=== PATIENT | male | born 1995 | race Caucasian/White ===

== ENCOUNTER 2016-07-04 15:40 | Emergency (ER) | payer MEDICAID, OTHER ==
[~2016-07-04] VITALS: Ht 182.9 cm; Wt 108.9 kg
[~2016-07-04 15:40] MED LIST: DEPA500T2 PO; NIZO2SHA EX; No home meds
[2016-07-04] MEDS ORDERED: WELLTAB38 PO (15:48)
[2016-07-04 18:54] VITALS: BP 116/57
--- NOTE | 2016-07-05 07:11 | REP ---
RIGHT FOOT, FOUR VIEWS: HISTORY: Pain. There is no acute fracture or dislocation. The joint spaces are normal in appearance. IMPRESSION: There is no acute fracture or dislocation. Signed by Guillaume Zavala MD 07/05/2016 08:26 A
== END 2016-07-04 18:55 | disposition home or self-care (01) ==
LOC: M ED 17:32
DX: M79.671 Pain in right foot (principal); F33.9 Major depressive disorder, recurrent, unspecified; J45.909 Unspecified asthma, uncomplicated

== ENCOUNTER → 2016-07-12 | Outpatient (CLI) | payer OTHER ==
[~2016-07-12] MED LIST changes: +WELLTAB38 PO
[2016-07-12 11:55] LABS: BASO # 0.1 K/mm3 (0.0-0.2); BASO % 1.1 % (0.0-1.0); EOS # 0.2 K/mm3 (0.0-0.50); EOS % 2.5 % (0.0-3.0); LYMPH # 1.8 K/mm3 (1.5-6.5); LYMPH % 26.8 % (24.0-44.0); MEAN CORPUSCULAR HGB CONC 33.7 g/dl (32.0-36.5); MEAN CORPUSCULAR VOLUME 88.9 fl (80.0-96.0); MONO # 0.4 K/mm3 (0.0-0.8); MONO % 7.2 % (0.0-5.0); NEUTROPHILS # 3.7 K/mm3 (1.8-7.7); NEUTROPHILS % 60.4 % (36.0-66.0); RED CELL DISTRIBUTION WIDTH 12.5 % (11.5-14.5); WHITE BLOOD COUNT 6.1 K/mm3 (4.0-10.0)
[2016-07-12 12:26] LABS: ALKALINE PHOSPHATASE 72 U/L (45-117); ALT/SGPT 28 U/L (12-78); ANION GAP 6 MEQ/L (8-16); AST/SGOT 19 U/L (15-37); BILIRUBIN,TOTAL 0.2 MG/DL (0.2-1.0); BLOOD UREA NITROGEN 11 MG/DL (7-18); CALCIUM LEVEL 8.6 MG/DL (8.5-10.1); CARBON DIOXIDE LEVEL 30 MEQ/L (21-32); CHLORIDE LEVEL 104 MEQ/L (98-107); CHOLESTEROL LEVEL 131 MG/DL (<200); CREATININE FOR GFR 0.93 MG/DL (0.70-1.30); GLOMERULAR FILTRATION RATE > 60.0 (>60); GLUCOSE, FASTING 102 MG/DL (70-105); POTASSIUM SERUM 4.2 MEQ/L (3.5-5.1); SODIUM LEVEL 140 MEQ/L (136-145); TRIGLYCERIDES LEVEL 118 MG/DL (<150)
[2016-07-12 12:27] LABS: ALBUMIN/GLOBULIN RATIO 1.25 (1.00-1.93); TOTAL PROTEIN 7.2 GM/DL (6.4-8.2)
== END ==
LOC: M LAB 11:00
PROVIDERS: ATTEND Nurse Practitioner Adult Health
DX: F41.9 Anxiety disorder, unspecified (principal); F31.9 Bipolar disorder, unspecified; E55.9 Vitamin D deficiency, unspecified; Z79.899 Other long term (current) drug therapy

== ENCOUNTER 2017-05-26 09:29 | Emergency (ER) | payer OTHER ==
[2017-05-26] MEDS: MECLIZINE 25 MG TABLET PO (10:45)
== END 2017-05-26 12:25 | disposition home or self-care (01) ==
LOC: M ED 09:29
DX: H81.393 Other peripheral vertigo, bilateral (principal); H65.03 Acute serous otitis media, bilateral; G43.909 Migraine, unspecified, not intractable, without status migrainosus
CPT/HCPCS: 70450

== ENCOUNTER 2017-09-25 17:19 | Emergency (ER) | payer OTHER | END 2017-09-25 18:20 | disposition home or self-care (01) | LOC: M ED 17:19 | DX: M25.512 Pain in left shoulder (principal); R20.9 Unspecified disturbances of skin sensation; F31.9 Bipolar disorder, unspecified; F17.210 Nicotine dependence, cigarettes, uncomplicated | CPT/HCPCS: 99282 ==

== ENCOUNTER 2018-03-24 06:55 | Emergency (ER) | payer OTHER ==
[~2018-03-24] VITALS: Ht 182.9 cm; Wt 111.4 kg
[~2018-03-24 06:55] MED LIST changes: +MECL1CHW2 PO; +SUDA1TAB3 PO
[2018-03-24] MEDS ORDERED: CLON-412 (07:02)
[2018-03-24] MEDS ORDERED: OXCA150T21 (07:02)
[2018-03-24] MEDS ORDERED: PANTOPRAZOLE 40MG INJ (PROTONIX) (C9113) IV ONE (07:45)
[2018-03-24] MEDS ORDERED: NS 1,000 ML IV ONE ×2 (07:45→10:30)
[2018-03-24 08:06] LABS: BASO # 0.1 10^3/uL (0.0-0.2); EOS # 0.4 10^3/uL (0.0-0.50); EOS % 4.2 % (0.0-3.0); HEMATOCRIT 43.5 % (42.0-52.0); HEMOGLOBIN 14.1 g/dl (13.5-17.5); LYMPH # 1.8 10^3/uL (1.5-6.5); LYMPH % 21.3 % (24.0-44.0); MEAN CORPUSCULAR HEMOGLOBIN 29.6 pg (27.0-33.0); MEAN CORPUSCULAR HGB CONC 32.4 g/dl (32.0-36.5); MEAN CORPUSCULAR VOLUME 91.4 fl (80.0-96.0); MONO # 0.6 10^3/uL (0.0-0.8); MONO % 7.3 % (0.0-5.0); NEUTROPHILS # 5.5 10^3/uL (1.8-7.7); NEUTROPHILS % 65.8 % (36.0-66.0); PLATELET COUNT, AUTOMATED 160 10^3/uL (150-450); RED BLOOD COUNT 4.76 10^6/uL (4.30-6.10); WHITE BLOOD COUNT 8.3 10^3/uL (4.0-10.0)
--- NOTE | 2018-03-24 08:10 | REP ---
Head CT without contrast: History: Injury in a fall. Comparison study: May 26, 2017. CT findings: Bone window settings demonstrate an intact bony calvarium. There is no evidence of skull fracture or incidental bony calvarial lesion. The visualized paranasal sinuses appear clear. No intraorbital abnormality is seen. On soft tissue window setting images; the lateral, third, and fourth ventricles are normal in size and position. Britton-white differentiation pattern is normal above and below the tentorium. There are is no evidence of intracranial hemorrhage. No mass, edema, infarction, or midline shift is seen. No extra-axial fluid collection is appreciated. Impression: Negative noncontrast head CT. Electronically Signed by Ranjan Wise MD 03/24/2018 08:01 A
[2018-03-24 08:52] LABS: ALBUMIN 4.2 GM/DL (3.2-5.2); ALT/SGPT 22 U/L (12-78); BILIRUBIN,DIRECT 0.1 MG/DL (0.0-0.2); BILIRUBIN,TOTAL 0.3 MG/DL (0.2-1.0); BLOOD UREA NITROGEN 7 MG/DL (7-18); CALCIUM LEVEL 8.7 MG/DL (8.5-10.1); CARBON DIOXIDE LEVEL 30 MEQ/L (21-32); CHLORIDE LEVEL 104 MEQ/L (98-107); CK-MB VALUE MASS < 1.0 NG/ML (<3.6); CPK CREATINE PHOSPHOKINASE 108 U/L (39-308); CREATININE FOR GFR 0.92 MG/DL (0.70-1.30); ETHYL ALCOHOL (ETHANOL) < 0.003 % (0.000-0.010); GLOMERULAR FILTRATION RATE > 60.0 (>60); GLUCOSE, FASTING 90 MG/DL (70-100); MB/CK RELATIVE INDEX 0.93 (< OR =4); SALICYLATE LEVEL 4.1 MG/DL (5.0-30.0); SODIUM LEVEL 140 MEQ/L (136-145); TOTAL PROTEIN 7.1 GM/DL (6.4-8.2); TROPONIN I < 0.02 NG/ML (< 0.10)
[2018-03-24 08:53] LABS: ACETAMINOPHEN LEVEL < 2.0 UG/ML (10.0-30.0)
[2018-03-24 09:05] LABS: AMPHETAMINES LEVEL URINE NEGATIVE (NEGATIVE); BARBITURATES URINE NEGATIVE (NEGATIVE); BENZODIAZEPINES URINE NEGATIVE (NEGATIVE); CANNABINOIDS URINE POSITIVE (NEGATIVE); COCAINE METABOLITE URINE NEGATIVE (NEGATIVE); METHADONE URINE NEGATIVE (NEGATIVE); OPIATES URINE NEGATIVE (NEGATIVE); PHENCYCLIDINE URINE NEGATIVE (NEGATIVE)
--- NOTE | 2018-03-24 09:40 | REP ---
Chest two views HISTORY: Abdominal pain Comparison: 11/02/2011 The lungs are clear. The heart is normal in size. The pulmonary vasculature is normal in appearance. The bony structure is intact. IMPRESSION: No acute disease. Electronically Signed by Guillaume Zavala MD 03/24/2018 09:32 A
[2018-03-24 09:43] LABS: FREE T4 0.79 NG/DL (0.76-1.46)
--- NOTE | 2018-03-24 10:05 | REP ---
KUB, ONE VIEW: HISTORY: Abdominal pain. A small amount of air is present in small and large intestine. There are no air fluid levels or dilated loops of intestine. There is no pneumoperitoneum. A mild amount of stool is present in the colon. IMPRESSION: Nonspecific bowel gas pattern. Electronically Signed by Guillaume Zavala MD 03/24/2018 10:15 A
--- NOTE | 2018-03-24 10:06 | REP ---
BILATERAL RIBS, FOUR VIEWS: HISTORY: Abdominal pain. The lungs are clear. The heart is normal in size. The pulmonary vasculature is normal in appearance. The bony structure is intact. IMPRESSION: No acute disease. Electronically Signed by Guillaume Zavala MD 03/24/2018 10:16 A
[2018-03-24] MEDS ORDERED: ISOVUE-370 76% 100ML VIAL (Q9967) As Ordered ONE (10:45)
--- NOTE | 2018-03-24 11:23 | REP ---
CT abdomen with IV but without oral contrast: History: Mid epigastric pain. Bloody stool. Comparison CT study: August 19, 2015. Contrast dose: 100 ml of intravenous Isovue 370. CT findings: Digital preliminary brass and wind instrument repairer radiograph is unremarkable. The lung bases are clear. There is mild diffuse fatty infiltration of the liver. The liver has a 16.6 cm midclavicular craniocaudal span which is near the upper range of normal. No focal liver lesion is seen. Spleen is homogeneous in texture and normal in size. No adrenal lesion is seen. No pancreatic abnormality is observed. Kidneys enhance symmetrically and are morphologically intact. No renal calculus or hydronephrosis is seen. Normal caliber aorta. No retroperitoneal mass or adenopathy is observed. There is a normal appendix is draped over the psoas muscle on the right medial to the cecum. Small and large intestinal bowel loops are unremarkable. The urinary bladder is somewhat distended but intact. Seminal vesicles and prostate are normal in appearance. No abdominal wall defect is seen. There is no evidence of obstruction or free air. This pull window settings show no bony destructive lesion. Impression: Fatty infiltration of the liver. Borderline liver size. Otherwise negative CT study abdomen and pelvis with contrast. Electronically Signed by Ranjan Wise MD 03/24/2018 11:14 A
[2018-03-24 12:47] VITALS: BP 132/75
[2018-03-25 15:16] LABS: Lyme Disease IgG/IgM Antibodie <0.91 ISR (0.00-0.90); Lyme Disease IgM Ab Quantitati <0.80 index (0.00-0.79)
--- NOTE | 2018-03-26 06:38 | ECGEPIP ---
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
== END 2018-03-24 13:03 | disposition home or self-care (01) ==
LOC: M ED 06:55
DX: R55 Syncope and collapse (principal); R00.1 Bradycardia, unspecified; F17.210 Nicotine dependence, cigarettes, uncomplicated; F12.20 Cannabis dependence, uncomplicated
CPT/HCPCS: 36415; 70450; 71046; 71110; 74018; 74177; 80053; 80307; 82248; 82550; 82553; 84439; 84443; 85025; 86617; 93005; 93041; 94760; 96361; 96374; 99285; C9113; G0480; Q9967

== ENCOUNTER 2018-04-04 18:45 | Emergency (ER) | payer OTHER ==
[~2018-04-04] VITALS: Ht 182.9 cm; Wt 110.0 kg
[~2018-04-04 18:45] MED LIST changes: +CLON-412; +OXCA150T21
[2018-04-04 19:44] LABS: BASO # 0.1 10^3/uL (0.0-0.2); BASO % 0.7 % (0.0-1.0); EOS # 0.1 10^3/uL (0.0-0.50); EOS % 1.3 % (0.0-3.0); HEMATOCRIT 42.3 % (42.0-52.0); HEMOGLOBIN 13.8 g/dl (13.5-17.5); LYMPH # 1.8 10^3/uL (1.5-6.5); LYMPH % 22.4 % (24.0-44.0); MEAN CORPUSCULAR HEMOGLOBIN 29.7 pg (27.0-33.0); MEAN CORPUSCULAR HGB CONC 32.6 g/dl (32.0-36.5); MEAN CORPUSCULAR VOLUME 91.2 fl (80.0-96.0); MONO # 0.5 10^3/uL (0.0-0.8); MONO % 6.6 % (0.0-5.0); NEUTROPHILS # 5.7 10^3/uL (1.8-7.7); NEUTROPHILS % 68.8 % (36.0-66.0); PLATELET COUNT, AUTOMATED 144 10^3/uL (150-450); RED BLOOD COUNT 4.64 10^6/uL (4.30-6.10); WHITE BLOOD COUNT 8.2 10^3/uL (4.0-10.0)
[2018-04-04 19:56] LABS: ALBUMIN 4.1 GM/DL (3.2-5.2); ALT/SGPT 19 U/L (12-78); BILIRUBIN,TOTAL 0.3 MG/DL (0.2-1.0); BLOOD UREA NITROGEN 7 MG/DL (7-18); CALCIUM LEVEL 8.8 MG/DL (8.5-10.1); CARBON DIOXIDE LEVEL 29 MEQ/L (21-32); CHLORIDE LEVEL 105 MEQ/L (98-107); GLOMERULAR FILTRATION RATE > 60.0 (>60); GLUCOSE, FASTING 94 MG/DL (70-100); POTASSIUM SERUM 4.3 MEQ/L (3.5-5.1); SODIUM LEVEL 140 MEQ/L (136-145); TOTAL PROTEIN 7.1 GM/DL (6.4-8.2)
[2018-04-04 20:09] VITALS: BP 116/70
[2018-04-04 20:57] LABS: AMPHETAMINES LEVEL URINE NEGATIVE (NEGATIVE); BARBITURATES URINE NEGATIVE (NEGATIVE); BENZODIAZEPINES URINE POSITIVE (NEGATIVE); CANNABINOIDS URINE POSITIVE (NEGATIVE); COCAINE METABOLITE URINE NEGATIVE (NEGATIVE); METHADONE URINE NEGATIVE (NEGATIVE); OPIATES URINE NEGATIVE (NEGATIVE); PHENCYCLIDINE URINE NEGATIVE (NEGATIVE)
--- NOTE | 2018-04-04 21:26 | ECGEPIP ---
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 : 1995 Requested By: IRINA VILLALTA Order Number: [id number] Reading MD: Luther Crum Measurements Intervals [place] Rate: 100 P: 21 NM: 166 QRS: 3 QRSD: 95 T: -1 QT: 347 QTc: 449 Interpretive Statements SINUS TACHYCARDIA NONSPECIFIC T-WAVE ABNORMALITY RATE CHANGE COMPARED TO 03/24/18 Electronically Signed On 04-04-2018 21:26:27 EST by Luther Crum
--- NOTE | 2018-04-04 21:46 | REPVR ---
EXAM: CT Head Without Contrast EXAM DATE/TIME: 04/04/2018 9:12 PM CLINICAL HISTORY: 22 years old, male; Signs and symptoms; Syncope and collapse; Additional info: Tr TECHNIQUE: Axial computed tomography images of the head/brain without contrast. All CT scans at this facility use at least one of these dose optimization techniques: automated exposure control; mA and/or kV adjustment per patient size (includes targeted exams where dose is matched to clinical indication); or iterative reconstruction. COMPARISON: CT Head without contrast 03/24/2018 7:46 AM FINDINGS: Brain: There is no evidence of infarct, teixeira-white matter differentiation is preserved. There is no hemorrhage or extra-axial collection. There is no mass. Ventricles: There is no hydrocephalus. Bones/joints: Normal. No acute fracture. Sinuses: Normal as visualized. No acute sinusitis. Mastoid air cells: Normal as visualized. No mastoid effusion. Soft tissues: Normal. IMPRESSION: No intracranial lesion or injury and no change from prior scan. Electronically signed by: Jairo Arreola On 04/04/2018 21:45:49 PM
--- NOTE | 2018-04-05 07:53 | REP ---
Clinical: Trauma. Technique: AP and lateral views of the left tibia / fibula. Findings: No acute fracture or dislocation. Skeletal structures, joint spaces, and surrounding soft tissues appear normal. Impression: No acute fracture or dislocation. Electronically Signed by Georgi Miranda MD 04/05/2018 07:45 A
--- NOTE | 2018-04-05 07:57 | REP ---
Clinical: Trauma with the left knee pain Technique: AP, lateral, bilateral oblique and sunrise views left knee. Findings: The osseous structures and joint spaces are intact and normal. There is no evidence for acute fracture or dislocation. No joint effusion is appreciated. Surrounding soft tissues are unremarkable. No subcutaneous emphysema or radiodense foreign body. Impression: No acute fracture or dislocation. Electronically Signed by Georgi Miranda MD 04/05/2018 07:49 A
--- NOTE | 2018-04-05 07:57 | REP ---
Clinical: Trauma. Technique: Frontal view of the chest with multiple views of the left hemithorax. Findings: Frontal view of the chest demonstrates no acute cardiopulmonary process. Multiple views of the left hemithorax demonstrates no obvious acute rib fracture or pathology. Impression: Normal left rib series Electronically Signed by Georgi Miranda MD 04/05/2018 07:48 A
== END 2018-04-04 23:19 | disposition home or self-care (01) ==
LOC: M ED 18:45 → EDBD 18:45 → M ED 23:19
DX: R55 Syncope and collapse (principal)

== ENCOUNTER 2018-09-10 18:21 | Emergency (ER) | payer OTHER ==
[~2018-09-10] VITALS: Ht 182.9 cm; Wt 93.2 kg
[~2018-09-10 18:21] MED LIST changes: +MECL1CHW PO; -MECL1CHW2 PO
[2018-09-10] MEDS ORDERED: NS 1,000 ML IV ONE (18:30)
[2018-09-10 18:55] LABS: BASO # 0.1 10^3/uL (0.0-0.2); BASO % 0.8 % (0.0-1.0); EOS # 0.1 10^3/uL (0.0-0.50); EOS % 1.3 % (0.0-3.0); HEMATOCRIT 45.2 % (42.0-52.0); HEMOGLOBIN 14.9 g/dl (13.5-17.5); LYMPH # 2.5 10^3/uL (1.5-6.5); LYMPH % 27.7 % (24.0-44.0); MEAN CORPUSCULAR HEMOGLOBIN 30.2 pg (27.0-33.0); MEAN CORPUSCULAR VOLUME 91.5 fl (80.0-96.0); MONO # 0.5 10^3/uL (0.0-0.8); MONO % 5.7 % (0.0-5.0); NEUTROPHILS # 5.8 10^3/uL (1.8-7.7); NEUTROPHILS % 64.1 % (36.0-66.0); PLATELET COUNT, AUTOMATED 181 10^3/uL (150-450); RED BLOOD COUNT 4.94 10^6/uL (4.30-6.10); WHITE BLOOD COUNT 9.1 10^3/uL (4.0-10.0)
[2018-09-10 19:12] LABS: BLOOD UREA NITROGEN 9 MG/DL (7-18); CALCIUM LEVEL 8.9 MG/DL (8.5-10.1); CARBON DIOXIDE LEVEL 28 MEQ/L (21-32); CHLORIDE LEVEL 110 MEQ/L (98-107); CREATININE FOR GFR 1.04 MG/DL (0.70-1.30); GLOMERULAR FILTRATION RATE > 60.0 (>60); GLUCOSE, FASTING 80 MG/DL (70-100); POTASSIUM SERUM 3.5 MEQ/L (3.5-5.1); SODIUM LEVEL 144 MEQ/L (136-145)
[2018-09-10] MEDS ORDERED: ACETAMINOPHEN TAB 650MG DOSE (2X325MG) PO ONE (19:45)
[2018-09-10 20:11] LABS: ETHYL ALCOHOL (ETHANOL) 0.143 % (0.000-0.010)
[2018-09-10 20:30] LABS: AMPHETAMINES LEVEL URINE NEGATIVE (NEGATIVE); BARBITURATES URINE NEGATIVE (NEGATIVE); BENZODIAZEPINES URINE NEGATIVE (NEGATIVE); CANNABINOIDS URINE POSITIVE (NEGATIVE); COCAINE METABOLITE URINE NEGATIVE (NEGATIVE); METHADONE URINE NEGATIVE (NEGATIVE); OPIATES URINE NEGATIVE (NEGATIVE); PHENCYCLIDINE URINE NEGATIVE (NEGATIVE)
--- NOTE | 2018-09-10 20:46 | REPVR ---
EXAM: CT Head Without Contrast EXAM DATE/TIME: 09/10/2018 8:08 PM CLINICAL HISTORY: 22 years old, male; Other: Sz TECHNIQUE: Imaging protocol: Axial computed tomography images of the head without contrast. Radiation optimization: All CT scans at this facility use at least one of these dose optimization techniques: automated exposure control; mA and/or kV adjustment per patient size (includes targeted exams where dose is matched to clinical indication); or iterative reconstruction. COMPARISON: CT Head without contrast 04/04/2018 9:05 PM FINDINGS: Brain: No intracranial mass, mass effect or midline shift. No acute intracranial hemorrhage. No CT evidence of acute cortical infarct. Ventricles: Ventricles, cisterns, and sulci are normal in size for age. Bones/joints: No calvarial fracture or destructive process. Sinuses: Imaged paranasal sinuses are clear. Mastoid air cells: Mastoid air cells are normally aerated. Orbits: Imaged orbits are unremarkable. Soft tissues: No focal extracranial soft tissue swelling. IMPRESSION: No acute or concerning focal intracranial abnormality. Electronically signed by: Miquel Smallwood On 09/10/2018 20:46:03 PM
[2018-09-10 21:22] VITALS: BP 122/76
--- NOTE | 2018-09-11 16:40 | ECGEPIP ---
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
== END 2018-09-10 21:24 | disposition home or self-care (01) ==
LOC: EDBD 18:21 → M ED 18:21
DX: F10.129 Alcohol abuse with intoxication, unspecified (principal); Z76.5 Malingerer [conscious simulation]; R00.0 Tachycardia, unspecified
CPT/HCPCS: 70450; 80048; 80307; 83605; 85025; 93005; 99284; G0480

== ENCOUNTER 2018-10-22 11:41 | Emergency (ER) | payer OTHER ==
[~2018-10-22] VITALS: Ht 182.9 cm; Wt 100.7 kg
[2018-10-22 11:41] VITALS: BP 110/56
== END 2018-10-22 13:04 | disposition left against medical advice (07) ==
LOC: M ED 11:41
DX: Z53.21 Procedure and treatment not carried out due to patient leaving prior to being seen by health care provider (principal)

== ENCOUNTER → 2019-01-24 | Outpatient (CLI) | payer MEDICAID | LOC: M OUTALCOH 08:00 | PROVIDERS: ATTEND Psychiatry & Neurology Psychiatry | DX: Z13.39 Encounter for screening examination for other mental health and behavioral disorders (principal); F12.10 Cannabis abuse, uncomplicated ==

== ENCOUNTER 2019-02-08 12:02 | Emergency (ER) | payer MEDICAID, OTHER ==
[~2019-02-08] VITALS: Ht 182.9 cm; Wt 109.9 kg
--- NOTE | 2019-02-08 13:44 | REP ---
Single view chest: 02/08/2019. Indication: Chest pain. Comparison: 03/24/2018. Findings: The lungs are clear. There is no pleural effusion or pneumothorax. The cardiomediastinal silhouette is unremarkable. Impression: No acute cardiopulmonary process. Electronically Signed by Ayo Comer DO 02/08/2019 01:35 P
[2019-02-08 13:54] LABS: BASO # 0.1 10^3/uL (0.0-0.2); BASO % 0.7 % (0.0-1.0); EOS % 0.4 % (0.0-3.0); HEMATOCRIT 46.4 % (42.0-52.0); LYMPH # 1.4 10^3/uL (1.5-5.0); LYMPH % 16.5 % (24.0-44.0); MEAN CORPUSCULAR HEMOGLOBIN 29.5 pg (27.0-33.0); MEAN CORPUSCULAR HGB CONC 32.3 g/dl (32.0-36.5); MEAN CORPUSCULAR VOLUME 91.3 fl (80.0-96.0); MONO # 0.5 10^3/uL (0.0-0.8); MONO % 5.7 % (0.0-5.0); NEUTROPHILS # 6.3 10^3/uL (1.5-8.5); NEUTROPHILS % 76.5 % (36.0-66.0); PLATELET COUNT, AUTOMATED 166 10^3/uL (150-450); RED BLOOD COUNT 5.08 10^6/uL (4.30-6.10); WHITE BLOOD COUNT 8.3 10^3/uL (4.0-10.0)
[2019-02-08 14:33] LABS: BLOOD UREA NITROGEN 14 MG/DL (7-18); CALCIUM LEVEL 9.1 MG/DL (8.5-10.1); CARBON DIOXIDE LEVEL 29 MEQ/L (21-32); CHLORIDE LEVEL 108 MEQ/L (98-107); CK-MB VALUE MASS < 1.0 NG/ML (<3.6); CPK CREATINE PHOSPHOKINASE 224 U/L (39-308); GLOMERULAR FILTRATION RATE > 60.0 (>60); GLUCOSE, FASTING 100 MG/DL (70-100); MB/CK RELATIVE INDEX 0.45 (< OR =4); POTASSIUM SERUM 3.7 MEQ/L (3.5-5.1); SODIUM LEVEL 140 MEQ/L (136-145); TROPONIN I < 0.02 NG/ML (< 0.10)
[2019-02-08 15:42] VITALS: BP 135/81
--- NOTE | 2019-02-08 18:16 | ECGEPIP ---
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 Order Number: [id number] Reading MD: Luther Crum Measurements Intervals [place] Rate: 57 P: 24 ND: 167 QRS: 0 QRSD: 105 T: -31 QT: 405 QTc: 395 Interpretive Statements SINUS BRADYCARDIA WITH MARKED SINUS ARRHYTHMIA NONSPECIFIC T-WAVE ABNORMALITY RATE CHANGE COMPARED TO 09/10/18 Electronically Signed on 02-08-2019 18:15:42 EST by Luther Crum
== END 2019-02-08 15:40 | disposition home or self-care (01) ==
LOC: M ED 12:02
DX: R00.1 Bradycardia, unspecified (principal); F17.200 Nicotine dependence, unspecified, uncomplicated

== ENCOUNTER → 2020-06-20 | Outpatient (REF) | payer OTHER ==
[2020-06-20 16:01] LABS: BASO # 0.1 10^3/uL (0.0-0.2); EOS # 0.3 10^3/uL (0.0-0.5); HEMOGLOBIN 14.1 g/dl (13.5-17.5); LYMPH # 2.3 10^3/uL (1.5-5.0); LYMPH % 34.2 % (24.0-44.0); MEAN CORPUSCULAR VOLUME 93.4 fl (80.0-96.0); MONO # 0.4 10^3/uL (0.0-0.8); MONO % 5.7 % (2.0-8.0); NEUTROPHILS # 3.6 10^3/uL (1.5-8.5); NEUTROPHILS % 52.3 % (36.0-66.0); PLATELET COUNT, AUTOMATED 203 10^3/uL (150-450); RED BLOOD COUNT 5.03 10^6/uL (4.30-6.10); WHITE BLOOD COUNT 6.9 10^3/uL (4.0-10.0)
[2020-06-20 16:35] LABS: ALT/SGPT 43 U/L (12-78); BILIRUBIN,TOTAL 0.2 MG/DL (0.2-1.0); BLOOD UREA NITROGEN 13 MG/DL (7-18); CALCIUM LEVEL 9.2 MG/DL (8.5-10.1); CARBON DIOXIDE LEVEL 26 MEQ/L (21-32); CHLORIDE LEVEL 109 MEQ/L (98-107); CHOLESTEROL LEVEL 153 MG/DL (<200); CREATININE FOR GFR 0.92 MG/DL (0.70-1.30); GLOMERULAR FILTRATION RATE > 60.0 (>60); GLUCOSE, FASTING 113 MG/DL (70-100); HDL CHOLESTEROL 36 MG/DL (>40); IRON (FE) 40 UG/DL (65-175); LDL CHOLESTEROL 82 MG/DL (<100); NON-HDL-C 117 MG/DL; PERCENT SATURATION 14.9 % (19.7-50.0); SODIUM LEVEL 142 MEQ/L (136-145); TOTAL IRON BINDING CAPACITY 269 UG/DL (250-450); TOTAL PROTEIN 7.6 GM/DL (6.4-8.2); TRIGLYCERIDES LEVEL 176 MG/DL (<150)
[2020-06-20 19:51] LABS: HEMOGLOBIN A1c 5.5 %
== END ==
LOC: M LAB REF 15:37
PROVIDERS: ATTEND Physician Assistant
DX: Z13.228 Encounter for screening for other metabolic disorders (principal); R42 Dizziness and giddiness; Z13.220 Encounter for screening for lipoid disorders

== ENCOUNTER 2021-02-09 11:11 | Emergency (ER) | payer OTHER ==
[~2021-02-09] VITALS: Ht 182.9 cm; Wt 135.7 kg
--- OUTSIDE RECORDS SUMMARY | 2021-02-09 11:20 | CCD ---
Author Organization Unknown Address [address] [place] [address] Phone [phone] Care Team Providers Care Headend Technician Name Role Phone Rafat Cortez Christa Unavailable Unavailable Allergies Code Code System Name Reaction Severity Status Onset NKDA Medications Name Status Start Date Stop Date azithromycin 250 mg tablet Completed 02/13 dicyclomine 20 mg tablet TAKE ONE TABLET BY MOUTH THREE TIMES A DAY BEFORE MEALS Active Not available hydroxyzine HCl 50 mg tablet TAKE ONE TABLET BY MOUTH EVERY DAY 30 MINUTES BEFORE BED Active Not available metronidazole 500 mg tablet Completed 02/04 omeprazole 40 mg capsule,delayed release TAKE ONE CAPSULE BY MOUTH EVERY MORNING Active Not available polyethylene glycol 3350 17 gram/dose oral powder Active Not available sumatriptan 50 mg tablet Completed 020 topiramate 25 mg tablet Completed 02/14/20 Problems Name Status Onset Date Source Bipolar Disorder Unknown 04/12/2018 History Backache Active 04/12/2018 History Syncope and Collapse Active 04/12/2018 History Dizziness and Giddiness Active 04/12/2018 History Memory Finding Active 04/12/2018 History Emotional State Finding Active 04/12/2018 History Cardiovascular Measurement - Finding Active 04/12/2018 History Abdominal Pain Active 09/25/[address] Concept Unknown 09/25/2018 History Posttraumatic Stress Disorder Unknown 12/21/2018 Hi story Finding of Lower Limb Active 06/27/2019 History Intermittent Explosive Disorder Active 06/28/2019 History Disorder of Bone Active 07/10/2019 History Dysthymia Active 07/11/2019 History Vomiting Active 02/21/2020 Anxiety Disorder Unknown 07/29/2020 Social Phobia Active 11/24/2020 Procedures Date Name Performed by 04/29/2020 XR, Thoracic Spine, 2 View [facility] [address] [place], [place] [id number] (Work Place) Notes: No known surgical history Results Lab Results Date Name Specimen Result Interpretation Description Value Range Status Address 06/20/2020 CBC W/ Auto Diff Blood venous Normal White Blood C ount 6.9 10 4.0-10.0 10 [facility]: [address] [facility] Blood venous Normal Red Blood Count 5.03 10 4.30- 6.10 10 [facility]: [address] [facility] Blood venous Normal Hemoglobin 14.1 g/dL 13.5-17. 5 g/dL [facility]: [address] [place] [address] Blood venous Normal Hematocrit 47.0 % 42.0-52.0 % [facility]: [address] [place] [address] Blood venous Normal Mean Corpuscular Volume 93.4 fL 80.0-96.0 fL [facility]: [address] [place] [address] Blood venous Normal Mean Corpuscular Hemoglob in 28.0 pg 27.0-33.0 pg [facility]: [address] [place] [address] Blood venous Low Mean Corpuscular HGB Conc 30.0 g/dL 32.0-36.5 g/dL [facility]: [address] [place] [address] Blood venous High Red Cell Distribution Width 1 7.9 % 11.5-14.5 % [facility]: [address] [place] [address] Blood venous Normal Platelet Count, Automated 203 10 150-450 10 [facility]: [address] [facility] Blood venous Normal Neutrophils % 52.3 % 36.0-66. 0 % [facility]: [address] [facility] Blood venous Normal Lymph % 34.2 % 24.0-44.0 % [facility]: [address] [facility] Blood venous Normal Cotton % 5.7 % 2.0-8.0 % [facility]: [address] [place] [address] Blood venous High Eos % 5.0 % 0.0-3.0 % [facility]: [address] [place] [address] Blood venous Normal Baso % 1.0 % 0.0-1.0 % [facility]: [address] [place] [address] Blood venous Normal Immature Granulocyte % 1.8 % 0-3.0 % [facility]: [address] [place] [address] Blood venous Normal Nucleated Red Blood Cell % 0. 0 % 0-0 % [facility]: [address] [place] [address] Blood venous Normal Neutrophils # 3.6 10 1.5-8.5 10 [facility]: [address] [place] [address] Blood venous Normal Lymph # 2.3 10 1.5-5.0 10 [facility]: [address] [place] [address] Blood venous Normal Cotton # 0.4 10 0.0-0.8 10 [facility]: [address] [place] [address] Blood venous Normal Eos # 0.3 10 0.0-0.5 10 [facility]: [address] [place] [address] Blood venous Normal Baso # 0.1 10 0.0-0.2 10 [facility]: [address] [place] [address] 06/20/2020 CMP, Serum or Plasma Blood venous High Glu cose, Fasting 113 mg/dL 70-100 mg/dL [facility] nter: [address] [place] [address] Blood venous Normal Blood Urea Nitrogen 13 mg/dL 7-18 mg/dL [facility]: [address] [place] [address] Blood venous Normal Creatinine for GFR 0.92 mg/dL 0.70-1.30 mg/dL [facility]: [address] [place] [address] Blood venous Normal Glomerular Filtration Rate > 60.0 >60 [facility]: [address] [place] [address] Blood venous Normal Sodium Level 142 mEq/L 136-14 5 mEq/L [facility]: [address] [place] [address] Blood venous Normal Potassium Serum 4.0 mEq/L 3.5 -5.1 mEq/L [facility]: [address] [place] [address] Blood venous High Chloride Level 109 mEq/L 98-1 07 mEq/L [facility]: [address] [place] [address] Blood venous Normal Carbon Dioxide Level 26 mEq/L 21-32 mEq/L [facility]: [address] [facility] Blood venous Low Anion Gap 7 mEq/L 8-16 mEq/L [facility]: [address] [facility] Blood venous Normal Calcium Level 9.2 mg/dL 8.5-1 0.1 mg/dL [facility]: [address] [facility] Blood venous Normal AST/SGOT 24 U/L 7-37 U/L Taina l [facility]: [address] [facility] Blood venous Normal ALT/SGPT 43 U/L 12-78 U/L [facility]: [address] [facility] Blood venous Normal Alkaline Phosphatase 85 U/L 4 5-117 U/L [facility]: [address] [facility] Blood venous Normal Bilirubin,total 0.2 mg/dL 0.2 -1.0 mg/dL [facility]: [address] [facility] Blood venous Normal Total Protein 7.6 gm/dL 6.4-8 .2 gm/dL [facility]: [address] [facility] Blood venous Normal Albumin 4.0 gm/dL 3.2-5.2 gm/ dL [facility]: [address] [facility] Blood venous Normal Albumin/globulin Ratio 1.1 [facility]: [address] [facility] 06/20/2020 Lipid Panel, Blood High Triglycerides Lev el 176 mg/dL <150 mg/dL [facility]: [address] 0 [facility] Normal Cholesterol Level 153 mg/dL <200 mg/ dL [facility]: [address] [facility] Low HDL Cholesterol 36 mg/dL >40 mg/dL F inal [facility]: [address] [facility] Normal LDL Cholesterol 82 mg/dL <100 mg/dL [facility]: [address] [facility] Normal Non-hdl-c 117 mg/dL [facility]: [address] [facility] Normal Cholesterol Risk Ratio 4.250 <5 [facility]: [address] [facility] 06/20/2020 TIBC (Total Iron-binding Capacity), Serum Low Iron (Fe) 40 ug/dL 65-175 ug/dL [facility] nter: 0 [facility] Normal Total Iron Binding Capacity 269 ug/d L 250-450 ug/dL Final [facility]: [address] [place] [address] Low Percent Saturation 14.9 % 19.7-50.0 % Final [facility]: [address] [place] [address] 06/20/2020 TSH, Serum or Plasma Blood venous Normal Thyroid Stimulating Hormone 2.220 uIU/mL 0.358-3.740 uIU/mL Final [facility]: [address] [place] [address] 06/20/2020 HbA1C (Hemoglobin a1C), Blood Normal Hemogl obin a1C 5.5 % Final [facility]: [address] [place] [address] High Estimated Average Glucose 111 mg/dL 60-110 mg/dL Final [facility]: 0 [facility] Past Encounters 11/24/2020 Dysthymia; Social Phobia [facility] [address], [place] [address], Ph. 11/06/2020 Dysthymia Andreia Carmichael [facility]: [address], [place] [address], Ph. 10/29/2020 Dysthymia Andreia Carmichael [facility]: [address], [place] [address], Ph. 10/15/2020 Dysthymia Andreia Carmichael [facility]: [address], [place] [address], Ph. 10/06/2020 Dysthymia; Intermittent Explosive Disorder Andreia Carmichael [facility]: [address] [facility] [facility] [address], [place] [address], Ph. 09/29/2020 Dysthymia Andreia Carmichael [facility]: [address], [place] [address], Ph. 08/19/2020 Intermittent Explosive Disorder; Dysthymia Andreia Carmichael [facility]: [address], [place] [address], Ph. 08/07/2020 Anxiety Disorder; Dysthymia Andreia Carmichael [facility]: [address], [place] [address], Ph. 08/05/2020 Rafat Cortez RPA-C: [address], [place] [address], Ph. 07/28/2020 Intermittent Explosive Disorder; Anxiety Disorder; Dysthymia Andreia Carmichael [facility]: [address], [place] [address], Ph. 07/21/2020 Dysthymia; Intermittent Explosive Disorder Andreia Carmichael [facility]: [address], [place] [address], Ph. 06/20/2020 Endocrine/metabolic Screening; Dizziness; Hyperlipidemia Screening PETEY PerezC: [address], [place] [address], Ph. 06/10/2020 Dizziness and Giddiness; Gastroesophageal Reflux Disease Lora Wick MD: [address], [place] [address], Ph. 04/29/2020 Adult Health Examination; Hematochezia; Dizziness; Dysthymia; Psychophysiologic Insomnia; Hyperlipidemia Screening; Endocrine/metabolic Screening; Thoracic Back Pain; Simple Obesity Lesia Alberto PA-C: [address], [place] [address], Ph. 04/03/2020 Intermittent Explosive Disorder; Dysthymia Andreia Carmichael [facility]: [address], [place] [address], Ph. 03/25/2020 Dysthymia; Intermittent Explosive Disorder Andreia Carmichael LMSW: [address], [place] [address], Ph. 03/13/2020 Dysthymia Andreia Carmichael LMSW: [address], [place] [address], Ph. 02/26/2020 Dysthymia Andreia Carmichael LMSW: [address], [place] [address], Ph. 02/14/2020 Vomiting; Diarrhea; Blood-tinged Feces; Family History of Crohn's Disease; Synovial Osteochondromatosis of Knee Rafat Cortez RPA-C: [address], [place] [address], Ph. 02/13/2020 Posttraumatic Stress Disorder; Intermittent Explosive Disorder Andreia Carmichael [facility]: [address], [place] [address], Ph. 02/04/2020 Dysthymia; Intermittent Explosive Disorder Andreia Carmichael [facility]: [address], [place] [address], Ph. 01/17/2020 Intermittent Explosive Disorder; Posttraumatic Stress Disorder; Dysthymia Andreia Carmichael [facility]: [address], [place] [address], Ph. 01/01/2020 Intermittent Explosive Disorder Andreia Carmichael [facility]: [address], [place] [address], Ph. Social History Tobacco Smoking Status Heavy Tobacco Smoker (1/2 pack per a day) Vaccine List None recorded. Plan of Care Reminders Provider Appointments None recorded. Lab None recorded. Referral None recorded. Procedures None recorded. Surgeries None recorded. Imaging None recorded. Vitals 06/10/2020 01:00PM TELEHEALTH 20 Height 72 in 04/29/2020 01:30PM ANNUAL EXAM Height Weight BMI Blood Pressure 72 in 304 lbs 16 oz 41.4 kg/m2 121/86 mm[Hg] 06/27/2019 Height Weight BMI Blood Pressure 72 in 234 lbs 8 oz 31.92 kg/m2 122/72 mm[Hg] 09/25/2018 Height Weight BMI Blood Pressure 72 in 207 lbs 6.4 oz 28.23 kg/m2 110/66 mm[Hg ] 04/12/2018 Height Weight BMI Blood Pressure 72 in 223 lbs 30.35 kg/m2 119/75 mm[Hg]
--- OUTSIDE RECORDS SUMMARY | 2021-02-09 11:20 | CCD | Continuity of Care Document ---
Author Author Milan BRENNAN [place] Organization Unknown Address [address] [place] [address] Phone [phone] Care Team Providers Care Warehouse Distribution Specialist Name Role Phone [facility] AUTM [phone] Problems Description No Information Available Social History Type Date Description Comments Sex Unknown Allergies, Adverse Reactions, Alerts Description No Information Available Medications Description No Information Available Immunizations Description No Information Available Vital Signs Description No Information Available Results Description No Information Available Procedures Description No Information Available Medical Devices Description No Information Available Encounters Description No Information Available Assessments Description No Information Available Plan of Treatment No Information Available Functional Status Description No Information Available Mental Status Description No Information Available Referrals Description No Information Available
--- OUTSIDE RECORDS SUMMARY | 2021-02-09 11:20 | CCD | Continuity of Care Document ---
Author Author Milan JOHNSON Organization Unknown Address [address] [place] [address] [place] [address] Phone [phone] Care Team Providers Care Mortgage Originator Name Role Phone [facility] [phone] Problems Description No Information Available Social History Type Date Description Comments Sex Unknown Allergies and adverse reactions Description No Information Available Medications Description No Information Available Immunizations Description No Information Available Vital Signs Description No Information Available Results Description No Information Available Procedures Description No Information Available Medical Devices Description No Information Available Encounters Description No Information Available Assessments Date Code Description Provider 01/19/2021 U07.1 Covid-19 Rich jane PGaro 12/09/2020 Z20.828 Contact with and (an spected) exposure to other viral communicable diseases CONI Sellers Plan of Treatment No Information Available Functional Status Description No Information Available Mental Status Description No Information Available Referrals Description No Information Available
--- OUTSIDE RECORDS SUMMARY | 2021-02-09 11:20 | CCD | Continuity of Care Document ---
Author Author Milan BRENNAN Organization Unknown Address [address] [place] [address] [place] [address] Phone [phone] Care Team Providers Care Muffler Mechanic Name Role Phone [facility] [phone] Problems Description No Information Available Social History Type Date Description Comments Sex Unknown Allergies, Adverse Reactions, Alerts Description No Information Available Medications Description No Information Available Immunizations Description No Information Available Vital Signs Description No Information Available Results Description No Information Available Procedures Description No Information Available Medical Devices Description No Information Available Encounters Description No Information Available Assessments Date Code Description Provider 12/09/2020 Z20.828 Contact with and (an spected) exposure to other viral communicable diseases CONI Sellers Plan of Treatment No Information Available Functional Status Description No Information Available Mental Status Description No Information Available Referrals Description No Information Available
--- OUTSIDE RECORDS SUMMARY | 2021-02-09 11:20 | CCD ---
Author Organization Unknown Address [address] [place] [address] Phone [phone] Care Team Providers Care Lead Customer Service Representative Name Role Phone Rafat Cortez Christa Unavailable Unavailable Allergies Code Code System Name Reaction Severity Status Onset 20340909 RxNorm Claritin Itching Active Medications Name Status Start Date Stop Date azithromycin 250 mg tablet Completed 02/13 cetirizine 10 mg tablet TAKE ONE TABLET BY MOUTH DAILY Active Not avai lable dicyclomine 20 mg tablet TAKE ONE TABET BY MOUTH THREE TIMES A DAY BEFORE MEALS Active Not available fluticasone propionate 50 mcg/actuation nasal spray,suspension SPRAY 1 SPRAY IN EACH NOSTRIL ONCE DAILY Active Not available hydroxyzine HCl 50 mg tablet TAKE ONE TABLET BY MOUTH EVERY DAY 30 MINUTES BEFORE BED Completed 11/26/2020 metronidazole 500 mg tablet Completed 02/04 omeprazole 40 mg capsule,delayed release TAKE ONE CAPSULE BY MOUTH EVERY MORNING Completed 11/26/2020 polyethylene glycol 3350 17 gram/dose or al powder TAKE 1 SCOOP WITH 8OZ OF LIQUID ONCE DAILY NEEDED Active Not available sumatriptan 50 mg tablet Completed 020 topiramate 25 mg tablet Completed 02/14/20 20 Problems Name Status Onset Date Source Bipolar [...] History Intermittent Explosive Disorder Active 06/28/2019 History Finding of Bone of Lower Limb Active 07/10/2019 Hi story Dysthymia Active 07/11/2019 History Vomiting Active 02/21/2020 Anxiety Disorder Unknown 07/29/2020 Social Phobia Active 11/24/2020 Procedures Date Name Performed by 04/29/2020 XR, Thoracic Spine, 2 View [facility] [address] [place] [address] (Work Place) Notes: No known surgical history Results Lab Results Date Name Specimen Result Interpretation Description Value Range Status Address 06/20/2020 CBC W/ Auto Diff Blood venous Normal White Blood C ount 6.9 10 4.0-10.0 10 [facility]: [facility] Blood venous Normal Red Blood Count 5.03 10 4.30- 6.10 10 [facility]: [address] [place] [address] Blood venous Normal Hemoglobin 14.1 g/dL 13.5-17. 5 g/dL [facility]: [address] [place] [address] Blood venous Normal Hematocrit 47.0 % 42.0-52.0 % [facility]: [address] [place] [address] Blood venous Normal Mean Corpuscular Volume 93.4 fL 80.0-96.0 fL [facility]: [address] [place] [address] Blood venous Normal Mean Corpuscular Hemoglob in 28.0 pg 27.0-33.0 pg [facility]: [address] [place] [address] Blood venous Low Mean Corpuscular HGB Conc 30.0 g/dL 32.0-36.5 g/dL [facility]: [address] [place] [address] Blood venous High Red Cell Distribution Width 1 7.9 % 11.5-14.5 % [facility]: [address] [place] [address] Blood venous Normal Platelet Count, Automated 203 10 150-450 10 [facility]: 0 [facility] Blood venous Normal Neutrophils % 52.3 % 36.0-66. 0 % [facility]: [address] [place] [address] Blood venous Normal Lymph % 34.2 % 24.0-44.0 % [facility]: [address] [place] [address] Blood venous Normal [place] % 5.7 % 2.0-8.0 % [facility]: [address] [place] [address] Blood venous High Eos % 5.0 % 0.0-3.0 % [facility]: [address] [place] [address] Blood venous Normal Baso % 1.0 % 0.0-1.0 % [facility]: [address] [place] [address] Blood venous Normal Immature Granulocyte % 1.8 % 0-3.0 % [facility]: [address] [place] [address] Blood venous Normal Nucleated Red Blood Cell % 0. 0 % 0-0 % [facility]: [address] [place] [address] Blood venous Normal Neutrophils # 3.6 10 1.5-8.5 10 [facility]: [address] [place] [address] Blood venous Normal Lymph # 2.3 10 1.5-5.0 10 [facility]: [address] [place] [address] Blood venous Normal [place] # 0.4 10 0.0-0.8 10 [facility]: [address] [place] [address] Blood venous Normal Eos # 0.3 10 0.0-0.5 10 [facility]: [address] [place] [address] Blood venous Normal Baso # 0.1 10 0.0-0.2 10 [facility]: [address] [place] [address] 06/20/2020 CMP, Serum or Plasma Blood venous High Glu cose, Fasting 113 mg/dL 70-100 mg/dL [facility]: [address] [place] [address] Blood venous Normal Blood Urea Nitrogen 13 mg/dL 7-18 mg/dL [facility]: [address] [place] [address] Blood venous Normal Creatinine for GFR 0.92 mg/dL 0.70-1.30 mg/dL [facility]: [address] [place] [address] Blood venous Normal Glomerular Filtration Rate > 60.0 >60 [facility]: [address] [place] [address] Blood venous Normal Sodium Level 142 mEq/L 136-14 5 mEq/L [facility]: [address] [place] [address] Blood venous Normal Potassium Serum 4.0 mEq/L 3.5 -5.1 mEq/L [facility]: [address] [facility] Blood venous High Chloride Level 109 mEq/L 98-1 07 mEq/L [facility]: [address] [facility] Blood venous Normal Carbon Dioxide Level 26 mEq/L 21-32 mEq/L [facility]: [address] [facility] Blood venous Low Anion Gap 7 mEq/L 8-16 mEq/L [facility]: [address] [facility] Blood venous Normal Calcium Level 9.2 mg/dL 8.5-1 0.1 mg/dL [facility]: [address] [facility] Blood venous Normal AST/SGOT 24 U/L 7-37 U/L [facility]: [address] [facility] Blood venous Normal ALT/SGPT 43 U/L 12-78 U/L [facility]: [address] [facility] Blood venous Normal Alkaline Phosphatase 85 U/L 4 5-117 U/L [facility]: [address] [facility] Blood venous Normal Bilirubin,total 0.2 mg/dL 0.2 -1.0 mg/dL [facility]: [address] [facility] Blood venous Normal Total Protein 7.6 gm/dL 6.4-8 .2 gm/dL [facility]: [address] [facility] Blood venous Normal Albumin 4.0 gm/dL 3.2-5.2 gm/ dL [facility]: [address] [facility] Blood venous Normal Albumin/globulin Ratio 1.1 [facility]: [address] [facility] 06/20/2020 Lipid Panel, Blood High Triglycerides Lev el 176 mg/dL <150 mg/dL [facility]: [address] [facility] Normal Cholesterol Level 153 mg/dL <200 mg/ dL [facility]: [address] [facility] Low HDL Cholesterol 36 mg/dL >40 mg/dL F inal [facility]: [address] [facility] Normal LDL Cholesterol 82 mg/dL <100 mg/dL Final [facility]: [address] [place] [address] Normal Non-hdl-c 117 mg/dL Final [facility]: [address] [place] [address] Normal Cholesterol Risk Ratio 4.250 <5 Final [facility]: [address] [place] [address] 06/20/2020 TIBC (Total Iron-binding Capacity), Serum Low Iron (Fe) 40 ug/dL 65-175 ug/dL [facility]: [address] [place] [address] Normal Total Iron Binding Capacity 269 ug/d L 250-450 ug/dL [facility]: [address] [place] [address] Low Percent Saturation 14.9 % 19.7-50.0 % [facility]: [address] [place] [address] 06/20/2020 TSH, Serum or Plasma Blood venous Normal Thyroid Stimulating Hormone 2.220 uIU/mL 0.358-3.740 uIU/mL [facility]: [address] [place] [address] 06/20/2020 HbA1C (Hemoglobin a1C), Blood Normal Hemogl obin a1C 5.5 % [facility]: [address] [place] [address] High Estimated Average Glucose 111 mg/dL 60-110 mg/dL [facility]: [address] [place] [address] Past Encounters 11/26/2020 Allergic Rhinitis; Vomiting; Constipation; Tobacco Dependence Caused by Cigarettes; Obesity Rafat Cortez, RPA-C: [address] [facility] [address] [address], Ph. 11/24/2020 Dysthymia; Social Phobia Andreia Carmichael, [facility]: [address] [facility] [address] [address], Ph. 11/06/2020 Dysthymia Andreia Carmichael [facility]: [address] [facility] [address] [address], Ph. 10/29/2020 Dysthymia Andreia Hornerkathleen, [facility]: [address] [facility] [address], [place] [address], Ph. 10/15/2020 Dysthymia Andreia Carmichael [facility]: [address], [place] [address], Ph. 10/06/2020 Dysthymia; Intermittent Explosive Disorder Andreia Carmichael [facility]: [address], [place] [address], Ph. 09/29/2020 Dysthymia Andreia Carmichael [facility]: [address], [place] [address], Ph. 08/19/2020 Intermittent Explosive Disorder; Yared Carmichael [facility]: [address], [facility] [address], [place] [address], Ph. 08/07/2020 Anxiety Disorder; Raymondhytello Carmichael [facility]: [address], [place] [address], Ph. 07/28/2020 Intermittent Explosive Disorder; Anxiety Disorder; Yared Carmichael [facility]: [address], [place] [address], Ph. 07/21/2020 Dysthymia; Intermittent Explosive Disorder Andreia Carmichael [facility]: [address], [place] [address], Ph. 06/20/2020 Endocrine/metabolic Screening; Dizziness; Hyperlipidemia Screening CAMPBELL Perez: [address], [place] [address], Ph. 06/10/2020 Dizziness and Giddiness; Gastroesophageal Reflux Disease Lora Wick MD: [address], [place] [address], Ph. 04/29/2020 Adult Health Examination; Hematochezia; Dizziness; Dysthymia; Psychophysiologic Insomnia; Hyperlipidemia Screening; Endocrine/metabolic Screening; Thoracic Back Pain; Simple Obesity Lesia Alberto PA-C: [address], [place] [address], Ph. 04/03/2020 Intermittent Explosive Disorder; Dysthymia Andreia Carmichael [facility]: [address], [place] [address], Ph. 03/25/2020 Dysthymia; Intermittent Explosive Disorder Andreia Carmichael LMSW: [address], [place] [address], Ph. 03/13/2020 Dysthymia Andreia Carmichael [facility]: [address], [place] [address], Ph. 02/26/2020 Dysthymia Andreia Carmichael LMSW: [address], [place] [address], Ph. 02/14/2020 Vomiting; Diarrhea; Blood-tinged Feces; Family History of Crohn's Disease; Synovial Osteochondromatosis of Knee CAMPBELL Powers: [address], [place] [address], Ph. 02/13/2020 Posttraumatic Stress Disorder; Intermittent Explosive Disorder Andreia Carmichael LMSW: [address], [place] [address], Ph. 02/04/2020 Dysthymia; Intermittent Explosive Disorder Andreia Carmichael LMSW: [address], [place] [address], Ph. 01/17/2020 Intermittent Explosive Disorder; Posttraumatic Stress Disorder; Dysthymia Andreia Carmichael LMSW: [address], [place] [address], Ph. 01/01/2020 Intermittent Explosive Disorder Andreia Carmichael LMSW: [address] [facility] [address], [place] [address], Ph. Social History Tobacco Smoking Status Heavy Tobacco Smoker (1/2 pack per a day) Vaccine List None recorded. Plan of Care Reminders Provider Appointments None recorded. Lab None recorded. Referral None recorded. Procedures None recorded. Surgeries None recorded. Imaging None recorded. Vitals 11/26/2020 02:00PM ESTABLISHED [id number] Height Weight BMI Blood Pressure 72 in 296 lbs 4 oz 40.2 kg/m2 125/83 mm[Hg] 06/10/2020 01:00PM TELEHEALTH 20 Height 72 in [...]
--- OUTSIDE RECORDS SUMMARY | 2021-02-09 11:20 | CCD ---
Author Organization Unknown Address [address] [place] [address] Phone [phone] Care Team Providers Care Power Marketer Name Role Phone Rafat Cortez Christa Unavailable [...] by 04/29/2020 XR, Thoracic Spine, 2 View [facility] Radiology [address] [place] [address] (Work Place) Notes: No known surgical history Results Lab Results Date Name Specimen Result Interpretation Description Value Range Status Address 06/20/2020 CBC W/ Auto Diff Blood venous Normal White Blood C ount 6.9 10 4.0-10.0 10 [facility]: 83 0 [facility] Blood venous Normal Red Blood Count 5.03 10 4.30- 6.10 10 [facility]: [address] [place] [address] Blood venous Normal Hemoglobin 14.1 g/dL 13.5-17. 5 g/dL [facility]: [address] [place] [address] Blood venous Normal Hematocrit 47.0 % 42.0-52.0 % [facility]: [address] [place] [address] Blood venous Normal Mean Corpuscular Volume 93.4 fL 80.0-96.0 fL [facility]: [address] [place] [address] Blood venous Normal Mean Corpuscular Hemoglob in 28.0 pg 27.0-33.0 pg [facility]: [address] [place] [address] Blood venous Low Mean Corpuscular HGB Conc 30.0 g/dL 32.0-36.5 g/dL [facility]: [address] [place] [address] Blood venous High Red Cell Distribution Width 1 7.9 % 11.5-14.5 % [facility]: [address] [place] [address] Blood venous Normal Platelet Count, Automated 203 10 150-450 10 [facility]: 0 [facility] Blood venous Normal Neutrophils % 52.3 % 36.0-66. 0 % [facility]: [address] [place] [address] Blood venous Normal Lymph % 34.2 % 24.0-44.0 % [facility]: [address] [place] [address] Blood venous Normal [place] % 5.7 % 2.0-8.0 % [facility]: [address] [place] [address] Blood venous High Eos % 5.0 % 0.0-3.0 % [facility]: [address] [place] [address] Blood venous Normal Baso % 1.0 % 0.0-1.0 % [facility]: [address] [place] [address] Blood venous Normal Immature Granulocyte % 1.8 % 0-3.0 % [facility]: [address] [place] [address] Blood venous Normal Nucleated Red Blood Cell % 0. 0 % 0-0 % [facility]: [address] [place] [address] Blood venous Normal Neutrophils # 3.6 10 1.5-8.5 10 [facility]: [address] [place] [address] Blood venous Normal Lymph # 2.3 10 1.5-5.0 10 [facility]: [address] [place] [address] Blood venous Normal [place] # 0.4 10 0.0-0.8 10 [facility]: [address] [place] [address] Blood venous Normal Eos # 0.3 10 0.0-0.5 10 [facility]: [address] [place] [address] Blood venous Normal Baso # 0.1 10 0.0-0.2 10 [facility]: [address] [place] [address] 06/20/2020 CMP, Serum or Plasma Blood venous High Glu cose, Fasting 113 mg/dL 70-100 mg/dL [facility] nter: [address] [place] [address] Blood venous Normal Blood Urea Nitrogen 13 mg/dL 7-18 mg/dL [facility]: [address] [place] [address] Blood venous Normal Creatinine for GFR 0.92 mg/dL 0.70-1.30 mg/dL [facility]: [address] [place] [address] Blood venous Normal Glomerular Filtration Rate > 60.0 >60 [facility]: [address] [place] [address] Blood venous Normal Sodium Level 142 mEq/L 136-14 5 mEq/L [facility]: [address] [place] [address] Blood venous Normal Potassium Serum 4.0 mEq/L 3.5 -5.1 mEq/L [facility]: [address] [facility] Blood venous High Chloride Level 109 mEq/L 98-1 07 mEq/L [facility]: [address] [facility] Blood venous Normal Carbon Dioxide Level 26 mEq/L 21-32 mEq/L [facility]: [address] [facility] Blood venous Low Anion Gap 7 mEq/L 8-16 mEq/L [facility]: [address] [facility] Blood venous Normal Calcium Level 9.2 mg/dL 8.5-1 0.1 mg/dL [facility]: [address] [facility] Blood venous Normal AST/SGOT 24 U/L 7-37 U/L [facility]: [address] [facility] Blood venous Normal ALT/SGPT 43 U/L 12-78 U/L [facility]: [address] [facility] Blood venous Normal Alkaline Phosphatase 85 U/L 4 5-117 U/L [facility]: [address] [facility] Blood venous Normal Bilirubin,total 0.2 mg/dL 0.2 -1.0 mg/dL [facility]: [address] [facility] Blood venous Normal Total Protein 7.6 gm/dL 6.4-8 .2 gm/dL [facility]: [address] [facility] Blood venous Normal Albumin 4.0 gm/dL 3.2-5.2 gm/ dL [facility]: [address] [facility] Blood venous Normal Albumin/globulin Ratio 1.1 [facility]: [address] [facility] 06/20/2020 Lipid Panel, Blood High Triglycerides Lev el 176 mg/dL <150 mg/dL [facility]: 83 0 [facility] Normal Cholesterol Level 153 mg/dL <200 mg/ dL [facility]: [address] [facility] Low HDL Cholesterol 36 mg/dL >40 mg/dL [facility]: [address] [facility] Normal LDL Cholesterol 82 mg/dL <100 mg/dL [facility]: [address] [place] [address] Normal Non-hdl-c 117 mg/dL Final [facility]: [address] [place] [address] Normal Cholesterol Risk Ratio 4.250 <5 [facility]: [address] [place] [address] 06/20/2020 TIBC (Total Iron-binding Capacity), Serum Low Iron (Fe) 40 ug/dL 65-175 ug/dL [facility] nter: [address] [place] [address] Normal Total Iron Binding Capacity 269 ug/d L 250-450 ug/dL [facility]: [address] [place] [address] Low Percent Saturation 14.9 % 19.7-50.0 % [facility]: [address] [place] [address] 06/20/2020 TSH, Serum or Plasma Blood venous Normal Thyroid Stimulating Hormone 2.220 uIU/mL 0.358-3.740 uIU/mL [facility]: [address] [place] [address] 06/20/2020 HbA1C (Hemoglobin a1C), Blood Normal Hemogl obin a1C 5.5 % [facility]: [address] [place] [address] High Estimated Average Glucose 111 mg/dL 60-110 mg/dL [facility]: [address] [place] [address] Past Encounters 01/07/2021 [facility] [address] [facility] [address] [address], Ph. 12/23/2020 [facility]ymia [facility] [address] [facility] [address] [address], Ph. 11/26/2020 Allergic Rhinitis; Vomiting; Constipation; Tobacco Dependence Caused by Cigarettes; Obesity Rafat Cortez, LUIS-C: [address] [facility] [address] [address], Ph. 11/24/2020 Dysthymia; Social Phobia [facility]: [address], [place] [address], Ph. 11/06/2020 Dysthymia Andreia Carmichael LMS[facility]: [address], [place] [address], Ph. 10/29/2020 Dysthymia Andreia Carmichael LMS[facility]: [address], [place] [address], Ph. 10/15/[address] [facility] [address], [place] [address], Ph. 10/06/2020 Dysthymia; Intermittent Explosive Disorder Andreia Carmichael LMSW: [address], [place] [address], Ph. 09/29/[address] [facility] [address], [place] [address], Ph. 08/19/2020 Intermittent Explosive Disorder; Raymondhymia Andreia Carmichael LMSW: [address], [place] [address], Ph. 08/07/2020 Anxiety Disorder; Raymondhytello Carmichael [facility] [address], [place] [address], Ph. 07/28/2020 Intermittent Explosive Disorder; Anxiety Disorder; Dysthymia Andreia Carmichael [facility] [address], [place] [address], Ph. 07/21/2020 Dysthymia; Intermittent Explosive Disorder Andreia Carmichael [facility] [address], [place] [address], Ph. 06/20/2020 Endocrine/metabolic Screening; Dizziness; Hyperlipidemia Screening PETEY PerezC: [address], [place] [address], Ph. 06/10/2020 Dizziness and Giddiness; Gastroesophageal Reflux Disease Lora Wick MD: [address], [place] [address], Ph. 04/29/2020 Adult Health Examination; Hematochezia; Dizziness; Dysthymia; Psychophysiologic Insomnia; Hyperlipidemia Screening; Endocrine/metabolic Screening; Thoracic Back Pain; Simple Obesity Lesia Alberto PA-C: [address], [place] [address], Ph. 04/03/2020 Intermittent Explosive Disorder; [facility]hymia [facility]: [address], [place] [address], Ph. 03/25/2020 Dysthymia; Intermittent Explosive Disorder Andreia Carmichael [facility] [address], [place] [address], Ph. 03/13/[address] [facility] [address], [place] [address], Ph. 02/26/[address] [facility] [address], [place] [address], Ph. 02/14/2020 Vomiting; Diarrhea; Blood-tinged Feces; Family History of Crohn's Disease; Synovial Osteochondromatosis of Knee PETEY PowersC: [address], [place] [address], Ph. 02/13/2020 Posttraumatic Stress Disorder; Intermittent Explosive Disorder Andreia Carmichael [facility]: [address], [place] [address], Ph. 02/04/2020 Dysthymia; Intermittent Explosive Disorder Andreia Carmichael [facility] [address], [facility] [address], [place] [address], Ph. 01/17/2020 Intermittent Explosive Disorder; Posttraumatic Stress Disorder; Dysthymia Andreia Carmichael [facility]: [address], [facility] [address], [place] [address], Ph. 01/01/2020 Intermittent Explosive Disorder Andreia Carmichael [facility]: [address], [facility] [address], [place] [address], Ph. Social History Tobacco Smoking Status Heavy Tobacco Smoker (1/2 pack per da y) Vaccine List None recorded. Plan of Care Reminders Provider Appointments None recorded. Lab None recorded. Referral None recorded. Procedures None recorded. Surgeries None recorded. Imaging None recorded. Vitals 11/26/2020 02:00PM ESTABLISHED [id number] Height Weight BMI Blood Pressure 72 in [...]
--- OUTSIDE RECORDS SUMMARY | 2021-02-09 11:20 | CCD ---
Author Organization Unknown Address [address] [place] [address] Phone [phone] Care Team Providers Care Steward/Stewardess Bath Name Role Phone Rafat Cortez Christa Unavailable [...] by 04/29/2020 XR, Thoracic Spine, 2 View [facility] Radiology [address] [place] [address] (Work Place) Notes: No known surgical history Results Lab Results Date Name Specimen Result Interpretation Description Value Range Status Address 06/20/2020 CBC W/ Auto Diff Blood venous Normal White Blood C ount 6.9 10 4.0-10.[address] [facility]: 83 0 [facility] Blood venous Normal Red Blood Count 5.03 10 4.30- 6.[address] [facility]: [address] [place] [address] Blood venous Normal Hemoglobin 14.1 g/dL 13.5-17. 5 g/dL [facility]: [address] [place] [address] Blood venous Normal Hematocrit 47.0 % 42.0-52.0 % [facility]: [address] [place] [address] Blood venous Normal Mean Corpuscular Volume 93.4 fL 80.0-96.[address] [facility]: [address] [place] [address] Blood venous Normal Mean Corpuscular Hemoglob in 28.0 pg 27.0-33.[address] [facility]: [address] [place] [address] Blood venous Low Mean Corpuscular HGB Conc 30.0 g/dL 32.0-36.5 g/dL [facility]: [address] [place] [address] Blood venous High Red Cell Distribution Width 1 7.9 % 11.5-14.5 % [facility]: [address] [place] [address] Blood venous Normal Platelet Count, Automated 203 10 150-[address] [facility]: 0 [facility] Blood venous Normal Neutrophils % 52.3 % 36.0-66. 0 % [facility]: [address] [place] [address] Blood venous Normal Lymph % 34.2 % 24.0-44.0 % Fi [facility]: [address] [place] [address] Blood venous Normal [place] % 5.7 % 2.0-8.0 % [facility]: [address] [place] [address] Blood venous High Eos % 5.0 % 0.0-3.0 % [facility]: [address] [place] [address] Blood venous Normal Baso % 1.0 % 0.0-1.0 % [facility]: [address] [place] [address] Blood venous Normal Immature Granulocyte % 1.8 % 0-3.0 % [facility]: [address] [place] [address] Blood venous Normal Nucleated Red Blood Cell % 0. 0 % 0-0 % [facility]: [address] [place] [address] Blood venous Normal Neutrophils # 3.6 10 1.5-8.[address] [facility]: [address] [place] [address] Blood venous Normal Lymph # 2.3 10 1.5-5.0 10 [facility]: [address] [place] [address] Blood venous Normal [place] # 0.4 10 0.0-0.8 10 [facility]: [address] [place] [address] Blood venous Normal Eos # 0.3 10 0.0-0.[address] [facility]: [address] [place] [address] Blood venous Normal Baso # 0.1 10 0.0-0.2 10 [facility]: [address] [place] [address] 06/20/2020 CMP, Serum or Plasma Blood venous High Glu cose, Fasting 113 mg/dL 70-100 mg/dL [facility] nter: [address] [place] [address] Blood venous Normal Blood Urea Nitrogen 13 mg/dL 7-18 mg/dL [facility]: [address] [place] [address] Blood venous Normal Creatinine for GFR 0.92 mg/dL 0.70-1.30 mg/dL [facility]: [address] [place] [address] Blood venous Normal Glomerular Filtration Rate > 60.0 >[address] [facility]: [address] [place] [address] Blood venous Normal Sodium Level 142 mEq/L 136-14 5 mEq/L [facility]: [address] [place] [address] Blood venous Normal Potassium Serum 4.0 mEq/L 3.5 -5.1 mEq/L [facility]: [address] [facility] Blood venous High Chloride Level 109 mEq/L 98-1 07 mEq/L [facility]: [address] [facility] Blood venous Normal Carbon Dioxide Level 26 mEq/L 21-32 mEq/L [facility]: [address] [facility] Blood venous Low Anion Gap 7 mEq/L 8-16 mEq/L [facility]: [address] [facility] Blood venous Normal Calcium Level 9.2 mg/dL 8.5-1 0.1 mg/dL [facility]: [address] [facility] Blood venous Normal AST/SGOT 24 U/L 7-37 U/L [facility]: [address] [facility] Blood venous Normal ALT/SGPT 43 U/L 12-78 U/L [facility]: [address] [facility] Blood venous Normal Alkaline Phosphatase 85 U/L 4 5-117 U/L [facility]: [address] [facility] Blood venous Normal Bilirubin,total 0.2 mg/dL 0.2 -1.0 mg/dL [facility]: [address] [facility] Blood venous Normal Total Protein 7.6 gm/dL 6.4-8 .2 gm/dL [facility]: [address] [facility] Blood venous Normal Albumin 4.0 gm/dL 3.2-5.2 gm/ dL [facility]: [address] [facility] Blood venous Normal Albumin/globulin Ratio 1.[address] [facility]: [address] [facility] 06/20/2020 Lipid Panel, Blood High Triglycerides Lev el 176 mg/dL <150 mg/dL [facility]: 83 0 [facility] Normal Cholesterol Level 153 mg/dL <200 mg/ dL [facility]: [address] [facility] Low HDL Cholesterol 36 mg/dL >40 mg/dL F inal [facility]: [address] [facility] Normal LDL Cholesterol 82 mg/dL <100 mg/dL Final [facility]: [address] [place] [address] Normal Non-hdl-c 117 mg/dL Final [facility]: [address] [place] [address] Normal Cholesterol Risk Ratio 4.250 <5 Final [facility]: [address] [place] [address] 06/20/2020 TIBC (Total Iron-binding Capacity), Serum Low Iron (Fe) 40 ug/dL 65-175 ug/dL [facility] nter: [address] [place] [address] Normal Total Iron Binding Capacity 269 ug/d L 250-450 ug/dL [facility]: [address] [place] [address] Low Percent Saturation 14.9 % 19.7-50.0 % [facility]: [address] [place] [address] 06/20/2020 TSH, Serum or Plasma Blood venous Normal Thyroid Stimulating Hormone 2.220 uIU/mL 0.358-3.740 uIU/mL [facility]: [address] [place] [address] 06/20/2020 HbA1C (Hemoglobin a1C), Blood Normal Hemogl obin a1C 5.5 % [facility]: [address] [place] [address] High Estimated Average Glucose 111 mg/dL 60-110 mg/dL [facility]: [address] [place] [address] Past Encounters 12/23/2020 [facility] [address] [facility] [address] [address], Ph. 11/26/2020 Allergic Rhinitis; Vomiting; Constipation; Tobacco Dependence Caused by Cigarettes; Obesity Rafat Cortez, RPA-C: [address] [facility] [address] [address], Ph. 11/24/2020 Dysthymia; Social Phobia [facility] [address] [facility] [address] [address], Ph. 11/06/2020 Dysthymia Andreia Carmichael [facility]: [address], [place] [address], Ph. 10/29/2020 Dysthymia Andreia Carmichael [facility]: [address], [place] [address], Ph. 10/15/2020 Dysthymia Andreia Carmichael [facility]: [address], [place] [address], Ph. 10/06/2020 Dysthymia; Intermittent Explosive Disorder Andreia Carmichael [facility]: [address], [place] [address], Ph. 09/29/2020 Dysthymia Andreia Carmichael [facility]: [address], [place] [address], Ph. 08/19/2020 Intermittent Explosive Disorder; Raymondhymia Andreia Carmichael [facility]: [address], [place] [address], Ph. 08/07/2020 Anxiety Disorder; Raymondhymia Andreia Carmichael [facility]: [address], [place] [address], Ph. 07/28/2020 Intermittent Explosive Disorder; Anxiety Disorder; Dysthymia Andreia Carmichael [facility]: [address], [place] [address], Ph. 07/21/2020 Dysthymia; Intermittent Explosive Disorder Andreia Carmichael [facility]: [address], [place] [address], Ph. 06/20/2020 Endocrine/metabolic Screening; Dizziness; Hyperlipidemia Screening CAMPBELL Perez: [address], [address], [place] [address], Ph. 06/10/2020 Dizziness and Giddiness; Gastroesophageal Reflux Disease Lora Wick MD: [address], [place] [address], Ph. 04/29/2020 Adult Health Examination; Hematochezia; Dizziness; Dysthymia; Psychophysiologic Insomnia; Hyperlipidemia Screening; Endocrine/metabolic Screening; Thoracic Back Pain; Simple Obesity Lesia Alberto PA-C: [address], [address], [place] [address], Ph. 04/03/2020 Intermittent Explosive Disorder; Dysthymia Andreia Carmichael [facility]: [address], [place] [address], Ph. 03/25/2020 Dysthymia; Intermittent Explosive Disorder Andreia Carmichael [facility]: [address], [address], [place] [address], Ph. 03/13/2020 Dysthymia Andreia Carmichael [facility]: [address], [address], [place] [address], Ph. 02/26/2020 Dysthymia Andreia Carmichael [facility]: [address], [address], [place] [address], Ph. 02/14/2020 Vomiting; Diarrhea; Blood-tinged Feces; Family History of Crohn's Disease; Synovial Osteochondromatosis of Knee [facility]AMPBE[facility] Powers: [address], [address], [place] [address], Ph. 02/13/2020 Posttraumatic Stress Disorder; Intermittent Explosive Disorder Andreia Carmichael [facility]: [address], [address], [place] [address], Ph. 02/04/2020 Dysthymia; Intermittent Explosive Disorder Andreia Carmichael [facility]: [address], [address], [place] [address], Ph. 01/17/2020 Intermittent Explosive Disorder; Posttraumatic Stress Disorder; Dysthymia Andreia Carmichael [facility]: [address] [facility] [address], [place] [address], Ph. 01/01/2020 Intermittent Explosive Disorder Andreia Carmichael [facility]: [address], [facility] [address], [place] [address], Ph. Social History Tobacco Smoking Status Heavy Tobacco Smoker (1/2 pack per a day) Vaccine List None recorded. Plan of Care Reminders Provider Appointments None recorded. Lab None recorded. Referral None recorded. Procedures None recorded. Surgeries None recorded. Imaging None recorded. Vitals 11/26/2020 02:00PM ESTABLISHED [id number] Height Weight BMI Blood Pressure 72 in [...]
--- OUTSIDE RECORDS SUMMARY | 2021-02-09 11:21 | CCD ---
Author Organization Unknown Address [address] [place] [address] Phone [phone] Care Team Providers Care International Travel Consultant Name Role Phone Rafat Cortez Christa Unavailable [...] 07/11/2019 History Vomiting Active 02/21/2020 Anxiety Disorder Active 07/29/2020 Procedures Date Name Performed by 04/29/2020 XR, Thoracic Spine, 2 View [facility] [address] [place], [place] [id number] (Work Place) Notes: No known surgical history Results Lab Results Date Name Specimen Result Interpretation Description Value Range Status Address 06/20/2020 CBC W/ Auto Diff Blood venous Normal White Blood C ount 6.9 10 4.0-10.0 10 [facility]: 83 0 [facility] Blood venous Normal Red Blood Count 5.03 10 4.30- 6.10 10 [facility]: [address] [facility] Blood venous Normal Hemoglobin 14.1 g/dL 13.5-17. 5 g/dL [facility]: [address] [facility] Blood venous Normal Hematocrit 47.0 % 42.0-52.0 % [facility]: [address] [facility] Blood venous Normal Mean Corpuscular Volume 93.4 fL 80.0-96.0 fL [facility]: [address] [facility] Blood venous Normal Mean Corpuscular Hemoglob in 28.0 pg 27.0-33.0 pg [facility]: [address] [facility] Blood venous Low Mean Corpuscular HGB Conc 30.0 g/dL 32.0-36.5 g/dL [facility]: [address] [facility] Blood venous High Red Cell Distribution Width 1 7.9 % 11.5-14.5 % [facility]: [address] [facility] Blood venous Normal Platelet Count, Automated 203 10 150-450 10 [facility]: [address] [facility] Blood venous Normal Neutrophils % 52.3 % 36.0-66. 0 % [facility]: [address] [facility] Blood venous Normal Lymph % 34.2 % 24.0-44.0 % [facility]: [address] [facility] Blood venous Normal [place] % 5.7 % 2.0-8.0 % [facility]: 0 [facility] Blood venous High Eos % 5.0 % 0.0-3.0 % [facility]: [address] [facility] Blood venous Normal Baso % 1.0 % 0.0-1.0 % [facility]: [address] [place] [address] Blood venous Normal Immature Granulocyte % 1.8 % 0-3.0 % [facility]: [address] [place] [address] Blood venous Normal Nucleated Red Blood Cell % 0. 0 % 0-0 % [facility]: [address] [place] [address] Blood venous Normal Neutrophils # 3.6 10 1.5-8.5 10 [facility]: [address] [place] [address] Blood venous Normal Lymph # 2.3 10 1.5-5.0 10 [facility]: [address] [place] [address] Blood venous Normal [place]our # 0.4 10 0.0-0.8 10 [facility]: [address] [place] [address] Blood venous Normal Eos # 0.3 10 0.0-0.5 10 [facility]: [address] [place] [address] Blood venous Normal Baso # 0.1 10 0.0-0.2 10 [facility]: [address] [place] [address] 06/20/2020 CMP, Serum or Plasma Blood venous High Glu cose, Fasting 113 mg/dL 70-100 mg/dL [facility] nter: [address] [place] [address] Blood venous Normal Blood Urea Nitrogen 13 mg/dL 7-18 mg/dL [facility]: [address] [place] [address] Blood venous Normal Creatinine for GFR 0.92 mg/dL 0.70-1.30 mg/dL [facility]: [address] [place] [address] Blood venous Normal Glomerular Filtration Rate > 60.0 >60 [facility]: [address] [place] [address] Blood venous Normal Sodium Level 142 mEq/L 136-14 5 mEq/L [facility]: [address] [place] [address] Blood venous Normal Potassium Serum 4.0 mEq/L 3.5 -5.1 mEq/L [facility]: [address] [place] [address] Blood venous High Chloride Level 109 mEq/L 98-1 07 mEq/L [facility]: [address] [place] [address] Blood venous Normal Carbon Dioxide Level 26 mEq/L 21-32 mEq/L [facility]: [address] [place] [address] Blood venous Low Anion Gap 7 mEq/L 8-16 mEq/L [facility]: [address] [facility] Blood venous Normal Calcium Level 9.2 mg/dL 8.5-1 0.1 mg/dL [facility]: [address] [facility] Blood venous Normal AST/SGOT 24 U/L 7-37 U/L Taina l [facility]: [address] [facility] Blood venous Normal ALT/SGPT 43 U/L 12-78 U/L [facility]: [address] [facility] Blood venous Normal Alkaline Phosphatase 85 U/L 4 5-117 U/L [facility]: [address] [facility] Blood venous Normal Bilirubin,total 0.2 mg/dL 0.2 -1.0 mg/dL [facility]: [address] [facility] Blood venous Normal Total Protein 7.6 gm/dL 6.4-8 .2 gm/dL [facility]: [address] [facility] Blood venous Normal Albumin 4.0 gm/dL 3.2-5.2 gm/ dL [facility]: [address] [facility] Blood venous Normal Albumin/globulin Ratio 1.1 [facility]: [address] [facility] 06/20/2020 Lipid Panel, Blood High Triglycerides Lev el 176 mg/dL <150 mg/dL [facility]: 83 0 [facility] Normal Cholesterol Level 153 mg/dL <200 mg/ dL [facility]: [address] [facility] Low HDL Cholesterol 36 mg/dL >40 mg/dL F inal [facility]: [address] [facility] Normal LDL Cholesterol 82 mg/dL <100 mg/dL [facility]: [address] [facility] Normal Non-hdl-c 117 mg/dL [facility]: [address] [facility] Normal Cholesterol Risk Ratio 4.250 <5 [facility]: [address] [facility] 06/20/2020 TIBC (Total Iron-binding Capacity), Serum Low Iron (Fe) 40 ug/dL 65-175 ug/dL [facility] nter: [address] [facility] Normal Total Iron Binding Capacity 269 ug/d L 250-450 ug/dL Final [facility]: 0 [facility] Low Percent Saturation 14.9 % 19.7-50.0 % [facility]: 0 [facility] 06/20/2020 TSH, Serum or Plasma Blood venous Normal Thyroid Stimulating Hormone 2.220 uIU/mL 0.358-3.740 uIU/mL [facility] Center: [address] [place] [address] 06/20/2020 HbA1C (Hemoglobin a1C), Blood Normal Hemogl obin a1C 5.5 % Final [facility]: 0 [facility] High Estimated Average Glucose 111 mg/dL 60-110 mg/dL Final [facility]: [address] [facility] Past Encounters 11/06/2020 [facility] [address] [facility] [address], [place] [address], Ph. 10/29/2020 [facility] [address] [facility], [facility] [address], [place] [address], Ph. 10/15/2020 [facility] [address] [facility] [address], [place] [address], Ph. 10/06/2020 Dysthymia; Intermittent Explosive Disorder Andreia Carmichael [facility]: [address] [facility], [facility] [address], [place] [address], Ph. 09/29/2020 Dysthymia Andreia Carmichael [facility]: [address] [facility], [facility] [address], [place] [address], Ph. 08/19/2020 Intermittent Explosive Disorder; Dysthymia Andreia Carmichael, [facility]: [address] [facility], [facility] [address], [place] [address], Ph. 08/07/2020 Anxiety Disorder; [facility] [address], [facility] [address], [place] [address], Ph. 08/05/2020 Rafat Cortez RPA-C: [address] [facility], [facility] [address], [place] [address], Ph. 07/28/2020 Intermittent Explosive Disorder; Anxiety Disorder; [facility] [address], [facility] [address], [place] [address], Ph. 07/21/2020 Dysthymia; Intermittent Explosive Disorder [facility] [address] [facility], [facility] [address], [place] [address], Ph. 06/20/2020 Endocrine/metabolic Screening; Dizziness; Hyperlipidemia Screening Courtney Haddad RPA-C: [address] [facility], [facility] [address], [place] [address], Ph. 06/10/2020 Dizziness and Giddiness; Gastroesophageal Reflux Disease Lora Wick MD: [address] [facility], [facility] [address], [place] [address], Ph. 04/29/2020 Adult Health Examination; Hematochezia; Dizziness; Dysthymia; Psychophysiologic Insomnia; Hyperlipidemia Screening; Endocrine/metabolic Screening; Thoracic Back Pain; Simple Obesity Lesia Alberto PA-C: [address], [facility] [address], [place] [address], Ph. 04/03/2020 Intermittent Explosive Disorder; [facility] [address] [facility], [facility] [address], [place] [address], Ph. 03/25/2020 Dysthymia; Intermittent Explosive Disorder Andreia Carmichael [facility]: [address], [facility] [address], [place] [address], Ph. 03/13/2020 Dysthymia Andreia Carmichael [facility]: [address] [facility] [address], [place] [address], Ph. 02/26/2020 Dysthymia Andreia Carmichael [facility]: [address] [facility], [facility] [address], [place] [address], Ph. 02/14/2020 Vomiting; Diarrhea; Blood-tinged Feces; Family History of Crohn's Disease; Synovial Osteochondromatosis of Knee CAMPBELL Powers: [address], [facility] [address], [place] [address], Ph. 02/13/2020 Posttraumatic Stress Disorder; Intermittent Explosive Disorder Andreia Carmichael [facility]: [address] [facility], [facility] [address], [place] [address], Ph. 02/04/2020 Dysthymia; Intermittent Explosive Disorder Andreia Carmichael [facility]: [address], [facility] [address], [place] [address], Ph. 01/17/2020 Intermittent Explosive Disorder; Posttraumatic Stress Disorder; Dysthymia Andreia Carmichael [facility]: [address] [facility], [facility] [address], [place] [address], Ph. 01/01/2020 Intermittent Explosive Disorder Andreia Carmichael [facility]: [address], [facility] [address], [place] [address], Ph. Social History Tobacco Smoking Status Heavy [...]
--- OUTSIDE RECORDS SUMMARY | 2021-02-09 11:23 | CCD ---
Author Author [facility] Address Unknown Phone Unavailable Care Team Providers Care Classics Teacher Name Role Phone CORTEZ, SUZETTE RAFAT RPA-C Unavailable Unavailable CORTEZ, SUZETTE RAFAT RPA-C Unavailable Unavailable CORTEZ, SUZETTE RAFAT RPA-C Unavailable Unavailable CORTEZ, SUZETTE RAFAT RPA-C Unavailable Unavailable CORTEZ, SUZETTE RAFAT RPA-C Unavailable Unavailable CORTEZ, SUZETTE RAFAT RPA-C Unavailable Unavailable CORTEZ, SUZETTE RAFAT RPA-C Unavailable Unavailable CORTEZ, SUZETTE RAFAT RPA-C Unavailable Unavailable CORTEZ, SUZETTE RAFAT RPA-C Unavailable Unavailable CORTEZ, SUZETTE RAFAT RPA-C Unavailable Unavailable CORTEZ, SUZETTE RAFAT RPA-C Unavailable Unavailable CORTEZ, SUZETTE RAFAT RPA-C Unavailable Unavailable CORTEZ, SUZETTE RAFAT RPA-C Unavailable Unavailable CORTEZ, SUZETTE RAFAT RPA-C Unavailable Unavailable CORTEZ, SUZETTE RAFAT RPA-C Unavailable Unavailable CORTEZ, SUZETTE RAFAT RPA-C Unavailable Unavailable CORTEZ, SUZETTE RAFAT RPA-C Unavailable Unavailable CORTEZ, SUZETTE RAFAT RPA-C Unavailable Unavailable CORTEZ, SUZETTE RAFAT RPA-C Unavailable Unavailable CORTEZ, SUZETTE RAFAT RPA-C Unavailable Unavailable CORTEZ, SUZETTE RAFAT RPA-C Unavailable Unavailable CORTEZ, SUZETTE RAFAT RPA-C Unavailable Unavailable CORTEZ, SUZETTE RAFAT RPA-C Unavailable Unavailable CORTEZ, SUZETTE RAFAT RPA-C Unavailable Unavailable CORTEZ, SUZETTE RAFAT RPA-C Unavailable Unavailable CORTEZ, SUZETTE RAFAT RPA-C Unavailable Unavailable CORTEZ, SUZETTE RAFAT RPA-C Unavailable Unavailable CORTEZ, SUZETTE RAFAT RPA-C Unavailable Unavailable CORTEZ, SUZETTE RAFAT RPA-C Unavailable Unavailable CORTEZ, SUZETTE RAFAT RPA-C Unavailable Unavailable CORTEZ, SUZETTE RAFAT RPA-C Unavailable Unavailable CORTEZ, SUZETTE RAFAT RPA-C Unavailable Unavailable CORTEZ, SUZETTE RAFAT RPA-C Unavailable Unavailable CORTEZ, SUZETTE RAFAT RPA-C Unavailable Unavailable CORTEZ, SUZETTE RAFAT RPA-C Unavailable Unavailable CORTEZ, SUZETTE RAFAT RPA-C Unavailable Unavailable CORTEZ, SUZETTE RAFAT RPA-C Unavailable Unavailable CORTEZ, SUZETTE RAFAT RPA-C Unavailable Unavailable CORTEZ, SUZETTE RAFAT RPA-C Unavailable Unavailable CORTEZ, SUZETTE RAFAT RPA-C Unavailable Unavailable CORTEZ, SUZETTE RAFAT RPA-C Unavailable Unavailable CORTEZ, SUZETTE RAFAT RPA-C Unavailable Unavailable CORTEZ, SUZETTE RAFAT RPA-C Unavailable Unavailable REINDL, MINISTERIO MARCOS Unavailable Unavailable REINDL, MINISTERIO MARCOS Unavailable Unavailable REINDL, MINISTERIO MARCOS Unavailable Unavailable REINDL, MINISTERIO MARCOS Unavailable Unavailable REINDL, MINISTERIO MARCOS Unavailable Unavailable REINDL, MINISTERIO MARCOS Unavailable Unavailable REINDL, MINISTERIO MARCOS Unavailable Unavailable REINDL, MINISTERIO MARCOS Unavailable Unavailable REINDL, MINISTERIO MARCOS Unavailable Unavailable REINDL, MINISTERIO MARCOS Unavailable Unavailable REINDL, MINISTERIO MARCOS Unavailable Unavailable REINDL, MINISTERIO MARCOS Unavailable Unavailable REINDL, MINISTERIO MARCOS Unavailable Unavailable REINDL, MINISTERIO MARCOS Unavailable Unavailable REINDL, MINISTERIO MARCOS Unavailable Unavailable REINDL, MINISTERIO MARCOS Unavailable Unavailable REINDL, MINISTERIO MARCOS Unavailable Unavailable REINDL, MINISTERIO MARCOS Unavailable Unavailable REINDL, MINISTERIO MARCOS Unavailable Unavailable REINDL, MINISTERIO MARCOS Unavailable Unavailable REINDL, MINISTERIO MARCOS Unavailable Unavailable REINDL, MINISTERIO MARCOS Unavailable Unavailable REINDL, MINISTERIO MARCOS Unavailable Unavailable REINDL, MINISTERIO MARCOS Unavailable Unavailable REINDL, MINISTERIO MARCOS Unavailable Unavailable REINDL, MINISTERIO MARCOS Unavailable Unavailable REINDL, MINISTERIO MARCOS Unavailable Unavailable REINDL, MINISTERIO MARCOS Unavailable Unavailable REINDL, MINISTERIO MARCOS Unavailable Unavailable REINDL, MINISTERIO MARCOS Unavailable Unavailable REINDL, MINISTERIO MARCOS Unavailable Unavailable REINDL, MINISTERIO MARCOS Unavailable Unavailable REINDL, MINISTERIO MARCOS Unavailable Unavailable REINDL, MINISTERIO MARCOS Unavailable Unavailable REINDL, MINISTERIO MARCOS Unavailable Unavailable REINDL, MINISTERIO MARCOS Unavailable Unavailable REINDL, MINISTERIO MARCOS Unavailable Unavailable REINDL, MINISTERIO MARCOS Unavailable Unavailable REINDL, MINISTERIO MARCOS Unavailable Unavailable REINDL, MINISTERIO MARCOS Unavailable Unavailable REINDL, MINISTERIO MARCOS Unavailable Unavailable REINDL, MINISTERIO MARCOS Unavailable Unavailable VERONICA, A. HABILITATION ASSISTANT KEVIN Unavailable [phone] VERONICA, A. HABILITATION ASSISTANT KEVIN Unavailable [phone] VERONICA, A. HABILITATION ASSISTANT KEVIN Unavailable [phone] VERONICA, A. HABILITATION ASSISTANT KEVIN Unavailable [phone] VERONICA, A. HABILITATION ASSISTANT KEVIN Unavailable [phone] VERONICA, A. HABILITATION ASSISTANT KEVIN Unavailable [phone] VERONICA, A. HABILITATION ASSISTANT KEVIN Unavailable [phone] VERONICA, A. HABILITATION ASSISTANT KEVIN Unavailable [phone] VERONICA, A. HABILITATION ASSISTANT KEVIN Unavailable [phone] VERONICA, A. HABILITATION ASSISTANT KEVIN Unavailable [phone] VERONICA, A. HABILITATION ASSISTANT KEVIN Unavailable [phone] VERONICA, A. HABILITATION ASSISTANT KEVIN Unavailable [phone] VERONICA, A. HABILITATION ASSISTANT KEVIN Unavailable [phone] VERONICA, A. HABILITATION ASSISTANT KEVIN Unavailable [phone] VERONICA, A. HABILITATION ASSISTANT KEVIN Unavailable [phone] VERONICA, A. HABILITATION ASSISTANT KEVIN Unavailable [phone] Andreia Carmichael Unavailable [phone] Shamika, Katherin Unavailable Unavailable Shamika, Katherin Unavailable Unavailable Shamika, Katherin Unavailable Unavailable Shamika, Katherin Unavailable Unavailable Shamika, Katherin Unavailable Unavailable Shamika, Katherin Unavailable Unavailable Shamika, Katherin Unavailable Unavailable Shamika, Katherin Unavailable Unavailable Shamika, Katherin Unavailable Unavailable Shamika, Katherin Unavailable Unavailable Shamika, Katherin Unavailable Unavailable Shamika, Katherin Unavailable Unavailable Shamika, Katherin Unavailable Unavailable Shamika, Katherin Unavailable Unavailable Shamika, Katherin Unavailable Unavailable Shamika, Katherin Unavailable Unavailable Shamika, Katherin Unavailable Unavailable Shamika, Katherin Unavailable Unavailable Shamika, Katherin Unavailable Unavailable Shamika, Katherin Unavailable Unavailable Shamika, Katherin Unavailable Unavailable Shamika, Katherin Unavailable Unavailable Shamika, Katherin Unavailable Unavailable Shamika, Katherin Unavailable Unavailable Shamika, Katherin Unavailable Unavailable Shamika, Katherin Unavailable Unavailable Shamika, Katherin Unavailable Unavailable Shamika, Katherin Unavailable Unavailable MARKS, RUSTY Unavailable Unavailable MARKS, RUSTY Unavailable Unavailable MARKS, RUSTY Unavailable Unavailable MARKS, RUSTY Unavailable Unavailable MARKS, RUSTY Unavailable Unavailable MARKS, RUSTY Unavailable Unavailable MARKS, RUSTY Unavailable Unavailable MARKS, RUSTY Unavailable Unavailable MARKS, RUSTY Unavailable Unavailable MARKS, RUSTY Unavailable Unavailable MARKS, RUSTY Unavailable Unavailable MARKS, RUSTY Unavailable Unavailable MARKS, RUSTY Unavailable Unavailable MARKS, RUSTY Unavailable Unavailable MARKS, RUSTY Unavailable Unavailable MARKS, RUSTY Unavailable Unavailable MARKS, RUSTY Unavailable Unavailable MARKS, RUSTY Unavailable Unavailable MARKS, RUSTY Unavailable Unavailable MARKS, RUSTY Unavailable Unavailable MARKS, RUSTY Unavailable Unavailable MARKS, RUSTY Unavailable Unavailable MARKS, RUSTY Unavailable Unavailable MARKS, RUSTY Unavailable Unavailable MARKS, RUSTY Unavailable Unavailable MARKS, RUSTY Unavailable Unavailable MARKS, RUSTY Unavailable Unavailable Ellie Alberto PA Unavailable Unavailable Ellie Alberto PA Unavailable Unavailable Ellie Alberto PA Unavailable Unavailable Scordo, M Lesia PA Unavailable Unavailable Scordo, M Lesia PA Unavailable Unavailable Scordo, M Lesia PA Unavailable Unavailable Scordo, M Lesia PA Unavailable Unavailable Scordo, M Lesia PA Unavailable Unavailable Scordo, M Lesia PA Unavailable Unavailable Scordo, M Lesia PA Unavailable Unavailable Scordo, M Lesia PA Unavailable Unavailable Scordo, M Lesia PA Unavailable Unavailable Scordo, M Lesia PA Unavailable Unavailable Scordo, M Lesia PA Unavailable Unavailable Scordo, M Lesia PA Unavailable Unavailable Scordo, M Lesia PA Unavailable Unavailable Scordo, M Lesia PA Unavailable Unavailable Scordo, M Lesia PA Unavailable Unavailable Scordo, M Lesia PA Unavailable Unavailable Scordo, M Lesia PA Unavailable Unavailable Scordo, M Lesia PA Unavailable Unavailable Scordo, M Lesia PA Unavailable Unavailable Scordo, M Lesia PA Unavailable Unavailable Scordo, M Lesia PA Unavailable Unavailable Scordo, M Lesia PA Unavailable Unavailable Scordo, M Lesia PA Unavailable Unavailable Scordo, M Lesia PA Unavailable Unavailable Scordo, M Lesia PA Unavailable Unavailable Scordo, M Lesia PA Unavailable Unavailable Scordo, M Lesia PA Unavailable Unavailable Scordo, M Lesia PA Unavailable Unavailable Scordo, M Lesia PA Unavailable Unavailable Scordo, M Lesia PA Unavailable Unavailable Scordo, M Lesia PA Unavailable Unavailable Scordo, M Lesia PA Unavailable Unavailable Scordo, M Lesia PA Unavailable Unavailable Scordo, M Lesia PA Unavailable Unavailable Scordo, M Lesia PA Unavailable Unavailable Scordo, M Lesia PA Unavailable Unavailable Scordo, M Lesia PA Unavailable Unavailable Scordo, M Lesia PA Unavailable Unavailable Scordo, M Lesia PA Unavailable Unavailable Scordo, M Lesia PA Unavailable Unavailable Scordo, M Lesia PA Unavailable Unavailable Scordo, M Lesia PA Unavailable Unavailable Scordo, M Lesia PA Unavailable Unavailable Scordo, M Lesia PA Unavailable Unavailable Re-disclosure Warning The records that you are about to access may contain information from federally-assisted alcohol or drug abuse programs. If such information is present, then the following federally mandated warning applies: This information has been disclosed to you from records protected by federal confidentiality rules (42 CFR part 2). The federal rules prohibit you from making any further disclosure of this information unless further disclosure is expressly permitted by the written consent of the person to whom it pertains or as otherwise permitted by 42 CFR part 2. A general authorization for the release of medical or other information is NOT sufficient for this purpose. The Federal rules restrict any use of the information to criminally investigate or prosecute any alcohol or drug abuse patient.The records that you are about to access may contain highly sensitive health information, the redisclosure of which is protected by Article 27-F of the [facility] Public Health law. If you continue you may have access to information: Regarding HIV / AIDS; Provided by facilities licensed or operated by the [facility] Office of Mental Health; or Provided by the [facility] Office for People With Developmental Disabilities. If such information is present, then the following [facility] mandated warning applies: This information has been disclosed to you from confidential records which are protected by state law. State law prohibits you from making any further disclosure of this information without the specific written consent of the person to whom it pertains, or as otherwise permitted by law. Any unauthorized further disclosure in violation of state law may result in a fine or care home sentence or both. A general authorization for the release of medical or other information is NOT sufficient authorization for further disc losure. Allergies and Adverse Reactions Type Description Substance Reaction Status Data Source(s ) Allergy to substance Allergy to substance Allergy to substance [facility] ([facility]) Allergy to substance Allergy to substance Allergy to substance [facility] ([facility]) Allergy to substance Allergy to substance Allergy to substance [facility] ([facility]) Allergy to substance Allergy to substance Allergy to substance [facility] ([facility]) Allergy to substance Allergy to substance Allergy to substance [facility] ([facility]) Family History Family Member Name Family Member Gender Family Member Status Date o f Status Description Data Source(s) Unknown Male Problem [facility] ([facility]) Encounters Encounter Providers Location Date Indications Data Source(s ) Andreia Carmichael [facility]: [address] [facility] [address], [place] [address], Ph. Attender: Andreia Carmichael [place] - [facility] Medical 01/07/2021 12:00:00 AM EDT [facility] ([facility]) Andreia Jany [facility]: [address], [place] [address], Ph. Attender: Andreia Carmichael [facility] Medical 12/23/2020 12:00:00 AM EDT [facility] ([facility]) Andreia Hornerkathleen [facility]: [address], [place] [address], Ph. Attender: Andreia Hornerkathleen [facility] Medical 12/23/2020 12:00:00 AM EDT [facility] ([facility]) Outpatient Attender: KEVIN MARTIN 12/05 08:13:00 AM EDT - 12/15/2020 08:31:48 AM EDT [facility] ([facility] ) Rafat Cortez RPA-C: [address], [place] [address], Ph. Attender: RAFAT [facility] Medical 11/26/2020 12:00:00 AM EDT [facility] ([facility]) Rafat Cortez RPA-C: [address], [place] [address], Ph. Attender: RAFAT CORTEZ RPA-C [facility] Medical 11/26/2020 12:00:00 AM EDT [facility] ([facility]) Rafat Cortez RPA-C: [address], [place] [address], Ph. Attender: RAFAT ANGELOC [facility] Medical 11/26/2020 12:00:00 AM EDT [facility] ([facility]) Andreia Carmichael [facility]: [address], [place] [address], Ph. Attender: Andreia Carmichael [facility] Medical 11/24/2020 12:00:00 AM EDT [facility] ([facility]) Andreia Carmichael, [facility]: [address], [place] [address], Ph. Attender: Andreia Carmichael [facility] Medical 11/24/2020 12:00:00 AM EDT [facility] ([facility]) Andreia Carmichael [facility]: [address], [place] [address], Ph. Attender: Andreia Carmichael [facility] Medical 11/24/2020 12:00:00 AM EDT [facility] ([facility]) Andreia Carmichael, [facility]: [address], [place] [address], Ph. Attender: Andreia Carmichael [facility] Medical 11/24/2020 12:00:00 AM EDT [facility] ([facility]) Andreia Carmichael [facility]: [address], [place] [address], Ph. Attender: Andreia Carmichael [facility] Medical 11/06/2020 12:00:00 AM EDT [facility] ([facility]) Andreia Carmichael [facility]: [address], [place] [address], Ph. Attender: Andreia Carmichael [facility] Medical 11/06/2020 12:00:00 AM EDT [facility] ([facility]) Andreia Carmichael, [facility]: [address], [place] [address], Ph. Attender: Andreia Carmichael [facility] Medical 11/06/2020 12:00:00 AM EDT [facility] ([facility]) Andreia Carmicahel, [facility]: [address], [place] [address], Ph. Attender: Andreia Carmichael [facility] Medical 11/06/2020 12:00:00 AM EDT [facility] ([facility]) Andreia Carmichael [facility]: [address], [place] [address], Ph. Attender: Andreia Carmichael [facility] Medical 11/06/2020 12:00:00 AM EDT [facility] ([facility]) Andreia Carmichael, [facility]: [address], [place] [address], Ph. Attender: Andreia Carmichael [facility] Medical 10/29/2020 12:00:00 AM EDT [facility] ([facility]) Andreia Carmichael [facility]: [address], [place] [address], Ph. Attender: Andreia Carmichael [facility] Medical 10/29/2020 12:00:00 AM EDT [facility] ([facility]) Andreia Carmichael [facility]: [address], [place] [address], Ph. Attender: Andreia Carmichael [facility] Medical 10/29/2020 12:00:00 AM EDT [facility] ([facility]) Andreia Carmichael, [facility]: [address], [place] [address], Ph. Attender: Andreia Carmichael [facility] Medical 10/29/2020 12:00:00 AM EDT [facility] ([facility]) Andreia Carmichael, [facility]: [address], [place] [address], Ph. Attender: Andreia Carmichael [facility] Medical 10/29/2020 12:00:00 AM EDT [facility] ([facility]) Andreia Carmichael [facility]: [address], [place] [address], Ph. Attender: Andreia Carmichael [facility] Medical 10/29/2020 12:00:00 AM EDT [facility] ([facility]) Andreia Carmichael [facility]: [address], [place] [address], Ph. Attender: Andreia Carmichael [facility] Medical 10/15/2020 12:00:00 AM EDT [facility] ([facility]) Andreia Carmichael [facility]: [address], [place] [address], Ph. Attender: Andreia Carmichael [facility] Medical 10/15/2020 12:00:00 AM EDT [facility] ([facility]) Andreia Carmichael [facility]: [address], [place] [address], Ph. Attender: Andreia Carmichael [facility] Medical 10/15/2020 12:00:00 AM EDT [facility] ([facility]) Andreia Carmichael [employer]: [address], [place] [address], Ph. Attender: Andreia Carmichael [facility] Medical 10/15/2020 12:00:00 AM EDT [facility] ([facility]) Andreia Carmichael, [employer]: [address], [place] [address], Ph. Attender: Andreia Carmichael [facility] Medical 10/15/2020 12:00:00 AM EDT [place] ([facility]) Andreia Carmichael, [facility]: [address], [place] [address], Ph. Attender: Andreia Carmichael [facility] Medical 10/15/2020 12:00:00 AM EDT [facility] ([facility]) Andreia Carmichael, [facility]: [address], [place] [address], Ph. Attender: Andreia Carmichael [facility] Medical 10/15/2020 12:00:00 AM EDT [place] ([facility]) Andreia Carmichael, [employer]: [address], [place] [address], Ph. Attender: Andreia Carmichael [facility] Medical 10/06/2020 12:00:00 AM EDT [facility] ([facility]) Andreia Carmichael, [employer]: [address], [place] [address], Ph. Attender: Andreia Carmichael [facility] Medical 10/06/2020 12:00:00 AM EDT [facility] ([facility]) Andreia Carmichael, [employer]: [address], [place] [address], Ph. Attender: Andreia Carmichael [facility] Medical 10/06/2020 12:00:00 AM EDT [place] ([facility]) Andreia Carmichael, [employer]: [address], [place] [address], Ph. Attender: Andreia Carmichael [facility] Medical 10/06/2020 12:00:00 AM EDT [place] ([facility]) Andreia Carmichael, [employer]: [address], [place] [address], Ph. Attender: Andreia Carmichael [facility] Medical 10/06/2020 12:00:00 AM EDT [facility] ([facility]) Andreia Carmichael, [employer]: [address], [place] [address], Ph. Attender: Andreia Carmichael [facility] Medical 10/06/2020 12:00:00 AM EDT [facility] ([facility]) Andreia Carmichael, [employer]: [address], [place] [address], Ph. Attender: Andreia Carmichael [facility] Medical 10/06/2020 12:00:00 AM EDT [place] ([facility]) Andreia Carmichael, [employer]: [address], [place] [address], Ph. Attender: Andreia Carmichael [facility] Medical 10/06/2020 12:00:00 AM EDT [facility] ([facility]) Andreia Carmichael, [employer]: [address], [place] [address], Ph. Attender: Andreia Carmichael [facility] Medical 09/29/2020 12:00:00 AM EDT [place] ([facility]) Andreia Carmichael, [employer]: [address], [place] [address], Ph. Attender: Andreia Carmichael [facility] Medical 09/29/2020 12:00:00 AM EDT [place] ([facility]) Andreia Carmichael [facility]: [address], [place] [address], Ph. Attender: Andreia Carmichael [facility] Medical 09/29/2020 12:00:00 AM EDT [place] ([facility]) Andreia Carmichael, [employer]: [address], [place] [address], Ph. Attender: Andreia Carmichael [facility] Medical 09/29/2020 12:00:00 AM EDT [place] ([facility]) Andreia Carmichael, [employer]: [address], [place] [address], Ph. Attender: Andreia Carmichael [facility] Medical 09/29/2020 12:00:00 AM EDT [place] ([facility]) Andreia Carmichael, [employer]: [address], [place] [address], Ph. Attender: Andreia Carmichael [facility] Medical 09/29/2020 12:00:00 AM EDT [place] ([facility]) Andreia Carmichael, [employer]: [address], [place] [address], Ph. Attender: Andreia Carmichael [facility] Medical 09/29/2020 12:00:00 AM EDT [place] ([facility]) Andreia Carmichael, FRONT LINE LEADER: [address], [place] [address], Ph. Attender: Andreia Carmichael [facility] Medical 09/29/2020 12:00:00 AM EDT [place] ([facility]) Andreia Carmichael FRONT LINE LEADER: [address], [place] [address], Ph. Attender: Andreia Carmichael [facility] Medical 09/29/2020 12:00:00 AM EDT [place] ([facility]) Andreia Carmichael, FRONT LINE LEADER: [address], [address], [place] [address], Ph. Attender: Andreia Carmichael [facility] Medical 08/19/2020 12:00:00 AM EDT [place] ([facility]) Andreia Carmichael, FRONT LINE LEADER: [address], [place] [address], Ph. Attender: Andreia Carmichael [facility] Medical 08/19/2020 12:00:00 AM EDT [place] ([facility]) Andreia Carmichael, FRONT LINE LEADER: [address], [address], [place] [address], Ph. Attender: Andreia Carmichael [facility] Medical 08/19/2020 12:00:00 AM EDT [place] ([facility]) Andreia Carmichael, FRONT LINE LEADER: [address], [place] [address], Ph. Attender: Andreia Carmichael [facility] Medical 08/19/2020 12:00:00 AM EDT [place] ([facility]) Andreia Carmichael, FRONT LINE LEADER: [address], [place] [address], Ph. Attender: Andreia Carmichael [facility] Medical 08/19/2020 12:00:00 AM EDT [place] ([facility]) Andreia Carmichael, FRONT LINE LEADER: [address], [place] [address], Ph. Attender: Andreia Carmichael [facility] Medical 08/19/2020 12:00:00 AM EDT [place] ([facility]) Andreia Carmichael, FRONT LINE LEADER: [address], [place] [address], Ph. Attender: Andreia Carmichael [facility] Medical 08/19/2020 12:00:00 AM EDT [place] ([facility]) Andreia Carmichael, FRONT LINE LEADER: [address], [place] [address], Ph. Attender: Andreia Carmichael [facility] Medical 08/19/2020 12:00:00 AM EDT [place] ([facility]) Andreia Carmichael, FRONT LINE LEADER: [address], [place] [address], Ph. Attender: Andreia Carmichael [facility] Medical 08/19/2020 12:00:00 AM EDT [place] ([facility]) Andreia Carmichael, FRONT LINE LEADER: [address], [place] [address], Ph. Attender: Andreia Carmichael [facility] Medical 08/19/2020 12:00:00 AM EDT [place] ([facility]) Andreia Carmichael, FRONT LINE LEADER: [address], [place] [address], Ph. Attender: Andreia Carmichael [facility] Medical 08/07/2020 12:00:00 AM EDT [place] ([facility]) Andreia Carmichael, FRONT LINE LEADER: [address], [place] [address], Ph. Attender: Andreia Carmichael [facility] Medical 08/07/2020 12:00:00 AM EDT [place] ([facility]) Andreia Carmichael, FRONT LINE LEADER: [address], [place] [address], Ph. Attender: Andreia Carmichael [facility] Medical 08/07/2020 12:00:00 AM EDT [place] ([facility]) Andreia Carmichael, FRONT LINE LEADER: [address], [place] [address], Ph. Attender: Andreia Carmichael [facility] Medical 08/07/2020 12:00:00 AM EDT [place] ([facility]) Andreia Carmichael, FRONT LINE LEADER: [address], [place] [address], Ph. Attender: Andreia Carmichael [facility] Medical 08/07/2020 12:00:00 AM EDT [place] ([facility]) Andreia Carmichael, FRONT LINE LEADER: [address], [place] [address], Ph. Attender: Andreia Carmichael [facility] Medical 08/07/2020 12:00:00 AM EDT [place] ([facility]) Andreia Carmichael, FRONT LINE LEADER: [address], [place] [address], Ph. Attender: Andreia Carmichael [facility] Medical 08/07/2020 12:00:00 AM EDT [place] ([facility]) Andreia Carmichael, [facility]: [address], [place] [address], Ph. Attender: Andreia Carmichael [facility] Medical 08/07/2020 12:00:00 AM EDT [place] ([facility]) Andreia Carmichael, [facility]: [address], [place] [address], Ph. Attender: Andreia Carmichael [facility] Medical 08/07/2020 12:00:00 AM EDT [place] ([facility]) Andreia Carmichael, FRONT LINE LEADER: [address], [place] [address], Ph. Attender: Andreia Carmichael [facility] Medical 08/07/2020 12:00:00 AM EDT [place] ([facility]) Andreia Carmichael, FRONT LINE LEADER: [address], [place] [address], Ph. Attender: Andreia Carmichael [facility] Medical 08/07/2020 12:00:00 AM EDT [place] ([facility]) Rafat Cortez, LUIS-C: [address], [place] [address], Ph. Attender: RAFAT CORTEZ RPA-C [facility] Medical 08/05/2020 12:00:00 AM EDT [place] ([facility]) Rafat Cortez, RPA-C: [address], [address], [place] [address], Ph. Attender: RAFAT CORTEZ RPA-C [facility] Medical 08/05/2020 12:00:00 AM EDT [place] ([facility]) Rafat Cortez, RPA-C: [address], [address], [place] [address], Ph. Attender: RAFAT CORTEZ RPA-C [facility] Medical 08/05/2020 12:00:00 AM EDT [place] ([facility]) Rafat Cortez, RPA-C: [address], [address], [place] [address], Ph. Attender: RAFAT CORTEZ RPA-C [facility] Medical 08/05/2020 12:00:00 AM EDT [place] ([facility]) Rafat Cortez, RPA-C: [address], [address], [place] [address], Ph. Attender: RAFAT CORTEZ RPA-C [facility] Medical 08/05/2020 12:00:00 AM EDT [place] ([facility]) Rafat Cortez, RPA-C: [address], [place] [address], Ph. Attender: RAFAT CORTEZ RPA-C [facility] Medical 08/05/2020 12:00:00 AM EDT [place] ([facility]) Rafat Cortez RPA-C: [address], [place] [address], Ph. Attender: RAFAT CORTEZ RPA-C [facility] Medical 08/05/2020 12:00:00 AM EDT [place] ([facility]) Rafat Cortez RPA-C: [address], [place] [address], Ph. Attender: RAFAT CORTEZ RPA-C [facility] Medical 08/05/2020 12:00:00 AM EDT [place] ([facility]) Andreia Carmichael, FRONT LINE LEADER: [address], [address], [place] [address], Ph. Attender: Andreia Carmichael [facility] Medical 07/28/2020 12:00:00 AM EDT [place] ([facility]) Andreia Carmichael, FRONT LINE LEADER: [address], [place] [address], Ph. Attender: Andreia Carmichael [facility] Medical 07/28/2020 12:00:00 AM EDT [place] ([facility]) Andreia Carmichael, FRONT LINE LEADER: [address], [address], [place] [address], Ph. Attender: Andreia Carmichael [facility] Medical 07/28/2020 12:00:00 AM EDT [place] ([facility]) Andreia Carmichael, FRONT LINE LEADER: [address], [place] [address], Ph. Attender: Andreia Carmichael [facility] Medical 07/28/2020 12:00:00 AM EDT [place] ([facility]) Andreia Carmichael, [facility]: [address], [place] [address], Ph. Attender: Andreia Carmichael [facility] Medical 07/28/2020 12:00:00 AM EDT [place] ([facility]) Andreia Carmichael, FRONT LINE LEADER: [address], [place] [address], Ph. Attender: Andreia Carmichael [facility] Medical 07/28/2020 12:00:00 AM EDT [place] ([facility]) Andreia Carmichael FRONT LINE LEADER: [address], [place] [address], Ph. Attender: Andreia Carmichael [facility] Medical 07/28/2020 12:00:00 AM EDT [place] ([facility]) Andreia Carmichael, FRONT LINE LEADER: [address], [place] [address], Ph. Attender: Andreia Carmichael [facility] Medical 07/28/2020 12:00:00 AM EDT [place] ([facility]) Andreia Carmichael, FRONT LINE LEADER: [address], [address], [place] [address], Ph. Attender: Andreia Carmichael [facility] Medical 07/28/2020 12:00:00 AM EDT [place] ([facility]) Andreia Carmichael, FRONT LINE LEADER: [address], [place] [address], Ph. Attender: Andreia Carmichael [facility] Medical 07/28/2020 12:00:00 AM EDT [place] ([facility]) Andreia Carmichael, [facility]: [address], [place] [address], Ph. Attender: Andreia Carmichael [facility] Medical 07/28/2020 12:00:00 AM EDT [place] ([facility]) Andreia Carmichael, FRONT LINE LEADER: [address], [place] [address], Ph. Attender: Andreia Carmichael [facility] Medical 07/28/2020 12:00:00 AM EDT [place] ([facility]) Andreia Carmichael, FRONT LINE LEADER: [address], [place] [address], Ph. Attender: Andreia Carmichael [facility] Medical 07/21/2020 12:00:00 AM EDT [place] ([facility]) Andreia Carmichael, FRONT LINE LEADER: [address], [place] [address], Ph. Attender: Andreia Carmichael [facility] Medical 07/21/2020 12:00:00 AM EDT [place] ([facility]) Andreia Carmichael FRONT LINE LEADER: [address], [place] [address], Ph. Attender: Andreia Carmichael [facility] Medical 07/21/2020 12:00:00 AM EDT [place] ([facility]) Andreia Carmichael, FRONT LINE LEADER: [address], [place] [address], Ph. Attender: Andreia Carmichael [facility] Medical 07/21/2020 12:00:00 AM EDT [place] ([facility]) Andreia Carmichael, [facility]: [address], [place] [address], Ph. Attender: Andreia Carmichael [facility] Medical 07/21/2020 12:00:00 AM EDT [place] ([facility]) Andreia Carmichael FRONT LINE LEADER: [address], [place] [address], Ph. Attender: Andreia Carmichael [facility] Medical 07/21/2020 12:00:00 AM EDT [place] ([facility]) Andreia Carmichael, FRONT LINE LEADER: [address], [place] [address], Ph. Attender: Andreia Carmichael [facility] Medical 07/21/2020 12:00:00 AM EDT [place] ([facility]) Andreia Carmichael [facility]: [address], [place] [address], Ph. Attender: Andreia Carmichael [facility] Medical 07/21/2020 12:00:00 AM EDT [place] ([facility]) Andreia Carmichael [facility]: [address], [place] [address], Ph. Attender: Andreia Carmichael [facility] Medical 07/21/2020 12:00:00 AM EDT [place] ([facility]) Andreia Carmichael, FRONT LINE LEADER: [address], [place] [address], Ph. Attender: Andreia Carmichael [facility] Medical 07/21/2020 12:00:00 AM EDT [place] ([facility]) Andreia Carmichael, [facility]: [address], [place] [address], Ph. Attender: Andreia Carmichael [facility] Medical 07/21/2020 12:00:00 AM EDT [place] ([facility]) Andreia Carmichael [facility]: [address], [place] [address], Ph. Attender: Andreia Carmichael [facility] Medical 07/21/2020 12:00:00 AM EDT [place] ([facility]) Andreia Carmichael [facility]: [address], [place] [address], Ph. Attender: Andreia Carmichael [facility] Medical 07/21/2020 12:00:00 AM EDT [place] ([facility]) Outpatient Attender: MINISTERIO Cuevas/Tasha/Nato/Michael wade 07/15/2020 01:45:00 PM EDT [facility] ([facility], ) Rusty Marks RPA-C: [address], [place] [address], Ph. Attender: RUSTY MARKS [facility] Medical 06/20/2020 12:00:00 AM EDT [place] ([facility]) Rusty Marks RPA-C: [address], [address], [place] [address], Ph. Attender: RUSTY MARKS [facility] Medical 06/20/2020 12:00:00 AM EDT [place] ([facility]) Rusty Marks RPA-C: [address], [place] [address], Ph. Attender: RUSTY MARKS [facility] Medical 06/20/2020 12:00:00 AM EDT [place] ([facility]) Rusty Marks RPA-C: [address], [place] [address], Ph. Attender: RUSTY MARKS [facility] Medical 06/20/2020 12:00:00 AM EDT [place] ([facility]) PETEY PerezC: [address], [place] [address], Ph. Attender: RUSTY MARKS [facility] Medical 06/20/2020 12:00:00 AM EDT [place] ([facility]) PETEY PerezC: [address], [place] [address], Ph. Attender: RUSTY MARKS [facility] Medical 06/20/2020 12:00:00 AM EDT [place] ([facility]) PETEY PerezC: [address], [place] [address], Ph. Attender: RUSTY MARKS [facility] Medical 06/20/2020 12:00:00 AM EDT [place] ([facility]) Rusty Marks RPA-C: [address], [place] [address], Ph. Attender: RUSTY MARKS [facility] Medical 06/20/2020 12:00:00 AM EDT [place] ([facility]) Rusty Marks RPA-C: [address], [address], [place] [address], Ph. Attender: RUSTY MARKS [facility] Medical 06/20/2020 12:00:00 AM EDT [place] ([facility]) Rusty Marks RPA-C: [address], [place] [address], Ph. Attender: RUSTY MARKS [facility] Medical 06/20/2020 12:00:00 AM EDT [place] ([facility]) Rusty Marks RPA-C: [address], [place] [address], Ph. Attender: RUSTY MARKS [facility] Medical 06/20/2020 12:00:00 AM EDT [place] ([facility]) Rusty Marks RPA-C: [address], [address], [place] [address], Ph. Attender: RUSTY MARKS [facility] Medical 06/20/2020 12:00:00 AM EDT [place] ([facility]) Rusty Marks RPA-C: [address], [place] [address], Ph. Attender: RUSTY MARKS [facility] Medical 06/20/2020 12:00:00 AM EDT [place] ([facility]) Rusty Marks RPA-C: [address], [address], [place] [address], Ph. Attender: RUSTY MARKS [facility] Medical 06/20/2020 12:00:00 AM EDT [place] ([facility]) Lora Wick MD: [address], [place] [address], Ph. Attender: Lora Wick [facility] Medical 06/10/2020 12:00:00 AM EDT [place] ([facility]) Lora Wick MD: [address], [place] [address], Ph. Attender: Lora Wick [facility] Medical 06/10/2020 12:00:00 AM EDT [place] ([facility]) Lora Wick MD: [address], [place] [address], Ph. Attender: Lora Wick [facility] Medical 06/10/2020 12:00:00 AM EDT [facility] ([facility]) Lora Wick MD: [address], [place] [address], Ph. Attender: Lora Wick [facility] Medical 06/10/2020 12:00:00 AM EDT [facility] ([facility]) Lora Wick MD: [address], [place] [address], Ph. Attender: Lora Wick [facility] Medical 06/10/2020 12:00:00 AM EDT [facility] ([facility]) Lora Wick MD: [address], [place] [address], Ph. Attender: Lora Wick [facility] Medical 06/10/2020 12:00:00 AM EDT [facility] ([facility]) Lora Wick MD: [address], [place] [address], Ph. Attender: Lora Wick [facility] Medical 06/10/2020 12:00:00 AM EDT [facility] ([facility]) Lora Wick MD: [address], [place] [address], Ph. Attender: Lora Wick [facility] Medical 06/10/2020 12:00:00 AM EDT [facility] ([facility]) Lora Wick MD: [address], [place] [address], Ph. Attender: Lora Wick [facility] Medical 06/10/2020 12:00:00 AM EDT [facility] ([facility]) Lora Wick MD: [address], [place] [address], Ph. Attender: Lora Wick [facility] Medical 06/10/2020 12:00:00 AM EDT [facility] ([facility]) Lora Wick MD: [address], [place] [address], Ph. Attender: Lora Wick [facility] Medical 06/10/2020 12:00:00 AM EDT [facility] ([facility]) Lora Wick MD: [address], [place] [address], Ph. Attender: Lora Wick [facility] Medical 06/10/2020 12:00:00 AM EDT [facility] ([facility]) Lora Wick MD: [address], [place] [address], Ph. Attender: Lora Wick [facility] Medical 06/10/2020 12:00:00 AM EDT [facility] ([facility]) Lora Wick MD: [address], [place] [address], Ph. Attender: Lora Wick [facility] Medical 06/10/2020 12:00:00 AM EDT [facility] ([facility]) Lora Wick MD: [address], [place] [address], Ph. Attender: Lora Wick [facility] Medical 06/10/2020 12:00:00 AM EDT [facility] ([facility]) Lesia Alberto PA-C: [address], [place] [address], Ph. Attender: Lesia [facility] Medical 04/29/2020 12:00:00 AM EST [facility] ([facility]) Lesia Alberto PA-C: [address], [place] [address], Ph. Attender: Lesia [facility] Medical 04/29/2020 12:00:00 AM EST [facility] ([facility]) Lesia Alberto PA-C: [address], [place] [address], Ph. Attender: Lesia [facility] Medical 04/29/2020 12:00:00 AM EST [facility] ([facility]) Lesia Alberto PA-C: [address], [place] [address], Ph. Attender: Lesia [facility] Medical 04/29/2020 12:00:00 AM EST [facility] ([facility]) Lesia Alberto PA-C: [address], [place] [address], Ph. Attender: Lesia [facility] Medical 04/29/2020 12:00:00 AM EST [facility] ([facility]) Lesia Alberto PA-C: [address], [place] [address], Ph. Attender: Lesia [facility] Medical 04/29/2020 12:00:00 AM EST [facility] ([facility]) Lesia Alberto PA-C: [address], [place] [address], Ph. Attender: Lesia [facility] Medical 04/29/2020 12:00:00 AM EST [facility]ER ([facility]) Lesia Alberto PA-C: [address], [address], [place] [address], Ph. Attender: Lesia [facility] Medical 04/29/2020 12:00:00 AM EST SANDER ([facility]) ANNETTE VicenteC: [address], [address], [place] [address], Ph. Attender: Lesia [facility] Medical 04/29/2020 12:00:00 AM EST SANDER ([facility]) Lesia Alberto PA-C: [address], [address], [place] [address], Ph. Attender: Lesia [facility] Medical 04/29/2020 12:00:00 AM EST SANDER ([facility]) Lesia Alberto PA-C: [address], [address], [place] [address], Ph. Attender: Lesia [facility] Medical 04/29/2020 12:00:00 AM EST SANDER ([facility]) Lesia Alberto PA-C: [address], [address], [place] [address], Ph. Attender: Lesia [facility] Medical 04/29/2020 12:00:00 AM EST SANDER ([facility]) Lesia Alberto PA-C: [address], [address], [place] [address], Ph. Attender: Lesia [facility] Medical 04/29/2020 12:00:00 AM EST SANDER ([facility]) Lesia Alberto PA-C: [address], [address], [place] [address], Ph. Attender: Lesia [facility] Medical 04/29/2020 12:00:00 AM EST SANDER ([facility]) Lesia Alberto PA-C: [address], [address], [place] [address], Ph. Attender: Lesia [facility] Medical 04/29/2020 12:00:00 AM EST SANDER ([facility]) Lesia Alberto PA-C: [address], [place] [address], Ph. Attender: Lesia [facility] Medical 04/29/2020 12:00:00 AM EST SANDER ([facility]) Andreiarajendra Carmichael, FRONT LINE LEADER: [address], [place] [address], Ph. Attender: Andreiarajendra Carmichael [facility] Medical 04/03/2020 12:00:00 AM EST SANDER ([facility]) Andreia Carmichael, FRONT LINE LEADER: [address], [place] [address], Ph. Attender: Andreia Evenskathleen [facility] Medical 04/03/2020 12:00:00 AM EST SANDER ([facility]) Andreia Hornerkathleen, FRONT LINE LEADER: [address], [place] [address], Ph. Attender: Andreia Hornerkathleen [facility] Medical 04/03/2020 12:00:00 AM EST SANDER ([facility]) Andreiarajendra Carmichael, FRONT LINE LEADER: [address], [place] [address], Ph. Attender: Andreia Carmichael [facility] Medical 04/03/2020 12:00:00 AM EST SANDER ([facility]) Andreia Carmichael, FRONT LINE LEADER: [address], [place] [address], Ph. Attender: Andreia Carmichael [facility] [facility] Medical 04/03/2020 12:00:00 AM EST SANDER ([facility]) Andreia Carmichael, FRONT LINE LEADER: [address], [place] [address], Ph. Attender: Andreia Carmichael [facility] [facility] Medical 04/03/2020 12:00:00 AM EST SANDER ([facility]) Andreia Carmichael, [facility]: [address], [place] [address], Ph. Attender: Andreia Carmichael [facility] [place] [facility] Medical 04/03/2020 12:00:00 AM EST SANDER ([facility]) Andreia Carmichael, FRONT LINE LEADER: [address], [place] [address], Ph. Attender: Andreia Carmichael [facility] Medical 04/03/2020 12:00:00 AM EST SANDER ([facility]) Andreia Carmichael, FRONT LINE LEADER: [address], [place] [address], Ph. Attender: Andreia Carmichael [facility] Medical 04/03/2020 12:00:00 AM EST SANDER ([facility]) Andreia Carmichael, FRONT LINE LEADER: [address], [place] [address], Ph. Attender: Andreia Carmichael [facility] Medical 04/03/2020 12:00:00 AM EST SANDER ([facility]) Andreia Carmichael FRONT LINE LEADER: [address], [place] [address], Ph. Attender: Andreia Carmichael [facility] Medical 04/03/2020 12:00:00 AM EST SANDER ([facility]) Andreia Carmichael, FRONT LINE LEADER: [address], [place] [address], Ph. Attender: Andreia Carmichael [facility] Medical 04/03/2020 12:00:00 AM EST SANDER ([facility]) Andreia Carmichael FRONT LINE LEADER: [address], [place] [address], Ph. Attender: Andreia Carmichael [facility] Medical 04/03/2020 12:00:00 AM EST SANDER ([facility]) Andreia Carmichael, FRONT LINE LEADER: [address], [place] [address], Ph. Attender: Andreia Carmichael [facility] Medical 04/03/2020 12:00:00 AM EST SANDER ([facility]) Andreia Carmichael, FRONT LINE LEADER: [address], [place] [address], Ph. Attender: Andreia Carmichael [facility] Medical 04/03/2020 12:00:00 AM EST SANDER ([facility]) Andreia Carmichael, FRONT LINE LEADER: [address], [place] [address], Ph. Attender: Andreia Carmichael [facility] Medical 04/03/2020 12:00:00 AM EST SANDER ([facility]) Andreia Carmichael, FRONT LINE LEADER: [address], [place] [address], Ph. Attender: Andreia Carmichael [facility] Medical 04/03/2020 12:00:00 AM EST SANDER ([facility]) Andreia Carmichael, FRONT LINE LEADER: [address], [place] [address], Ph. Attender: Andreia Carmichael [facility] Medical 03/25/2020 12:00:00 AM EST SANDER ([facility]) Andreia Carmichael, FRONT LINE LEADER: [address], [place] [address], Ph. Attender: Andreia Carmichael [facility] Medical 03/25/2020 12:00:00 AM EST SANDER ([facility]) Andreia Carmichael, FRONT LINE LEADER: [address], [place] [address], Ph. Attender: Andreia Carmichael [facility] Medical 03/25/2020 12:00:00 AM EST SANDER ([facility]) Andreia Carmichael, FRONT LINE LEADER: [address], [place] [address], Ph. Attender: Andreia Carmichael [facility] Medical 03/25/2020 12:00:00 AM EST SANDER ([facility]) Andreia Carmichael, FRONT LINE LEADER: [address], [place] [address], Ph. Attender: Andreia Carmichael [facility] Medical 03/25/2020 12:00:00 AM EST SANDER ([facility]) Andreia Carmichael [facility]: [address], [place] [address], Ph. Attender: Andreia Carmichael [facility] Medical 03/25/2020 12:00:00 AM EST SANDER ([facility]) Andreia Carmichael FRONT LINE LEADER: [address], [place] [address], Ph. Attender: Andreia Carmichael [facility] Medical 03/25/2020 12:00:00 AM EST SANDER ([facility]) Andreia Carmichael, FRONT LINE LEADER: [address], [place] [address], Ph. Attender: Andreia Carmichael [facility] Medical 03/25/2020 12:00:00 AM EST SANDER ([facility]) Andreia Carmichael, [facility]: [address], [place] [address], Ph. Attender: Andreia Carmichael [facility] Medical 03/25/2020 12:00:00 AM EST SANDER ([facility]) Andreia Carmichael [facility]: [address], [place] [address], Ph. Attender: Andreia Carmichael [facility] Medical 03/25/2020 12:00:00 AM EST SANDER ([facility]) Andreia Carmichael, [facility]: [address], [place] [address], Ph. Attender: Andreia Carmichael [facility] Medical 03/25/2020 12:00:00 AM EST SANDER ([facility]) Andreia Carmichael, FRONT LINE LEADER: [address], [place] [address], Ph. Attender: Andreia Carmichael [facility] Medical 03/25/2020 12:00:00 AM EST SANDER ([facility]) Andreia Carmichael, FRONT LINE LEADER: [address], [place] [address], Ph. Attender: Andreia Carmichael [facility] Medical 03/25/2020 12:00:00 AM EST SANDER ([facility]) Andreia Carmichael FRONT LINE LEADER: [address], [place] [address], Ph. Attender: Andreia Carmichael [facility] Medical 03/25/2020 12:00:00 AM EST SANDER ([facility]) Andreia Carmichael, FRONT LINE LEADER: [address], [place] [address], Ph. Attender: Andreia Carmichael [facility] Medical 03/25/2020 12:00:00 AM EST SANDER ([facility]) Andreia Carmichael [facility]: [address], [place] [address], Ph. Attender: Andreia Carmichael [facility] Medical 03/25/2020 12:00:00 AM EST SANDER ([facility]) Andreia Carmichael, FRONT LINE LEADER: [address], [place] [address], Ph. Attender: Andreia Carmichael [facility] Medical 03/25/2020 12:00:00 AM EST SANDER ([facility]) Andreia Carmichael [facility]: [address], [place] [address], Ph. Attender: Andreia Carmichael [facility] Medical 03/25/2020 12:00:00 AM EST SANDER ([facility]) Andreia Carmichael, FRONT LINE LEADER: [address], [place] [address], Ph. Attender: Andreia Carmichael [facility] Medical 03/13/2020 12:00:00 AM EST SANDER ([facility]) Andreia Carmichael [facility]: [address], [place] [address], Ph. Attender: Andreia Carmichael [facility] Medical 03/13/2020 12:00:00 AM EST SANDER ([facility]) Andreia Carmichael, [facility]: [address], [place] [address], Ph. Attender: Andreia Carmichael [facility] Medical 03/13/2020 12:00:00 AM EST SANDER ([facility]) Andreia Carmichael [facility]: [address], [place] [address], Ph. Attender: Andreia Carmichael [facility] Medical 03/13/2020 12:00:00 AM EST SANDER ([facility]) Andreia Carmichael FRONT LINE LEADER: [address], [place] [address], Ph. Attender: Andreia Carmichael [facility] Medical 03/13/2020 12:00:00 AM EST SANDER ([facility]) Andreia Carmichael, FRONT LINE LEADER: [address], [place] [address], Ph. Attender: Andreia Carmichael [facility] Medical 03/13/2020 12:00:00 AM EST SANDER ([facility]) Andreia Carmichael, FRONT LINE LEADER: [address], [place] [address], Ph. Attender: Andreia Carmichael [facility] Medical 03/13/2020 12:00:00 AM EST SANDER ([facility]) Andreia Carmichael, FRONT LINE LEADER: [address], [place] [address], Ph. Attender: Andreia Carmichael [facility] Medical 03/13/2020 12:00:00 AM EST SANDER ([facility]) Andreia Carmichael, FRONT LINE LEADER: [address], [place] [address], Ph. Attender: Andreia Carmichael [facility] Medical 03/13/2020 12:00:00 AM EST SANDER ([facility]) Andreia Carmichael, FRONT LINE LEADER: [address], [place] [address], Ph. Attender: Andreia Carmichael [facility] Medical 03/13/2020 12:00:00 AM EST SANDER ([facility]) Andreia Carmichael, FRONT LINE LEADER: [address], [place] [address], Ph. Attender: Andreia Carmichael [facility] Medical 03/13/2020 12:00:00 AM EST SANDER ([facility]) Andreia Carmichael, FRONT LINE LEADER: [address], [place] [address], Ph. Attender: Andreia Carmichael [facility] Medical 03/13/2020 12:00:00 AM EST SANDER ([facility]) Andreia Carmichael, FRONT LINE LEADER: [address], [place] [address], Ph. Attender: Andreia Carmichael [facility] Medical 03/13/2020 12:00:00 AM EST SANDER ([facility]) Andreia Carmichael, FRONT LINE LEADER: [address], [place] [address], Ph. Attender: Andreia Carmichael [facility] Medical 03/13/2020 12:00:00 AM EST SANDER ([facility]) Andreia Carmichael, FRONT LINE LEADER: [address], [place] [address], Ph. Attender: Andreia Carmichael [facility] Medical 03/13/2020 12:00:00 AM EST SANDER ([facility]) Andreia Carmichael, FRONT LINE LEADER: [address], [place] [address], Ph. Attender: Andreia Carmichael [facility] Medical 03/13/2020 12:00:00 AM EST SANDER ([facility]) Andreia Carmichael, FRONT LINE LEADER: [address], [place] [address], Ph. Attender: Andreia Carmichael [facility] Medical 03/13/2020 12:00:00 AM EST SANDER ([facility]) Andreia Carmichael, FRONT LINE LEADER: [address], [place] [address], Ph. Attender: Andreia Carmichael [facility] Medical 03/13/2020 12:00:00 AM EST SANDER ([facility]) Andreia Carmichael, FRONT LINE LEADER: [address], [place] [address], Ph. Attender: Andreia Carmichael [facility] Medical 03/13/2020 12:00:00 AM EST SANDER ([facility]) Andreia Carmichael, FRONT LINE LEADER: [address], [place] [address], Ph. Attender: Andreia Carmichael [facility] Medical 02/26/2020 12:00:00 AM EST SANDER ([facility]) Andreia Carmichael LMS[facility]: [address], [place] [address], Ph. Attender: Andreia Carmichael [facility] Medical 02/26/2020 12:00:00 AM EST SANDER ([facility]) Andreia Carmichael, FRONT LINE LEADER: [address], [place] [address], Ph. Attender: Andreia Carmichael [facility] Medical 02/26/2020 12:00:00 AM EST SANDER ([facility]) Andreia Carmichael FRONT LINE LEADER: [address], [place] [address], Ph. Attender: Andreia Carmichael [facility] Medical 02/26/2020 12:00:00 AM EST SANDER ([facility]) Andreia Carmichael, FRONT LINE LEADER: [address], [place] [address], Ph. Attender: Andreia Carmichael [facility] Medical 02/26/2020 12:00:00 AM EST SANDER ([facility]) Andreia Carmichael, [facility]: [address], [place] [address], Ph. Attender: Andreia Carmichael [facility] Medical 02/26/2020 12:00:00 AM EST SANDER ([facility]) Andreia Carmichael, FRONT LINE LEADER: [address], [place] [address], Ph. Attender: Andreia Carmichael [facility] Medical 02/26/2020 12:00:00 AM EST SANDER ([facility]) Andreia Carmichael, [facility]: [address], [place] [address], Ph. Attender: Andreia Carmichael [facility] Medical 02/26/2020 12:00:00 AM EST SANDER ([facility]) Andreia Carmichael, [facility]: [address], [place] [address], Ph. Attender: Andreia Carmichael [facility] Medical 02/26/2020 12:00:00 AM EST SANDER ([facility]) Andreia Carmichael, [facility]: [address], [place] [address], Ph. Attender: Andreia Carmichael [facility] Medical 02/26/2020 12:00:00 AM EST SANDER ([facility]) Andreia Carmichael, [facility]: [address], [place] [address], Ph. Attender: Andreia Carmichael [facility] Medical 02/26/2020 12:00:00 AM EST SANDER ([facility]) Andreia Carmichael, FRONT LINE LEADER: [address], [place] [address], Ph. Attender: Andreia Carmichael [facility] Medical 02/26/2020 12:00:00 AM EST SANDER ([facility]) Andreia Carmichael, FRONT LINE LEADER: [address], [place] [address], Ph. Attender: Andreia Carmichael [facility] Medical 02/26/2020 12:00:00 AM EST SANDER ([facility]) Andreia Carmichael, FRONT LINE LEADER: [address], [place] [address], Ph. Attender: Andreia Carmichael [facility] Medical 02/26/2020 12:00:00 AM EST SANDER ([facility]) Andreia Carmichael, FRONT LINE LEADER: [address], [place] [address], Ph. Attender: Andreia Carmichael [facility] Medical 02/26/2020 12:00:00 AM EST SANDER ([facility]) Andreia Carmichael, FRONT LINE LEADER: [address], [place] [address], Ph. Attender: Andreia Carmichael [facility] Medical 02/26/2020 12:00:00 AM EST SANDER ([facility]) Andreia Carmichael, FRONT LINE LEADER: [address], [place] [address], Ph. Attender: Andreia Carmichael [facility] Medical 02/26/2020 12:00:00 AM EST SANDER ([facility]) Andreia Carmichael, [facility]: [address], [place] [address], Ph. Attender: Andreia Carmichael [facility] Medical 02/26/2020 12:00:00 AM EST SANDER ([facility]) Andreia Carmichael, [facility]: [address], [place] [address], Ph. Attender: Andreia Carmichael [facility] Medical 02/26/2020 12:00:00 AM EST SANDER ([facility]) Andreia Carmichael, [facility]: [address], [place] [address], Ph. Attender: Andreia Carmichael [facility] Medical 02/26/2020 12:00:00 AM EST SANDER ([facility]) Rafat Cortez RPA-C: [address], [place] [address], Ph. Attender: RAFAT CORTEZ RPA-C [facility] Medical 02/14/2020 12:00:00 AM EST SANDER ([facility]) Rafat Cortez RPA-C: [address], [place] [address], Ph. Attender: RAFAT CORTEZ RPA-C [facility] Medical 02/14/2020 12:00:00 AM EST SANDER ([facility]) Rafat Cortez RPA-C: [address], [place] [address], Ph. Attender: RAFAT CORTEZ RPA-C [facility] Medical 02/14/2020 12:00:00 AM EST SANDER ([facility]) Rafat Cortez RPA-C: [address], [place] [address], Ph. Attender: RAFAT CORTEZ RPA-C [facility] Medical 02/14/2020 12:00:00 AM EST SANDER ([facility]) Rafat Cortez RPA-C: [address], [place] [address], Ph. Attender: RAFAT CORTEZ RPA-C [facility] Medical 02/14/2020 12:00:00 AM EST SANDER ([facility]) Rafat Cortez RPA-C: [address], [place] [address], Ph. Attender: RAFAT CORTEZ RPA-C [facility] Medical 02/14/2020 12:00:00 AM EST SANDER ([facility]) Rafat Cortez RPA-C: [address], [place] [address], Ph. Attender: RAFAT CORTEZ RPA-C [facility] Medical 02/14/2020 12:00:00 AM EST SANDER ([facility]) Rafat Cortez RPA-C: [address], [place] [address], Ph. Attender: RAFAT CORTEZ RPA-C [facility] Medical 02/14/2020 12:00:00 AM EST SANDER ([facility]) Rafat Cortez RPA-C: [address], [place] [address], Ph. Attender: RAFAT CORTEZ RPA-C [facility] Medical 02/14/2020 12:00:00 AM EST SANDER ([facility]) Rafat Cortez RPA-C: [address], [place] [address], Ph. Attender: RAFAT CORTEZ RPA-C [facility] Medical 02/14/2020 12:00:00 AM EST SANDER ([facility]) Rafat Cortez RPA-C: [address], [address], [place] [address], Ph. Attender: RAFAT CORTEZ RPA-C [facility] Medical 02/14/2020 12:00:00 AM EST SANDER ([facility]) Rafat Cortez RPA-C: [address], [address], [place] [address], Ph. Attender: RAFAT CORTEZ RPA-C [facility] Medical 02/14/2020 12:00:00 AM EST SANDER ([facility]) Rafat Cortez, RPA-C: [address], [address], [place] [address], Ph. Attender: RAFAT CORTEZ RPA-C [facility] Medical 02/14/2020 12:00:00 AM EST SANDER ([facility]) Rafat Cortez, RPA-C: [address], [address], [place] [address], Ph. Attender: RAFAT CORTEZ RPA-C [facility] Medical 02/14/2020 12:00:00 AM EST SANDER ([facility]) Rafat Cortez, RPA-C: [address], [address], [place] [address], Ph. Attender: RAFAT CORTEZ RPA-C [facility] Medical 02/14/2020 12:00:00 AM EST SANDER ([facility]) Rafat Cortez RPA-C: [address], [address], [place] [address], Ph. Attender: RAFAT CORTEZ RPA-C [facility] Medical 02/14/2020 12:00:00 AM EST SANDER ([facility]) Rafat Cortez RPA-C: [address], [address], [place] [address], Ph. Attender: RAFAT CORTEZ RPA-C [facility] Medical 02/14/2020 12:00:00 AM EST SANDER ([facility]) Rafat Cortez RPA-C: [address], [address], [place] [address], Ph. Attender: RAFAT CORTEZ RPA-C [facility] Medical 02/14/2020 12:00:00 AM EST SANDER ([facility]) Rafat Cortez RPA-C: [address], [address], [place] [address], Ph. Attender: RAFAT CORTEZ RPA-C [facility] Medical 02/14/2020 12:00:00 AM EST SANDER ([facility]) Rafat Cortez RPA-C: [address], [address], [place] [address], Ph. Attender: RAFAT CORTEZ RPA-C [facility] Medical 02/14/2020 12:00:00 AM EST SANDER ([facility]) Rafat Cortez RPA-C: [address], [address], [place] [address], Ph. Attender: RAFAT CORTEZ RPA-C [facility] Medical 02/14/2020 12:00:00 AM EST SANDER ([facility]) Andreia Carmichael, [employer]: [address], [address], [place] [address], Ph. Attender: Andreia Carmichael [facility] Medical 02/13/2020 12:00:00 AM EST SANDER ([facility]) Andreia Carmichael, [facility]: [address], [address], [place] [address], Ph. Attender: Andreia Carmichael [facility] Medical 02/13/2020 12:00:00 AM EST SANDER ([facility]) Andreia Carmichael, [employer] LE[employer]: [address], [address], [place] [address], Ph. Attender: Andreia Carmichael [facility] Medical 02/13/2020 12:00:00 AM EST SANDER ([facility]) Andreia Carmichael, [facility]: [address], [address], [place] [address], Ph. Attender: Andreia Carmichael [facility] Medical 02/13/2020 12:00:00 AM EST SANDER ([facility]) Andreia Carmichael, [employer]: [address], [address], [place] [address], Ph. Attender: Andreia Carmichael [facility] Medical 02/13/2020 12:00:00 AM EST SANDER ([facility]) Andreia Evenskathleen, FRONT [employer] LEADER: [address], [address], [place] [address], Ph. Attender: Andreia Carmichael [facility] Medical 02/13/2020 12:00:00 AM EST SANDER ([facility]) Andreia Carmichael, [employer]: [address], [address], [place] [address], Ph. Attender: Andreia Carmichael [facility] Medical 02/13/2020 12:00:00 AM EST SANDER ([facility]) Andreia Carmichael, [employer] LE[employer]: [address], [address], [place] [address], Ph. Attender: Andreia Carmichael [facility] Medical 02/13/2020 12:00:00 AM EST SANDER ([facility]) Andreia Carmichael, FR[employer] LEADER: [address], [address], [place] [address], Ph. Attender: Andreia Carmichael [facility] Medical 02/13/2020 12:00:00 AM EST SANDER ([facility]) Andreia Carmichael, [employer]: [address], [address], [place] [address], Ph. Attender: Andreia Carmichael [facility] Medical 02/13/2020 12:00:00 AM EST SANDER ([facility]) Andreia Carmichael, [employer] LEADER: [address], [address], [place] [address], Ph. Attender: Andreia Carmichael [facility] Medical 02/13/2020 12:00:00 AM EST SANDER ([facility]) Andreia Carmichael, [employer] LE[employer]ER: [address], [address], [place] [address], Ph. Attender: Andreia Carmichael [facility] Medical 02/13/2020 12:00:00 AM EST SANDER ([facility]) Andreia Carmichael, [employer] LEADER: [address], [address], [place] [address], Ph. Attender: Andreia Carmichael [facility] Medical 02/13/2020 12:00:00 AM EST SANDER ([facility]) Andreia Carmichael, [employer] LEADER: [address], [address], [place] [address], Ph. Attender: Andreia Carmichael [facility] Medical 02/13/2020 12:00:00 AM EST SANDER ([facility]) Andreia Carmichael LMSW: [address], [address], [place] [address], Ph. Attender: Andreia Carmichael [facility] Medical 02/13/2020 12:00:00 AM EST SANDER ([facility]) Andreia Carmichael, [employer] LEADER: [address], [address], [place] [address], Ph. Attender: Andreia Carmichael [facility] Medical 02/13/2020 12:00:00 AM EST SANDER ([facility]) Andreia Carmichael FRONT LINE LEADER: [address], [address], [place] [address], Ph. Attender: Andreia Carmichael [facility] Medical 02/13/2020 12:00:00 AM EST SANDER ([facility]) Andreia Carmichael, FRONT [employer] LEADER: [address], [address], [place] [address], Ph. Attender: Andreia Carmichael [facility] Medical 02/13/2020 12:00:00 AM EST SANDER ([facility]) Andreia Carmichael, [facility]: [address], [address], [place] [address], Ph. Attender: Andreia Carmichael [facility] Medical 02/13/2020 12:00:00 AM EST SANDER ([facility]) Andreia Carmichael, FRONT [employer] LEADER: [address], [address], [place] [address], Ph. Attender: Andreia Carmichael [facility] Medical 02/13/2020 12:00:00 AM EST SANDER ([facility]) Andreia Carmichael, [facility]: [address], [address], [place] [address], Ph. Attender: Andreia Carmichael [facility] Medical 02/13/2020 12:00:00 AM EST SNADER ([facility]) Andreia Carmichael, [facility]: [address], [address], [place] [address], Ph. Attender: Andreia Carmichael [facility] Medical 02/13/2020 12:00:00 AM EST SANDER ([facility]) Andreia Carmichael, [facility]: [address], [address], [place] [address], Ph. Attender: Andreia Carmichael [facility] Medical 02/04/2020 12:00:00 AM EST SANDER ([facility]) Andreia Carmichael, [facility]: [address], [address], [place] [address], Ph. Attender: Andreia Carmichael [facility] Medical 02/04/2020 12:00:00 AM EST SANDER ([facility]) Andreia Carmichael, FR[employer] LEADER: [address], [address], [place] [address], Ph. Attender: Andreia Carmichael [facility] Medical 02/04/2020 12:00:00 AM EST SANDER ([facility]) Andreia Carmichael, FRONT [employer] LEADER: [address], [address], [place] [address], Ph. Attender: Andreia Carmichael [facility] Medical 02/04/2020 12:00:00 AM EST SANDER ([facility]) Andreia Carmichael, FRONT LINE LEADER: [address], [address], [place] [address], Ph. Attender: Andreia Carmichael [facility] Medical 02/04/2020 12:00:00 AM EST SANDER ([facility]) Andreia Carmichael, FRONT LINE LEADER: [address], [address], [place] [address], Ph. Attender: Andreia Carmichael [facility] Medical 02/04/2020 12:00:00 AM EST SANDER ([facility]) Andreia Carmichael, FRONT LINE LEADER: [address], [address], [place] [address], Ph. Attender: Andreia Carmichael [facility] Medical 02/04/2020 12:00:00 AM EST SANDER ([facility]) Andreia Carmichael, FRONT LINE LEADER: [address], [address], [place] [address], Ph. Attender: Andreia Carmichael [facility] Medical 02/04/2020 12:00:00 AM EST SANDER ([facility]) Andreia Carmichael [facility]: [address], [address], [place] [address], Ph. Attender: Andreia Carmichael [facility] Medical 02/04/2020 12:00:00 AM EST SANDER ([facility]) Andreia Carmichael FRONT LINE LEADER: [address], [address], [place] [address], Ph. Attender: Andreia Carmichael [facility] Medical 02/04/2020 12:00:00 AM EST SANDER ([facility]) Andreia Carmichael, FRONT LINE LEADER: [address], [address], [place] [address], Ph. Attender: Andreia Carmichael [facility] Medical 02/04/2020 12:00:00 AM EST SANDER ([facility]) Andreia Carmichael, [facility]: [address], [address], [place] [address], Ph. Attender: Andreia Carmichael [facility] Medical 02/04/2020 12:00:00 AM EST SANDER ([facility]) Andreia Carmichael [facility]: [address], [address], [place] [address], Ph. Attender: Andreia Carmichael [facility] Medical 02/04/2020 12:00:00 AM EST SANDER ([facility]) Andreia Carmichael [facility]: [address], [address], [place] [address], Ph. Attender: Andreia Carmichael [facility] Medical 02/04/2020 12:00:00 AM EST SANDER ([facility]) Andreia Carmichael, [facility]: [address], [address], [place] [address], Ph. Attender: Andreia Carmichael [facility] Medical 02/04/2020 12:00:00 AM EST SANDER ([facility]) Andreia Carmichael, FRONT [employer] LEADER: [address], [address], [place] [address], Ph. Attender: Andreia Carmichael [facility] Medical 02/04/2020 12:00:00 AM EST SANDER ([facility]) Andreia Carmichael [facility]: [address], [address], [place] [address], Ph. Attender: Andreia Carmichael [facility] Medical 02/04/2020 12:00:00 AM EST SANDER ([facility]) Andreia Carmichael, [facility]: [address], [address], [place] [address], Ph. Attender: Andreia Carmichael [facility] Medical 02/04/2020 12:00:00 AM EST SANDER ([facility]) Andreia Carmichael, [facility]: [address], [address], [place] [address], Ph. Attender: Andreia Carmichael [facility] Medical 02/04/2020 12:00:00 AM EST SANDER ([facility]) Andreia Carmichael, [facility]: [address], [address], [place] [address], Ph. Attender: Andreia Carmichael [facility] Medical 02/04/2020 12:00:00 AM EST SANDER ([facility]) Andreia Carmichael, [facility]: [address], [address], [place] [address], Ph. Attender: Andreia Carmichael [facility] Medical 02/04/2020 12:00:00 AM EST SANDER ([facility]) Andreia Carmichael, FR[employer] LEADER: [address], [address], [place] [address], Ph. Attender: Andreia Carmichael [facility] Medical 02/04/2020 12:00:00 AM EST SANDER ([facility]) Andreia Carmichael, FRONT [employer] LEADER: [address], [address], [place] [address], Ph. Attender: Andreia Carmichael [facility] Medical 02/04/2020 12:00:00 AM EST SANDER ([facility]) Andreia Carmichael, FRONT [employer] LEADER: [address], [address], [place] [address], Ph. Attender: Andreia Carmichael [facility] Medical 01/17/2020 12:00:00 AM EST SANDER ([facility]) Andreia Carmichael, FRONT [employer] LEADER: [address], [address], [place] [address], Ph. Attender: Andreia Carmichael [facility] Medical 01/17/2020 12:00:00 AM EST SANDER ([facility]) Andreia Carmichael, FRONT [employer] LEADER: [address], [address], [place] [address], Ph. Attender: Andreia Carmichael [facility] Medical 01/17/2020 12:00:00 AM EST SANDER ([facility]) Andreia Carmichael, FRONT LINE LEADER: [address], [address], [place] [address], Ph. Attender: Andreia Carmichael [facility] Medical 01/17/2020 12:00:00 AM EST SANDER ([facility]) Andreia Carmichael, FRONT LINE LEADER: [address], [address], [place] [address], Ph. Attender: Andreia Carmichael [facility] Medical 01/17/2020 12:00:00 AM EST SANDER ([facility]) Andreia Carmichael, FRONT LINE LEADER: [address], [address], [place] [address], Ph. Attender: Andreia Carmichael [facility] Medical 01/17/2020 12:00:00 AM EST SANDER ([facility]) Andreia Carmichael [facility]: [address], [address], [place] [address], Ph. Attender: Andreia Carmichael [facility] Medical 01/17/2020 12:00:00 AM EST SANDER ([facility]) Andreia Carmichael, FRONT LINE LEADER: [address], [address], [place] [address], Ph. Attender: Andreia Carmichael [facility] Medical 01/17/2020 12:00:00 AM EST SANDER ([facility]) Andreia Carmichael, FRONT LINE LEADER: [address], [address], [place] [address], Ph. Attender: Andreia Carmichael [facility] Medical 01/17/2020 12:00:00 AM EST SANDER ([facility]) Andreia Carmichael, FRONT LINE LEADER: [address], [address], [place] [address], Ph. Attender: Andreia Carmichael [facility] Medical 01/17/2020 12:00:00 AM EST SANDER ([facility]) Andreia Carmichael, [facility]: [address], [address], [place] [address], Ph. Attender: Andreia Carmichael [facility] Medical 01/17/2020 12:00:00 AM EST SANDER ([facility]) Andreia Carmichael, [facility]: [address], [address], [place] [address], Ph. Attender: Andreia Carmichael [facility] Medical 01/17/2020 12:00:00 AM EST SANDER ([facility]) Andreia Carmichael, [facility]: [address], [address], [place] [address], Ph. Attender: Andreia Carmichael [facility] Medical 01/17/2020 12:00:00 AM EST SANDER ([facility]) Andreia Carmichael, [facility]: [address], [address], [place] [address], Ph. Attender: Andreia Carmichael [facility] Medical 01/17/2020 12:00:00 AM EST SANDER ([facility]) Andreia Carmichael, [facility]: [address], [address], [place] [address], Ph. Attender: Andreia Carmichael [facility] Medical 01/17/2020 12:00:00 AM EST SANDER ([facility]) Andreia Carmichael, [facility]: [address], [address], [place] [address], Ph. Attender: Andreia Carmichael [place] [facility] Medical 01/17/2020 12:00:00 AM EST SANDER ([facility]) Andreia Carmichael, [facility]: [address], [address], [place] [address], Ph. Attender: Andreia Carmichael [facility] Medical 01/17/2020 12:00:00 AM EST SANDER ([facility]) Andreia Carmichael, [employer] LE[employer]: [address], [address], [place] [address], Ph. Attender: Andreia Carmichael [facility] Medical 01/17/2020 12:00:00 AM EST SANDER ([facility]) Andreia Carmichael, FR[employer] LEADER: [address], [address], [place] [address], Ph. Attender: Andreia Carmichael [facility] Medical 01/17/2020 12:00:00 AM EST SANDER ([facility]) Andreia Carmichael, FR[employer] LEADER: [address], [address], [place] [address], Ph. Attender: Andreia Carmichael [facility] Medical 01/17/2020 12:00:00 AM EST SANDER ([facility]) Andreia Carmichael, [facility]: [address], [address], [place] [address], Ph. Attender: Andreia Carmichael [facility] Medical 01/17/2020 12:00:00 AM EST SANDER ([facility]) Andreia Carmichael, FR[employer] LEADER: [address], [address], [place] [address], Ph. Attender: Andreia Carmichael [facility] Medical 01/17/2020 12:00:00 AM EST SANDER ([facility]) Andreia Carmichael, [employer] LEAD[employer]: [address], [address], [place] [address], Ph. Attender: Andreia Carmichael [facility] Medical 01/17/2020 12:00:00 AM EST SANDER ([facility]) Andreia Carmichael, FR[employer] LEADER: [address], [address], [place] [address], Ph. Attender: Andreia Carmichael [facility] Medical 01/17/2020 12:00:00 AM EST SANDER ([facility]) Andreia Carmichael, [employer] LEAD[employer]: [address], [address], [place] [address], Ph. Attender: Andreia Carmichael [facility] Medical 01/01/2020 12:00:00 AM EDT SANDER ([facility]) Andreia Carmichael, [employer]: [address], [address], [place] [address], Ph. Attender: Andreia Carmichael [facility] Medical 01/01/2020 12:00:00 AM EDT SANDER ([facility]) Andreia Carmichael, [facility]: [address], [address], [place] [address], Ph. Attender: Andreia Carmichael [facility] Medical 01/01/2020 12:00:00 AM EDT SANDER ([facility]) Andreia Carmichael, [facility]: [address], [address], [place] [address], Ph. Attender: Andreia Carmichael [facility] Medical 01/01/2020 12:00:00 AM EDT SANDER ([facility]) Andreia Carmichael, [facility]: [address], [address], [place] [address], Ph. Attender: Andreia Carmichael [facility] Medical 01/01/2020 12:00:00 AM EDT SANDER ([facility]) Andreia Carmichael, [employer]: [address], [address], [place] [address], Ph. Attender: Andreia Carmichael [facility] Medical 01/01/2020 12:00:00 AM EDT SANDER ([facility]) Andreia Carmichael, [facility]: [address], [address], [place] [address], Ph. Attender: Andreia Carmichael [facility] Medical 01/01/2020 12:00:00 AM EDT SANDER ([facility]) Andreia Carmichael, [facility]: [address], [address], [place] [address], Ph. Attender: Andreia Carmichael [facility] Medical 01/01/2020 12:00:00 AM EDT [place] ([facility]) Andreia Carmichael, [facility]: [address], [address], [place] [address], Ph. Attender: Andreia Carmichael [facility] Medical 01/01/2020 12:00:00 AM EDT [place] ([facility]) Andreia Carmichael, [employer]: [address], [place] [address], Ph. Attender: Andreia Carmichael [facility] Medical 01/01/2020 12:00:00 AM EDT [place] ([facility]) Andreia Carmichael, [employer]: [address], [place] [address], Ph. Attender: Andreia Carmichael [facility] Medical 01/01/2020 12:00:00 AM EDT [place] ([facility]) Andreia Carmichael, [facility]: [address], [place] [address], Ph. Attender: Andreia Carmichael [facility] Medical 01/01/2020 12:00:00 AM EDT [place] ([facility]) Andreia Carmichael [facility]: [address], [place] [address], Ph. Attender: Andreia Carmichael [facility] Medical 01/01/2020 12:00:00 AM EDT [place] ([facility]) Andreia Carmichael, [facility]: [address], [place] [address], Ph. Attender: Andreia Carmichael [facility] Medical 01/01/2020 12:00:00 AM EDT [place] ([facility]) Andreia Carmichael, [facility] [facility] [address], [place] [address], Ph. Attender: Andreia Carmichael [facility] Medical 01/01/2020 12:00:00 AM EDT [facility] ([facility]) Andreia Carmichael, [facility]: [address], [place] [address], Ph. Attender: Andreia Carmichael [facility] Medical 01/01/2020 12:00:00 AM EDT S[facility] ([facility]) Andreia Carmichael, [facility]: [address], [place] [address], Ph. Attender: Andreia Carmichael [facility] Medical 01/01/2020 12:00:00 AM EDT SANDER ([facility]) Andreia Carmichael, [employer]: [address], [place] [address], Ph. Attender: Andreia Carmichael [facility] Medical 01/01/2020 12:00:00 AM EDT [place] ([facility]) Andreia Carmichael, [employer]: [address], [place] [address], Ph. Attender: Andreia Carmichael [facility] Medical 01/01/2020 12:00:00 AM EDT [place] ([facility]) Andreia Carmichael, [employer]: [address], [place] [address], Ph. Attender: Andreia Carmichael [facility] Medical 01/01/2020 12:00:00 AM EDT [place] ([facility]) Andreia Carmichael, [employer]: [address], [place] [address], Ph. Attender: Andreia Carmichael [facility] Medical 01/01/2020 12:00:00 AM EDT [place] ([facility]) Andreia Carmichael, [employer]: [address], [place] [address], Ph. Attender: Andreia Carmichael [facility] Medical 01/01/2020 12:00:00 AM EDT [place] ([facility]) Andreia Carmichael, [employer]: [address], [place] [address], Ph. Attender: Andreia Carmichael [facility] Medical 01/01/2020 12:00:00 AM EDT [facility]) Andreia Carmichael, [facility]: [address], [place] [address], Ph. Attender: Andreia Carmichael [facility] Medical 01/01/2020 12:00:00 AM EDT [place] ([facility]) Andreia Carmichael, [facility]: [address], [place] [address], Ph. Attender: Andreia Carmichael [facility] 01/01/2020 12:00:00 AM [facility]ichael [facility]: [address], [place] [address], Ph. Attender: Andreia Carmichael [facility] 01/01/2020 12:00:00 AM EDT [place] ([facility]) Medications Medication Brand Name Start Date Product Form Dose Route Admi nistrative Instructions Pharmacy Instructions Status Indications Reaction Description Data Source(s) 10 mg 11/27/2020 12:00:00 AM EDT tablet 30 TAKE ONE TABLET BY MOUTH DAILY TAKE ONE TABLET BY MOUTH DAILY SOLD: 11/29/2020 [facility] 20 mg 11/27/2020 12:00:00 AM EDT tablet 90 TAKE ONE TABET BY MOUTH THREE TIMES A DAY BEFORE MEALS TAKE ONE TABET BY MOUTH THREE TIMES A DAY BEFORE MEALS SOLD: 11/29/2020 [facility] 17 gram/dose 11/27/2020 12:00:00 AM EDT powder 510 TAKE 1 SCOOP WITH 8OZ OF LIQUID ONCE DAILY NEEDED TAKE 1 SCOOP WITH 8OZ OF LIQUID ONCE HOLLY LY NEEDED SOLD: 11/29/2020 [facility] Fluticasone propionate 0.05 MG/ACTUAT Metered Dose [facility] [place] 50 mcg/actuation FLUTICASONE PROPIONATE 11/27/2020 12:00:00 AM EDT spray,suspension 16 SPRAY 1 SPRAY IN EACH NOSTRIL ONCE DAILY SPRAY 1 SPRAY IN EACH NOSTRIL ONCE DAILY SOLD: 11/29/2020 [facility] 17 gram/dose 07/16/2020 12:00:00 AM EDT powder 510 USE DIRECTED PER DOCTORS PREP INSTRUCTIONS USE DIRECTED PER DOCTORS PREP INSTRUCTIONS SOLD: 07/31/2020 [facility] POLYETHYLENE GLYCOL 3350 142 MG/ML Oral Solution [Miralax] M iralax 07/15/2020 12:00:00 AM EDT active M EDENT ([facility], ) Magnesium Hydroxide 80 MG/ML Oral Suspension Milk Of Magnesi a 07/15/2020 12:00:00 AM EDT ORAL active M EDENT ([facility], ) 40 mg 06/11/2020 12:00:00 AM EDT capsule,delayed release (DR/EC) 30 TAKE ONE CAPSULE BY MOUTH EVERY MORNING TAKE ONE CAPSULE BY MOUTH EVERY MORNING SOLD: 06/16/2020 [facility] 50 mg 04/30/2020 12:00:00 AM EST tablet 30 TAKE ONE TABLET BY MOUTH EVERY DAY 30 MINUTES BEFORE BED TAKE ONE TABLET BY MOUTH EVERY DAY 30 VA NUTES BEFORE BED SOLD: 05/02/2020 [facility] 20 mg 02/22/2020 12:00:00 AM EST tablet 90 TAKE ONE TABLET BY MOUTH THREE TIMES A DAY BEFORE MEALS TAKE ONE TABLET BY MOUTH THREE TIMES A D AY BEFORE MEALS SOLD: 02/25/2020 [facility] 40 mg 02/14/2020 12:00:00 AM EST capsule,delayed release (DR/EC) 30 TAKE ONE CAPSULE BY MOUTH EVERY MORNING TAKE ONE CAPSULE BY MOUTH EVERY MORNING SOLD: 02/16/2020 [facility] Sumatriptan 50 MG Oral Tablet SUMAtriptan Succinate 50 MG Oral Tablet (IMITREX) SUMAtriptan Succinate 50 MG Oral Tablet (IMITREX) 04/03/2019 12:00:00 AM EST 50 mg Oral active Migraine withou t aura and without status migrainosus, not intractable Take 1 tablet by mouth as ne eded for MigraineNo more than 2 pills in 1 day, no more than 2x per week. [facility] Migraine without aura and without status migrainosus, not intractable Azithromycin 250 MG Oral Tablet azithromycin 250 mg ta blet azithromycin 250 mg tablet completed azithromycin 25 0 MG Oral Tablet [facility] ([facility]) Sumatriptan 50 MG Oral Tablet sumatriptan 50 mg tablet sumat riptan 50 mg tablet completed sumatriptan 50 MG Oral Tablet [facility] ([facility]) Sumatriptan 50 MG Oral Tablet sumatriptan 50 mg tablet sumat riptan 50 mg tablet completed sumatriptan 50 MG Oral Tablet [facility] ([facility]) Metronidazole 500 MG Oral Tablet metronidazole 500 mg tablet metronidazole 500 mg tablet completed metronidazol e 500 MG Oral Tablet [facility] ([facility]) Metronidazole 500 MG Oral Tablet metronidazole 500 mg tablet metronidazole 500 mg tablet completed metronidazol e 500 MG Oral Tablet [facility] ([facility]) Sumatriptan 50 MG Oral Tablet sumatriptan 50 mg tablet sumat riptan 50 mg tablet completed sumatriptan 50 MG Oral Tablet [facility] ([facility]) Metronidazole 500 MG Oral Tablet metronidazole 500 mg tablet metronidazole 500 mg tablet completed metronidazol e 500 MG Oral Tablet [facility] ([facility]) Sumatriptan 50 MG Oral Tablet sumatriptan 50 mg tablet sumat riptan 50 mg tablet completed sumatriptan 50 MG Oral Tablet [facility] ([facility]) Hydroxyzine Hydrochloride 50 MG Oral Tab let hydroxyzine HCl 50 mg tablet TAKE ONE TABLET BY MOUTH EVERY DAY 30 MINUTES BEFORE BED hydroxyzine HCl 50 mg tablet TAKE ONE TABLET BY MOUTH EVERY DAY 30 MINUTES BEFORE BED completed hydroxyzine hydrochloride 50 MG Oral Tab let [facility] ([facility]) Azithromycin 250 MG Oral Tablet azithromycin 250 mg ta blet azithromycin 250 mg tablet completed azithromycin 25 0 MG Oral Tablet [facility] ([facility]) Sumatriptan 50 MG Oral Tablet sumatriptan 50 mg tablet sumat riptan 50 mg tablet completed sumatriptan 50 MG Oral Tablet [facility] ([facility]) topiramate 25 MG Oral Tablet topiramate 25 mg tablet topiramate 25 mg tablet completed topiramate 25 MG Oral Tablet [facility] ([facility]) topiramate 25 MG Oral Tablet topiramate 25 mg tablet topiramate 25 mg tablet completed topiramate 25 MG Oral Tablet [facility] ([facility]) Azithromycin 250 MG Oral Tablet azithromycin 250 mg ta blet azithromycin 250 mg tablet completed azithromycin 25 0 MG Oral Tablet [facility] ([facility]) topiramate 25 MG Oral Tablet topiramate 25 mg tablet topiramate 25 mg tablet completed topiramate 25 MG Oral Tablet [facility] ([facility]) Azithromycin 250 MG Oral Tablet azithromycin 250 mg ta blet azithromycin 250 mg tablet completed azithromycin 25 0 MG Oral Tablet [facility] ([facility]) Sumatriptan 50 MG Oral Tablet sumatriptan 50 mg tablet sumat riptan 50 mg tablet completed sumatriptan 50 MG Oral Tablet [facility] ([facility]) Metronidazole 500 MG Oral Tablet metronidazole 500 mg tablet metronidazole 500 mg tablet completed metronidazol e 500 MG Oral Tablet [facility] ([facility]) Metronidazole 500 MG Oral Tablet metronidazole 500 mg tablet metronidazole 500 mg tablet completed metronidazol e 500 MG Oral Tablet [facility] ([facility]) Sumatriptan 50 MG Oral Tablet sumatriptan 50 mg tablet sumat riptan 50 mg tablet completed sumatriptan 50 MG Oral Tablet [facility] ([facility]) Metronidazole 500 MG Oral Tablet metronidazole 500 mg tablet metronidazole 500 mg tablet completed metronidazol e 500 MG Oral Tablet [facility] ([facility]) Sumatriptan 50 MG Oral Tablet sumatriptan 50 mg tablet sumat riptan 50 mg tablet completed sumatriptan 50 MG Oral Tablet [place] ([facility]) Omeprazole 40 MG Delayed Release Oral Ca psule omeprazole 40 mg capsule,delayed release TAKE ONE CAPSULE BY MOUTH EVERY MORNING omeprazole 40 mg capsule,delayed release TAKE ONE CAPSULE BY MOUTH EVERY MORNING completed omeprazole 40 MG Delayed Release Oral Capsule [facility]ANDER ([facility]) Metronidazole 500 MG Oral Tablet metronidazole 500 mg tablet metronidazole 500 mg tablet completed metronidazol e 500 MG Oral Tablet [facility] ([facility]) Sumatriptan 50 MG Oral Tablet sumatriptan 50 mg tablet sumat riptan 50 mg tablet completed sumatriptan 50 MG Oral Tablet [facility] ([facility]) Metronidazole 500 MG Oral Tablet metronidazole 500 mg tablet metronidazole 500 mg tablet completed metronidazol e 500 MG Oral Tablet [facility] ([facility]) Sumatriptan 50 MG Oral Tablet sumatriptan 50 mg tablet sumat riptan 50 mg tablet completed sumatriptan 50 MG Oral Tablet [facility] ([facility]) topiramate 25 MG Oral Tablet topiramate 25 mg tablet topiramate 25 mg tablet completed topiramate 25 MG Oral Tablet [facility] ([facility]) topiramate 25 MG Oral Tablet topiramate 25 mg tablet topiramate 25 mg tablet completed topiramate 25 MG Oral Tablet [facility] ([facility]) Metronidazole 500 MG Oral Tablet metronidazole 500 mg tablet metronidazole 500 mg tablet completed metronidazol e 500 MG Oral Tablet [facility] ([facility]) Sumatriptan 50 MG Oral Tablet sumatriptan 50 mg tablet sumat riptan 50 mg tablet completed sumatriptan 50 MG Oral Tablet [facility] ([facility]) topiramate 25 MG Oral Tablet topiramate 25 mg tablet topiramate 25 mg tablet completed topiramate 25 MG Oral Tablet [facility] ([facility]) topiramate 25 MG Oral Tablet topiramate 25 mg tablet topiramate 25 mg tablet completed topiramate 25 MG Oral Tablet [facility] ([facility]) Sumatriptan 50 MG Oral Tablet sumatriptan 50 mg tablet sumat riptan 50 mg tablet completed sumatriptan 50 MG Oral Tablet [facility] ([facility]) Azithromycin 250 MG Oral Tablet azithromycin 250 mg ta blet azithromycin 250 mg tablet completed azithromycin 25 0 MG Oral Tablet [facility]AND[facility]) Metronidazole 500 MG Oral Tablet metronidazole 500 mg tablet metronidazole 500 mg tablet completed metronidazol e 500 MG Oral Tablet [facility] ([facility]) Azithromycin 250 MG Oral Tablet azithromycin 250 mg ta blet azithromycin 250 mg tablet completed azithromycin 25 0 MG Oral Tablet [facility] ([facility]) Metronidazole 500 MG Oral Tablet metronidazole 500 mg tablet metronidazole 500 mg tablet completed metronidazol e 500 MG Oral Tablet [facility] ([facility]) topiramate 25 MG Oral Tablet topiramate 25 mg tablet topiramate 25 mg tablet completed topiramate 25 MG Oral Tablet [facility] ([facility]) Azithromycin 250 MG Oral Tablet azithromycin 250 mg ta blet azithromycin 250 mg tablet completed azithromycin 25 0 MG Oral Tablet [facility] ([facility]) topiramate 25 MG Oral Tablet topiramate 25 mg tablet topiramate 25 mg tablet completed topiramate 25 MG Oral Tablet [facility] ([facility]) Metronidazole 500 MG Oral Tablet metronidazole 500 mg tablet metronidazole 500 mg tablet completed metronidazol e 500 MG Oral Tablet [facility] ([facility]) Metronidazole 500 MG Oral Tablet metronidazole 500 mg tablet metronidazole 500 mg tablet completed metronidazol e 500 MG Oral Tablet [facility] ([facility]) Azithromycin 250 MG Oral Tablet azithromycin 250 mg ta blet azithromycin 250 mg tablet completed azithromycin 25 0 MG Oral Tablet [facility] ([facility]) Sumatriptan 50 MG Oral Tablet sumatriptan 50 mg tablet sumat riptan 50 mg tablet completed sumatriptan 50 MG Oral Tablet [facility] ([facility]) Omeprazole 40 MG Delayed Release Oral Ca psule omeprazole 40 mg capsule,delayed release TAKE ONE CAPSULE BY MOUTH EVERY MORNING omeprazole 40 mg capsule,delayed release TAKE ONE CAPSULE BY MOUTH EVERY MORNING completed omeprazole 40 MG Delayed Release Oral Capsule [facility] ([facility]) Metronidazole 500 MG Oral Tablet metronidazole 500 mg tablet metronidazole 500 mg tablet completed metronidazol e 500 MG Oral Tablet [facility] ([facility]) topiramate 25 MG Oral Tablet topiramate 25 mg tablet topiramate 25 mg tablet completed topiramate 25 MG Oral Tablet [facility] ([facility]) Azithromycin 250 MG Oral Tablet azithromycin 250 mg ta blet azithromycin 250 mg tablet completed azithromycin 25 0 MG Oral Tablet [facility] ([facility]) Sumatriptan 50 MG Oral Tablet sumatriptan 50 mg tablet sumat riptan 50 mg tablet completed sumatriptan 50 MG Oral Tablet [facility] ([facility]) Azithromycin 250 MG Oral Tablet azithromycin 250 mg ta blet azithromycin 250 mg tablet completed azithromycin 25 0 MG Oral Tablet [facility] ([facility]) Azithromycin 250 MG Oral Tablet azithromycin 250 mg ta blet azithromycin 250 mg tablet completed azithromycin 25 0 MG Oral Tablet [facility] ([facility]) Azithromycin 250 MG Oral Tablet azithromycin 250 mg ta blet azithromycin 250 mg tablet completed azithromycin 25 0 MG Oral Tablet [facility] ([facility]) Omeprazole 40 MG Delayed Release Oral Ca psule omeprazole 40 mg capsule,delayed release TAKE ONE CAPSULE BY MOUTH EVERY MORNING omeprazole 40 mg capsule,delayed release TAKE ONE CAPSULE BY MOUTH EVERY MORNING completed omeprazole 40 MG Delayed Release Oral Capsule [facility] ([facility]) Metronidazole 500 MG Oral Tablet metronidazole 500 mg tablet metronidazole 500 mg tablet completed metronidazol e 500 MG Oral Tablet [facility] ([facility]) Azithromycin 250 MG Oral Tablet azithromycin 250 mg ta blet azithromycin 250 mg tablet completed azithromycin 25 0 MG Oral Tablet [facility] ([facility]) Azithromycin 250 MG Oral Tablet azithromycin 250 mg ta blet azithromycin 250 mg tablet completed azithromycin 25 0 MG Oral Tablet [facility] ([facility]) Sumatriptan 50 MG Oral Tablet sumatriptan 50 mg tablet sumat riptan 50 mg tablet completed sumatriptan 50 MG Oral Tablet [facility] ([facility]) topiramate 25 MG Oral Tablet topiramate 25 mg tablet topiramate 25 mg tablet completed topiramate 25 MG Oral Tablet [facility] ([facility]) topiramate 25 MG Oral Tablet topiramate 25 mg tablet topiramate 25 mg tablet completed topiramate 25 MG Oral Tablet [facility] ([facility]) Metronidazole 500 MG Oral Tablet metronidazole 500 mg tablet metronidazole 500 mg tablet completed metronidazol e 500 MG Oral Tablet [facility] ([facility]) topiramate 25 MG Oral Tablet topiramate 25 mg tablet topiramate 25 mg tablet completed topiramate 25 MG Oral Tablet [facility] ([facility]) topiramate 25 MG Oral Tablet topiramate 25 mg tablet topiramate 25 mg tablet completed topiramate 25 MG Oral Tablet [facility] ([facility]) Sumatriptan 50 MG Oral Tablet sumatriptan 50 mg tablet sumat riptan 50 mg tablet completed sumatriptan 50 MG Oral Tablet [facility] ([facility]) topiramate 25 MG Oral Tablet topiramate 25 mg tablet topiramate 25 mg tablet completed topiramate 25 MG Oral Tablet [facility] ([facility]) Azithromycin 250 MG Oral Tablet azithromycin 250 mg ta blet azithromycin 250 mg tablet completed azithromycin 25 0 MG Oral Tablet [facility] ([facility]) topiramate 25 MG Oral Tablet topiramate 25 mg tablet topiramate 25 mg tablet completed topiramate 25 MG Oral Tablet [facility] ([facility]) Sumatriptan 50 MG Oral Tablet sumatriptan 50 mg tablet sumat riptan 50 mg tablet completed sumatriptan 50 MG Oral Tablet [facility] ([facility]) Sumatriptan 50 MG Oral Tablet sumatriptan 50 mg tablet sumat riptan 50 mg tablet completed sumatriptan 50 MG Oral Tablet [facility] ([facility]) Azithromycin 250 MG Oral Tablet azithromycin 250 mg ta blet azithromycin 250 mg tablet completed azithromycin 25 0 MG Oral Tablet [facility] ([facility]) Sumatriptan 50 MG Oral Tablet sumatriptan 50 mg tablet sumat riptan 50 mg tablet completed sumatriptan 50 MG Oral Tablet [facility] ([facility]) Metronidazole 500 MG Oral Tablet metronidazole 500 mg tablet metronidazole 500 mg tablet completed metronidazol e 500 MG Oral Tablet [facility] ([facility]) Metronidazole 500 MG Oral Tablet metronidazole 500 mg tablet metronidazole 500 mg tablet completed metronidazol e 500 MG Oral Tablet [facility] ([facility]) Hydroxyzine Hydrochloride 50 MG Oral Tab let hydroxyzine HCl 50 mg tablet TAKE ONE TABLET BY MOUTH EVERY DAY 30 MINUTES BEFORE BED hydroxyzine HCl 50 mg tablet TAKE ONE TABLET BY MOUTH EVERY DAY 30 MINUTES BEFORE BED completed hydroxyzine hydrochloride 50 MG Oral Tab let [facility]ANDER ([facility]) Azithromycin 250 MG Oral Tablet azithromycin 250 mg ta blet azithromycin 250 mg tablet completed azithromycin 25 0 MG Oral Tablet [facility] ([facility]) Hydroxyzine Hydrochloride 50 MG Oral Tab let hydroxyzine HCl 50 mg tablet TAKE ONE TABLET BY MOUTH EVERY DAY 30 MINUTES BEFORE BED hydroxyzine HCl 50 mg tablet TAKE ONE TABLET BY MOUTH EVERY DAY 30 MINUTES BEFORE BED completed hydroxyzine hydrochloride 50 MG Oral Tab let [facility]ANDER ([facility]) Azithromycin 250 MG Oral Tablet azithromycin 250 mg ta blet azithromycin 250 mg tablet completed azithromycin 25 0 MG Oral Tablet [facility] ([facility]) Metronidazole 500 MG Oral Tablet metronidazole 500 mg tablet metronidazole 500 mg tablet completed metronidazol e 500 MG Oral Tablet [facility] ([facility]) topiramate 25 MG Oral Tablet topiramate 25 mg tablet topiramate 25 mg tablet completed topiramate 25 MG Oral Tablet [facility] ([facility]) Azithromycin 250 MG Oral Tablet azithromycin 250 mg ta blet azithromycin 250 mg tablet completed azithromycin 25 0 MG Oral Tablet [facility] ([facility]) topiramate 25 MG Oral Tablet topiramate 25 mg tablet topiramate 25 mg tablet completed topiramate 25 MG Oral Tablet [facility] ([facility]) Sumatriptan 50 MG Oral Tablet sumatriptan 50 mg tablet sumat riptan 50 mg tablet completed sumatriptan 50 MG Oral Tablet [facility] ([facility]) topiramate 25 MG Oral Tablet topiramate 25 mg tablet topiramate 25 mg tablet completed topiramate 25 MG Oral Tablet [facility] ([facility]) Azithromycin 250 MG Oral Tablet azithromycin 250 mg ta blet azithromycin 250 mg tablet completed azithromycin 25 0 MG Oral Tablet [facility] ([facility]) topiramate 25 MG Oral Tablet topiramate 25 mg tablet topiramate 25 mg tablet completed topiramate 25 MG Oral Tablet [facility] ([facility]) Metronidazole 500 MG Oral Tablet metronidazole 500 mg tablet metronidazole 500 mg tablet completed metronidazol e 500 MG Oral Tablet [facility] ([facility]) Metronidazole 500 MG Oral Tablet metronidazole 500 mg tablet metronidazole 500 mg tablet completed metronidazol e 500 MG Oral Tablet [facility] ([facility]) Sumatriptan 50 MG Oral Tablet sumatriptan 50 mg tablet sumat riptan 50 mg tablet completed sumatriptan 50 MG Oral Tablet [facility] ([facility]) Azithromycin 250 MG Oral Tablet azithromycin 250 mg ta blet azithromycin 250 mg tablet completed azithromycin 25 0 MG Oral Tablet [facility] ([facility]) topiramate 25 MG Oral Tablet topiramate 25 mg tablet topiramate 25 mg tablet completed topiramate 25 MG Oral Tablet [facility] ([facility]) Insurance Providers Payer name Policy type / Coverage type Policy ID Covered libertarian ID Covered libertarian's relationship to swift Policy Swift Plan Information [facility] COMMUNITY PLAN [facility] [id number] SP [id number] Medicaid S [id number] Managed Care - Community Plan [facility] P [id number] S [id number] Managed Care - [facility] Community Plan P [id number] S [id number] Medicaid S [id number] S [id number] [facility] I [id number] Self [id number] [facility] I [id number] Self [id number] Managed Care - [facility] Community Plan P [id number] S [id number] [facility] 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 [id number] Self [id number] [facility] Plan [facility] P UNAVAILABLE S UNAVAILABLE SELF PAY ONLY UNAVAILABLE SP UNAV AILABLE [facility] COMM[facility] [id number] SP [id number] MEDICAID [id number] SP [id number] [facility]) O [id number] S [id number] SELF PAY UNAVAILABLE SP UNAVAILA BLE [facility]) P [id number] S [id number] [facility] Commercial [id number] Self [id number] [facility]) O [id number] S [id number] [facility] [id number] SP [id number] [facility] Commercial [id number] Self [id number] Formerly [facility] Plan-[facility] Commercial [id number] Self [id number] [facility] MCDO [id number] SP [id number] [facility] Commercial [id number] Self [id number] [facility] Commercial [id number] Self [id number] Managed Care - [facility] P [id number] S [id number] Problems, Conditions, and Diagnoses Code Display Name Description Problem Type Effective Dates Data Source(s) 73509917 Social phobia Social Phobia Problem 11/24/2020 12:00:00 AM EDT [place] ([facility]) [id number] Social phobia Social Phobia Problem 11/24/2020 12:00:00 AM EDT [place] ([facility]) [id number] Social phobia Social Phobia Problem 11/24/2020 12:00:00 AM EDT [place] ([facility]) [id number] Social phobia Social Phobia Problem 11/24/2020 12:00:00 AM EDT [facility]) [id number] Anxiety disorder Anxiety Disorder Problem 021 12:00:00 AM EDT - 11/24/2020 12:00:00 AM EDT [facility] ([facility]) [id number] Anxiety disorder Anxiety Disorder Problem 021 12:00:00 AM EDT - 11/24/2020 12:00:00 AM EDT [facility] ([facility]) [id number] Anxiety disorder Anxiety Disorder Problem 07/29/2020 12 :00:00 AM EDT [facility] ([facility]) [id number] Anxiety disorder Anxiety Disorder Problem 07/29/2020 12 :00:00 AM EDT [facility] ([facility]) [id number] Anxiety disorder Anxiety Disorder Problem 07/29/2020 12 :00:00 AM EDT [facility] ([facility]) [id number] Anxiety disorder Anxiety Disorder Problem 12:00:00 AM EDT - 11/24/2020 12:00:00 AM EDT [facility] ([facility]) [id number] Anxiety disorder Anxiety Disorder Problem 07/29/2020 12 :00:00 AM EDT [facility] ([facility]) [id number] Anxiety disorder Anxiety Disorder Problem 07/29/2020 12 :00:00 AM EDT [facility] ([facility]) [id number] Anxiety disorder Anxiety Disorder Problem 12:00:00 AM EDT - 11/24/2020 12:00:00 AM EDT [facility] ([facility]) [id number] Anxiety disorder Anxiety Disorder Problem 07/29/2020 12 :00:00 AM EDT [facility] ([facility]) [id number] Anxiety disorder Anxiety Disorder Problem 07/29/2020 12 :00:00 AM EDT [facility] ([facility]) [id number] Anxiety disorder Anxiety Disorder Problem 07/29/2020 12 :00:00 AM EDT [facility] ([facility]) [id number] Vomiting Vomiting Problem 02/21/2020 12:00:00 AM ES T [facility] ([facility]) [id number] Vomiting Vomiting Problem 02/21/2020 12:00:00 AM ES T [facility] ([facility]) [id number] Vomiting Vomiting Problem 02/21/2020 12:00:00 AM ES T [facility] ([facility]) [id number] Vomiting Vomiting Problem 02/21/2020 12:00:00 AM ES T [facility] ([facility]) [id number] Vomiting Vomiting Problem 02/21/2020 12:00:00 AM ES T [facility] ([facility]) [id number] Vomiting Vomiting Problem 02/21/2020 12:00:00 AM ES T [facility] ([facility]) [id number] Vomiting Vomiting Problem 02/21/2020 12:00:00 AM ES T [facility] ([facility]) [id number] Vomiting Vomiting Problem 02/21/2020 12:00:00 AM ES T [facility] ([facility]) [id number] Vomiting Vomiting Problem 02/21/2020 12:00:00 AM ES T [facility] ([facility]) [id number] Vomiting Vomiting Problem 02/21/2020 12:00:00 AM ES T [facility] ([facility]) [id number] Vomiting Vomiting Problem 02/21/2020 12:00:00 AM ES T [facility] ([facility]) [id number] Vomiting Vomiting Problem 02/21/2020 12:00:00 AM ES T [facility] ([facility]) [id number] Vomiting Vomiting Problem 02/21/2020 12:00:00 AM ES T [facility] ([facility]) [id number] Vomiting Vomiting Problem 02/21/2020 12:00:00 AM ES T [facility] ([facility]) [id number] Vomiting Vomiting Problem 02/21/2020 12:00:00 AM ES T [facility]ER ([facility]) [id number] Vomiting Vomiting Problem 02/21/2020 12:00:00 AM ES T [facility] ([facility]) [id number] Vomiting Vomiting Problem 02/21/2020 12:00:00 AM ES T [facility] ([facility]) [id number] Vomiting Vomiting Problem 02/21/2020 12:00:00 AM ES T [facility] ([facility]) [id number] Vomiting Vomiting Problem 02/21/2020 12:00:00 AM ES T [facility] ([facility]) [id number] Vomiting Vomiting Problem 02/21/2020 12:00:00 AM ES T [facility] ([facility]) [id number] Posttraumatic stress disorder Posttraumatic Stress Dis order Problem 12/21/2018 12:00:00 AM EDT - 02/27/2020 12:00:00 AM EST [facility] ([facility]) [id number] Posttraumatic stress disorder Posttraumatic Stress Dis order Problem 12/21/2018 12:00:00 AM EDT - 02/27/2020 12:00:00 AM EST [facility] ([facility]) [id number] Posttraumatic stress disorder Posttraumatic Stress Dis order Problem 12/21/2018 12:00:00 AM EDT - 02/27/2020 12:00:00 AM EST [facility] ([facility]) [id number] Posttraumatic stress disorder Posttraumatic Stress Dis order Problem 12/21/2018 12:00:00 AM EDT - 02/27/2020 12:00:00 AM EST [facility] ([facility]) [id number] Posttraumatic stress disorder Posttraumatic Stress Dis order Problem 12/21/2018 12:00:00 AM EDT - 02/27/2020 12:00:00 AM EST [facility] ([facility]) [id number] Posttraumatic stress disorder Posttraumatic Stress Dis order Problem 12/21/2018 12:00:00 AM EDT - 02/27/2020 12:00:00 AM EST [facility] ([facility]) [id number] Posttraumatic stress disorder Posttraumatic Stress Dis order Problem 12/21/2018 12:00:00 AM EDT - 02/27/2020 12:00:00 AM EST [facility] ([facility]) [id number] Posttraumatic stress disorder Posttraumatic Stress Dis order Problem 12/21/2018 12:00:00 AM EDT - 02/27/2020 12:00:00 AM EST [facility] ([facility]) [id number] Posttraumatic stress disorder Posttraumatic Stress Dis order Problem 12/21/2018 12:00:00 AM EDT - 02/27/2020 12:00:00 AM EST [facility] ([facility]) [id number] Posttraumatic stress disorder Posttraumatic Stress Dis order Problem 12/21/2018 12:00:00 AM EDT - 02/27/2020 12:00:00 AM EST [facility] ([facility]) [id number] Posttraumatic stress disorder Posttraumatic Stress Dis order Problem 12/21/2018 12:00:00 AM EDT - 02/27/2020 12:00:00 AM EST [facility] ([facility]) [id number] Posttraumatic stress disorder Posttraumatic Stress Dis order Problem 12/21/2018 12:00:00 AM EDT - 02/27/2020 12:00:00 AM EST [facility] ([facility]) [id number] Posttraumatic stress disorder Posttraumatic Stress Dis order Problem 12/21/2018 12:00:00 AM EDT - 02/27/2020 12:00:00 AM EST [facility] ([facility]) [id number] Posttraumatic stress disorder Posttraumatic Stress Dis order Problem 12/21/2018 12:00:00 AM EDT - 02/27/2020 12:00:00 AM EST [facility] ([facility]) [id number] Posttraumatic stress disorder Posttraumatic Stress Dis order Problem 12/21/2018 12:00:00 AM EDT - 02/27/2020 12:00:00 AM EST [facility] ([facility]) [id number] Posttraumatic stress disorder Posttraumatic Stress Dis order Problem 12/21/2018 12:00:00 AM EDT - 02/27/2020 12:00:00 AM EST [facility] ([facility]) [id number] Posttraumatic stress disorder Posttraumatic Stress Dis order Problem 12/21/2018 12:00:00 AM EDT - 02/27/2020 12:00:00 AM EST [facility] ([facility]) [id number] Posttraumatic stress disorder Posttraumatic Stress Dis order Problem 12/21/2018 12:00:00 AM EDT - 02/27/2020 12:00:00 AM EST [facility] ([facility]) [id number] Posttraumatic stress disorder Posttraumatic Stress Dis order Problem 12/21/2018 12:00:00 AM EDT - 02/27/2020 12:00:00 AM EST [facility] ([facility]) [id number] Posttraumatic stress disorder Posttraumatic Stress Dis order Problem 12/21/2018 12:00:00 AM EDT - 02/27/2020 12:00:00 AM EST [facility] ([facility]) [id number] SNOMED CT Concept SNOMED CT Concept Problem 09/25 12:00:00 AM EDT - 02/14/2020 12:00:00 AM EST [facility] ([facility]) [id number] SNOMED CT Concept SNOMED CT Concept Problem 09/25 12:00:00 AM EDT - 02/14/2020 12:00:00 AM EST [facility] ([facility]) [id number] SNOMED CT Concept SNOMED CT Concept Problem 09/25 12:00:00 AM EDT - 02/14/2020 12:00:00 AM EST [facility] ([facility]) [id number] SNOMED CT Concept SNOMED CT Concept Problem 09/25 12:00:00 AM EDT - 02/14/2020 12:00:00 AM EST [facility] ([facility]) [id number] SNOMED CT Concept SNOMED CT Concept Problem 09/25 12:00:00 AM EDT - 02/14/2020 12:00:00 AM EST [facility] ([facility]) [id number] SNOMED CT Concept SNOMED CT Concept Problem 09/25 12:00:00 AM EDT - 02/14/2020 12:00:00 AM EST [facility] ([facility]) [id number] SNOMED CT Concept SNOMED CT Concept Problem 09/25 12:00:00 AM EDT - 02/14/2020 12:00:00 AM EST [facility] ([facility]) [id number] SNOMED CT Concept SNOMED CT Concept Problem 09/25 12:00:00 AM EDT - 02/14/2020 12:00:00 AM EST [facility] ([facility]) [id number] SNOMED CT Concept SNOMED CT Concept Problem 09/25 12:00:00 AM EDT - 02/14/2020 12:00:00 AM EST [facility] ([facility]) [id number] SNOMED CT Concept SNOMED CT Concept Problem 09/25 12:00:00 AM EDT - 02/14/2020 12:00:00 AM EST [facility] ([facility]) [id number] SNOMED CT Concept SNOMED CT Concept Problem 09/25 12:00:00 AM EDT - 02/14/2020 12:00:00 AM EST [facility] ([facility]) [id number] SNOMED CT Concept SNOMED CT Concept Problem 09/25 12:00:00 AM EDT - 02/14/2020 12:00:00 AM EST [facility] ([facility]) [id number] SNOMED CT Concept SNOMED CT Concept Problem 09/25 12:00:00 AM EDT - 02/14/2020 12:00:00 AM EST [facility] ([facility]) [id number] SNOMED CT Concept SNOMED CT Concept Problem 09/25 12:00:00 AM EDT - 02/14/2020 12:00:00 AM EST [facility] ([facility]) [id number] SNOMED CT Concept SNOMED CT Concept Problem 09/25 12:00:00 AM EDT - 02/14/2020 12:00:00 AM EST [facility] ([facility]) [id number] SNOMED CT Concept SNOMED CT Concept Problem 09/25 12:00:00 AM EDT - 02/14/2020 12:00:00 AM EST [facility] ([facility]) [id number] SNOMED CT Concept SNOMED CT Concept Problem 09/25 12:00:00 AM EDT - 02/14/2020 12:00:00 AM EST [facility] ([facility]) [id number] SNOMED CT Concept SNOMED CT Concept Problem 09/25 12:00:00 AM EDT - 02/14/2020 12:00:00 AM EST [facility] ([facility]) [id number] SNOMED CT Concept SNOMED CT Concept Problem 09/25 12:00:00 AM EDT - 02/14/2020 12:00:00 AM EST [facility] ([facility]) [id number] SNOMED CT Concept SNOMED CT Concept Problem 09/25 12:00:00 AM EDT - 02/14/2020 12:00:00 AM EST [facility] ([facility]) [id number] SNOMED CT Concept SNOMED CT Concept Problem 09/25 12:00:00 AM EDT - 02/14/2020 12:00:00 AM EST [facility] ([facility]) [id number] Bipolar disorder Bipolar Disorder Problem 019 12:00:00 AM EST - 02/27/2020 12:00:00 AM EST [facility] ([facility]) [id number] Bipolar disorder Bipolar Disorder Problem 019 12:00:00 AM EST - 02/27/2020 12:00:00 AM EST [facility] ([facility]) [id number] Bipolar disorder Bipolar Disorder Problem 019 12:00:00 AM EST - 02/27/2020 12:00:00 AM EST [facility] ([facility]) [id number] Bipolar disorder Bipolar Disorder Problem 019 12:00:00 AM EST - 02/27/2020 12:00:00 AM EST [facility] ([facility]) [id number] Bipolar disorder Bipolar Disorder Problem 019 12:00:00 AM EST - 02/27/2020 12:00:00 AM EST [facility] ([facility]) [id number] Bipolar disorder Bipolar Disorder Problem 019 12:00:00 AM EST - 02/27/2020 12:00:00 AM EST [facility] ([facility]) [id number] Bipolar disorder Bipolar Disorder Problem 019 12:00:00 AM EST - 02/27/2020 12:00:00 AM EST [facility] ([facility]) [id number] Bipolar disorder Bipolar Disorder Problem 019 12:00:00 AM EST - 02/27/2020 12:00:00 AM EST [facility] ([facility]) [id number] Bipolar disorder Bipolar Disorder Problem 019 12:00:00 AM EST - 02/27/2020 12:00:00 AM EST [facility] ([facility]) [id number] Bipolar disorder Bipolar Disorder Problem 019 12:00:00 AM EST - 02/27/2020 12:00:00 AM EST [facility] ([facility]) [id number] Bipolar disorder Bipolar Disorder Problem 019 12:00:00 AM EST - 02/27/2020 12:00:00 AM EST [facility] ([facility]) [id number] Bipolar disorder Bipolar Disorder Problem 019 12:00:00 AM EST - 02/27/2020 12:00:00 AM EST [facility] ([facility]) [id number] Bipolar disorder Bipolar Disorder Problem 019 12:00:00 AM EST - 02/27/2020 12:00:00 AM EST [facility] ([facility]) [id number] Bipolar disorder Bipolar Disorder Problem 019 12:00:00 AM EST - 02/27/2020 12:00:00 AM EST [facility] ([facility]) [id number] Bipolar disorder Bipolar Disorder Problem 019 12:00:00 AM EST - 02/27/2020 12:00:00 AM EST [facility] ([facility]) [id number] Bipolar disorder Bipolar Disorder Problem 019 12:00:00 AM EST - 02/27/2020 12:00:00 AM EST [facility] ([facility]) [id number] Bipolar disorder Bipolar Disorder Problem 019 12:00:00 AM EST - 02/27/2020 12:00:00 AM EST [facility] ([facility]) [id number] Bipolar disorder Bipolar Disorder Problem 019 12:00:00 AM EST - 02/27/2020 12:00:00 AM EST [facility] ([facility]) [id number] Bipolar disorder Bipolar Disorder Problem 019 12:00:00 AM EST - 02/27/2020 12:00:00 AM EST [facility] ([facility]) [id number] Bipolar disorder Bipolar Disorder Problem 019 12:00:00 AM EST - 02/27/2020 12:00:00 AM EST [facility] ([facility]) Surgeries/Procedures Procedure Description Date Indications Data Source(s) XR, thoracic spine, 2 view 04/29/2020 12:00:00 AM EST [facility] ([facility]) Results ID Date Data Source [id number] 01/28/2021 12:00:00 AM EST [facility] Name Value Range Interpretation Code Description Data Christal rce(s) Supporting Document(s) SARS-COV 2 PCR (NASAL SWAB) NEGATIVE [place] [facility] This lab was ordered by [facility] and reported by [facility]. ID Date Data Source [id number] 01/28/2021 12:00:00 AM EST [facility] Name Value Range Interpretation Code Description Data Christal rce(s) Supporting Document(s) SARS-CoV-2 (COVID-19) RNA [Presence] in Respiratory specimen by ARLEN with probe detection Not detected [facility] This lab was ordered by [facility] and r eported by [facility]. ID Date Data Source [id number] 01/19/2021 12:00:00 AM EST [facility] Name Value Range Interpretation Code Description Data Christal rce(s) Supporting Document(s) SARS-CoV2 Rapid Antigen Positive [facility] This lab was ordered by [facility] and reported by [facility]. ID Date Data Source [id number] 12/15/2020 08:30:00 AM EDT [facility] Name Value Range Interpretation Code Description Data Christal rce(s) Supporting Document(s) SARS-CoV-2 RNA Resp Ql ARLEN+probe NOT DETECTED [facility] This lab was ordered by JERALD harris and reported by JERAL[facility] Boss. ID Date Data Source [id number] 06/20/2020 08:56:00 AM EDT [facility]) Name Value Range Interpretation Code Description Data Christal rce(s) Supporting Document(s) Hemoglobin A1c/Hemoglobin.total in Blood 5.5 % Hemoglobin a1C [facility]) estimated average glucose 111 mg/dL 60-110 Above high norm al Estimated Average Glucose [facility]) ID Date Data Source [id number] 06/20/2020 08:56:00 AM EDT [facility]) Name Value Range Interpretation Code Description Data Christal rce(s) Supporting Document(s) thyroid stimulating hormone 2.220 uIU/mL 0.358-3.740 Thyroid Stimulating Hormone [facility]) ID Date Data Source [id number] 06/20/2020 08:56:00 AM EDT [facility]) Name Value Range Interpretation Code Description Data Christal rce(s) Supporting Document(s) iron (fe) 40 ug/dL 65-175 Below low normal Iron (Fe) [place] ( [facility]) percent saturation 14.9 % 19.7-50.0 Below low normal Percent Sat uration [facility] ([facility]) total iron binding capacity 269 ug/dL 250-450 Total Ir on Binding Capacity [facility] ([facility]) ID Date Data Source [id number] 06/20/2020 08:56:00 AM EDT [place] ([facility]) Name Value Range Interpretation Code Description Data Christal rce(s) Supporting Document(s) triglycerides level 176 mg/dL <150 Above high normal Triglycer ides Level [facility]AND[facility] ([facility]) non-HDL-C 117 mg/dL Non-hdl-c [facility] ([facility]) cholesterol level 153 mg/dL <200 Cholesterol Level [facility]ANDER ([facility]) cholesterol risk ratio <5 Cholesterol R isk Ratio [facility]ANDER ([facility]) Cholesterol in LDL [Mass/volume] in Serum or Plasma 82 mg/dL <1 00 LDL Cholesterol [facility] ([facility]) HDL cholesterol 36 mg/dL >40 Below low normal HDL Cholestero l [facility] ([facility]) ID Date Data Source [id number] 06/20/2020 08:56:00 AM EDT [place] ([facility]) Name Value Range Interpretation Code Description Data Christal rce(s) Supporting Document(s) creatinine for GFR 0.92 mg/dL 0.70-1.30 Creatinine for GF R [facility] ([facility]) blood urea nitrogen 13 mg/dL 7-18 Blood Urea Nitro gen [facility] ([facility]) glucose, fasting 113 mg/dL 70-100 Above high normal Glucose, Fas ting [facility] ([facility]) chloride level 109 mEq/L 98-107 Above high normal Chloride Level [facility]AND[facility] ([facility]) potassium serum 4.0 mEq/L 3.5-5.1 Potassium Serum ATHE NA ([facility]) glomerular filtration rate > 60.0 >60 Glomerula r Filtration Rate [facility]ANDER ([facility]) sodium level 142 mEq/L 136-145 Sodium Level SANDER (No On license of [facility]) ALT/SGPT 43 U/L 12-78 ALT/SGPT [facility] ([facility]) carbon dioxide level 26 mEq/L 21-32 Carbon Dioxide Level [facility]ANDER ([facility]) anion gap 7 mEq/L 8-16 Below low normal Anion Gap SANDER ( [facility]) AST/SGOT 24 U/L 7-37 AST/SGOT [facility] ([facility]) calcium level 9.2 mg/dL 8.5-10.1 Calcium Level SANDER ( [facility]) albumin 4.0 gm/dL 3.2-5.2 Albumin SANDER ([facility]) bilirubin,total 0.2 mg/dL 0.2-1.0 Bilirubin,total ATHE ([facility]) total protein 7.6 gm/dL 6.4-8.2 Total Protein [facility]ANDER ( [facility]) alkaline phosphatase 85 U/L 45-117 Alkaline Phosph atase [facility] ([facility]) albumin/globulin ratio Albumin/globu dayanna Ratio [facility]ANDER ([facility]) ID Date Data Source [id number] 06/20/2020 08:56:00 AM EDT [facility] ([facility]) Name Value Range Interpretation Code Description Data Christal rce(s) Supporting Document(s) white blood count 6.9 10 4.0-10.0 White Blood Count [facility] ([facility]) hematocrit 47.0 % 42.0-52.0 Hematocrit [facility]ER ([facility]) red blood count 5.03 10 4.30-6.10 Red Blood Count ATHE NA ([facility]) hemoglobin 14.1 g/dL 13.5-17.5 Hemoglobin [facility]ANDER ([facility]) mean corpuscular volume 93.4 fL 80.0-96.0 Mean Corpusc ular Volume [facility]ANDER ([facility]) mean corpuscular HGB conc 30.0 g/dL 32.0-36.5 Below low ning l Mean Corpuscular HGB Conc [facility]ANDER ([facility]) platelet count, automated 203 10 150-450 Platelet C ount, Automated [facility]ER ([facility]) mean corpuscular hemoglobin 28.0 pg 27.0-33.0 Mean Cor puscular Hemoglobin [facility]ANDER ([facility]) red cell distribution width 17.9 % 11.5-14.5 Above high no rmal Red Cell Distribution Width [facility]ANDER ([facility]) mono % 5.7 % 2.0-8.0 Loving % SANDER ([facility]) lymph % 34.2 % 24.0-44.0 Lymph % [facility]ANDER ([facility]) neutrophils % 52.3 % 36.0-66.0 Neutrophils % SANDER ( [facility]) immature granulocyte % 1.8 % 0-3.0 Immature Gran ulocyte % SANDER ([facility]) baso % 1.0 % 0.0-1.0 Baso % [place] ([facility]) nucleated red blood cell % 0.0 % 0-0 Nucleated Red Blood Cell % SANDER ([facility]) eos % 5.0 % 0.0-3.0 Above high normal Eos % [facility]ANDER ([facility]) lymph # 2.3 10 1.5-5.0 Lymph # SANDER ([facility]) neutrophils # 3.6 10 1.5-8.5 Neutrophils # SANDER ( [facility]) mono # 0.4 10 0.0-0.8 Loving # SANDER ([facility]) eos # 0.3 10 0.0-0.5 Eos # [facility]ANDER ([facility]) baso # 0.1 10 0.0-0.2 Baso # [facility]ANDER ([facility]) ID Date Data Source [id number] 06/20/2020 08:56:00 AM EDT [place] ([facility]) Name Value Range Interpretation Code Description Data Christal rce(s) Supporting Document(s) Hemoglobin A1c/Hemoglobin.total in Blood 5.5 % Hemoglobin a1C [facility] ([facility]) estimated average glucose 111 mg/dL 60-110 Above high norm al Estimated Average Glucose [facility] ([facility]) ID Date Data Source [id number] 06/20/2020 08:56:00 AM EDT [facility] ([facility]) Name Value Range Interpretation Code Description Data Christal rce(s) Supporting Document(s) thyroid stimulating hormone 2.220 uIU/mL 0.358-3.740 Thyroid Stimulating Hormone [facility] ([facility]) ID Date Data Source [id number] 06/20/2020 08:56:00 AM EDT [facility] ([facility]) Name Value Range Interpretation Code Description Data Christal rce(s) Supporting Document(s) iron (fe) 40 ug/dL 65-175 Below low normal Iron (Fe) [facility]ER ( [facility]) percent saturation 14.9 % 19.7-50.0 Below low normal Percent Sat uration [facility]ANDER ([facility]) total iron binding capacity 269 ug/dL 250-450 Total Ir on Binding Capacity [place] ([facility]) ID Date Data Source [id number] 06/20/2020 08:56:00 [facility] Name Value Range Interpretation Code Description Data Christal rce(s) Supporting Document(s) triglycerides level 176 mg/dL <150 Above high normal Triglycer ides Level SANDER ([facility]) cholesterol risk ratio <5 Cholesterol R isk Ratio SANDER ([facility]) HDL cholesterol 36 mg/dL >40 Below low normal HDL Cholestero l SANDER ([facility]) Cholesterol in LDL [Mass/volume] in Serum or Plasma 82 mg/dL <1 00 LDL Cholesterol SANDER ([facility]) cholesterol level 153 mg/dL <200 Cholesterol Level SANDER ([facility]) non-HDL-C 117 mg/dL Non-hdl-c [facility] ([facility]) ID Date Data Source [id number] 06/20/2020 08:56:00 AM [facility] Name Value Range Interpretation Code Description Data Christal rce(s) Supporting Document(s) glucose, fasting 113 mg/dL 70-100 Above high normal Glucose, Fas ting SANDER ([facility]) creatinine for GFR 0.92 mg/dL 0.70-1.30 Creatinine for GF R SANDER ([facility]) glomerular filtration rate > 60.0 >60 Glomerula r Filtration Rate SANDER ([facility]) blood urea nitrogen 13 mg/dL 7-18 Blood Urea Nitro gen SANDER ([facility]) carbon dioxide level 26 mEq/L 21-32 Carbon Dioxide Level SANDER ([facility]) sodium level 142 mEq/L 136-145 Sodium Level SANDER (No On license of [facility]) potassium serum 4.0 mEq/L 3.5-5.1 Potassium Serum ATHE NA ([facility]) chloride level 109 mEq/L 98-107 Above high normal Chloride Level [place] ([facility]) anion gap 7 mEq/L 8-16 Below low normal Anion Gap SANDER ( [facility]) alkaline phosphatase 85 U/L 45-117 Alkaline Phosph atase SANDER ([facility]) AST/SGOT 24 U/L 7-37 AST/SGOT SANDER ([facility]) calcium level 9.2 mg/dL 8.5-10.1 Calcium Level SANDER ( [facility]) ALT/SGPT 43 U/L 12-78 ALT/SGPT SANDER ([facility]) albumin/globulin ratio Albumin/globu dayanna Ratio SANDER ([facility]) bilirubin,total 0.2 mg/dL 0.2-1.0 Bilirubin,total ATHE ([facility]) albumin 4.0 gm/dL 3.2-5.2 Albumin SANDER ([facility]) total protein 7.6 gm/dL 6.4-8.2 Total Protein SANDER ( [facility]) ID Date Data Source [id number] 06/20/2020 08:56:00 AM EDT SANDER ([facility]) Name Value Range Interpretation Code Description Data Christal rce(s) Supporting Document(s) white blood count 6.9 10 4.0-10.0 White Blood Count SANDER ([facility]) red blood count 5.03 10 4.30-6.10 Red Blood Count ATHE NA ([facility]) hemoglobin 14.1 g/dL 13.5-17.5 Hemoglobin SANDER ([facility]) hematocrit 47.0 % 42.0-52.0 Hematocrit SANDER ([facility]) mean corpuscular volume 93.4 fL 80.0-96.0 Mean Corpusc ular Volume SANDER ([facility]) mean corpuscular hemoglobin 28.0 pg 27.0-33.0 Mean Cor puscular Hemoglobin SANDER ([facility]) mean corpuscular HGB conc 30.0 g/dL 32.0-36.5 Below low ning l Mean Corpuscular HGB Conc SANDER ([facility]) red cell distribution width 17.9 % 11.5-14.5 Above high no rmal Red Cell Distribution Width SANDER ([facility]) platelet count, automated 203 10 150-450 Platelet C ount, Automated SANDER ([facility]) lymph % 34.2 % 24.0-44.0 Lymph % SANDER ([facility]) neutrophils % 52.3 % 36.0-66.0 Neutrophils % SANDER ( [facility]) eos % 5.0 % 0.0-3.0 Above high normal Eos % SANDER ([facility]) immature granulocyte % 1.8 % 0-3.0 Immature Gran ulocyte % SANDER ([facility]) mono % 5.7 % 2.0-8.0 Loving % SANDER ([facility]) baso % 1.0 % 0.0-1.0 Baso % SANDER ([facility]) neutrophils # 3.6 10 1.5-8.5 Neutrophils # SANDER ( [facility]) lymph # 2.3 10 1.5-5.0 Lymph # SANDER ([facility]) nucleated red blood cell % 0.0 % 0-0 Nucleated Red Blood Cell % SANDER ([facility]) mono # 0.4 10 0.0-0.8 Loving # SANDER ([facility]) baso # 0.1 10 0.0-0.2 Baso # SANDER ([facility]) eos # 0.3 10 0.0-0.5 Eos # SANDER ([facility]) ID Date Data Source [id number] 06/20/2020 08:56:00 AM EDT [place] ([facility]) Name Value Range Interpretation Code Description Data Christal rce(s) Supporting Document(s) Hemoglobin A1c/Hemoglobin.total in Blood 5.5 % Hemoglobin a1C [place] ([facility]) estimated average glucose 111 mg/dL 60-110 Above high norm al Estimated Average Glucose [place] ([facility]) ID Date Data Source [id number] 06/20/2020 08:56:00 AM EDT [facility]) Name Value Range Interpretation Code Description Data Christal rce(s) Supporting Document(s) thyroid stimulating hormone 2.220 uIU/mL 0.358-3.740 Thyroid Stimulating Hormone [place] ([facility]) ID Date Data Source [id number] 06/20/2020 08:56:00 AM EDT [facility]) Name Value Range Interpretation Code Description Data Christal rce(s) Supporting Document(s) iron (fe) 40 ug/dL 65-175 Below low normal Iron (Fe) SANDER ( [facility]) total iron binding capacity 269 ug/dL 250-450 Total Ir on Binding Capacity [place] ([facility]) percent saturation 14.9 % 19.7-50.0 Below low normal Percent Sat uration [place] ([facility]) ID Date Data Source [id number] 06/20/2020 08:56:00 AM EDT [facility]) Name Value Range Interpretation Code Description Data Christal rce(s) Supporting Document(s) HDL cholesterol 36 mg/dL >40 Below low normal HDL Cholestero l [place] ([facility]) cholesterol level 153 mg/dL <200 Cholesterol Level SANDER ([facility]) Cholesterol in LDL [Mass/volume] in Serum or Plasma 82 mg/dL <1 00 LDL Cholesterol SANDER ([facility]) non-HDL-C 117 mg/dL Non-hdl-c SANDER ([facility]) triglycerides level 176 mg/dL <150 Above high normal Triglycer ides Level SANDER ([facility]) cholesterol risk ratio <5 Cholesterol R isk Ratio SANDER ([facility]) ID Date Data Source [id number] 06/20/2020 08:56:00 AM EDT SANDER ([facility]) Name Value Range Interpretation Code Description Data Christal rce(s) Supporting Document(s) glucose, fasting 113 mg/dL 70-100 Above high normal Glucose, Fas ting SANDER ([facility]) blood urea nitrogen 13 mg/dL 7-18 Blood Urea Nitro gen SANDER ([facility]) creatinine for GFR 0.92 mg/dL 0.70-1.30 Creatinine for GF R SANDER ([facility]) sodium level 142 mEq/L 136-145 Sodium Level SANDER ([facility]) glomerular filtration rate > 60.0 >60 Glomerula r Filtration Rate SANDER ([facility]) potassium serum 4.0 mEq/L 3.5-5.1 Potassium Serum ATHE NA ([facility]) anion gap 7 mEq/L 8-16 Below low normal Anion Gap SANDER ( [facility]) calcium level 9.2 mg/dL 8.5-10.1 Calcium Level SANDER ( [facility]) carbon dioxide level 26 mEq/L 21-32 Carbon Dioxide Level SANDER ([facility]) chloride level 109 mEq/L 98-107 Above high normal Chloride Level SANDER ([facility]) bilirubin,total 0.2 mg/dL 0.2-1.0 Bilirubin,total ATHE NA ([facility]) AST/SGOT 24 U/L 7-37 AST/SGOT SANDER ([facility]) ALT/SGPT 43 U/L 12-78 ALT/SGPT SANDER ([facility]) alkaline phosphatase 85 U/L 45-117 Alkaline Phosph atase SANDER ([facility]) total protein 7.6 gm/dL 6.4-8.2 Total Protein SANDER ( [facility]) albumin 4.0 gm/dL 3.2-5.2 Albumin SANDER ([facility]) albumin/globulin ratio Albumin/globu dayanna Ratio SANDER ([facility]) ID Date Data Source [id number] 06/20/2020 08:56:00 AM EDT SANDER ([facility]) Name Value Range Interpretation Code Description Data Christal rce(s) Supporting Document(s) white blood count 6.9 10 4.0-10.0 White Blood Count SANDER ([facility]) red blood count 5.03 10 4.30-6.10 Red Blood Count ATHE ([facility]) hemoglobin 14.1 g/dL 13.5-17.5 Hemoglobin SANDER ([facility]) mean corpuscular hemoglobin 28.0 pg 27.0-33.0 Mean Cor puscular Hemoglobin SANDER ([facility]) mean corpuscular volume 93.4 fL 80.0-96.0 Mean Corpusc ular Volume SANDER ([facility]) hematocrit 47.0 % 42.0-52.0 Hematocrit SANDER ([facility]) red cell distribution width 17.9 % 11.5-14.5 Above high no rmal Red Cell Distribution Width SANDER ([facility]) mean corpuscular HGB conc 30.0 g/dL 32.0-36.5 Below low ning l Mean Corpuscular HGB Conc SANDER ([facility]) platelet count, automated 203 10 150-450 Platelet C ount, Automated SANDER ([facility]) mono % 5.7 % 2.0-8.0 Loving % SANDER ([facility]) eos % 5.0 % 0.0-3.0 Above high normal Eos % SANDER ([facility]) neutrophils % 52.3 % 36.0-66.0 Neutrophils % SANDER ( [facility]) lymph % 34.2 % 24.0-44.0 Lymph % SANDER ([facility]) nucleated red blood cell % 0.0 % 0-0 Nucleated Red Blood Cell % SANDER ([facility]) immature granulocyte % 1.8 % 0-3.0 Immature Gran ulocyte % SANDER ([facility]) baso % 1.0 % 0.0-1.0 Baso % SANDER ([facility]) lymph # 2.3 10 1.5-5.0 Lymph # SANDER ([facility]) neutrophils # 3.6 10 1.5-8.5 Neutrophils # SANDER ( [facility]) mono # 0.4 10 0.0-0.8 Loving # SANDER ([facility]) baso # 0.1 10 0.0-0.2 Baso # SANDER ([facility]) eos # 0.3 10 0.0-0.5 Eos # SANDER ([facility]) ID Date Data Source [id number] 06/20/2020 08:56:00 AM EDT [place] ([facility]) Name Value Range Interpretation Code Description Data Christal rce(s) Supporting Document(s) Hemoglobin A1c/Hemoglobin.total in Blood 5.5 % Hemoglobin a1C [place] ([facility]) estimated average glucose 111 mg/dL 60-110 Above high norm al Estimated Average Glucose [place] ([facility]) ID Date Data Source [id number] 06/20/2020 08:56:00 AM EDT [place] ([facility]) Name Value Range Interpretation Code Description Data Crhistal rce(s) Supporting Document(s) thyroid stimulating hormone 2.220 uIU/mL 0.358-3.740 Thyroid Stimulating Hormone [place] ([facility]) ID Date Data Source [id number] 06/20/2020 08:56:00 AM EDT [facility]) Name Value Range Interpretation Code Description Data Christal rce(s) Supporting Document(s) iron (fe) 40 ug/dL 65-175 Below low normal Iron (Fe) SANDER ( [facility]) percent saturation 14.9 % 19.7-50.0 Below low normal Percent Sat uration SANDER ([facility]) total iron binding capacity 269 ug/dL 250-450 Total Ir on Binding Capacity SANDER ([facility]) ID Date Data Source [id number] 06/20/2020 08:56:00 AM EDT [place] ([facility]) Name Value Range Interpretation Code Description Data Christal rce(s) Supporting Document(s) cholesterol level 153 mg/dL <200 Cholesterol Level SANDER ([facility]) triglycerides level 176 mg/dL <150 Above high normal Triglycer ides Level SANDER ([facility]) cholesterol risk ratio <5 Cholesterol R isk Ratio [place] ([facility]) Cholesterol in LDL [Mass/volume] in Serum or Plasma 82 mg/dL <1 00 LDL Cholesterol SANDER ([facility]) non-HDL-C 117 mg/dL Non-hdl-c SANDER ([facility]) HDL cholesterol 36 mg/dL >40 Below low normal HDL Cholestero l SANDER ([facility]) ID Date Data Source [id number] 06/20/2020 08:56:00 AM EDT [place] ([facility]) Name Value Range Interpretation Code Description Data Christal rce(s) Supporting Document(s) creatinine for GFR 0.92 mg/dL 0.70-1.30 Creatinine for GF R SANDER ([facility]) glomerular filtration rate > 60.0 >60 Glomerula r Filtration Rate SANDER ([facility]) blood urea nitrogen 13 mg/dL 7-18 Blood Urea Nitro gen SANDER ([facility]) glucose, fasting 113 mg/dL 70-100 Above high normal Glucose, Fas ting SANDER ([facility]) potassium serum 4.0 mEq/L 3.5-5.1 Potassium Serum ATHE NA ([facility]) carbon dioxide level 26 mEq/L 21-32 Carbon Dioxide Level SANDER ([facility]) chloride level 109 mEq/L 98-107 Above high normal Chloride Level SANDER ([facility]) sodium level 142 mEq/L 136-145 Sodium Level SANDER ([facility]) calcium level 9.2 mg/dL 8.5-10.1 Calcium Level SANDER ( [facility]) anion gap 7 mEq/L 8-16 Below low normal Anion Gap SANDER ( [facility]) AST/SGOT 24 U/L 7-37 AST/SGOT SANDER ([facility]) ALT/SGPT 43 U/L 12-78 ALT/SGPT SANDER ([facility]) alkaline phosphatase 85 U/L 45-117 Alkaline Phosph atase SANDER ([facility]) total protein 7.6 gm/dL 6.4-8.2 Total Protein SANDER ( [facility]) bilirubin,total 0.2 mg/dL 0.2-1.0 Bilirubin,total ATHE ([facility]) albumin 4.0 gm/dL 3.2-5.2 Albumin SANDER ([facility]) albumin/globulin ratio Albumin/globu dayanna Ratio SANDER ([facility]) ID Date Data Source [id number] 06/20/2020 08:56:00 AM EDT SANDER ([facility]) Name Value Range Interpretation Code Description Data Christal rce(s) Supporting Document(s) white blood count 6.9 10 4.0-10.0 White Blood Count SANDER ([facility]) red blood count 5.03 10 4.30-6.10 Red Blood Count ATHE ([facility]) hemoglobin 14.1 g/dL 13.5-17.5 Hemoglobin SANDER ([facility]) mean corpuscular volume 93.4 fL 80.0-96.0 Mean Corpusc ular Volume SANDER ([facility]) hematocrit 47.0 % 42.0-52.0 Hematocrit SANDER ([facility]) mean corpuscular HGB conc 30.0 g/dL 32.0-36.5 Below low ning l Mean Corpuscular HGB Conc [place] ([facility]) red cell distribution width 17.9 % 11.5-14.5 Above high no rmal Red Cell Distribution Width SANDER ([facility]) mean corpuscular hemoglobin 28.0 pg 27.0-33.0 Mean Cor puscular Hemoglobin SANDER ([facility]) platelet count, automated 203 10 150-450 Platelet C ount, Automated SANDER ([facility]) neutrophils % 52.3 % 36.0-66.0 Neutrophils % SANDER ( [facility]) lymph % 34.2 % 24.0-44.0 Lymph % [place] ([facility]) eos % 5.0 % 0.0-3.0 Above high normal Eos % [place] ([facility]) mono % 5.7 % 2.0-8.0 Loving % [place] ([facility]) immature granulocyte % 1.8 % 0-3.0 Immature Gran ulocyte % [place] ([facility]) baso % 1.0 % 0.0-1.0 Baso % [place] ([facility]) nucleated red blood cell % 0.0 % 0-0 Nucleated Red Blood Cell % [place] ([facility]) mono # 0.4 10 0.0-0.8 Loving # [place] ([facility]) neutrophils # 3.6 10 1.5-8.5 Neutrophils # SANDER ( [facility]) lymph # 2.3 10 1.5-5.0 Lymph # SANDER ([facility]) eos # 0.3 10 0.0-0.5 Eos # SANDER ([facility]) baso # 0.1 10 0.0-0.2 Baso # SANDER ([facility]) ID Date Data Source [id number] 06/20/2020 08:56:00 AM EDT [place] ([facility]) Name Value Range Interpretation Code Description Data Christal rce(s) Supporting Document(s) Hemoglobin A1c/Hemoglobin.total in Blood 5.5 % Hemoglobin a1C SANDER ([facility]) estimated average glucose 111 mg/dL 60-110 Above high norm al Estimated Average Glucose SANDER ([facility]) ID Date Data Source [id number] 06/20/2020 08:56:00 AM EDT SANDER ([facility]) Name Value Range Interpretation Code Description Data Christal rce(s) Supporting Document(s) thyroid stimulating hormone 2.220 uIU/mL 0.358-3.740 Thyroid Stimulating Hormone SANDER ([facility]) ID Date Data Source [id number] 06/20/2020 08:56:00 AM EDT SANDER ([facility]) Name Value Range Interpretation Code Description Data Christal rce(s) Supporting Document(s) total iron binding capacity 269 ug/dL 250-450 Total Ir on Binding Capacity SANDER ([facility]) percent saturation 14.9 % 19.7-50.0 Below low normal Percent Sat uration SANDER ([facility]) iron (fe) 40 ug/dL 65-175 Below low normal Iron (Fe) [place] ( [facility]) ID Date Data Source [id number] 06/20/2020 08:56:00 AM EDT [place] ([facility]) Name Value Range Interpretation Code Description Data Christal rce(s) Supporting Document(s) cholesterol level 153 mg/dL <200 Cholesterol Level SANDER ([facility]) triglycerides level 176 mg/dL <150 Above high normal Triglycer ides Level SANDER ([facility]) HDL cholesterol 36 mg/dL >40 Below low normal HDL Cholestero l SANDER ([facility]) non-HDL-C 117 mg/dL Non-hdl-c SANDER ([facility]) Cholesterol in LDL [Mass/volume] in Serum or Plasma 82 mg/dL <1 00 LDL Cholesterol SANDER ([facility]) cholesterol risk ratio <5 Cholesterol R isk Ratio SANDER ([facility]) ID Date Data Source [id number] 06/20/2020 08:56:00 AM EDT SANDER ([facility]) Name Value Range Interpretation Code Description Data Christal rce(s) Supporting Document(s) glucose, fasting 113 mg/dL 70-100 Above high normal Glucose, Fas ting SANDER ([facility]) creatinine for GFR 0.92 mg/dL 0.70-1.30 Creatinine for GF R SANDER ([facility]) blood urea nitrogen 13 mg/dL 7-18 Blood Urea Nitro gen SANDER ([facility]) sodium level 142 mEq/L 136-145 Sodium Level SANDER (No On license of [facility]) glomerular filtration rate > 60.0 >60 Glomerula r Filtration Rate SANDER ([facility]) potassium serum 4.0 mEq/L 3.5-5.1 Potassium Serum ATHE NA ([facility]) anion gap 7 mEq/L 8-16 Below low normal Anion Gap SANDER ( [facility]) chloride level 109 mEq/L 98-107 Above high normal Chloride Level SANDER ([facility]) carbon dioxide level 26 mEq/L 21-32 Carbon Dioxide Level SANDER ([facility]) calcium level 9.2 mg/dL 8.5-10.1 Calcium Level SANDER ( [facility]) AST/SGOT 24 U/L 7-37 AST/SGOT S[facility]ER ([facility]) ALT/SGPT 43 U/L 12-78 ALT/SGPT [facility]ANDER ([facility]) bilirubin,total 0.2 mg/dL 0.2-1.0 Bilirubin,total ATHE NA ([facility]) alkaline phosphatase 85 U/L 45-117 Alkaline Phosph atase SANDER ([facility]) albumin/globulin ratio Albumin/globu dayanna Ratio SANDER ([facility]) total protein 7.6 gm/dL 6.4-8.2 Total Protein SANDER ( [facility]) albumin 4.0 gm/dL 3.2-5.2 Albumin SANDER ([facility]) ID Date Data Source [id number] 06/20/2020 08:56:00 AM EDT SANDER ([facility]) Name Value Range Interpretation Code Description Data Christal rce(s) Supporting Document(s) white blood count 6.9 10 4.0-10.0 White Blood Count SANDER ([facility]) hematocrit 47.0 % 42.0-52.0 Hematocrit SANDER ([facility]) red blood count 5.03 10 4.30-6.10 Red Blood Count ATHE NA ([facility]) hemoglobin 14.1 g/dL 13.5-17.5 Hemoglobin SANDER ([facility]) mean corpuscular volume 93.4 fL 80.0-96.0 Mean Corpusc ular Volume SANDER ([facility]) mean corpuscular HGB conc 30.0 g/dL 32.0-36.5 Below low ning l Mean Corpuscular HGB Conc SANDER ([facility]) mean corpuscular hemoglobin 28.0 pg 27.0-33.0 Mean Cor puscular Hemoglobin SANDER ([facility]) platelet count, automated 203 10 150-450 Platelet C ount, Automated SANDER ([facility]) red cell distribution width 17.9 % 11.5-14.5 Above high no rmal Red Cell Distribution Width SANDER ([facility]) mono % 5.7 % 2.0-8.0 Loving % SANDER ([facility]) neutrophils % 52.3 % 36.0-66.0 Neutrophils % SANDER ( [facility]) lymph % 34.2 % 24.0-44.0 Lymph % SANDER ([facility]) eos % 5.0 % 0.0-3.0 Above high normal Eos % SANDER ([facility]) immature granulocyte % 1.8 % 0-3.0 Immature Gran ulocyte % SANDER ([facility]) baso % 1.0 % 0.0-1.0 Baso % SANDER ([facility]) lymph # 2.3 10 1.5-5.0 Lymph # SANDER ([facility]) neutrophils # 3.6 10 1.5-8.5 Neutrophils # SANDER ( [facility]) nucleated red blood cell % 0.0 % 0-0 Nucleated Red Blood Cell % SANDER ([facility]) mono # 0.4 10 0.0-0.8 Loving # SANDER ([facility]) eos # 0.3 10 0.0-0.5 Eos # SANDER ([facility]) baso # 0.1 10 0.0-0.2 Baso # SANDER ([facility]) ID Date Data Source [id number] 06/20/2020 08:56:00 AM EDT SANDER ([facility]) Name Value Range Interpretation Code Description Data Christal rce(s) Supporting Document(s) estimated average glucose 111 mg/dL 60-110 Above high norm al Estimated Average Glucose SANDER ([facility]) Hemoglobin A1c/Hemoglobin.total in Blood 5.5 % Hemoglobin a1C SANDER ([facility]) ID Date Data Source [id number] 06/20/2020 08:56:00 AM EDT SANDER ([facility]) Name Value Range Interpretation Code Description Data Christal rce(s) Supporting Document(s) thyroid stimulating hormone 2.220 uIU/mL 0.358-3.740 Thyroid Stimulating Hormone SANDER ([facility]) ID Date Data Source [id number] 06/20/2020 08:56:00 AM EDT SANDER ([facility]) Name Value Range Interpretation Code Description Data Christal rce(s) Supporting Document(s) iron (fe) 40 ug/dL 65-175 Below low normal Iron (Fe) SANDER ( [facility]) total iron binding capacity 269 ug/dL 250-450 Total Ir on Binding Capacity SANDER ([facility]) percent saturation 14.9 % 19.7-50.0 Below low normal Percent Sat uration SANDER ([facility]) ID Date Data Source [id number] 06/20/2020 08:56:00 AM EDT SANDER ([facility]) Name Value Range Interpretation Code Description Data Christal rce(s) Supporting Document(s) triglycerides level 176 mg/dL <150 Above high normal Triglycer ides Level SANDER ([facility]) cholesterol level 153 mg/dL <200 Cholesterol Level SANDER ([facility]) HDL cholesterol 36 mg/dL >40 Below low normal HDL Cholestero l SANDER ([facility]) cholesterol risk ratio <5 Cholesterol R isk Ratio SANDER ([facility]) non-HDL-C 117 mg/dL Non-hdl-c [facility]ANDER ([facility]) Cholesterol in LDL [Mass/volume] in Serum or Plasma 82 mg/dL <1 00 LDL Cholesterol SANDER ([facility]) ID Date Data Source [id number] 06/20/2020 08:56:00 AM EDT SANDER ([facility]) Name Value Range Interpretation Code Description Data Christal rce(s) Supporting Document(s) glucose, fasting 113 mg/dL 70-100 Above high normal Glucose, Fas ting SANDER ([facility]) glomerular filtration rate > 60.0 >60 Glomerula r Filtration Rate SANDER ([facility]) creatinine for GFR 0.92 mg/dL 0.70-1.30 Creatinine for GF R SANDER ([facility]) blood urea nitrogen 13 mg/dL 7-18 Blood Urea Nitro gen SANDER ([facility]) chloride level 109 mEq/L 98-107 Above high normal Chloride Level SADNER ([facility]) sodium level 142 mEq/L 136-145 Sodium Level SANDER ([facility]) potassium serum 4.0 mEq/L 3.5-5.1 Potassium Serum ATHE NA ([facility]) carbon dioxide level 26 mEq/L 21-32 Carbon Dioxide Level [place] ([facility]) anion gap 7 mEq/L 8-16 Below low normal Anion Gap SANDER ( [facility]) AST/SGOT 24 U/L 7-37 AST/SGOT [facility] ([facility]) calcium level 9.2 mg/dL 8.5-10.1 Calcium Level SANDER ( [facility]) ALT/SGPT 43 U/L 12-78 ALT/SGPT [facility] ([facility]) albumin 4.0 gm/dL 3.2-5.2 Albumin [facility] ([facility]) bilirubin,total 0.2 mg/dL 0.2-1.0 Bilirubin,total ATHE NA ([facility]) total protein 7.6 gm/dL 6.4-8.2 Total Protein SANDER ( [facility]) alkaline phosphatase 85 U/L 45-117 Alkaline Phosph atase [facility]ANDER ([facility]) albumin/globulin ratio Albumin/globu dayanna Ratio SANDER ([facility]) ID Date Data Source [id number] 06/20/2020 08:56:00 AM EDT [facility] ([facility]) Name Value Range Interpretation Code Description Data Christal rce(s) Supporting Document(s) white blood count 6.9 10 4.0-10.0 White Blood Count SANDER ([facility]) red blood count 5.03 10 4.30-6.10 Red Blood Count ATHE ([facility]) hematocrit 47.0 % 42.0-52.0 Hematocrit SANDER ([facility]) hemoglobin 14.1 g/dL 13.5-17.5 Hemoglobin S[facility]ER ([facility]) mean corpuscular hemoglobin 28.0 pg 27.0-33.0 Mean Cor puscular Hemoglobin SANDER ([facility]) mean corpuscular volume 93.4 fL 80.0-96.0 Mean Corpusc ular Volume SANDER ([facility]) mean corpuscular HGB conc 30.0 g/dL 32.0-36.5 Below low ning l Mean Corpuscular HGB Conc [facility]ANDER ([facility]) red cell distribution width 17.9 % 11.5-14.5 Above high no rmal Red Cell Distribution Width SANDER ([facility]) platelet count, automated 203 10 150-450 Platelet C ount, Automated [facility] ([facility]) neutrophils % 52.3 % 36.0-66.0 Neutrophils % S[facility]ER ( [facility]) lymph % 34.2 % 24.0-44.0 Lymph % [facility] ([facility]) eos % 5.0 % 0.0-3.0 Above high normal Eos % [facility] ([facility]) mono % 5.7 % 2.0-8.0 Loving % [facility]ER ([facility]) neutrophils # 3.6 10 1.5-8.5 Neutrophils # SANDER ( [facility]) baso % 1.0 % 0.0-1.0 Baso % [facility] ([facility]) immature granulocyte % 1.8 % 0-3.0 Immature Gran ulocyte % [facility] ([facility]) nucleated red blood cell % 0.0 % 0-0 Nucleated Red Blood Cell % [facility] ([facility]) lymph # 2.3 10 1.5-5.0 Lymph # [facility] ([facility]) mono # 0.4 10 0.0-0.8 Loving # [facility]ER ([facility]) eos # 0.3 10 0.0-0.5 Eos # [facility] ([facility]) baso # 0.1 10 0.0-0.2 Baso # [facility] ([facility]) ID Date Data Source [id number] 06/20/2020 08:56:00 AM EDT [place] ([facility]) Name Value Range Interpretation Code Description Data Christal rce(s) Supporting Document(s) Hemoglobin A1c/Hemoglobin.total in Blood 5.5 % Hemoglobin a1C [facility] ([facility]) estimated average glucose 111 mg/dL 60-110 Above high norm al Estimated Average Glucose [place] ([facility]) ID Date Data Source [id number] 06/20/2020 08:56:00 AM EDT [place] ([facility]) Name Value Range Interpretation Code Description Data Christal rce(s) Supporting Document(s) thyroid stimulating hormone 2.220 uIU/mL 0.358-3.740 Thyroid Stimulating Hormone [facility]ER ([facility]) ID Date Data Source [id number] 06/20/2020 08:56:00 AM EDT [facility] ([facility]) Name Value Range Interpretation Code Description Data Christal rce(s) Supporting Document(s) iron (fe) 40 ug/dL 65-175 Below low normal Iron (Fe) [facility] ( [facility]) total iron binding capacity 269 ug/dL 250-450 Total Ir on Binding Capacity [facility] ([facility]) percent saturation 14.9 % 19.7-50.0 Below low normal Percent Sat uration [facility] ([facility]) ID Date Data Source [id number] 06/20/2020 08:56:00 AM EDT [place] ([facility]) Name Value Range Interpretation Code Description Data Christal rce(s) Supporting Document(s) triglycerides level 176 mg/dL <150 Above high normal Triglycer ides Level [facility] ([facility]) cholesterol level 153 mg/dL <200 Cholesterol Level [facility] ([facility]) HDL cholesterol 36 mg/dL >40 Below low normal HDL Cholestero l [place] ([facility]) Cholesterol in LDL [Mass/volume] in Serum or Plasma 82 mg/dL <1 00 LDL Cholesterol [facility] ([facility]) non-HDL-C 117 mg/dL Non-hdl-c [facility] ([facility]) cholesterol risk ratio <5 Cholesterol R isk Ratio [facility]ER ([facility]) ID Date Data Source [id number] 06/20/2020 08:56:00 AM EDT [place] ([facility]) Name Value Range Interpretation Code Description Data Christal rce(s) Supporting Document(s) blood urea nitrogen 13 mg/dL 7-18 Blood Urea Nitro gen [facility] ([facility]) glucose, fasting 113 mg/dL 70-100 Above high normal Glucose, Fas ting [facility] ([facility]) creatinine for GFR 0.92 mg/dL 0.70-1.30 Creatinine for GF R [facility] ([facility]) glomerular filtration rate > 60.0 >60 Glomerula r Filtration Rate [facility] ([facility]) potassium serum 4.0 mEq/L 3.5-5.1 Potassium Serum ATHE ([facility]) chloride level 109 mEq/L 98-107 Above high normal Chloride Level [facility] ([facility]) sodium level 142 mEq/L 136-145 Sodium Level [facility] ([facility]) calcium level 9.2 mg/dL 8.5-10.1 Calcium Level [facility]ANDER ( [facility]) anion gap 7 mEq/L 8-16 Below low normal Anion Gap SANDER ( [facility]) carbon dioxide level 26 mEq/L 21-32 Carbon Dioxide Level [facility] ([facility]) ALT/SGPT 43 U/L 12-78 ALT/SGPT [facility] ([facility]) alkaline phosphatase 85 U/L 45-117 Alkaline Phosph atase [facility] ([facility]) AST/SGOT 24 U/L 7-37 AST/SGOT [facility] ([facility]) bilirubin,total 0.2 mg/dL 0.2-1.0 Bilirubin,total ATHE ([facility]) total protein 7.6 gm/dL 6.4-8.2 Total Protein SANDER ( [facility]) albumin 4.0 gm/dL 3.2-5.2 Albumin [facility] ([facility]) albumin/globulin ratio Albumin/globu dayanna Ratio [facility]ER ([facility]) ID Date Data Source [id number] 06/20/2020 08:56:00 AM EDT [facility] ([facility]) Name Value Range Interpretation Code Description Data Christal rce(s) Supporting Document(s) white blood count 6.9 10 4.0-10.0 White Blood Count [facility] ([facility]) red blood count 5.03 10 4.30-6.10 Red Blood Count ATHE ([facility]) hemoglobin 14.1 g/dL 13.5-17.5 Hemoglobin [facility]ER ([facility]) hematocrit 47.0 % 42.0-52.0 Hematocrit [facility] ([facility]) mean corpuscular volume 93.4 fL 80.0-96.0 Mean Corpusc ular Volume [facility]ANDER ([facility]) red cell distribution width 17.9 % 11.5-14.5 Above high no rmal Red Cell Distribution Width [facility] ([facility]) mean corpuscular HGB conc 30.0 g/dL 32.0-36.5 Below low ning l Mean Corpuscular HGB Conc [facility]ER ([facility]) mean corpuscular hemoglobin 28.0 pg 27.0-33.0 Mean Cor puscular Hemoglobin [facility] ([facility]) platelet count, automated 203 10 150-450 Platelet C ount, Automated [facility] ([facility]) neutrophils % 52.3 % 36.0-66.0 Neutrophils % [facility] ( [facility]) mono % 5.7 % 2.0-8.0 Loving % [place] ([facility]) lymph % 34.2 % 24.0-44.0 Lymph % [place] ([facility]) baso % 1.0 % 0.0-1.0 Baso % [facility] ([facility]) eos % 5.0 % 0.0-3.0 Above high normal Eos % [place] ([facility]) immature granulocyte % 1.8 % 0-3.0 Immature Gran ulocyte % [place] ([facility]) nucleated red blood cell % 0.0 % 0-0 Nucleated Red Blood Cell % [facility] ([facility]) neutrophils # 3.6 10 1.5-8.5 Neutrophils # [facility] ( [facility]) mono # 0.4 10 0.0-0.8 Loving # [facility] ([facility]) lymph # 2.3 10 1.5-5.0 Lymph # [facility] ([facility]) eos # 0.3 10 0.0-0.5 Eos # [facility] ([facility]) baso # 0.1 10 0.0-0.2 Baso # [facility] ([facility]) ID Date Data Source [id number] 06/20/2020 08:56:00 AM EDT [facility] ([facility]) Name Value Range Interpretation Code Description Data Christal rce(s) Supporting Document(s) estimated average glucose 111 mg/dL 60-110 Above high norm al Estimated Average Glucose [facility] ([facility]) Hemoglobin A1c/Hemoglobin.total in Blood 5.5 % Hemoglobin a1C [facility] ([facility]) ID Date Data Source [id number] 06/20/2020 08:56:00 AM EDT [facility] ([facility]) Name Value Range Interpretation Code Description Data Christal rce(s) Supporting Document(s) thyroid stimulating hormone 2.220 uIU/mL 0.358-3.740 Thyroid Stimulating Hormone [place] ([facility]) ID Date Data Source [id number] 06/20/2020 08:56:00 AM EDT [facility] ([facility]) Name Value Range Interpretation Code Description Data Christal rce(s) Supporting Document(s) total iron binding capacity 269 ug/dL 250-450 Total Ir on Binding Capacity [facility] ([facility]) iron (fe) 40 ug/dL 65-175 Below low normal Iron (Fe) SANDER ( [facility]) percent saturation 14.9 % 19.7-50.0 Below low normal Percent Sat uration [facility]ANDER ([facility]) ID Date Data Source [id number] 06/20/2020 08:56:00 AM EDT [facility] ([facility]) Name Value Range Interpretation Code Description Data Christal rce(s) Supporting Document(s) cholesterol level 153 mg/dL <200 Cholesterol Level [facility]ANDER ([facility]) triglycerides level 176 mg/dL <150 Above high normal Triglycer ides Level [facility]ANDER ([facility]) non-HDL-C 117 mg/dL Non-hdl-c [facility] ([facility]) Cholesterol in LDL [Mass/volume] in Serum or Plasma 82 mg/dL <1 00 LDL Cholesterol SANDER ([facility]) HDL cholesterol 36 mg/dL >40 Below low normal HDL Cholestero l SAND[facility] ([facility]) cholesterol risk ratio <5 Cholesterol R isk Ratio [facility]ANDER ([facility]) ID Date Data Source [id number] 06/20/2020 08:56:00 AM EDT [place] ([facility]) Name Value Range Interpretation Code Description Data Christal rce(s) Supporting Document(s) glucose, fasting 113 mg/dL 70-100 Above high normal Glucose, Fas ting [facility]ER ([facility]) blood urea nitrogen 13 mg/dL 7-18 Blood Urea Nitro gen [facility] ([facility]) creatinine for GFR 0.92 mg/dL 0.70-1.30 Creatinine for GF R [place] ([facility]) glomerular filtration rate > 60.0 >60 Glomerula r Filtration Rate [facility]ANDER ([facility]) chloride level 109 mEq/L 98-107 Above high normal Chloride Level [facility] ([facility]) sodium level 142 mEq/L 136-145 Sodium Level [facility] ([facility]) potassium serum 4.0 mEq/L 3.5-5.1 Potassium Serum ATHE ([facility]) carbon dioxide level 26 mEq/L 21-32 Carbon Dioxide Level [place] ([facility]) anion gap 7 mEq/L 8-16 Below low normal Anion Gap SANDER ( [facility]) AST/SGOT 24 U/L 7-37 AST/SGOT [facility] ([facility]) calcium level 9.2 mg/dL 8.5-10.1 Calcium Level SANDER ( [facility]) ALT/SGPT 43 U/L 12-78 ALT/SGPT [facility] ([facility]) bilirubin,total 0.2 mg/dL 0.2-1.0 Bilirubin,total ATHE ([facility]) alkaline phosphatase 85 U/L 45-117 Alkaline Phosph atase [facility] ([facility]) total protein 7.6 gm/dL 6.4-8.2 Total Protein SANDER ( [facility]) albumin 4.0 gm/dL 3.2-5.2 Albumin [facility] ([facility]) albumin/globulin ratio Albumin/globu dayanna Ratio SANDER ([facility]) ID Date Data Source [id number] 06/20/2020 08:56:00 AM EDT [facility] ([facility]) Name Value Range Interpretation Code Description Data Christal rce(s) Supporting Document(s) red blood count 5.03 10 4.30-6.10 Red Blood Count ATHE NA ([facility]) white blood count 6.9 10 4.0-10.0 White Blood Count [facility] ([facility]) hemoglobin 14.1 g/dL 13.5-17.5 Hemoglobin SANDER ([facility]) hematocrit 47.0 % 42.0-52.0 Hematocrit SANDER ([facility]) mean corpuscular volume 93.4 fL 80.0-96.0 Mean Corpusc ular Volume SANDER ([facility]) mean corpuscular HGB conc 30.0 g/dL 32.0-36.5 Below low ning l Mean Corpuscular HGB Conc [facility]ER ([facility]) mean corpuscular hemoglobin 28.0 pg 27.0-33.0 Mean Cor puscular Hemoglobin SANDER ([facility]) red cell distribution width 17.9 % 11.5-14.5 Above high no rmal Red Cell Distribution Width S[facility]ER ([facility]) platelet count, automated 203 10 150-450 Platelet C ount, Automated [facility] ([facility]) neutrophils % 52.3 % 36.0-66.0 Neutrophils % S[facility]ER ( [facility]) lymph % 34.2 % 24.0-44.0 Lymph % [facility] ([facility]) eos % 5.0 % 0.0-3.0 Above high normal Eos % [facility] ([facility]) mono % 5.7 % 2.0-8.0 Loving % [facility] ([facility]) nucleated red blood cell % 0.0 % 0-0 Nucleated Red Blood Cell % [facility]ER ([facility]) baso % 1.0 % 0.0-1.0 Baso % [facility] ([facility]) immature granulocyte % 1.8 % 0-3.0 Immature Gran ulocyte % [facility]ER ([facility]) lymph # 2.3 10 1.5-5.0 Lymph # [facility] ([facility]) mono # 0.4 10 0.0-0.8 Loving # [facility]ER ([facility]) neutrophils # 3.6 10 1.5-8.5 Neutrophils # [facility]ER ( [facility]) baso # 0.1 10 0.0-0.2 Baso # [facility] ([facility]) eos # 0.3 10 0.0-0.5 Eos # [facility] ([facility]) ID Date Data Source [id number] 06/20/2020 08:56:00 AM EDT [place] ([facility]) Name Value Range Interpretation Code Description Data Christal rce(s) Supporting Document(s) Hemoglobin A1c/Hemoglobin.total in Blood 5.5 % Hemoglobin a1C [place] ([facility]) estimated average glucose 111 mg/dL 60-110 Above high norm al Estimated Average Glucose [place] ([facility]) ID Date Data Source [id number] 06/20/2020 08:56:00 AM EDT [facility]) Name Value Range Interpretation Code Description Data Christal rce(s) Supporting Document(s) thyroid stimulating hormone 2.220 uIU/mL 0.358-3.740 Thyroid Stimulating Hormone [place] ([facility]) ID Date Data Source [id number] 06/20/2020 08:56:00 AM EDT [facility]) Name Value Range Interpretation Code Description Data Christal rce(s) Supporting Document(s) percent saturation 14.9 % 19.7-50.0 Below low normal Percent Sat uration [facility]ANDER ([facility]) iron (fe) 40 ug/dL 65-175 Below low normal Iron (Fe) [place] ( [facility]) total iron binding capacity 269 ug/dL 250-450 Total Ir on Binding Capacity [facility] ([facility]) ID Date Data Source [id number] 06/20/2020 08:56:00 AM EDT [facility]) Name Value Range Interpretation Code Description Data Christal rce(s) Supporting Document(s) triglycerides level 176 mg/dL <150 Above high normal Triglycer ides Level [facility]ANDER ([facility]) cholesterol level 153 mg/dL <200 Cholesterol Level [facility] ([facility]) HDL cholesterol 36 mg/dL >40 Below low normal HDL Cholestero l [facility]AND[facility] ([facility]) Cholesterol in LDL [Mass/volume] in Serum or Plasma 82 mg/dL <1 00 LDL Cholesterol [facility]ER ([facility]) cholesterol risk ratio <5 Cholesterol R isk Ratio [facility]ANDER ([facility]) non-HDL-C 117 mg/dL Non-hdl-c [facility] ([facility]) ID Date Data Source [id number] 06/20/2020 08:56:00 AM EDT [place] ([facility]) Name Value Range Interpretation Code Description Data Christal rce(s) Supporting Document(s) glucose, fasting 113 mg/dL 70-100 Above high normal Glucose, Fas ting SANDER ([facility]) creatinine for GFR 0.92 mg/dL 0.70-1.30 Creatinine for GF R [facility]ER ([facility]) blood urea nitrogen 13 mg/dL 7-18 Blood Urea Nitro gen [facility] ([facility]) glomerular filtration rate > 60.0 >60 Glomerula r Filtration Rate [facility]ANDER ([facility]) potassium serum 4.0 mEq/L 3.5-5.1 Potassium Serum ATHE NA ([facility]) sodium level 142 mEq/L 136-145 Sodium Level SANDER (No On license of [facility]) chloride level 109 mEq/L 98-107 Above high normal Chloride Level S[facility]ER ([facility]) anion gap 7 mEq/L 8-16 Below low normal Anion Gap [place] ( [facility]) carbon dioxide level 26 mEq/L 21-32 Carbon Dioxide Level [facility]ER ([facility]) AST/SGOT 24 U/L 7-37 AST/SGOT [facility] ([facility]) calcium level 9.2 mg/dL 8.5-10.1 Calcium Level SANDER ( [facility]) ALT/SGPT 43 U/L 12-78 ALT/SGPT [facility] ([facility]) alkaline phosphatase 85 U/L 45-117 Alkaline Phosph atase [facility]ANDER ([facility]) bilirubin,total 0.2 mg/dL 0.2-1.0 Bilirubin,total ATHE NA ([facility]) total protein 7.6 gm/dL 6.4-8.2 Total Protein SANDER ( [facility]) albumin 4.0 gm/dL 3.2-5.2 Albumin [facility]ER ([facility]) albumin/globulin ratio Albumin/globu dayanna Ratio SANDER ([facility]) ID Date Data Source [id number] 06/20/2020 08:56:00 AM EDT SANDER ([facility]) Name Value Range Interpretation Code Description Data Christal rce(s) Supporting Document(s) red blood count 5.03 10 4.30-6.10 Red Blood Count ATHE ([facility]) white blood count 6.9 10 4.0-10.0 White Blood Count SANDER ([facility]) hematocrit 47.0 % 42.0-52.0 Hematocrit SANDER ([facility]) hemoglobin 14.1 g/dL 13.5-17.5 Hemoglobin SANDER ([facility]) mean corpuscular volume 93.4 fL 80.0-96.0 Mean Corpusc ular Volume SANDER ([facility]) mean corpuscular hemoglobin 28.0 pg 27.0-33.0 Mean Cor puscular Hemoglobin SANDER ([facility]) mean corpuscular HGB conc 30.0 g/dL 32.0-36.5 Below low ning l Mean Corpuscular HGB Conc SANDER ([facility]) red cell distribution width 17.9 % 11.5-14.5 Above high no rmal Red Cell Distribution Width SANDER ([facility]) platelet count, automated 203 10 150-450 Platelet C ount, Automated SANDER ([facility]) neutrophils % 52.3 % 36.0-66.0 Neutrophils % SANDER ( [facility]) mono % 5.7 % 2.0-8.0 Loving % [place] ([facility]) lymph % 34.2 % 24.0-44.0 Lymph % [place] ([facility]) immature granulocyte % 1.8 % 0-3.0 Immature Gran ulocyte % [place] ([facility]) baso % 1.0 % 0.0-1.0 Baso % [place] ([facility]) eos % 5.0 % 0.0-3.0 Above high normal Eos % [place] ([facility]) nucleated red blood cell % 0.0 % 0-0 Nucleated Red Blood Cell % [place] ([facility]) lymph # 2.3 10 1.5-5.0 Lymph # [place] ([facility]) neutrophils # 3.6 10 1.5-8.5 Neutrophils # [place] ( [facility]) mono # 0.4 10 0.0-0.8 Loving # [place] ([facility]) eos # 0.3 10 0.0-0.5 Eos # [place] ([facility]) baso # 0.1 10 0.0-0.2 Baso # [place] ([facility]) ID Date Data Source [id number] 06/20/2020 08:56:00 AM EDT [place] ([facility]) Name Value Range Interpretation Code Description Data Christal rce(s) Supporting Document(s) Hemoglobin A1c/Hemoglobin.total in Blood 5.5 % Hemoglobin a1C [place] ([facility]) estimated average glucose 111 mg/dL 60-110 Above high norm al Estimated Average Glucose [place] ([facility]) ID Date Data Source [id number] 06/20/2020 08:56:00 AM EDT [facility]ANDER ([facility]) Name Value Range Interpretation Code Description Data Christal rce(s) Supporting Document(s) thyroid stimulating hormone 2.220 uIU/mL 0.358-3.740 Thyroid Stimulating Hormone [facility]ANDER ([facility]) ID Date Data Source [id number] 06/20/2020 08:56:00 AM EDT [facility]ANDER ([facility]) Name Value Range Interpretation Code Description Data Christal rce(s) Supporting Document(s) iron (fe) 40 ug/dL 65-175 Below low normal Iron (Fe) [facility]ANDER ( [facility]) percent saturation 14.9 % 19.7-50.0 Below low normal Percent Sat uration SANDER ([facility]) total iron binding capacity 269 ug/dL 250-450 Total Ir on Binding Capacity [facility]ANDER ([facility]) ID Date Data Source [id number] 06/20/2020 08:56:00 AM EDT [facility]ANDER ([facility]) Name Value Range Interpretation Code Description Data Christal rce(s) Supporting Document(s) cholesterol level 153 mg/dL <200 Cholesterol Level SANDER ([facility]) triglycerides level 176 mg/dL <150 Above high normal Triglycer ides Level SANDER ([facility]) HDL cholesterol 36 mg/dL >40 Below low normal HDL Cholestero l SANDER ([facility]) cholesterol risk ratio <5 Cholesterol R isk Ratio SANDER ([facility]) Cholesterol in LDL [Mass/volume] in Serum or Plasma 82 mg/dL <1 00 LDL Cholesterol SANDER ([facility]) non-HDL-C 117 mg/dL Non-hdl-c [facility] ([facility]) ID Date Data Source [id number] 06/20/2020 08:56:00 AM EDT [facility]ANDER ([facility]) Name Value Range Interpretation Code Description Data Christal rce(s) Supporting Document(s) blood urea nitrogen 13 mg/dL 7-18 Blood Urea Nitro gen SANDER ([facility]) glucose, fasting 113 mg/dL 70-100 Above high normal Glucose, Fas ting SANDER ([facility]) creatinine for GFR 0.92 mg/dL 0.70-1.30 Creatinine for GF R SANDER ([facility]) glomerular filtration rate > 60.0 >60 Glomerula r Filtration Rate SANDER ([facility]) chloride level 109 mEq/L 98-107 Above high normal Chloride Level SANDER ([facility]) potassium serum 4.0 mEq/L 3.5-5.1 Potassium Serum ATHE NA ([facility]) sodium level 142 mEq/L 136-145 Sodium Level SANDER (No On license of [facility]) carbon dioxide level 26 mEq/L 21-32 Carbon Dioxide Level SANDER ([facility]) calcium level 9.2 mg/dL 8.5-10.1 Calcium Level [facility] ( [facility] [facility] gap 7 mEq/L 8-16 Below low normal Anion Gap SANDER ( [facility]) AST/SGOT 24 U/L 7-37 AST/SGOT SANDER ([facility]) bilirubin,total 0.2 mg/dL 0.2-1.0 Bilirubin,total ATHE ([facility]) alkaline phosphatase 85 U/L 45-117 Alkaline Phosph atase SANDER ([facility]) ALT/SGPT 43 U/L 12-78 ALT/SGPT SANDER ([facility]) total protein 7.6 gm/dL 6.4-8.2 Total Protein SANDER ( [facility]) albumin/globulin ratio Albumin/globu dayanna Ratio SANDER ([facility]) albumin 4.0 gm/dL 3.2-5.2 Albumin SANDER ([facility]) ID Date Data Source [id number] 06/20/2020 08:56:00 AM EDT SANDER ([facility]) Name Value Range Interpretation Code Description Data Christal rce(s) Supporting Document(s) red blood count 5.03 10 4.30-6.10 Red Blood Count ATHE ([facility]) hemoglobin 14.1 g/dL 13.5-17.5 Hemoglobin SANDER ([facility]) white blood count 6.9 10 4.0-10.0 White Blood Count SANDER ([facility]) mean corpuscular volume 93.4 fL 80.0-96.0 Mean Corpusc ular Volume SANDER ([facility]) mean corpuscular hemoglobin 28.0 pg 27.0-33.0 Mean Cor puscular Hemoglobin SANDER ([facility]) hematocrit 47.0 % 42.0-52.0 Hematocrit SANDER ([facility]) red cell distribution width 17.9 % 11.5-14.5 Above high no rmal Red Cell Distribution Width SANDER ([facility]) mean corpuscular HGB conc 30.0 g/dL 32.0-36.5 Below low ning l Mean Corpuscular HGB Conc SANDER ([facility]) platelet count, automated 203 10 150-450 Platelet C ount, Automated SANDER ([facility]) lymph % 34.2 % 24.0-44.0 Lymph % SANDER ([facility]) neutrophils % 52.3 % 36.0-66.0 Neutrophils % SANDER ( [facility]) eos % 5.0 % 0.0-3.0 Above high normal Eos % SANDER ([facility]) mono % 5.7 % 2.0-8.0 Loving % SANDER ([facility]) baso % 1.0 % 0.0-1.0 Baso % SANDER ([facility]) nucleated red blood cell % 0.0 % 0-0 Nucleated Red Blood Cell % SANDER ([facility]) immature granulocyte % 1.8 % 0-3.0 Immature Gran ulocyte % SANDER ([facility]) mono # 0.4 10 0.0-0.8 Loving # SANDER ([facility]) lymph # 2.3 10 1.5-5.0 Lymph # SANDER ([facility]) neutrophils # 3.6 10 1.5-8.5 Neutrophils # SANDER ( [facility]) eos # 0.3 10 0.0-0.5 Eos # SANDER ([facility]) baso # 0.1 10 0.0-0.2 Baso # SANDER ([facility]) ID Date Data Source [id number] 06/20/2020 08:56:00 AM EDT [place] ([facility]) Name Value Range Interpretation Code Description Data Christal rce(s) Supporting Document(s) Hemoglobin A1c/Hemoglobin.total in Blood 5.5 % Hemoglobin a1C [place] ([facility]) estimated average glucose 111 mg/dL 60-110 Above high norm al Estimated Average Glucose [facility]) ID Date Data Source [id number] 06/20/2020 08:56:00 AM EDT [place] ([facility]) Name Value Range Interpretation Code Description Data Christal rce(s) Supporting Document(s) thyroid stimulating hormone 2.220 uIU/mL 0.358-3.740 Thyroid Stimulating Hormone [place] ([facility]) ID Date Data Source [id number] 06/20/2020 08:56:00 AM EDT [place] ([facility]) Name Value Range Interpretation Code Description Data Christal rce(s) Supporting Document(s) iron (fe) 40 ug/dL 65-175 Below low normal Iron (Fe) SANDER ( [facility]) total iron binding capacity 269 ug/dL 250-450 Total Ir on Binding Capacity SANDER ([facility]) percent saturation 14.9 % 19.7-50.0 Below low normal Percent Sat uration [place] ([facility]) ID Date Data Source [id number] 06/20/2020 08:56:00 AM EDT [facility]) Name Value Range Interpretation Code Description Data Christal rce(s) Supporting Document(s) triglycerides level 176 mg/dL <150 Above high normal Triglycer ides Level [place] ([facility]) cholesterol level 153 mg/dL <200 Cholesterol Level SANDER ([facility]) cholesterol risk ratio <5 Cholesterol R isk Ratio SANDER ([facility]) non-HDL-C 117 mg/dL Non-hdl-c ASNDER ([facility]) HDL cholesterol 36 mg/dL >40 Below low normal HDL Cholestero l SANDER ([facility]) Cholesterol in LDL [Mass/volume] in Serum or Plasma 82 mg/dL <1 00 LDL Cholesterol SANDER ([facility]) ID Date Data Source [id number] 06/20/2020 08:56:00 AM EDT SANDER ([facility]) Name Value Range Interpretation Code Description Data Christal rce(s) Supporting Document(s) glucose, fasting 113 mg/dL 70-100 Above high normal Glucose, Fas ting SANDER ([facility]) blood urea nitrogen 13 mg/dL 7-18 Blood Urea Nitro gen SANDER ([facility]) potassium serum 4.0 mEq/L 3.5-5.1 Potassium Serum ATHE NA ([facility]) sodium level 142 mEq/L 136-145 Sodium Level SANDER ([facility]) glomerular filtration rate > 60.0 >60 Glomerula r Filtration Rate SANDER ([facility]) creatinine for GFR 0.92 mg/dL 0.70-1.30 Creatinine for GF R SANDER ([facility]) chloride level 109 mEq/L 98-107 Above high normal Chloride Level SANDER ([facility]) anion gap 7 mEq/L 8-16 Below low normal Anion Gap SANDER ( [facility]) calcium level 9.2 mg/dL 8.5-10.1 Calcium Level SANDER ( [facility]) carbon dioxide level 26 mEq/L 21-32 Carbon Dioxide Level SANDER ([facility]) AST/SGOT 24 U/L 7-37 AST/SGOT SANDER ([facility]) bilirubin,total 0.2 mg/dL 0.2-1.0 Bilirubin,total ATHE NA ([facility]) ALT/SGPT 43 U/L 12-78 ALT/SGPT SANDER ([facility]) alkaline phosphatase 85 U/L 45-117 Alkaline Phosph atase SANDER ([facility]) total protein 7.6 gm/dL 6.4-8.2 Total Protein SANDER ( [facility]) albumin 4.0 gm/dL 3.2-5.2 Albumin SANDER ([facility]) albumin/globulin ratio Albumin/globu dayanna Ratio SANDER ([facility]) ID Date Data Source [id number] 06/20/2020 08:56:00 AM EDT SANDER ([facility]) Name Value Range Interpretation Code Description Data Christal rce(s) Supporting Document(s) white blood count 6.9 10 4.0-10.0 White Blood Count SANDER ([facility]) red blood count 5.03 10 4.30-6.10 Red Blood Count ATHE ([facility]) mean corpuscular volume 93.4 fL 80.0-96.0 Mean Corpusc ular Volume SANDER ([facility]) hemoglobin 14.1 g/dL 13.5-17.5 Hemoglobin SANDER ([facility]) hematocrit 47.0 % 42.0-52.0 Hematocrit SANDER ([facility]) red cell distribution width 17.9 % 11.5-14.5 Above high no rmal Red Cell Distribution Width SANDER ([facility]) platelet count, automated 203 10 150-450 Platelet C ount, Automated SANDER ([facility]) mean corpuscular hemoglobin 28.0 pg 27.0-33.0 Mean Cor puscular Hemoglobin SANDER ([facility]) mean corpuscular HGB conc 30.0 g/dL 32.0-36.5 Below low ning l Mean Corpuscular HGB Conc SANDER ([facility]) neutrophils % 52.3 % 36.0-66.0 Neutrophils % SANDER ( [facility]) lymph % 34.2 % 24.0-44.0 Lymph % SANDER ([facility]) mono % 5.7 % 2.0-8.0 Loving % SANDER ([facility]) nucleated red blood cell % 0.0 % 0-0 Nucleated Red Blood Cell % SANDER ([facility]) immature granulocyte % 1.8 % 0-3.0 Immature Gran ulocyte % SANDER ([facility]) eos % 5.0 % 0.0-3.0 Above high normal Eos % SANDER ([facility]) baso % 1.0 % 0.0-1.0 Baso % SANDER ([facility]) lymph # 2.3 10 1.5-5.0 Lymph # SANDER ([facility]) neutrophils # 3.6 10 1.5-8.5 Neutrophils # SANDER ( [facility]) baso # 0.1 10 0.0-0.2 Baso # SANDER ([facility]) eos # 0.3 10 0.0-0.5 Eos # SANDER ([facility]) mono # 0.4 10 0.0-0.8 Loving # SANDER ([facility]) ID Date Data Source [id number] 06/20/2020 08:56:00 AM EDT [place] ([facility]) Name Value Range Interpretation Code Description Data Christal rce(s) Supporting Document(s) estimated average glucose 111 mg/dL 60-110 Above high norm al Estimated Average Glucose [place] ([facility]) Hemoglobin A1c/Hemoglobin.total in Blood 5.5 % Hemoglobin a1C SANDER ([facility]) ID Date Data Source [id number] 06/20/2020 08:56:00 AM EDT SANDER ([facility]) Name Value Range Interpretation Code Description Data Christal rce(s) Supporting Document(s) thyroid stimulating hormone 2.220 uIU/mL 0.358-3.740 Thyroid Stimulating Hormone [place] ([facility]) ID Date Data Source [id number] 06/20/2020 08:56:00 AM EDT [place] ([facility]) Name Value Range Interpretation Code Description Data Christal rce(s) Supporting Document(s) iron (fe) 40 ug/dL 65-175 Below low normal Iron (Fe) SANDER ( [facility]) total iron binding capacity 269 ug/dL 250-450 Total Ir on Binding Capacity SANDER ([facility]) percent saturation 14.9 % 19.7-50.0 Below low normal Percent Sat uration SANDER ([facility]) ID Date Data Source [id number] 06/20/2020 08:56:00 AM EDT [place] ([facility]) Name Value Range Interpretation Code Description Data Christal rce(s) Supporting Document(s) cholesterol level 153 mg/dL <200 Cholesterol Level SANDER ([facility]) triglycerides level 176 mg/dL <150 Above high normal Triglycer ides Level SANDER ([facility]) HDL cholesterol 36 mg/dL >40 Below low normal HDL Cholestero l SANDER ([facility]) cholesterol risk ratio <5 Cholesterol R isk Ratio SANDER ([facility]) Cholesterol in LDL [Mass/volume] in Serum or Plasma 82 mg/dL <1 00 LDL Cholesterol SANDER ([facility]) non-HDL-C 117 mg/dL Non-hdl-c SANDER ([facility]) ID Date Data Source [id number] 06/20/2020 08:56:00 AM EDT [place] ([facility]) Name Value Range Interpretation Code Description Data Christal rce(s) Supporting Document(s) glucose, fasting 113 mg/dL 70-100 Above high normal Glucose, Fas ting SANDER ([facility]) blood urea nitrogen 13 mg/dL 7-18 Blood Urea Nitro gen SANDER ([facility]) sodium level 142 mEq/L 136-145 Sodium Level SANDER (No On license of [facility]) glomerular filtration rate > 60.0 >60 Glomerula r Filtration Rate SANDER ([facility]) creatinine for GFR 0.92 mg/dL 0.70-1.30 Creatinine for GF R SANDER ([facility]) potassium serum 4.0 mEq/L 3.5-5.1 Potassium Serum ATHE NA ([facility]) carbon dioxide level 26 mEq/L 21-32 Carbon Dioxide Level SANDER ([facility]) anion gap 7 mEq/L 8-16 Below low normal Anion Gap SANDER ( [facility]) chloride level 109 mEq/L 98-107 Above high normal Chloride Level SANDER ([facility]) AST/SGOT 24 U/L 7-37 AST/SGOT SANDER ([facility]) ALT/SGPT 43 U/L 12-78 ALT/SGPT SANDER ([facility]) alkaline phosphatase 85 U/L 45-117 Alkaline Phosph atase SANDER ([facility]) calcium level 9.2 mg/dL 8.5-10.1 Calcium Level SANDER ( [facility]) albumin 4.0 gm/dL 3.2-5.2 Albumin SANDER ([facility]) total protein 7.6 gm/dL 6.4-8.2 Total Protein SANDER ( [facility]) bilirubin,total 0.2 mg/dL 0.2-1.0 Bilirubin,total ATHE NA ([facility]) albumin/globulin ratio Albumin/globu dayanna Ratio SANDER ([facility]) ID Date Data Source [id number] 06/20/2020 08:56:00 AM EDT SANDER ([facility]) Name Value Range Interpretation Code Description Data Christal rce(s) Supporting Document(s) white blood count 6.9 10 4.0-10.0 White Blood Count SANDER ([facility]) red blood count 5.03 10 4.30-6.10 Red Blood Count ATHE ([facility]) hematocrit 47.0 % 42.0-52.0 Hematocrit SANDER ([facility]) hemoglobin 14.1 g/dL 13.5-17.5 Hemoglobin SANDER ([facility]) mean corpuscular volume 93.4 fL 80.0-96.0 Mean Corpusc ular Volume SANDER ([facility]) mean corpuscular hemoglobin 28.0 pg 27.0-33.0 Mean Cor puscular Hemoglobin SANDER ([facility]) mean corpuscular HGB conc 30.0 g/dL 32.0-36.5 Below low ning l Mean Corpuscular HGB Conc SANDER ([facility]) red cell distribution width 17.9 % 11.5-14.5 Above high no rmal Red Cell Distribution Width SANDER ([facility]) lymph % 34.2 % 24.0-44.0 Lymph % [place] ([facility]) platelet count, automated 203 10 150-450 Platelet C ount, Automated SANDER ([facility]) neutrophils % 52.3 % 36.0-66.0 Neutrophils % [place] ( [facility]) mono % 5.7 % 2.0-8.0 Loving % [place] ([facility]) immature granulocyte % 1.8 % 0-3.0 Immature Gran ulocyte % SANDER ([facility]) baso % 1.0 % 0.0-1.0 Baso % [place] ([facility]) eos % 5.0 % 0.0-3.0 Above high normal Eos % [place] ([facility]) lymph # 2.3 10 1.5-5.0 Lymph # [place] ([facility]) nucleated red blood cell % 0.0 % 0-0 Nucleated Red Blood Cell % SANDER ([facility]) neutrophils # 3.6 10 1.5-8.5 Neutrophils # SANDER ( [facility]) mono # 0.4 10 0.0-0.8 Loving # SANDER ([facility]) baso # 0.1 10 0.0-0.2 Baso # SANDER ([facility]) eos # 0.3 10 0.0-0.5 Eos # [place] ([facility]) ID Date Data Source [id number] 06/20/2020 08:56:00 AM EDT [place] ([facility]) Name Value Range Interpretation Code Description Data Christal rce(s) Supporting Document(s) Hemoglobin A1c/Hemoglobin.total in Blood 5.5 % Hemoglobin a1C SANDER ([facility]) estimated average glucose 111 mg/dL 60-110 Above high norm al Estimated Average Glucose SANDER ([facility]) ID Date Data Source [id number] 06/20/2020 08:56:00 AM EDT SANDER ([facility]) Name Value Range Interpretation Code Description Data Christal rce(s) Supporting Document(s) thyroid stimulating hormone 2.220 uIU/mL 0.358-3.740 Thyroid Stimulating Hormone SANDER ([facility]) ID Date Data Source [id number] 06/20/2020 08:56:00 AM EDT SANDER ([facility]) Name Value Range Interpretation Code Description Data Christal rce(s) Supporting Document(s) iron (fe) 40 ug/dL 65-175 Below low normal Iron (Fe) SANDER ( [facility]) percent saturation 14.9 % 19.7-50.0 Below low normal Percent Sat uration SANDER ([facility]) total iron binding capacity 269 ug/dL 250-450 Total Ir on Binding Capacity [place] ([facility]) ID Date Data Source [id number] 06/20/2020 08:56:00 AM EDT [facility]) Name Value Range Interpretation Code Description Data Christal rce(s) Supporting Document(s) cholesterol level 153 mg/dL <200 Cholesterol Level SANDER ([facility]) triglycerides level 176 mg/dL <150 Above high normal Triglycer ides Level SANDER ([facility]) HDL cholesterol 36 mg/dL >40 Below low normal HDL Cholestero l SANDER ([facility]) non-HDL-C 117 mg/dL Non-hdl-c SANDER ([facility]) cholesterol risk ratio <5 Cholesterol R isk Ratio SANDER ([facility]) Cholesterol in LDL [Mass/volume] in Serum or Plasma 82 mg/dL <1 00 LDL Cholesterol SANDER [facility]) ID Date Data Source [id number] 06/20/2020 08:56:00 AM EDT SANDER ([facility]) Name Value Range Interpretation Code Description Data Christal rce(s) Supporting Document(s) glucose, fasting 113 mg/dL 70-100 Above high normal Glucose, Fas ting SANDER ([facility]) glomerular filtration rate > 60.0 >60 Glomerula r Filtration Rate SANDER ([facility]) creatinine for GFR 0.92 mg/dL 0.70-1.30 Creatinine for GF R SANDER ([facility]) blood urea nitrogen 13 mg/dL 7-18 Blood Urea Nitro gen SANDER ([facility]) potassium serum 4.0 mEq/L 3.5-5.1 Potassium Serum ATHE NA ([facility]) sodium level 142 mEq/L 136-145 Sodium Level SANDER ([facility]) chloride level 109 mEq/L 98-107 Above high normal Chloride Level SANDER ([facility]) calcium level 9.2 mg/dL 8.5-10.1 Calcium Level SANDER ( [facility]) anion gap 7 mEq/L 8-16 Below low normal Anion Gap SANDER ( [facility]) carbon dioxide level 26 mEq/L 21-32 Carbon Dioxide Level SANDER ([facility]) AST/SGOT 24 U/L 7-37 AST/SGOT SANDER ([facility]) alkaline phosphatase 85 U/L 45-117 Alkaline Phosph atase SANDER ([facility]) ALT/SGPT 43 U/L 12-78 ALT/SGPT SANDER ([facility]) bilirubin,total 0.2 mg/dL 0.2-1.0 Bilirubin,total ATHE NA ([facility]) total protein 7.6 gm/dL 6.4-8.2 Total Protein SANDER ( [facility]) albumin/globulin ratio Albumin/globu dayanna Ratio SANDER ([facility]) albumin 4.0 gm/dL 3.2-5.2 Albumin SANDER ([facility]) ID Date Data Source [id number] 06/20/2020 08:56:00 AM EDT [place] ([facility]) Name Value Range Interpretation Code Description Data Christal rce(s) Supporting Document(s) white blood count 6.9 10 4.0-10.0 White Blood Count SANDER ([facility]) red blood count 5.03 10 4.30-6.10 Red Blood Count ATHE NA ([facility]) hemoglobin 14.1 g/dL 13.5-17.5 Hemoglobin SANDER ([facility]) hematocrit 47.0 % 42.0-52.0 Hematocrit SANDER ([facility]) mean corpuscular volume 93.4 fL 80.0-96.0 Mean Corpusc ular Volume SANDER ([facility]) mean corpuscular hemoglobin 28.0 pg 27.0-33.0 Mean Cor puscular Hemoglobin SANDER ([facility]) red cell distribution width 17.9 % 11.5-14.5 Above high no rmal Red Cell Distribution Width SANDER ([facility]) mean corpuscular HGB conc 30.0 g/dL 32.0-36.5 Below low ning l Mean Corpuscular HGB Conc SANDER ([facility]) platelet count, automated 203 10 150-450 Platelet C ount, Automated SANDER ([facility]) neutrophils % 52.3 % 36.0-66.0 Neutrophils % SANDER ( [facility]) lymph % 34.2 % 24.0-44.0 Lymph % SANDER ([facility]) mono % 5.7 % 2.0-8.0 Loving % SANEDR ([facility]) eos % 5.0 % 0.0-3.0 Above high normal Eos % SANDER ([facility]) baso % 1.0 % 0.0-1.0 Baso % [place] ([facility]) immature granulocyte % 1.8 % 0-3.0 Immature Gran ulocyte % SANDER ([facility]) neutrophils # 3.6 10 1.5-8.5 Neutrophils # SANDER ( [facility]) lymph # 2.3 10 1.5-5.0 Lymph # SANDER ([facility]) nucleated red blood cell % 0.0 % 0-0 Nucleated Red Blood Cell % SANDER ([facility]) mono # 0.4 10 0.0-0.8 Loving # SANDER ([facility]) baso # 0.1 10 0.0-0.2 Baso # SANDER ([facility]) eos # 0.3 10 0.0-0.5 Eos # SANDER ([facility]) Procedure Social History No Information Vital Signs ID Date Data Source [id number] Name Value Range Interpretation Code Description Data Source(s) Diastolic blood pressure 83 mm[Hg] 83 mm[Hg] SANDER ([facility]) Body height 72 [in_i] 72 [in_i] SANDER ([facility]) Body mass index (BMI) [Ratio] 40.2 kg/m2 40.2 k g/m2 SANDER ([facility]) Systolic blood pressure 125 mm[Hg] 125 mm[Hg] A [facility] ([facility]) Body weight 4740 [oz_av] 4740 [oz_av] SANDER ([facility]) Diastolic blood pressure 83 mm[Hg] 83 mm[Hg] SANDER ([facility]) Body height 72 [in_i] 72 [in_i] SANDER ([facility]) Body mass index (BMI) [Ratio] 40.2 kg/m2 40.2 k g/m2 SANDER ([facility]) Systolic blood pressure 125 mm[Hg] 125 mm[Hg] [facility] Body weight 4740 [oz_av] 4740 [oz_av] SANDER ([facility]) Diastolic blood pressure 83 mm[Hg] 83 mm[Hg] SANDER ([facility]) Body height 72 [in_i] 72 [in_i] SANDER ([facility]) Body mass index (BMI) [Ratio] 40.2 kg/m2 40.2 k g/m2 SANDER ([facility]) Systolic blood pressure 125 mm[Hg] 125 mm[Hg] A [facility] ([facility]) Body weight 4740 [oz_av] 4740 [oz_av] SANDER ([facility]) Systolic blood pressure 119 mm[Hg] 119 mm[Hg] M NISHANT ([facility], ) Diastolic blood pressure 70 mm[Hg] 70 mm[Hg] [facility] Body mass index (BMI) [Ratio] 40.7 kg/m2 40.7 k g/m2 [facility] ([facility]) [place] body weight 178 [lb_av] 178 [lb_av] MEDEN T ([facility]) Body height 72 [in_i] 72 [in_i] [facility] ([facility]) 6'0" Body weight 300.00 [lb_av] 300.00 [lb_av] [facility] Body weight 136.080 kg 136.[address] [facility] ([facility]) Body surface area Derived from formula 2.53 m2 2.[address] [facility] ([facility]) Body height 72 [in_i] 72 [in_i] SANDER ([facility]) Body height 72 [in_i] 72 [in_i] SANDER ([facility]) Body height 72 [in_i] 72 [in_i] SANDER ([facility]) Body height 72 [in_i] 72 [in_i] SANDER ([facility]) Body height 72 [in_i] 72 [in_i] SANDER ([facility]) Body height 72 [in_i] 72 [in_i] SANDER ([facility]) Body height 72 [in_i] 72 [in_i] SANDER ([facility]) Body height 72 [in_i] 72 [in_i] SANDER ([facility]) Body height 72 [in_i] 72 [in_i] SANDER ([facility]) Body height 72 [in_i] 72 [in_i] SANDER ([facility]) Body height 72 [in_i] 72 [in_i] SANDER ([facility]) Body height 72 [in_i] 72 [in_i] SANDER ([facility]) Body height 72 [in_i] 72 [in_i] SANDER ([facility]) Body height 72 [in_i] 72 [in_i] S[facility]ER ([facility]) Body height 72 [in_i] 72 [in_i] SANDER ([facility]) Diastolic blood pressure 86 mm[Hg] 86 mm[Hg] [facility] ([facility]) Body height 72 [in_i] 72 [in_i] [facility] ([facility]) Body mass index (BMI) [Ratio] 41.4 kg/m2 41.4 k g/m2 [facility] ([facility]) Systolic blood pressure 121 mm[Hg] 121 mm[Hg] A [facility] ([facility]) Body weight 4880 [oz_av] 4880 [oz_av] [facility] ([facility]) Diastolic blood pressure 86 mm[Hg] 86 mm[Hg] [facility] ([facility]) Body height 72 [in_i] 72 [in_i] [facility] ([facility]) Body mass index (BMI) [Ratio] 41.4 kg/m2 41.4 k g/m2 [facility] ([facility]) Systolic blood pressure 121 mm[Hg] 121 mm[Hg] [facility] Body weight 4880 [oz_av] 4880 [oz_av] [facility] ([facility]) Diastolic blood pressure 86 mm[Hg] 86 mm[Hg] [facility] ([facility]) Body height 72 [in_i] 72 [in_i] [facility] ([facility]) Body mass index (BMI) [Ratio] 41.4 kg/m2 41.4 k g/m2 [facility] ([facility]) Systolic blood pressure 121 mm[Hg] 121 mm[Hg] [facility] Body weight 4880 [oz_av] 4880 [oz_av] [facility] ([facility]) Diastolic blood pressure 86 mm[Hg] 86 mm[Hg] [facility] ([facility]) Body height 72 [in_i] 72 [in_i] [facility] ([facility]) Body mass index (BMI) [Ratio] 41.4 kg/m2 41.4 k g/m2 [facility] ([facility]) Systolic blood pressure 121 mm[Hg] 121 mm[Hg] [facility] Body weight 4880 [oz_av] 4880 [oz_av] [facility] ([facility]) Diastolic blood pressure 86 mm[Hg] 86 mm[Hg] [facility] ([facility]) Body height 72 [in_i] 72 [in_i] [facility] ([facility]) Body mass index (BMI) [Ratio] 41.4 kg/m2 41.4 k g/m2 [facility] ([facility]) Systolic blood pressure 121 mm[Hg] 121 mm[Hg] [facility] Body weight 4880 [oz_av] 4880 [oz_av] [facility] ([facility]) Diastolic blood pressure 86 mm[Hg] 86 mm[Hg] [facility] ([facility]) Body height 72 [in_i] 72 [in_i] [facility] ([facility]) Body mass index (BMI) [Ratio] 41.4 kg/m2 41.4 k g/m2 [facility] ([facility]) Systolic blood pressure 121 mm[Hg] 121 mm[Hg] [facility] Body weight 4880 [oz_av] 4880 [oz_av] [facility] ([facility]) Diastolic blood pressure 86 mm[Hg] 86 mm[Hg] [facility] ([facility]) Body height 72 [in_i] 72 [in_i] [facility] ([facility]) Body mass index (BMI) [Ratio] 41.4 kg/m2 41.4 k g/m2 [facility] ([facility]) Systolic blood pressure 121 mm[Hg] 121 mm[Hg] [facility] Body weight 4880 [oz_av] 4880 [oz_av] [facility] ([facility]) Diastolic blood pressure 86 mm[Hg] 86 mm[Hg] [facility] ([facility]) Body height 72 [in_i] 72 [in_i] [facility] ([facility]) Body mass index (BMI) [Ratio] 41.4 kg/m2 41.4 k g/m2 [facility] ([facility]) Systolic blood pressure 121 mm[Hg] 121 mm[Hg] [facility] Body weight 4880 [oz_av] 4880 [oz_av] [facility] ([facility]) Diastolic blood pressure 86 mm[Hg] 86 mm[Hg] [facility] ([facility]) Body height 72 [in_i] 72 [in_i] [facility] ([facility]) Body mass index (BMI) [Ratio] 41.4 kg/m2 41.4 k g/m2 [facility] ([facility]) Systolic blood pressure 121 mm[Hg] 121 mm[Hg] [facility] Body weight 4880 [oz_av] 4880 [oz_av] [facility] ([facility]) Diastolic blood pressure 86 mm[Hg] 86 mm[Hg] [facility] ([facility]) Body height 72 [in_i] 72 [in_i] [facility] ([facility]) Body mass index (BMI) [Ratio] 41.4 kg/m2 41.4 k g/m2 [facility] ([facility]) Systolic blood pressure 121 mm[Hg] 121 mm[Hg] [facility] Body weight 4880 [oz_av] 4880 [oz_av] [facility] ([facility]) Diastolic blood pressure 86 mm[Hg] 86 mm[Hg] [facility] ([facility]) Body height 72 [in_i] 72 [in_i] [facility] ([facility]) Body mass index (BMI) [Ratio] 41.4 kg/m2 41.4 k g/m2 [facility] ([facility]) Systolic blood pressure 121 mm[Hg] 121 mm[Hg] [facility] Body weight 4880 [oz_av] 4880 [oz_av] [facility] ([facility]) Diastolic blood pressure 86 mm[Hg] 86 mm[Hg] [facility] ([facility]) Body height 72 [in_i] 72 [in_i] [facility] ([facility]) Body mass index (BMI) [Ratio] 41.4 kg/m2 41.4 k g/m2 [facility] ([facility]) Systolic blood pressure 121 mm[Hg] 121 mm[Hg] [facility] Body weight 4880 [oz_av] 4880 [oz_av] [facility] ([facility]) Diastolic blood pressure 86 mm[Hg] 86 mm[Hg] [facility] ([facility]) Body height 72 [in_i] 72 [in_i] [facility] ([facility]) Body mass index (BMI) [Ratio] 41.4 kg/m2 41.4 k g/m2 [facility] ([facility]) Systolic blood pressure 121 mm[Hg] 121 mm[Hg] [facility] Body weight 4880 [oz_av] 4880 [oz_av] [facility] ([facility]) Diastolic blood pressure 86 mm[Hg] 86 mm[Hg] [facility] ([facility]) Body height 72 [in_i] 72 [in_i] [facility] ([facility]) Body mass index (BMI) [Ratio] 41.4 kg/m2 41.4 k g/m2 [facility] ([facility]) Systolic blood pressure 121 mm[Hg] 121 mm[Hg] [facility] Body weight 4880 [oz_av] 4880 [oz_av] [facility] ([facility]) Diastolic blood pressure 86 mm[Hg] 86 mm[Hg] [facility] ([facility]) Body height 72 [in_i] 72 [in_i] [facility] ([facility]) Body mass index (BMI) [Ratio] 41.4 kg/m2 41.4 k g/m2 [facility] ([facility]) Systolic blood pressure 121 mm[Hg] 121 mm[Hg] [facility] Body weight 4880 [oz_av] 4880 [oz_av] [facility] ([facility]) Diastolic blood pressure 86 mm[Hg] 86 mm[Hg] [facility] ([facility]) Body height 72 [in_i] 72 [in_i] [facility] ([facility]) Body mass index (BMI) [Ratio] 41.4 kg/m2 41.4 k g/m2 [facility] ([facility]) Systolic blood pressure 121 mm[Hg] 121 mm[Hg] A [facility] ([facility]) Body weight 4880 [oz_av] 4880 [oz_av] [facility] ([facility]) Patient Treatment Plan of Care Planned Activity Planned Date Details Description Data Source (s) Sumatriptan 50 MG Oral Tablet 04/03/2019 12:00:00 AM [facility] Metronidazole 500 MG Oral Tablet [facility] ([facility]) Hydroxyzine Hydrochloride 50 MG Oral Tablet [facility] ([facility]) Azithromycin 250 MG Oral Tablet [facility] ([facility]) topiramate 25 MG Oral Tablet [facility] ([facility]) Sumatriptan 50 MG Oral Tablet [facility] ([facility]) Omeprazole 40 MG Delayed Release Oral Capsule [facility] ([facility]) Metronidazole 500 MG Oral Tablet [facility] ([facility]) Hydroxyzine Hydrochloride 50 MG Oral Tablet [facility] ([facility]) Azithromycin 250 MG Oral Tablet [facility] ([facility]) topiramate 25 MG Oral Tablet [facility] ([facility]) Sumatriptan 50 MG Oral Tablet [facility] ([facility]) Omeprazole 40 MG Delayed Release Oral Capsule [facility] ([facility]) Metronidazole 500 MG Oral Tablet [facility] ([facility]) Hydroxyzine Hydrochloride 50 MG Oral Tablet [facility] ([facility]) Azithromycin 250 MG Oral Tablet [facility] ([facility]) topiramate 25 MG Oral Tablet [facility] ([facility]) Sumatriptan 50 MG Oral Tablet [facility] ([facility]) Metronidazole 500 MG Oral Tablet [facility] ([facility]) Azithromycin 250 MG Oral Tablet [facility] ([facility]) topiramate 25 MG Oral Tablet [facility] ([facility]) Sumatriptan 50 MG Oral Tablet [facility] ([facility]) Metronidazole 500 MG Oral Tablet [facility] ([facility]) Azithromycin 250 MG Oral Tablet [facility] ([facility]) topiramate 25 MG Oral Tablet [facility] ([facility]) Sumatriptan 50 MG Oral Tablet [facility] ([facility]) Metronidazole 500 MG Oral Tablet [facility] ([facility]) Azithromycin 250 MG Oral Tablet [facility] ([facility]) topiramate 25 MG Oral Tablet [facility] ([facility]) Sumatriptan 50 MG Oral Tablet [facility] ([facility]) Metronidazole 500 MG Oral Tablet [facility] ([facility]) Azithromycin 250 MG Oral Tablet [facility] ([facility]) topiramate 25 MG Oral Tablet [facility] ([facility]) Sumatriptan 50 MG Oral Tablet [facility] ([facility]) Metronidazole 500 MG Oral Tablet [facility] ([facility]) Azithromycin 250 MG Oral Tablet [facility] ([facility]) topiramate 25 MG Oral Tablet [facility] ([facility]) Sumatriptan 50 MG Oral Tablet [facility] ([facility]) Metronidazole 500 MG Oral Tablet [facility] ([facility]) Azithromycin 250 MG Oral Tablet [facility] ([facility]) topiramate 25 MG Oral Tablet [facility] ([facility]) Sumatriptan 50 MG Oral Tablet [facility] ([facility]) Metronidazole 500 MG Oral Tablet [facility] ([facility]) Azithromycin 250 MG Oral Tablet [facility] ([facility]) topiramate 25 MG Oral Tablet [facility] ([facility]) Sumatriptan 50 MG Oral Tablet [facility] ([facility]) Metronidazole 500 MG Oral Tablet [facility] ([facility] Azithromycin 250 MG Oral Tablet [facility] ([facility]) topiramate 25 MG Oral Tablet [facility] ([facility]) Sumatriptan 50 MG Oral Tablet [facility] ([facility]) Metronidazole 500 MG Oral Tablet [facility] ([facility]) Azithromycin 250 MG Oral Tablet [facility] ([facility]) topiramate 25 MG Oral Tablet [facility] ([facility]) Sumatriptan 50 MG Oral Tablet [facility] ([facility]) Metronidazole 500 MG Oral Tablet [facility] ([facility] Azithromycin 250 MG Oral Tablet [facility] ([facility]) topiramate 25 MG Oral Tablet [facility] ([facility]) Sumatriptan 50 MG Oral Tablet [facility] ([facility]) Metronidazole 500 MG Oral Tablet [facility] ([facility]) Azithromycin 250 MG Oral Tablet [facility] ([facility]) topiramate 25 MG Oral Tablet [facility] ([facility] Sumatriptan 50 MG Oral Tablet [facility] ([facility]) Metronidazole 500 MG Oral Tablet [facility] ([facility]) Azithromycin 250 MG Oral Tablet [facility] ([facility]) topiramate 25 MG Oral Tablet [facility] ([facility]) Sumatriptan 50 MG Oral Tablet [facility] ([facility]) Omeprazole 40 MG Delayed Release Oral Capsule [facility] ([facility]) topiramate 25 MG Oral Tablet [facility] ([facility]) Sumatriptan 50 MG Oral Tablet [facility] ([facility]) Metronidazole 500 MG Oral Tablet [facility] ([facility]) Azithromycin 250 MG Oral Tablet [facility] ([facility]) topiramate 25 MG Oral Tablet [facility] ([facility]) Sumatriptan 50 MG Oral Tablet [facility] ([facility]) Metronidazole 500 MG Oral Tablet [facility] ([facility]) Azithromycin 250 MG Oral Tablet [facility] ([facility]) topiramate 25 MG Oral Tablet [facility] ([facility]) Sumatriptan 50 MG Oral Tablet [facility] ([facility]) Metronidazole 500 MG Oral Tablet [facility] ([facility]) Azithromycin 250 MG Oral Tablet [facility] ([facility]) topiramate 25 MG Oral Tablet [facility] ([facility]) Sumatriptan 50 MG Oral Tablet [facility] ([facility]) Metronidazole 500 MG Oral Tablet [facility] ([facility]) Azithromycin 250 MG Oral Tablet [facility] ([facility]) topiramate 25 MG Oral Tablet [facility] ([facility]) Sumatriptan 50 MG Oral Tablet [facility] ([facility]) Metronidazole 500 MG Oral Tablet [facility] ([facility]) Azithromycin 250 MG Oral Tablet [facility] ([facility]) topiramate 25 MG Oral Tablet [facility] ([facility]) Sumatriptan 50 MG Oral Tablet [facility] ([facility]) Metronidazole 500 MG Oral Tablet [facility] ([facility]) Azithromycin 250 MG Oral Tablet [facility] ([facility])
[2021-02-09] MEDS ORDERED: OMEP-221 (11:32)
[2021-02-09] MEDS ORDERED: FLUTISP (11:32)
[2021-02-09] MEDS ORDERED: POLY510P14 (11:32)
[2021-02-09] MEDS ORDERED: DICY20TA11 (11:32)
[2021-02-09] MEDS ORDERED: CETI-24 (11:32)
[2021-02-09] MEDS ORDERED: HYDR50TA70 (11:32)
--- NOTE | 2021-02-09 13:13 | REPVR ---
PROCEDURE INFORMATION: Exam: CT Head Without Contrast Exam date and time: 02/09/2021 12:51 PM Age: 25 years old Clinical indication: Other: Diplopia, hypertension TECHNIQUE: Imaging protocol: Computed tomography of the head without contrast. Axial and coronal reformatted images were created and reviewed. Radiation optimization: All CT scans at this facility use at least one of these dose optimization techniques: automated exposure control; mA and/or kV adjustment per patient size (includes targeted exams where dose is matched to clinical indication); or iterative reconstruction. COMPARISON: CT Head without contrast 09/10/2018 8:07 PM FINDINGS: Brain: No CT evidence of acute intracranial hemorrhage or acute territorial infarction. No significant mass effect or midline shift. Basal cisterns patent. Cerebral ventricles: Normal in size and configuration. Paranasal sinuses: Minimal ethmoid mucosal thickening. Mastoid air cells: Grossly unremarkable. Bones/joints: No acute osseous abnormality. Soft tissues: Grossly unremarkable. IMPRESSION: 1. No CT evidence of acute intracranial pathology. 2. Additional findings, as above. Electronically signed by: James Gonzalez On 02/09/2021 13:12:55 PM
--- NOTE | 2021-02-09 13:26 | REP ---
INDICATION: CHEST PAIN. COMPARISON: 02/08/2019. TECHNIQUE: Single portable AP view of the chest was performed. FINDINGS: There is no acute infiltrate or pulmonary edema. Lungs are clear. The heart is not significantly enlarged. The mediastinal silhouette is unremarkable. The visualized osseous structures are intact. IMPRESSION: No acute pulmonary disease. <Electronically signed by Blane Britton > 02/09/21 [id number]
[2021-02-09 13:44] LABS: BASO # 0.1 10^3/uL (0.0-0.2); BASO % 0.6 % (0.0-1.0); EOS # 0.1 10^3/uL (0.0-0.5); EOS % 1.6 % (0.0-3.0); HEMATOCRIT 43.3 % (42.0-52.0); HEMOGLOBIN 13.5 g/dl (13.5-17.5); LYMPH # 1.7 10^3/uL (1.5-5.0); LYMPH % 18.6 % (24.0-44.0); MEAN CORPUSCULAR HEMOGLOBIN 27.6 pg (27.0-33.0); MEAN CORPUSCULAR HGB CONC 31.2 g/dl (32.0-36.5); MEAN CORPUSCULAR VOLUME 88.5 fl (80.0-96.0); MONO # 0.5 10^3/uL (0.0-0.8); MONO % 5.3 % (2.0-8.0); NEUTROPHILS # 6.6 10^3/uL (1.5-8.5); NEUTROPHILS % 73.6 % (36.0-66.0); PLATELET COUNT, AUTOMATED 204 10^3/uL (150-450); RED BLOOD COUNT 4.89 10^6/uL (4.30-6.10)
--- OUTSIDE RECORDS SUMMARY | 2021-02-09 13:54 | CCD ---
Author Author [facility] Organization [facility] Address Unknown Phone Unavailable Care Team Providers Care Statistical Assistant Name Role Phone CORTEZ, SUZETTE RAFAT RPA-C [...] CORTEZ, SUZETTE RAFAT RPA-C Unavailable Unavailable REINDL, IMNISTERIO MARCOS Unavailable Unavailable REINDL, MINISTERIO MARCOS Unavailable [...] REINDL, MINISTERIO MARCOS Unavailable Unavailable VERONICA, A. DYE BLENDER KEVIN Unavailable [phone] VERONICA, A. DYE BLENDER KEVIN Unavailable [phone] VERONICA, A. DYE BLENDER KEVIN Unavailable [phone] VERONICA, A. DYE BLENDER KEVIN Unavailable [phone] VERONICA, A. DYE BLENDER KEVIN Unavailable [phone] VERONICA, A. DYE BLENDER KEVIN Unavailable [phone] VERONICA, A. DYE BLENDER KEVIN Unavailable [phone] VERONICA, A. DYE BLENDER KEVIN Unavailable [phone] VERONICA, A. DYE BLENDER KEVIN Unavailable [phone] VERONICA, A. DYE BLENDER KEVIN Unavailable [phone] VERONICA, A. DYE BLENDER KEVIN Unavailable [phone] VERONICA, A. DYE BLENDER KEVIN Unavailable [phone] VERONICA, A. DYE BLENDER KEVIN Unavailable [phone] VERONICA, A. DYE BLENDER KEVIN Unavailable [phone] VERONICA, A. DYE BLENDER KEIVN Unavailable [phone] VERONICA, A. DYE BLENDER KEVIN Unavailable [phone] Andreia Carmichael Unavailable [phone] Shamika, Katherin Unavailable Unavailable Shamika, Katherin Unavailable [...] Katherin Unavailable Unavailable Shamika, Katherin Unavailable Unavailable Shaimka, Katherin Unavailable Unavailable Shamika, Katherin Unavailable Unavailable [...] Unavailable Unavailable Ellie Alberto PA Unavailable Unavailable ScEllie gonzalez PA Unavailable Unavailable Scordo, M Lesia PA [...] is protected by Article 27-F of the [facility] Public Health law. If you continue you may have access to information: Regarding HIV / AIDS; Provided by facilities licensed or operated by the [facility] Office of Mental Health; or Provided by the [facility] Office for People With Developmental Disabilities. If such information is present, then the following [facility] mandated warning applies: This information has been [...] law may result in a fine or detention sentence or both. A general authorization for the release of medical or other information is NOT sufficient authorization for further disc losure. Allergies and Adverse Reactions Type Description Substance Reaction Status Data Source(s ) Allergy to substance Allergy to substance Allergy to substance [facility] ([facility]) Allergy to substance Allergy to substance Allergy to substance [facility] ([facility]) Allergy to substance Allergy to substance Allergy to substance [facility] ([facility]) Allergy to substance Allergy to substance Allergy to substance [facility] ([facility]) Allergy to substance Allergy to substance Allergy to substance [facility] ([facility]) Family History Family Member Name Family Member Gender Family Member Status Date o f Status Description Data Source(s) Unknown Male Problem [facility] ([facility]) Encounters Encounter Providers Location Date Indications Data Source(s ) Andreia Carmichael [facility]: [address], [facility] [address], [place] [address], Ph. Attender: Andreia Carmichael [place] - [facility] Medical 01/07/2021 12:00:00 AM EDT [facility] ([facility]) Andreia Carmichael, [facility]: [address], [place] [address], Ph. Attender: Andreia Carmichael [facility] Medical 12/23/2020 12:00:00 AM EDT [facility] ([facility]) Andreia Carmichael, [facility]: [address], [place] [address], Ph. Attender: Andreia Carmichael [facility] Medical 12/23/2020 12:00:00 AM EDT [facility] ([facility]) Outpatient Attender: KEVIN MARTIN 12/05 08:13:00 AM EDT - 12/15/2020 08:31:48 AM EDT [facility] ([facility] ) Rafat Cortez RPA-C: [address], [place] [address], Ph. Attender: RAFAT CORTEZ RPA-C [facility] Medical 11/26/2020 12:00:00 AM EDT [facility] ([facility]) Rafat Cortez RPA-C: [address], [place] [address], Ph. Attender: RAFAT CORTEZ RPA-C [facility] Medical 11/26/2020 12:00:00 AM EDT [place] ([facility]) Rafat Cortez RPA-C: [address], [place] [address], Ph. Attender: RAFAT CORTEZ RPA-C [facility] Medical 11/26/2020 12:00:00 AM EDT [facility] ([facility]) Andreia Carmichael, [employer]: [address], [place] [address], Ph. Attender: Andreia Carmichael [facility] Medical 11/24/2020 12:00:00 AM EDT [facility] ([facility]) Andreia Carmichael, [facility]: [address], [place] [address], Ph. Attender: Andreia Carmichael [facility] Medical 11/24/2020 12:00:00 AM EDT [facility] ([facility]) Andreia Carmichael [facility]: [address], [place] [address], Ph. Attender: Andreia Carmichael [facility] [facility] Medical 11/24/2020 12:00:00 AM EDT [facility] ([facility]) Andreia Carmichael, [facility]: [address], [place] [address], Ph. Attender: Andreia Carmichael [facility] Medical 11/24/2020 12:00:00 AM EDT [facility] ([facility]) Andreia Carmichael [facility]: [address], [place] [address], Ph. Attender: Andreia Carmichael [facility] Medical 11/06/2020 12:00:00 AM EDT [facility] ([facility]) Andreia Carmichael [facility]: [address], [place] [address], Ph. Attender: Andreia Carmichael [facility] Medical 11/06/2020 12:00:00 AM EDT [facility] ([facility]) Andreia Carmichael, [facility]: [address], [place] [address], Ph. Attender: Andreia Carmichael [facility] Medical 11/06/2020 12:00:00 AM EDT [facility] ([facility]) Andreia Carmichael, [facility]: [address], [place] [address], Ph. Attender: Andreia Carmichael [facility] Medical 11/06/2020 12:00:00 AM EDT [facility] ([facility]) Andreia Carmichael [facility]: [address], [place] [address], Ph. Attender: Andreia Carmichael [facility] Medical 11/06/2020 12:00:00 AM EDT [facility] ([facility]) Andreia Carmichael, [facility]: [address], [place] [address], Ph. Attender: Andreia Carmichael [facility] Medical 10/29/2020 12:00:00 AM EDT [facility] ([facility]) Andreia Carmichael [facility]: [address], [place] [address], Ph. Attender: Andreia Carmichael [facility] Medical 10/29/2020 12:00:00 AM EDT [facility] ([facility]) nAdreia Carmichael [facility]: [address], [place] [address], Ph. Attender: Andreia Carmichael [facility] Medical 10/29/2020 12:00:00 AM EDT [facility] ([facility]) Andreia Carmichael, [facility]: [address], [place] [address], Ph. Attender: Andreia Carmichael [facility] Medical 10/29/2020 12:00:00 AM EDT [place] ([facility]) Andreia Carmichael, [facility]: [address], [place] [address], Ph. Attender: Andreia Carmichael [facility] Medical 10/29/2020 12:00:00 AM EDT [place] ([facility]) Andreia Carmichael [facility]: [address], [place] [address], Ph. Attender: Andreia Carmichael [facility] Medical 10/29/2020 12:00:00 AM EDT [place] ([facility]) Andreia Carmichael [facility]: [address], [place] [address], Ph. Attender: Andreia Carmichael [facility] Medical 10/15/2020 12:00:00 AM EDT [place] ([facility]) Andreia Carmichael [facility]: [address], [place] [address], Ph. Attender: Andreia Carmichael [facility] Medical 10/15/2020 12:00:00 AM EDT [place] ([facility]) Andreia Carmichael [facility]: [address], [place] [address], Ph. Attender: Andreia Carmichael [facility] Medical 10/15/2020 12:00:00 AM EDT [facility] ([facility]) Andreia Carmichael [employer]: [address], [place] [address], Ph. Attender: Andreia Carmichael [facility] Medical 10/15/2020 12:00:00 AM EDT [place] ([facility]) Andreia Carmichael, [employer]: [address], [place] [address], Ph. Attender: Andreia Carmichael [facility] Medical 10/15/2020 12:00:00 AM EDT [place] ([facility]) Andreia Carmichael, [facility]: [address], [place] [address], Ph. Attender: Andreia Carmichael [facility] Medical 10/15/2020 12:00:00 AM EDT [place] ([facility]) Andreia Carmichael, [employer]: [address], [place] [address], Ph. Attender: Andreia Carmichael [facility] Medical 10/15/2020 12:00:00 AM EDT [facility] ([facility]) Andreia Carmichael, [employer]: [address], [place] [address], Ph. Attender: Andreia Carmichael [facility] Medical 10/06/2020 12:00:00 AM EDT [place] ([facility]) Andreia Carmichael, [employer]: [address], [place] [address], Ph. Attender: Andreia Carmichael [facility] Medical 10/06/2020 12:00:00 AM EDT [facility] ([facility]) Andreia Carmichael, [employer]: [address], [place] [address], Ph. Attender: Andreia Carmichael [facility] Medical 10/06/2020 12:00:00 AM EDT [place] ([facility]) Andreia Carmichael, [employer]: [address], [place] [address], Ph. Attender: Andreia Carmichael [facility] Medical 10/06/2020 12:00:00 AM EDT [place] ([facility]) Andreia Carmichael, [employer]: [address], [place] [address], Ph. Attender: Andreia Carmichael [facility] Medical 10/06/2020 12:00:00 AM EDT [place] ([facility]) Andreia Carmichael, [employer]: [address], [place] [address], Ph. Attender: Andreia Carmichael [facility] Medical 10/06/2020 12:00:00 AM EDT [place] ([facility]) Andreia Carmichael, [employer]: [address], [place] [address], Ph. Attender: Andreia Carmichael [facility] Medical 10/06/2020 12:00:00 AM EDT [place] ([facility]) Andreia Carmichael, [employer]: [address], [place] [address], Ph. Attender: Andreia Carmichael [facility] Medical 10/06/2020 12:00:00 AM EDT [place] ([facility]) Andreia Carmichael, [employer]: [address], [place] [address], Ph. Attender: Andreia Carmichael [facility] Medical 09/29/2020 12:00:00 AM EDT [place] ([facility]) Andreia Carmichael, [employer]: [address], [place] [address], Ph. Attender: Andreia Carmichael [facility] Medical 09/29/2020 12:00:00 AM EDT [place] ([facility]) Andreia Carmichael [employer]: [address], [place] [address], Ph. Attender: Andreia Carmichael [facility] Medical 09/29/2020 12:00:00 AM EDT [place] ([facility]) Andreia Carmichael, [employer]: [address], [place] [address], Ph. Attender: Andreia Carmichael [facility] Medical 09/29/2020 12:00:00 AM EDT [place] ([facility]) Andreia Carmichael, [employer]: [address], [place] [address], Ph. Attender: Andreia Carmichael [facility] Medical 09/29/2020 12:00:00 AM EDT [place] ([facility]) Andreia Carmichael, [employer]: [address], [place] [address], Ph. Attender: Andreia Carmichael [facility] Medical 09/29/2020 12:00:00 AM EDT [place] ([facility]) Andreia Carmichael, [employer]: [address], [place] [address], Ph. Attender: Andreia Carmichael [facility] Medical 09/29/2020 12:00:00 AM EDT [place] ([facility]) Andreia Carmichael, [employer]: [address], [place] [address], Ph. Attender: Andreia Carmichael [facility] Medical 09/29/2020 12:00:00 AM EDT [place] ([facility]) Andreia Carmichael, [employer]: [address], [place] [address], Ph. Attender: Andreia Carmichael [facility] Medical 09/29/2020 12:00:00 AM EDT [place] ([facility]) Andreia Carmichael, [employer]: [address], [place] [address], Ph. Attender: Andreia Carmichael [facility] Medical 08/19/2020 12:00:00 AM EDT [place] ([facility]) Andreia Carmichael, [employer]: [address], [place] [address], Ph. Attender: Andreia Carmichael [facility] Medical 08/19/2020 12:00:00 AM EDT [place] ([facility]) Andreia Carmichael, [employer]: [address], [place] [address], Ph. Attender: Andreia Carmichael [facility] Medical 08/19/2020 12:00:00 AM EDT [place] ([facility]) Andreia Carmichael, [employer]: [address], [place] [address], Ph. Attender: Andreia Carmichael [facility] Medical 08/19/2020 12:00:00 AM EDT [place] ([facility]) Andreia Carmichael, [employer]: [address], [place] [address], Ph. Attender: Andreia Carmichael [facility] Medical 08/19/2020 12:00:00 AM EDT [place] ([facility]) Andreia Carmichael, [employer]: [address], [place] [address], Ph. Attender: Andreia Carmichael [facility] Medical 08/19/2020 12:00:00 AM EDT [place] ([facility]) Andreia Carmichael, [employer]: [address], [place] [address], Ph. Attender: Andreia Carmichael [facility] Medical 08/19/2020 12:00:00 AM EDT [place] ([facility]) Andreia Carmichael, [employer]: [address], [place] [address], Ph. Attender: Andreia Carmichael [facility] Medical 08/19/2020 12:00:00 AM EDT [place] ([facility]) Andreia Carmichael, [employer]: [address], [place] [address], Ph. Attender: Andreia Carmichael [facility] Medical 08/19/2020 12:00:00 AM EDT [place] ([facility]) Andreia Carmichael, [employer]: [address], [place] [address], Ph. Attender: Andreia Carmichael [facility] Medical 08/19/2020 12:00:00 AM EDT [place] ([facility]) Andreia Carmichael, [employer]: [address], [place] [address], Ph. Attender: Andreia Carmichael [facility] Medical 08/07/2020 12:00:00 AM EDT [place] ([facility]) Andreia Carmichael, [employer]: [address], [place] [address], Ph. Attender: Andreia Carmichael [facility] Medical 08/07/2020 12:00:00 AM EDT [place] ([facility]) Andreia Carmichael, [employer]: [address], [place] [address], Ph. Attender: Andreia Carmichael [facility] Medical 08/07/2020 12:00:00 AM EDT [place] ([facility]) Andreia Carmichael, [employer]: [address], [place] [address], Ph. Attender: Andreia Carmichael [facility] Medical 08/07/2020 12:00:00 AM EDT [place] ([facility]) Andreia Carmichael, [employer] INS[employer]: [address], [place] [address], Ph. Attender: Andreia Carmichael [facility] Medical 08/07/2020 12:00:00 AM EDT [place] ([facility]) Andreia Carmichael, [employer] INS[employer]: [address], [place] [address], Ph. Attender: Andreia Carmichael [facility] Medical 08/07/2020 12:00:00 AM EDT [place] ([facility]) Andreia Carmichael, [employer] INS[employer]: [address], [place] [address], Ph. Attender: Andreia Carmichael [facility] Medical 08/07/2020 12:00:00 AM EDT [place] ([facility]) Andreia Carmichael, [facility]: [address], [place] [address], Ph. Attender: Andreia Carmichael [facility] Medical 08/07/2020 12:00:00 AM EDT [place] ([facility]) Andreia Carmichael [facility]: [address], [place] [address], Ph. Attender: Andreia Carmichael [facility] Medical 08/07/2020 12:00:00 AM EDT [place] ([facility]) Andreia Carmichael, [employer] INS[employer]: [address], [place] [address], Ph. Attender: Andreia Carmichael [facility] Medical 08/07/2020 12:00:00 AM EDT [place] ([facility]) Andreia Carmichael, [facility]: [address], [place] [address], Ph. Attender: Andreia Carmichael [facility] Medical 08/07/2020 12:00:00 AM EDT [place] ([facility]) Rafat Cortez, [facility]: [address], [place] [address], Ph. Attender: RAFAT CORTEZ RPA-C [facility] Medical 08/05/2020 12:00:00 AM EDT [place] ([facility]) Rafat Cortez, RPA-C: [address], [place] [address], Ph. Attender: RAFAT CORTEZ RPA-C [facility] Medical 08/05/2020 12:00:00 AM EDT [place] ([facility]) Rafat Cortez, RPA-C: [address], [place] [address], Ph. Attender: RAFAT CORTEZ RPA-C [facility] Medical 08/05/2020 12:00:00 AM EDT [place] ([facility]) Rafat Cortez, RPA-C: [address], [place] [address], Ph. Attender: RAFAT CORTEZ RPA-C [facility] Medical 08/05/2020 12:00:00 AM EDT [place] ([facility]) Rafat Cortez RPA-C: [address], [place] [address], Ph. Attender: RAFAT CORTEZ RPA-C [facility] Medical 08/05/2020 12:00:00 AM EDT [place] ([facility]) Rafat Cortez, RPA-C: [address], [place] [address], Ph. Attender: RAFAT CORTEZ RPA-C [facility] Medical 08/05/2020 12:00:00 AM EDT [place] ([facility]) Rafat Cortez RPA-C: [address], [place] [address], Ph. Attender: RAFAT CORTEZ RPA-C [facility] Medical 08/05/2020 12:00:00 AM EDT [place] ([facility]) Rafat Cortez RPA-C: [address], [place] [address], Ph. Attender: RAFAT CORTEZ RPA-C [facility] Medical 08/05/2020 12:00:00 AM EDT [place] ([facility]) Andreia Carmichael, AVIONICS SAFETY INSPECTOR: [address], [place] [address], Ph. Attender: Andreia Carmichael [facility] Medical 07/28/2020 12:00:00 AM EDT [place] ([facility]) Andreia Carmichael, AVIONICS SAFETY INSPECTOR: [address], [place] [address], Ph. Attender: Andreia Carmichael [facility] Medical 07/28/2020 12:00:00 AM EDT [place] ([facility]) Andreia Carmichael, AVIONICS SAFETY INSPECTOR: [address], [place] [address], Ph. Attender: Andreia Carmichael [facility] Medical 07/28/2020 12:00:00 AM EDT [place] ([facility]) Andreia Carmichael, AVIONICS SAFETY INSPECTOR: [address], [place] [address], Ph. Attender: Andreia Carmichael [facility] Medical 07/28/2020 12:00:00 AM EDT [place] ([facility]) Andreia Carmichael, [facility]: [address], [place] [address], Ph. Attender: Andreia Carmichael [facility] [place] [facility] Medical 07/28/2020 12:00:00 AM EDT [place] ([facility]) Andreia Carmichael, AVIONICS SAFETY INSPECTOR: [address], [place] [address], Ph. Attender: Andreia Carmichael [facility] [place] Medical 07/28/2020 12:00:00 AM EDT [place] ([facility]) Andreia Carmichael, AVIONICS SAFETY INSPECTOR: [address], [place] [address], Ph. Attender: Andreia Carmichael [facility] [facility] Medical 07/28/2020 12:00:00 AM EDT [place] ([facility]) Anderia Carmichael, AVIONICS SAFETY INSPECTOR: [address], [place] [address], Ph. Attender: Andreia Carmichael [facility] Medical 07/28/2020 12:00:00 AM EDT [place] ([facility]) Andreia Carmichael, [facility]: [address], [place] [address], Ph. Attender: Andreia Carmichael [facility] Medical 07/28/2020 12:00:00 AM EDT [place] ([facility]) Andreia Carmichael, AVIONICS SAFETY INSPECTOR: [address], [place] [address], Ph. Attender: Andreia Carmichael [facility] Medical 07/28/2020 12:00:00 AM EDT [place] ([facility]) Andreia Carmichael, [facility]: [address], [place] [address], Ph. Attender: Andreia Carmichael [facility] Medical 07/28/2020 12:00:00 AM EDT [place] ([facility]) Andreia Carmichael, AVIONICS SAFETY INSPECTOR: [address], [place] [address], Ph. Attender: Andreia Carmichael [facility] Medical 07/28/2020 12:00:00 AM EDT [place] ([facility]) Andreia Carmichael, AVIONICS SAFETY INSPECTOR: [address], [place] [address], Ph. Attender: Andreia Carmichael [facility] Medical 07/21/2020 12:00:00 AM EDT [place] ([facility]) Andreia Carmichael, AVIONICS SAFETY INSPECTOR: [address], [place] [address], Ph. Attender: Andreia Carmichael [facility] Medical 07/21/2020 12:00:00 AM EDT [place] ([facility]) Andreia Carmichael AVIONICS SAFETY INSPECTOR: [address], [place] [address], Ph. Attender: Andreia Carmichael [facility] Medical 07/21/2020 12:00:00 AM EDT [place] ([facility]) Andreia Carmichael, AVIONICS SAFETY INSPECTOR: [address], [place] [address], Ph. Attender: Andreia Carmichael [facility] Medical 07/21/2020 12:00:00 AM EDT [place] ([facility]) Andreia Carmichael, [facility]: [address], [place] [address], Ph. Attender: Andreia Carmichael [facility] Medical 07/21/2020 12:00:00 AM EDT [place] ([facility]) Andreia Carmichael AVIONICS SAFETY INSPECTOR: [address], [place] [address], Ph. Attender: Andreia Carmichael [facility] Medical 07/21/2020 12:00:00 AM EDT [place] ([facility]) Andreia Carmichael, [facility]: [address], [place] [address], Ph. Attender: Andreia Carmichael [facility] Medical 07/21/2020 12:00:00 AM EDT [place] ([facility]) Andreia Carmichael, [facility]: [address], [place] [address], Ph. Attender: Andreia Carmichael [facility] Medical 07/21/2020 12:00:00 AM EDT [place] ([facility]) Andreia Carmichael [facility]: [address], [place] [address], Ph. Attender: Andreia Carmichael [facility] Medical 07/21/2020 12:00:00 AM EDT [place] ([facility]) Andreia Carmichael, AVIONICS SAFETY INSPECTOR: [address], [place] [address], Ph. Attender: Andreia Carmichael [facility] Medical 07/21/2020 12:00:00 AM EDT [place] ([facility]) Andreia Carmichael, [facility]: [address], [place] [address], Ph. Attender: Andreia Carmichael [facility] Medical 07/21/2020 12:00:00 AM EDT [place] ([facility]) Andreia Carmichael, [facility]: [address], [place] [address], Ph. Attender: Andreia Carmichael [facility] Medical 07/21/2020 12:00:00 AM EDT [place] ([facility]) Andreia Carmichael [facility]: [address], [place] [address], Ph. Attender: Andreia Carmichael [facility] Medical 07/21/2020 12:00:00 AM EDT [place] ([facility]) Outpatient Attender: MINISTERIO Cuevas/Tasha/Nato/Michael wade 07/15/2020 01:45:00 PM EDT [place] ([facility] Rusty Marks RPA-C: [address], [place] [address], Ph. Attender: RUSTY MARKS [facility] Medical 06/20/2020 12:00:00 AM EDT [place] ([facility]) Rusty Marks RPA-C: [address], [place] [address], Ph. Attender: RUSTY MARKS [facility] Medical 06/20/2020 12:00:00 AM EDT [place] ([facility]) Rusty Marks RPA-C: [address], [place] [address], Ph. Attender: RUSTY MARKS [facility] Medical 06/20/2020 12:00:00 AM EDT [place] ([facility]) Rusty Marks RPA-C: [address], [place] [address], Ph. Attender: RUSTY MARKS [facility] Medical 06/20/2020 12:00:00 AM EDT [place] ([facility]) PETEY PerezC: [address], [place] [address], Ph. Attender: RUSTY MARKS [facility] Medical 06/20/2020 12:00:00 AM EDT [place] ([facility]) PETEY PerezC: [address], [place] [address], Ph. Attender: RUSTY MARKS [facility] Medical 06/20/2020 12:00:00 AM EDT [place] ([facility]) PETEY PerezC: [address], [place] [address], Ph. Attender: RUSTY MARKS [facility] Medical 06/20/2020 12:00:00 AM EDT [place] ([facility]) Rusty Marks RPA-C: [address], [place] [address], Ph. Attender: RUSTY MARKS [facility] Medical 06/20/2020 12:00:00 AM EDT [place] ([facility]) Rusty Marks RPA-C: [address], [place] [address], Ph. Attender: RUSTY MARKS [facility] Medical 06/20/2020 12:00:00 AM EDT [place] ([facility]) Rusty Marks RPA-C: [address], [place] [address], Ph. Attender: RUSTY MARKS [facility] Medical 06/20/2020 12:00:00 AM EDT [place] ([facility]) Rusty Marks RPA-C: [address], [place] [address], Ph. Attender: RUSTY MARKS [facility] Medical 06/20/2020 12:00:00 AM EDT [place] ([facility]) Rusty Marks RPA-C: [address], [place] [address], Ph. Attender: RUSTY MARKS [facility] Medical 06/20/2020 12:00:00 AM EDT [place] ([facility]) Rusty Marks RPA-C: [address], [place] [address], Ph. Attender: RUSTY MARKS [facility] Medical 06/20/2020 12:00:00 AM EDT [place] ([facility]) Rusty Marks RPA-C: [address], [place] [address], Ph. Attender: RUSTY MARKS [facility] Medical 06/20/2020 12:00:00 AM EDT [place] ([facility]) Lora Wick MD: [address], [place] [address], Ph. Attender: Lora Wick [facility] Medical 06/10/2020 12:00:00 AM EDT [place] ([facility]) Lora Wick MD: [address], [place] [address], Ph. Attender: Lora Wick [facility] Medical 06/10/2020 12:00:00 AM EDT [place] ([facility]) Lora Wick MD: [address], [place] [address], Ph. Attender: Lora Wick [facility] Medical 06/10/2020 12:00:00 AM EDT [place] ([facility]) Lora Wick MD: [address], [place] [address], Ph. Attender: Lora Wick [facility] Medical 06/10/2020 12:00:00 AM EDT [place] ([facility]) Lora Wick MD: [address], [place] [address], Ph. Attender: Lora Wick [facility] Medical 06/10/2020 12:00:00 AM EDT [place] ([facility]) Lora Wick MD: [address], [place] [address], Ph. Attender: Lora Wick [facility] Medical 06/10/2020 12:00:00 AM EDT [place] ([facility]) Lora Wick MD: [address], [place] [address], Ph. Attender: Lora Wick [facility] Medical 06/10/2020 12:00:00 AM EDT [place] ([facility]) Lora Wick MD: [address], [place] [address], Ph. Attender: Lora Wick [facility] Medical 06/10/2020 12:00:00 AM EDT [place] ([facility]) Lora Wick MD: [address], [place] [address], Ph. Attender: Lora Wick [facility] Medical 06/10/2020 12:00:00 AM EDT [place] ([facility]) Lora Wick MD: [address], [place] [address], Ph. Attender: Lora Wick [facility] Medical 06/10/2020 12:00:00 AM EDT [place] ([facility]) Lora Wick MD: [address], [place] [address], Ph. Attender: Lora Wick [facility] Medical 06/10/2020 12:00:00 AM EDT [place] ([facility]) Lora Wick MD: [address], [place] [address], Ph. Attender: Lora Wick [facility] Medical 06/10/2020 12:00:00 AM EDT [place] ([facility]) Lora Wick MD: [address], [place] [address], Ph. Attender: Lora Wick [facility] Medical 06/10/2020 12:00:00 AM EDT [place] ([facility]) Lora Wick MD: [address], [place] [address], Ph. Attender: Lora Wick [facility] Medical 06/10/2020 12:00:00 AM EDT [place] ([facility]) Lora Wick MD: [address], [place] [address], Ph. Attender: Lora Wick [facility] Medical 06/10/2020 12:00:00 AM EDT [place] ([facility]) Lesia Alberto PA-C: [address], [place] [address], Ph. Attender: Lesia [facility] Medical 04/29/2020 12:00:00 AM EST [place] ([facility]) Lesia Alberto PA-C: [address], [place] [address], Ph. Attender: Lesia [facility] Medical 04/29/2020 12:00:00 AM EST [place] ([facility]) Lesia Alberto PA-C: [address], [place] [address], Ph. Attender: Lesia [facility] Medical 04/29/2020 12:00:00 AM EST [place] ([facility]) Lesia Alberto PA-C: [address], [place] [address], Ph. Attender: Lesia [facility] Medical 04/29/2020 12:00:00 AM EST [place] ([facility]) Lesia Alberto PA-C: [address], [place] [address], Ph. Attender: Lesia [facility] Medical 04/29/2020 12:00:00 AM EST [place] ([facility]) Lesia Alberto PA-C: [address], [place] [address], Ph. Attender: Lesia [facility] Medical 04/29/2020 12:00:00 AM EST [place] ([facility]) Lesia Alberto PA-C: [address], [place] [address], Ph. Attender: Lesia [facility] Medical 04/29/2020 12:00:00 AM EST [place] ([facility]) Lesia Alberto PA-C: [address], [place] [address], Ph. Attender: Lesia [facility] Medical 04/29/2020 12:00:00 AM EST [place] ([facility]) ANNETTE VicenteC: [address], [place] [address], Ph. Attender: Lesia [facility] Medical 04/29/2020 12:00:00 AM EST [place] ([facility]) Lesia Alberto PA-C: [address], [place] [address], Ph. Attender: Lesia [facility] Medical 04/29/2020 12:00:00 AM EST [place] ([facility]) Lesia Alberto PA-C: [address], [place] [address], Ph. Attender: Lesia [facility] Medical 04/29/2020 12:00:00 AM EST [place] ([facility]) Lesia Alberto PA-C: [address], [place] [address], Ph. Attender: Lesia [facility] Medical 04/29/2020 12:00:00 AM EST [place] ([facility]) Lesia Alberto PA-C: [address], [place] [address], Ph. Attender: Lesia [facility] Medical 04/29/2020 12:00:00 AM EST [place] ([facility]) Lesia Alberto PA-C: [address], [place] [address], Ph. Attender: Lesia [facility] [facility] Medical 04/29/2020 12:00:00 AM EST [place] ([facility]) Lesia Alberto PA-C: [address], [place] [address], Ph. Attender: Lesia [facility] Medical 04/29/2020 12:00:00 AM EST [place] ([facility]) Lesia Alberto PA-C: [address], [place] [address], Ph. Attender: Lesia [facility] Medical 04/29/2020 12:00:00 AM EST [place] ([facility]) Andreiarajendra Carmichael, AVIONICS SAFETY INSPECTOR: [address], [place] [address], Ph. Attender: Andreiarajendra Carmichael [facility] Medical 04/03/2020 12:00:00 AM EST [place] ([facility]) Andreia Hornerkathleen, AVIONICS SAFETY INSPECTOR: [address], [place] [address], Ph. Attender: Andreiarajendra Carmichael [facility] Medical 04/03/2020 12:00:00 AM EST [place] ([facility]) Andreia Hornerkathleen, AVIONICS SAFETY INSPECTOR: [address], [place] [address], Ph. Attender: Andreiarajendra Carmichael [facility] Medical 04/03/2020 12:00:00 AM EST [place] ([facility]) Andreiarajendra Carmichael, AVIONICS SAFETY INSPECTOR: [address], [place] [address], Ph. Attender: Andreia Carmichael [facility] Medical 04/03/2020 12:00:00 AM EST [place] ([facility]) Andreia Carmichael, AVIONICS SAFETY INSPECTOR: [address], [place] [address], Ph. Attender: Andreia Carmichael [facility] Medical 04/03/2020 12:00:00 AM EST [place] ([facility]) Andreia Carmichael, AVIONICS SAFETY INSPECTOR: [address], [place] [address], Ph. Attender: Andreia Carmichael [facility] Medical 04/03/2020 12:00:00 AM EST [place] ([facility]) Andreia Carmichael, [facility]: [address], [place] [address], Ph. Attender: Andreia Carmichael [facility] Medical 04/03/2020 12:00:00 AM EST [place] ([facility]) Andreia Carmichael, AVIONICS SAFETY INSPECTOR: [address], [place] [address], Ph. Attender: Andreia Carmichael [facility] Medical 04/03/2020 12:00:00 AM EST [place] ([facility]) Andreia Carmichael, AVIONICS SAFETY INSPECTOR: [address], [place] [address], Ph. Attender: Andreia Carmichael [facility] Medical 04/03/2020 12:00:00 AM EST [place] ([facility]) Andreia Carmichael, AVIONICS SAFETY INSPECTOR: [address], [place] [address], Ph. Attender: Andreia Carmichael [facility] Medical 04/03/2020 12:00:00 AM EST [place] ([facility]) Andreia Carmichael AVIONICS SAFETY INSPECTOR: [address], [place] [address], Ph. Attender: Andreia Carmichael [facility] Medical 04/03/2020 12:00:00 AM EST [place] ([facility]) Andreia Carmichael, AVIONICS SAFETY INSPECTOR: [address], [place] [address], Ph. Attender: Andreia Carmichael [facility] Medical 04/03/2020 12:00:00 AM EST [place] ([facility]) Andreia Carmichael, AVIONICS SAFETY INSPECTOR: [address], [place] [address], Ph. Attender: Andreia Carmichael [facility] Medical 04/03/2020 12:00:00 AM EST [place] ([facility]) Andreia Carmichael, AVIONICS SAFETY INSPECTOR: [address], [place] [address], Ph. Attender: Andreia Carmichael [facility] Medical 04/03/2020 12:00:00 AM EST [place] ([facility]) Andreia Carmichael, AVIONICS SAFETY INSPECTOR: [address], [place] [address], Ph. Attender: Andreia Carmichael [facility] Medical 04/03/2020 12:00:00 AM EST [place] ([facility]) Andreia Carmichael, AVIONICS SAFETY INSPECTOR: [address], [place] [address], Ph. Attender: Andreia Carmichael [facility] Medical 04/03/2020 12:00:00 AM EST [place] ([facility]) Andreia Carmichael, AVIONICS SAFETY INSPECTOR: [address], [place] [address], Ph. Attender: Anderia Carmichael [facility] Medical 04/03/2020 12:00:00 AM EST [place] ([facility]) Andreia Carmichael, AVIONICS SAFETY INSPECTOR: [address], [place] [address], Ph. Attender: Andreia Carmichael [facility] Medical 03/25/2020 12:00:00 AM EST [place] ([facility]) Andreia Carmichael AVIONICS SAFETY INSPECTOR: [address], [place] [address], Ph. Attender: Andreia Carmichael [facility] Medical 03/25/2020 12:00:00 AM EST [place] ([facility]) Andreia Carmichael, AVIONICS SAFETY INSPECTOR: [address], [place] [address], Ph. Attender: Andreia Carmichael [facility] Medical 03/25/2020 12:00:00 AM EST SANDER ([facility]) Andreia Carmichael, AVION[employer] SAFETY INSPECTOR: [address], [place] [address], Ph. Attender: Andreia Carmichael [facility] Medical 03/25/2020 12:00:00 AM EST SANDER ([facility]) Andreia Carmichael, AVION[employer] SAFETY INSPECTOR: [address], [place] [address], Ph. Attender: Andreia Carmichael [facility] Medical 03/25/2020 12:00:00 AM EST SANDER ([facility] [facility]) Andreia Carmichael [facility]: [address], [place] [address], Ph. Attender: Andreia Carmichael [facility] Medical 03/25/2020 12:00:00 AM EST SANDER ([facility]) Andreia Carmichael, [employer] INSPECTOR: [address], [place] [address], Ph. Attender: Andreia Carmichael [facility] Medical 03/25/2020 12:00:00 AM EST SANDER ([facility]) Andreia Carmichael, [employer] SAFETY INSPECTOR: [address], [place] [address], Ph. Attender: Andreia Carmichael [facility] Medical 03/25/2020 12:00:00 AM EST SANDER ([facility]) Andreia Carmichael, [facility]: [address], [place] [address], Ph. Attender: Andreia Carmichael [facility] Medical 03/25/2020 12:00:00 AM EST SANDER ([facility]) Andreia Carmichael [facility]: [address], [place] [address], Ph. Attender: Andreia Carmichael [facility] Medical 03/25/2020 12:00:00 AM EST SANDER ([facility]) Andreia Carmichael, [facility]: [address], [place] [address], Ph. Attender: Andreia Carmichael [facility] Medical 03/25/2020 12:00:00 AM EST SANDER ([facility]) Andreia Carmichael, [facility]: [address], [place] [address], Ph. Attender: Andreia Carmichael [facility] Medical 03/25/2020 12:00:00 AM EST SANDER ([facility]) Andreia Carmichael [employer] SAFETY INSPECTOR: [address], [place] [address], Ph. Attender: Andreia Carmichael [facility] Medical 03/25/2020 12:00:00 AM EST SANDER ([facility]) Andreia Carmichael [facility]: [address], [place] [address], Ph. Attender: Andreia Carmichael [facility] Medical 03/25/2020 12:00:00 AM EST SANDER ([facility]) Andreia Carmichael, [employer] S[employer]ET[employer] INSPECTOR: [address], [place] [address], Ph. Attender: Andreia Carmichael [facility] Medical 03/25/2020 12:00:00 AM EST SANDER ([facility]) Andreia Carmichael [facility]: [address], [place] [address], Ph. Attender: Andreia Carmichael [facility] Medical 03/25/2020 12:00:00 AM EST SANDER ([facility]) Andreia Carmichael [facility]: [address], [place] [address], Ph. Attender: Andreia Carmichael [facility] Medical 03/25/2020 12:00:00 AM EST SANDER ([facility]) Andreia Carmichael, [facility]: [address], [place] [address], Ph. Attender: Andreia Carmichael [facility] Medical 03/25/2020 12:00:00 AM EST SANDER ([facility]) Andreia Carmichael, [employer] SAFETY INSPECTOR: [address], [place] [address], Ph. Attender: Andreia Carmichael [facility] Medical 03/13/2020 12:00:00 AM EST SANDER ([facility]) Andreia Carmichael [facility]: [address], [place] [address], Ph. Attender: Andreia Carmichael [facility] Medical 03/13/2020 12:00:00 AM EST SANDER ([facility]) Andreia Carmichael, [facility]: [address], [place] [address], Ph. Attender: Andreia Carmichael [facility] Medical 03/13/2020 12:00:00 AM EST SANDER ([facility]) Andreia Carmichael [facility]: [address], [place] [address], Ph. Attender: Andreia Carmichael [facility] Medical 03/13/2020 12:00:00 AM EST SANDER ([facility]) Andreia Carmichael [facility]: [address], [place] [address], Ph. Attender: Andreia Carmichael [facility] Medical 03/13/2020 12:00:00 AM EST SANDER ([facility]) Andreia Carmichael, [employer] SAFETY INSPECTOR: [address], [place] [address], Ph. Attender: Andreia Carmichael [facility] Medical 03/13/2020 12:00:00 AM EST SANDER ([facility]) Andreia Carmichael, [employer] SAFETY INSPECTOR: [address], [place] [address], Ph. Attender: Andreia Carmichael [facility] Medical 03/13/2020 12:00:00 AM EST SANDER ([facility]) Andreia Carmichael, [facility]: [address], [place] [address], Ph. Attender: Andreia Carmichael [facility] Medical 03/13/2020 12:00:00 AM EST SANDER ([facility]) Andreia Carmichael, [facility]: [address], [place] [address], Ph. Attender: Andreia Carmichael [facility] Medical 03/13/2020 12:00:00 AM EST SANDER ([facility]) Andreia Carmichael, [employer] SAFETY INSPECTOR: [address], [place] [address], Ph. Attender: Andreia Carmichael [facility] Medical 03/13/2020 12:00:00 AM EST SANDER ([facility]) Andreia Carmichael, [facility]: [address], [place] [address], Ph. Attender: Andreia Carmichael [facility] Medical 03/13/2020 12:00:00 AM EST SANDER ([facility]) Andreia Carmichael, [employer] SAFETY INSPECTOR: [address], [place] [address], Ph. Attender: Andreia Carmichael [facility] Medical 03/13/2020 12:00:00 AM EST SANDER ([facility]) Andreia Carmichael, [employer] SAFETY INSPECTOR: [address], [place] [address], Ph. Attender: Andreia Carmichael [facility] Medical 03/13/2020 12:00:00 AM EST SANDER ([facility]) Andreia Carmichael, [employer] SAFETY INSPECTOR: [address], [place] [address], Ph. Attender: Andreia Carmichael [facility] Medical 03/13/2020 12:00:00 AM EST SANDER ([facility]) Andreia Carmichael, [employer] SAFETY INSPECTOR: [address], [place] [address], Ph. Attender: Andreia Carmichael [facility] Medical 03/13/2020 12:00:00 AM EST SANDER ([facility]) Andreia Carmichael, [employer] SAFETY INSPECTOR: [address], [place] [address], Ph. Attender: Andreia Carmichael [facility] Medical 03/13/2020 12:00:00 AM EST SANDER ([facility]) Andreia Carmichael, [employer] SAFETY INSPECTOR: [address], [place] [address], Ph. Attender: Andreia Carmichael [facility] Medical 03/13/2020 12:00:00 AM EST SANDER ([facility]) Andreia Carmichael, [employer] SAFETY INSPECTOR: [address], [place] [address], Ph. Attender: Andreia Carmichael [facility] Medical 03/13/2020 12:00:00 AM EST SANDER ([facility]) Andreia Carmichael, [employer] SAFETY INSPECTOR: [address], [place] [address], Ph. Attender: Andreia Carmichael [facility] Medical 03/13/2020 12:00:00 AM EST SANDER ([facility]) Andreia Carmichael, [employer] SAFETY INSPECTOR: [address], [place] [address], Ph. Attender: Andreia Carmichael [facility] Medical 02/26/2020 12:00:00 AM EST SANDER ([facility]) Andreia Carmichael [employer] SAFETY INSPECTOR: [address], [place] [address], Ph. Attender: Andreia Carmichael [facility] Medical 02/26/2020 12:00:00 AM EST SANDER ([facility]) Andreia Carmichael, [employer] SAFETY INSPECTOR: [address], [place] [address], Ph. Attender: Andreia Carmichael [facility] Medical 02/26/2020 12:00:00 AM EST SANDER ([facility]) Andreia Carmichael [employer] SAFETY INSPECTOR: [address], [place] [address], Ph. Attender: Andreia Carmichael [facility] Medical 02/26/2020 12:00:00 AM EST SANDER ([facility]) Andreia Carmichael, [employer] SAFETY INSPECTOR: [address], [place] [address], Ph. Attender: Andreia Carmichael [facility] Medical 02/26/2020 12:00:00 AM EST SANDER ([facility]) Andreia Carmichael, [facility]: [address], [place] [address], Ph. Attender: Andreia Carmichael [facility] [place] Medical 02/26/2020 12:00:00 AM EST SANDER ([facility]) Andreia Carmichael, [facility]: [address], [place] [address], Ph. Attender: Andreia Carmichael [facility] [place] Medical 02/26/2020 12:00:00 AM EST SANDER ([facility]) Andreia Carmichael, [facility]: [address], [place] [address], Ph. Attender: Andreia Carmichael [facility] Medical 02/26/2020 12:00:00 AM EST SANDER ([facility]) Andreia Carmichael, [facility]: [address], [place] [address], Ph. Attender: Andreia Carmichael [facility] Medical 02/26/2020 12:00:00 AM EST SANDER ([facility]) Andreia Carmichael, [facility]: [address], [place] [address], Ph. Attender: Andreia Carmichael [facility] Medical 02/26/2020 12:00:00 AM EST SANDER ([facility]) Andreia Carmichael, [facility]: [address], [place] [address], Ph. Attender: Andreia Carmichael [facility] Medical 02/26/2020 12:00:00 AM EST SANDER ([facility]) Andreia Carmichael, [employer] SAFETY INSPECTOR: [address], [place] [address], Ph. Attender: Andreia Carmichael [facility] Medical 02/26/2020 12:00:00 AM EST SANDER ([facility]) Andreia Carmichael, [employer] SAFETY INSPECTOR: [address], [place] [address], Ph. Attender: Andreia Carmichael [facility] Medical 02/26/2020 12:00:00 AM EST SANDER ([facility]) Andreia Carmichael, [employer] SAFETY INSPECTOR: [address], [place] [address], Ph. Attender: Andreia Carmichael [facility] Medical 02/26/2020 12:00:00 AM EST SANDER ([facility]) Andreia Carmichael, [employer] SAFETY INSPECTOR: [address], [place] [address], Ph. Attender: Andreia Carmichael [facility] Medical 02/26/2020 12:00:00 AM EST SANDER ([facility]) Andreia Carmichael, [employer] SAFETY INSPECTOR: [address], [place] [address], Ph. Attender: Andreia Carmichael [facility] Medical 02/26/2020 12:00:00 AM EST SANDER ([facility]) Andreia Carmichael, [employer] SAFETY INSPECTOR: [address], [place] [address], Ph. Attender: Andreia Carmichael [facility] Medical 02/26/2020 12:00:00 AM EST SANDER ([facility]) Andreia Carmichael, [facility]: [address], [place] [address], Ph. Attender: Andreia Carmichael [facility] Medical 02/26/2020 12:00:00 AM EST SANDER ([facility]) Andreia Carmichael, [facility]: [address], [place] [address], Ph. Attender: Andreia Carmichael [facility] Medical 02/26/2020 12:00:00 AM EST SANDER ([facility]) Andreia Carmichael, [facility]: [address], [place] [address], Ph. Attender: Andreia Carmichael [facility] Medical 02/26/2020 12:00:00 AM EST SANDER ([facility]) Rafat Cortez RPA-C: [address], [place] [address], Ph. Attender: RAFAT CORTEZ RPA-C [facility] Medical 02/14/2020 12:00:00 AM EST SANDER ([facility]) Rafat Cortez RPA-C: [address], [place] [address], Ph. Attender: RAFAT CORTEZ RPA-C [facility] Medical 02/14/2020 12:00:00 AM EST SANDER ([facility]) Rafat Cortez RPA-C: [address], [place] [address], Ph. Attender: RAFAT CORTEZ RPA-C [facility] Medical 02/14/2020 12:00:00 AM EST SANDER ([facility]) Rafat Cortez RPA-C: [address], [place] [address], Ph. Attender: RAFAT CORTEZ RPA-C [facility] Medical 02/14/2020 12:00:00 AM EST SANDER ([facility]) Rafat Cortez RPA-C: [address], [place] [address], Ph. Attender: RAFAT CORTEZ RPA-C [facility] Medical 02/14/2020 12:00:00 AM EST SANDER ([facility]) Rafat Cortez RPA-C: [address], [place] [address], Ph. Attender: RAFAT CORTEZ RPA-C [facility] Medical 02/14/2020 12:00:00 AM EST SANDER ([facility]) Rafat Cortez RPA-C: [address], [place] [address], Ph. Attender: RAFAT CORTEZ RPA-C [facility] Medical 02/14/2020 12:00:00 AM EST SANDER ([facility]) Rafat Cortez RPA-C: [address], [place] [address], Ph. Attender: RAFAT CORTEZ RPA-C [facility] Medical 02/14/2020 12:00:00 AM EST SANDER ([facility]) Rafat Cortez RPA-C: [address], [place] [address], Ph. Attender: RAFAT CORTEZ RPA-C [facility] Medical 02/14/2020 12:00:00 AM EST SANDER ([facility]) Rafat Cortez RPA-C: [address], [place] [address], Ph. Attender: RAFAT CORTEZ RPA-C [facility] Medical 02/14/2020 12:00:00 AM EST SANDER ([facility]) Rafat Cortez, RPA-C: [address], [place] [address], Ph. Attender: RAFAT OCRTEZ RPA-C [facility] Medical 02/14/2020 12:00:00 AM EST SANDER ([facility]) Rafat Cortez RPA-C: [address], [place] [address], Ph. Attender: RAFAT CORTEZ RPA-C [facility] Medical 02/14/2020 12:00:00 AM EST SANDER ([facility]) Rafat Cortez, RPA-C: [address], [place] [address], Ph. Attender: RAFAT CORTEZ RPA-C [facility] Medical 02/14/2020 12:00:00 AM EST SANDER ([facility]) Rafat Cortez, RPA-C: [address], [place] [address], Ph. Attender: RAFAT CORTEZ RPA-C [facility] Medical 02/14/2020 12:00:00 AM EST SANDER ([facility]) Rafat Cortez, RPA-C: [address], [place] [address], Ph. Attender: RAFAT CORTEZ RPA-C [facility] Medical 02/14/2020 12:00:00 AM EST SANDER ([facility]) Rafat Cortez RPA-C: [address], [place] [address], Ph. Attender: RAFAT CORTEZ RPA-C [facility] Medical 02/14/2020 12:00:00 AM EST SANDER ([facility]) Rafat Cortez RPA-C: [address], [place] [address], Ph. Attender: RAFAT CORTEZ RPA-C [facility] Medical 02/14/2020 12:00:00 AM EST SANDER ([facility]) Rafat Cortez RPA-C: [address], [place] [address], Ph. Attender: RAFAT CORTEZ RPA-C [facility] Medical 02/14/2020 12:00:00 AM EST SANDER ([facility]) Rafat Cortez RPA-C: [address], [place] [address], Ph. Attender: RAFAT CORTEZ RPA-C [facility] Medical 02/14/2020 12:00:00 AM EST SANDER ([facility]) Rafat Cortez, RPA-C: [address], [place] [address], Ph. Attender: RAFAT CORTEZ RPA-C [facility] Medical 02/14/2020 12:00:00 AM EST SANDER ([facility]) Rafat Cortez RPA-C: [address], [place] [address], Ph. Attender: RAFAT CORTEZ RPA-C [facility] Medical 02/14/2020 12:00:00 AM EST SANDER ([facility]) Andreia Carmichael, [employer] SAFETY INSPECTOR: [address], [place] [address], Ph. Attender: Andreia Carmichael [facility] Medical 02/13/2020 12:00:00 AM EST SANDER ([facility]) Andreia Carmichael, [facility]: [address], [place] [address], Ph. Attender: Andreia Carmichael [facility] Medical 02/13/2020 12:00:00 AM EST SANDER ([facility]) Andreia Carmichael, [facility]: [address], [place] [address], Ph. Attender: Andreia Carmichael [facility] Medical 02/13/2020 12:00:00 AM EST SANDER ([facility]) Andreia Hornerkathleen, [facility]: [address], [place] [address], Ph. Attender: Andreia Carmichael [facility] Medical 02/13/2020 12:00:00 AM EST SANDER ([facility]) Andreia Carmichael, [employer] SAFETY INSPECTOR: [address], [place] [address], Ph. Attender: Andreia Carmichael [facility] Medical 02/13/2020 12:00:00 AM EST SANDER ([facility]) Andreia Evenskathleen, [employer] SAFETY INSPECTOR: [address], [place] [address], Ph. Attender: Andreia Carmichael [facility] Medical 02/13/2020 12:00:00 AM EST SANDER ([facility]) Andreia Carmichael, [employer] SAFETY INSPECTOR: [address], [place] [address], Ph. Attender: Andreia Carmichael [facility] Medical 02/13/2020 12:00:00 AM EST SANDER ([facility]) Andreia Carmichael, [employer] SAFETY INSPECTOR: [address], [place] [address], Ph. Attender: Andreia Carmichael [facility] Medical 02/13/2020 12:00:00 AM EST SANDER ([facility]) Andreia Carmichael, [employer] SAFETY INSPECTOR: [address], [place] [address], Ph. Attender: Andreia Carmichael [facility] Medical 02/13/2020 12:00:00 AM EST SANDER ([facility]) Andreia Carmichael, [employer] SAFETY INSPECTOR: [address], [place] [address], Ph. Attender: Andreia Carmichael [facility] Medical 02/13/2020 12:00:00 AM EST SANDER ([facility]) Andreia Carmichael, [employer] SAFETY INSPECTOR: [address], [place] [address], Ph. Attender: Andreia Carmichael [facility] Medical 02/13/2020 12:00:00 AM EST SANDER ([facility]) Andreia Carmichael, [employer] SAFETY INSPECTOR: [address], [place] [address], Ph. Attender: Andreia Carmichael [facility] Medical 02/13/2020 12:00:00 AM EST SANDER ([facility]) Andreia Carmichael, AVION[employer] SAFETY INSPECTOR: [address], [place] [address], Ph. Attender: Andreia Carmichael [facility] Medical 02/13/2020 12:00:00 AM EST SANDER ([facility]) Andreia Carmichael, [employer]ION[employer] SAFETY INSPECTOR: [address], [place] [address], Ph. Attender: Andreia Carmichael [facility] [facility] Medical 02/13/2020 12:00:00 AM EST SANDER ([facility]) Andreia Carmichael AVIONICS SAFETY INSPECTOR: [address], [place] [address], Ph. Attender: Andreia Carmichael [facility] Medical 02/13/2020 12:00:00 AM EST SANDER ([facility]) Andreia Carmichael, AVIONICS SAFETY INSPECTOR: [address], [place] [address], Ph. Attender: Andreia Carmichael [facility] Medical 02/13/2020 12:00:00 AM EST SANDER ([facility]) Andreia Carmichael AVIONICS SAFETY INSPECTOR: [address], [place] [address], Ph. Attender: Andreia Carmichael [facility] [place] [facility] Medical 02/13/2020 12:00:00 AM EST SANDER ([facility]) Andreia Carmichael, AVIONICS SAFETY INSPECTOR: [address], [place] [address], Ph. Attender: Andreia Carmichael [facility] Medical 02/13/2020 12:00:00 AM EST SANDER ([facility]) Andreia Carmichael, [facility]: [address], [place] [address], Ph. Attender: Andreia Carmichael [facility] [place] Medical 02/13/2020 12:00:00 AM EST SANDER ([facility]) Andreia Carmichael, [facility]: [address], [place] [address], Ph. Attender: Andreia Carmichael [facility] [place] [facility] Medical 02/13/2020 12:00:00 AM EST SANDER ([facility]) Andreia Carmichael, [facility]: [address], [place] [address], Ph. Attender: Andreia Carmichael [facility] [place] Medical 02/13/2020 12:00:00 AM EST SANDER ([facility]) Andreia Carmichael, [facility]: [address], [place] [address], Ph. Attender: Andreia Carmichael [facility] [place] [facility] Medical 02/13/2020 12:00:00 AM EST SANDER ([facility]) Andreia Carmichael, [facility]: [address], [place] [address], Ph. Attender: Andreia Carmichael [facility] Medical 02/04/2020 12:00:00 AM EST SANDER ([facility]) Andreia Carmichael, [facility]: [address], [place] [address], Ph. Attender: Andreia Carmichael [facility] Medical 02/04/2020 12:00:00 AM EST SANDER ([facility]) Andreia Carmichael, AVIONICS SAFETY INSPECTOR: [address], [place] [address], Ph. Attender: Andreia Carmichael [facility] Medical 02/04/2020 12:00:00 AM EST SANDER ([facility]) Andreia Carmichael, AVIONICS SAFETY INSPECTOR: [address], [place] [address], Ph. Attender: Andreia Carmichael [facility] Medical 02/04/2020 12:00:00 AM EST SANDER ([facility]) Andreia Carmichael, AVIONICS SAFETY INSPECTOR: [address], [place] [address], Ph. Attender: Andreia Carmichael [facility] Medical 02/04/2020 12:00:00 AM EST SANDER ([facility]) Andreia Carmichael, AVIONICS SAFETY INSPECTOR: [address], [place] [address], Ph. Attender: Andreia Carmichael [facility] Medical 02/04/2020 12:00:00 AM EST SANDER ([facility]) Andreia Carmichael, AVIONICS SAFETY INSPECTOR: [address], [place] [address], Ph. Attender: Andreia Carmichael [facility] Medical 02/04/2020 12:00:00 AM EST SANDER ([facility]) Andreia Carmichael, AVIONICS SAFETY INSPECTOR: [address], [place] [address], Ph. Attender: Andreia Carmichael [facility] Medical 02/04/2020 12:00:00 AM EST SANDER ([facility]) Andreia Carmichael, [facility]: [address], [place] [address], Ph. Attender: Andreia Carmichael [facility] Medical 02/04/2020 12:00:00 AM EST SANDER ([facility]) Andreia Carmichael, AVIONICS SAFETY INSPECTOR: [address], [place] [address], Ph. Attender: Andreia Carmichael [facility] Medical 02/04/2020 12:00:00 AM EST SANDER ([facility]) Andreia Carmichael, AVIONICS SAFETY INSPECTOR: [address], [place] [address], Ph. Attender: Andreia Carmichael [facility] Medical 02/04/2020 12:00:00 AM EST SANDER ([facility]) Andreia Carmichael, AVIONICS SAFETY INSPECTOR: [address], [place] [address], Ph. Attender: Andreia Carmichael [facility] Medical 02/04/2020 12:00:00 AM EST SANDER ([facility]) Andreia Carmichael, [facility]: [address], [place] [address], Ph. Attender: Andreia Carmichael [facility] Medical 02/04/2020 12:00:00 AM EST SANDER ([facility]) Andreia Carmichael, [facility]: [address], [place] [address], Ph. Attender: Andreia Carmichael [facility] Medical 02/04/2020 12:00:00 AM EST SANDER ([facility]) Andreia Carmichael, [facility]: [address], [place] [address], Ph. Attender: Andreia Carmichael [facility] Medical 02/04/2020 12:00:00 AM EST SANDER ([facility]) Andreia Carmichael, AVIONICS SAFETY INSPECTOR: [address], [place] [address], Ph. Attender: Andreia Carmichael [facility] Medical 02/04/2020 12:00:00 AM EST SANDER ([facility]) Andreia Carmichael, [facility]: [address], [place] [address], Ph. Attender: Andreia Carmichael [facility] Medical 02/04/2020 12:00:00 AM EST SANDER ([facility]) Andreia Carmichael, [facility]: [address], [place] [address], Ph. Attender: Andreia Carmichael [facility] Medical 02/04/2020 12:00:00 AM EST SANDER ([facility]) Andreia Carmichael, [facility]: [address], [place] [address], Ph. Attender: Andreia Carmichael [facility] Medical 02/04/2020 12:00:00 AM EST SANDER ([facility]) Andreia Carmichael, [facility]: [address], [place] [address], Ph. Attender: Andreia Carmichael [facility] Medical 02/04/2020 12:00:00 AM EST SANDER ([facility]) Andreia Carmichael, [facility]: [address], [place] [address], Ph. Attender: Andreia Carmichael [facility] Medical 02/04/2020 12:00:00 AM EST SANDER ([facility]) Andreia Carmichael, AVIONICS SAFETY INSPECTOR: [address], [place] [address], Ph. Attender: Andreia Carmichael [facility] Medical 02/04/2020 12:00:00 AM EST SANDER ([facility]) Andreia Carmichael, AVIONICS SAFETY INSPECTOR: [address], [place] [address], Ph. Attender: Andreia Carmichael [facility] Medical 02/04/2020 12:00:00 AM EST SANDER ([facility]) Andreia Carmichael, AVIONICS SAFETY INSPECTOR: [address], [place] [address], Ph. Attender: Andreia Carmichael [facility] Medical 01/17/2020 12:00:00 AM EST SANDER ([facility]) Andreia Carmichael, AVIONICS SAFETY INSPECTOR: [address], [place] [address], Ph. Attender: Andreia Carmichael [facility] Medical 01/17/2020 12:00:00 AM EST SANDER ([facility]) Andreia Carmichael, AVIONICS SAFETY INSPECTOR: [address], [place] [address], Ph. Attender: Andreia Carmichael [facility] Medical 01/17/2020 12:00:00 AM EST SANDER ([facility]) Andreia Carmichael, AVIONICS SAFETY INSPECTOR: [address], [place] [address], Ph. Attender: Andreia Carmichael [facility] Medical 01/17/2020 12:00:00 AM EST SANDER ([facility]) Andreia Carmichael, AVIONICS SAFETY INSPECTOR: [address], [place] [address], Ph. Attender: Andreia Carmichael [facility] Medical 01/17/2020 12:00:00 AM EST SANDER ([facility]) Andreia Carmichael, AVIONICS SAFETY INSPECTOR: [address], [place] [address], Ph. Attender: Adnreia Carmichael [facility] Medical 01/17/2020 12:00:00 AM EST SANDER ([facility]) Andreia Carmichael AVIONICS SAFETY INSPECTOR: [address], [place] [address], Ph. Attender: Andreia Carmichael [facility] Medical 01/17/2020 12:00:00 AM EST SANDER ([facility]) Andreia Carmichael, AVIONICS SAFETY INSPECTOR: [address], [place] [address], Ph. Attender: Andreia Carmichael [facility] Medical 01/17/2020 12:00:00 AM EST SANDER ([facility]) Andreia Carmichael, AVIONICS SAFETY INSPECTOR: [address], [place] [address], Ph. Attender: Andreia Carmichael [facility] Medical 01/17/2020 12:00:00 AM EST SANDER ([facility]) Andreia Cramichael, AVIONICS SAFETY INSPECTOR: [address], [place] [address], Ph. Attender: Andreia Carmichael [facility] Medical 01/17/2020 12:00:00 AM EST SANDER ([facility]) Andreia Carmichael, [facility]: [address], [place] [address], Ph. Attender: Andreia Carmichael [facility] Medical 01/17/2020 12:00:00 AM EST SANDER ([facility]) Andreia Carmichael, AVIONICS SAFETY INSPECTOR: [address], [place] [address], Ph. Attender: Andreia Carmichael [facility] [place] [facility] Medical 01/17/2020 12:00:00 AM EST SANDER ([facility]) Andreia Carmichael, [facility]: [address], [place] [address], Ph. Attender: Andreia Carmichael [facility] Medical 01/17/2020 12:00:00 AM EST SANDER ([facility]) Andreia Carmichael, [facility]: [address], [place] [address], Ph. Attender: Andreia Carmichael [facility] Medical 01/17/2020 12:00:00 AM EST SANDER ([facility]) Andreia Carmichael, [facility]: [address], [place] [address], Ph. Attender: Andreia Carmichael [facility] Medical 01/17/2020 12:00:00 AM EST SANDER ([facility]) Andreia Carmichael, [facility]: [address], [place] [address], Ph. Attender: Andreia Carmichael [place] [facility] [place] Medical 01/17/2020 12:00:00 AM EST SANDER ([facility]) Andreia Carmichael, [facility]: [address], [place] [address], Ph. Attender: Andreia Carmichael [facility] Medical 01/17/2020 12:00:00 AM EST SANDER ([facility]) Andreia Carmichael, AVIONICS SAFETY INSPECTOR: [address], [place] [address], Ph. Attender: Andreia Carmichael [facility] [facility] Medical 01/17/2020 12:00:00 AM EST SANDER ([facility]) Andreia Carmichael, AVIONICS SAFETY INSPECTOR: [address], [place] [address], Ph. Attender: Andreia Carmichael [facility] [place] [facility] Medical 01/17/2020 12:00:00 AM EST SANDER ([facility]) Andreia Carmichael, AVIONICS SAFETY INSPECTOR: [address], [place] [address], Ph. Attender: Andreia Carmichael [facility] [place] [facility] Medical 01/17/2020 12:00:00 AM EST SANDER ([facility]) Andreia Carmichael, [facility]: [address], [place] [address], Ph. Attender: Andreia Carmichael [facility] Medical 01/17/2020 12:00:00 AM EST SANDER ([facility]) Andreia Carmichael, AVIONICS SAFETY INSPECTOR: [address], [place] [address], Ph. Attender: Andreia Carmichael [facility] Medical 01/17/2020 12:00:00 AM EST SANDER ([facility]) Andreia Carmichael, AVIONICS SAFETY INSPECTOR: [address], [place] [address], Ph. Attender: Andreia Carmichael [facility] Medical 01/17/2020 12:00:00 AM EST SNADER ([facility]) Andreia Carmichael, AVIONICS SAFETY INSPECTOR: [address], [place] [address], Ph. Attender: Andreia Carmichael [facility] Medical 01/17/2020 12:00:00 AM EST SANDER ([facility]) Andreia Carmichael, AVIONICS SAFETY INSPECTOR: [address], [place] [address], Ph. Attender: Andreia Carmichael [facility] [facility] Medical 01/01/2020 12:00:00 AM EDT SANDER ([facility]) Andreia Carmichael, AVIONICS SAFETY INSPECTOR: [address], [place] [address], Ph. Attender: Andreia Carmichael [facility] Medical 01/01/2020 12:00:00 AM EDT SANDER ([facility]) Andreia Carmichael, AVIONICS SAFETY INSPECTOR: [address], [place] [address], Ph. Attender: Andreia Carmichael [facility] Medical 01/01/2020 12:00:00 AM EDT SANDER ([facility]) Andreia Carmichael, AVIONICS SAFETY INSPECTOR: [address], [place] [address], Ph. Attender: Andreia Carmichael [facility] Medical 01/01/2020 12:00:00 AM EDT SANDER ([facility]) Andreia Carmichael, [facility]: [address], [place] [address], Ph. Attender: Andreia Carmichael [facility] Medical 01/01/2020 12:00:00 AM EDT SANDER ([facility]) Andreia Carmichael [facility]: [address], [place] [address], Ph. Attender: Andreia Carmichael [facility] Medical 01/01/2020 12:00:00 AM EDT SANDER ([facility]) Andreia Carmichael [facility]: [address], [place] [address], Ph. Attender: Andreia Carmichael [facility] [place] Medical 01/01/2020 12:00:00 AM EDT SANDER ([facility]) Andreia Carmichael, [facility]: [address], [place] [address], Ph. Attender: Andreia Carmichael [facility] Medical 01/01/2020 12:00:00 AM EDT SANDER ([facility]) Andreia Carmichael [facility]: [address], [place] [address], Ph. Attender: Andreia Carmichael [facility] Medical 01/01/2020 12:00:00 AM EDT SANDER ([facility]) Andreia Carmichael [facility]: [address], [place] [address], Ph. Attender: Andreia Carmichael [facility] Medical 01/01/2020 12:00:00 AM EDT SAND[place] ([facility]) Andreia Carmichael, [facility]: [address], [place] [address], Ph. Attender: Andreia Carmichael [facility] Medical 01/01/2020 12:00:00 AM EDT SAND[facility] ([facility]) Andreia Carmichael, [facility]: [address], [place] [address], Ph. Attender: Andreia Carmichael [facility] Medical 01/01/2020 12:00:00 AM EDT [place] ([facility]) Andreia Carmichael [facility]: [address], [place] [address], Ph. Attender: Andreia Carmichael [facility] Medical 01/01/2020 12:00:00 AM EDT [place] ([facility]) Andreia Carmichael, [facility]: [address], [place] [address], Ph. Attender: Andreia Carmichael [facility] Medical 01/01/2020 12:00:00 AM EDT [place] ([facility]) Andreia Carmichael, [facility]: [address], [place] [address], Ph. Attender: Andreia Carmichael [facility] Medical 01/01/2020 12:00:00 AM EDT [place] ([facility]) Andreia Carmichael, [facility]: [address], [place] [address], Ph. Attender: Andreia Carmichael [facility] Medical 01/01/2020 12:00:00 AM EDT [place] ([facility]) Andreia Carmichael, AVION[employer] SAFETY INSPECTOR: [address], [place] [address], Ph. Attender: Andreia Carmichael [facility] 01/01/2020 12:00:00 AM EDT [place] ([facility]) Andreia Carmichael, AVIONICS SAFETY INSPECTOR: [address], [place] [address], Ph. Attender: Andreia Carmichael [facility] Medical 01/01/2020 12:00:00 AM EDT [place] ([facility]) Andreia Carmichael, AVION[employer] SAFETY INSPECTOR: [address], [place] [address], Ph. Attender: Andreia Carmichael [facility] 01/01/2020 12:00:00 AM EDT [place] ([facility]) Andreia Carmichael, AVIONICS SAFETY INSPECTOR: [address], [place] [address], Ph. Attender: Andreia Carmichael [facility] 01/01/2020 12:00:00 AM EDT [place] ([facility]) Andreia Carmichael, AVIONICS SAFETY INSPECTOR: [address], [place] [address], Ph. Attender: Andreia Carmichael [facility] Medical 01/01/2020 12:00:00 AM EDT [place] ([facility]) Andreia Carmichael, AVIONICS SAFETY INSPECTOR: [address], [place] [address], Ph. Attender: Andreia Carmichael [facility] Medical 01/01/2020 12:00:00 AM EDT [place] ([facility]) Andreia Carmichael, AVIONICS SAFETY INSPECTOR: [address], [place] [address], Ph. Attender: Andreia Carmichael [facility] Medical 01/01/2020 12:00:00 AM EDT [facility]) Andreia Carmichael, [facility]: [address], [place] [address], Ph. Attender: Andreia Carmichael [facility] Medical 01/01/2020 12:00:00 AM EDT [place] ([facility]) Andreia Carmichael, [facility]: [address], [place] [address], Ph. Attender: Andreia Carmichael [facility] 01/01/2020 12:00[facility]: [address], [place] [address], Ph. Attender: Andreia Carmichael [facility] 01/01/2020 12:00:00 AM EDT [place] ([facility]) Medications Medication Brand Name Start Date Product [...] propionate 0.05 MG/ACTUAT Metered Dose Manish al Dutton 50 mcg/actuation FLUTICASONE PROPIONATE 11/27/2020 12:00:00 AM [...] 07/15/2020 12:00:00 AM EDT active [place] [facility] ([facility], ) Magnesium Hydroxide 80 MG/ML Oral Suspension Milk Of Magnesi a 07/15/2020 12:00:00 AM EDT ORAL active M [facility] ([facility], ) 40 mg 06/11/2020 12:00:00 AM EDT capsule,delayed release (DR/EC) 30 TAKE ONE CAPSULE BY MOUTH EVERY MORNING TAKE ONE CAPSULE BY MOUTH EVERY MORNING SOLD: 06/16/2020 [facility] 50 mg 04/30/2020 12:00:00 AM EST tablet 30 TAKE ONE TABLET BY MOUTH EVERY DAY 30 MINUTES BEFORE BED TAKE ONE TABLET BY MOUTH EVERY DAY 30 [place] NUTES BEFORE BED SOLD: 05/02/2020 [facility] [...] day, no more than 2x per week. [facility] Migraine without aura and without status migrainosus, not intractable Azithromycin 250 MG Oral Tablet azithromycin 250 mg ta blet azithromycin 250 mg tablet completed azithromycin 25 0 MG Oral Tablet [facility] ([facility]) Sumatriptan 50 MG Oral Tablet sumatriptan 50 mg tablet sumat riptan 50 mg tablet completed sumatriptan 50 MG Oral Tablet [facility] ([facility]) Sumatriptan 50 MG Oral Tablet sumatriptan 50 mg tablet sumat riptan 50 mg tablet completed sumatriptan 50 MG Oral Tablet [facility] ([facility]) Metronidazole 500 MG Oral Tablet metronidazole 500 mg tablet metronidazole 500 mg tablet completed metronidazol e 500 MG Oral Tablet [facility] ([facility]) Metronidazole 500 MG Oral Tablet metronidazole 500 mg tablet metronidazole 500 mg tablet completed metronidazol e 500 MG Oral Tablet [facility] ([facility]) Sumatriptan 50 MG Oral Tablet sumatriptan 50 mg tablet sumat riptan 50 mg tablet completed sumatriptan 50 MG Oral Tablet [facility] ([facility]) Metronidazole 500 MG Oral Tablet metronidazole 500 mg tablet metronidazole 500 mg tablet completed metronidazol e 500 MG Oral Tablet [facility] ([facility]) Sumatriptan 50 MG Oral Tablet sumatriptan 50 mg tablet sumat riptan 50 mg tablet completed sumatriptan 50 MG Oral Tablet [facility] ([facility]) Hydroxyzine Hydrochloride 50 MG Oral Tab let hydroxyzine HCl 50 mg tablet TAKE ONE TABLET BY MOUTH EVERY DAY 30 MINUTES BEFORE BED hydroxyzine HCl 50 mg tablet TAKE ONE TABLET BY MOUTH EVERY DAY 30 MINUTES BEFORE BED completed hydroxyzine hydrochloride 50 MG Oral Tab let [facility] ([facility]) Azithromycin 250 MG Oral Tablet azithromycin 250 mg ta blet azithromycin 250 mg tablet completed azithromycin 25 0 MG Oral Tablet [facility] ([facility]) Sumatriptan 50 MG Oral Tablet sumatriptan 50 mg tablet sumat riptan 50 mg tablet completed sumatriptan 50 MG Oral Tablet [facility] ([facility]) topiramate 25 MG Oral Tablet topiramate 25 mg tablet topiramate 25 mg tablet completed topiramate 25 MG Oral Tablet [facility] ([facility]) topiramate 25 MG Oral Tablet topiramate 25 mg tablet topiramate 25 mg tablet completed topiramate 25 MG Oral Tablet [facility] ([facility]) Azithromycin 250 MG Oral Tablet azithromycin 250 mg ta blet azithromycin 250 mg tablet completed azithromycin 25 0 MG Oral Tablet [facility] ([facility]) topiramate 25 MG Oral Tablet topiramate 25 mg tablet topiramate 25 mg tablet completed topiramate 25 MG Oral Tablet [facility] ([facility]) Azithromycin 250 MG Oral Tablet azithromycin 250 mg ta blet azithromycin 250 mg tablet completed azithromycin 25 0 MG Oral Tablet [facility] ([facility]) Sumatriptan 50 MG Oral Tablet sumatriptan 50 mg tablet sumat riptan 50 mg tablet completed sumatriptan 50 MG Oral Tablet [facility] ([facility]) Metronidazole 500 MG Oral Tablet metronidazole 500 mg tablet metronidazole 500 mg tablet completed metronidazol e 500 MG Oral Tablet [facility] ([facility]) Metronidazole 500 MG Oral Tablet metronidazole 500 mg tablet metronidazole 500 mg tablet completed metronidazol e 500 MG Oral Tablet [facility] ([facility]) Sumatriptan 50 MG Oral Tablet sumatriptan 50 mg tablet sumat riptan 50 mg tablet completed sumatriptan 50 MG Oral Tablet [facility] ([facility]) Metronidazole 500 MG Oral Tablet metronidazole 500 mg tablet metronidazole 500 mg tablet completed metronidazol e 500 MG Oral Tablet [facility] ([facility]) Sumatriptan 50 MG Oral Tablet sumatriptan 50 mg tablet sumat riptan 50 mg tablet completed sumatriptan 50 MG Oral Tablet [place] ([facility]) Omeprazole 40 MG Delayed Release Oral Ca psule omeprazole 40 mg capsule,delayed release TAKE ONE CAPSULE BY MOUTH EVERY MORNING omeprazole 40 mg capsule,delayed release TAKE ONE CAPSULE BY MOUTH EVERY MORNING completed omeprazole 40 MG Delayed Release Oral Capsule [facility] ([facility]) Metronidazole 500 MG Oral Tablet metronidazole 500 mg tablet metronidazole 500 mg tablet completed metronidazol e 500 MG Oral Tablet [facility] ([facility]) Sumatriptan 50 MG Oral Tablet sumatriptan 50 mg tablet sumat riptan 50 mg tablet completed sumatriptan 50 MG Oral Tablet [facility] ([facility]) Metronidazole 500 MG Oral Tablet metronidazole 500 mg tablet metronidazole 500 mg tablet completed metronidazol e 500 MG Oral Tablet [facility] ([facility]) Sumatriptan 50 MG Oral Tablet sumatriptan 50 mg tablet sumat riptan 50 mg tablet completed sumatriptan 50 MG Oral Tablet [facility] ([facility]) topiramate 25 MG Oral Tablet topiramate 25 mg tablet topiramate 25 mg tablet completed topiramate 25 MG Oral Tablet [facility] ([facility]) topiramate 25 MG Oral Tablet topiramate 25 mg tablet topiramate 25 mg tablet completed topiramate 25 MG Oral Tablet [facility] ([facility]) Metronidazole 500 MG Oral Tablet metronidazole 500 mg tablet metronidazole 500 mg tablet completed metronidazol e 500 MG Oral Tablet [facility] ([facility]) Sumatriptan 50 MG Oral Tablet sumatriptan 50 mg tablet sumat riptan 50 mg tablet completed sumatriptan 50 MG Oral Tablet [facility] ([facility]) topiramate 25 MG Oral Tablet topiramate 25 mg tablet topiramate 25 mg tablet completed topiramate 25 MG Oral Tablet [facility] ([facility]) topiramate 25 MG Oral Tablet topiramate 25 mg tablet topiramate 25 mg tablet completed topiramate 25 MG Oral Tablet [facility] ([facility]) Sumatriptan 50 MG Oral Tablet sumatriptan 50 mg tablet sumat riptan 50 mg tablet completed sumatriptan 50 MG Oral Tablet [facility] ([facility]) Azithromycin 250 MG Oral Tablet azithromycin 250 mg ta blet azithromycin 250 mg tablet completed azithromycin 25 0 MG Oral Tablet [facility] ([facility]) Metronidazole 500 MG Oral Tablet metronidazole 500 mg tablet metronidazole 500 mg tablet completed metronidazol e 500 MG Oral Tablet [facility] ([facility]) Azithromycin 250 MG Oral Tablet azithromycin 250 mg ta blet azithromycin 250 mg tablet completed azithromycin 25 0 MG Oral Tablet [facility] ([facility]) Metronidazole 500 MG Oral Tablet metronidazole 500 mg tablet metronidazole 500 mg tablet completed metronidazol e 500 MG Oral Tablet [facility] ([facility]) topiramate 25 MG Oral Tablet topiramate 25 mg tablet topiramate 25 mg tablet completed topiramate 25 MG Oral Tablet [facility] ([facility]) Azithromycin 250 MG Oral Tablet azithromycin 250 mg ta blet azithromycin 250 mg tablet completed azithromycin 25 0 MG Oral Tablet [facility] ([facility]) topiramate 25 MG Oral Tablet topiramate 25 mg tablet topiramate 25 mg tablet completed topiramate 25 MG Oral Tablet [facility] ([facility]) Metronidazole 500 MG Oral Tablet metronidazole 500 mg tablet metronidazole 500 mg tablet completed metronidazol e 500 MG Oral Tablet [facility] ([facility]) Metronidazole 500 MG Oral Tablet metronidazole 500 mg tablet metronidazole 500 mg tablet completed metronidazol e 500 MG Oral Tablet [facility] ([facility]) Azithromycin 250 MG Oral Tablet azithromycin 250 mg ta blet azithromycin 250 mg tablet completed azithromycin 25 0 MG Oral Tablet [facility] ([facility]) Sumatriptan 50 MG Oral Tablet sumatriptan 50 mg tablet sumat riptan 50 mg tablet completed sumatriptan 50 MG Oral Tablet [facility] ([facility]) Omeprazole 40 MG Delayed Release Oral Ca psule omeprazole 40 mg capsule,delayed release TAKE ONE CAPSULE BY MOUTH EVERY MORNING omeprazole 40 mg capsule,delayed release TAKE ONE CAPSULE BY MOUTH EVERY MORNING completed omeprazole 40 MG Delayed Release Oral Capsule [place] ([facility]) Metronidazole 500 MG Oral Tablet metronidazole 500 mg tablet metronidazole 500 mg tablet completed metronidazol e 500 MG Oral Tablet [place] ([facility]) topiramate 25 MG Oral Tablet topiramate 25 mg tablet topiramate 25 mg tablet completed topiramate 25 MG Oral Tablet [facility] ([facility]) Azithromycin 250 MG Oral Tablet azithromycin 250 mg ta blet azithromycin 250 mg tablet completed azithromycin 25 0 MG Oral Tablet [facility] ([facility]) Sumatriptan 50 MG Oral Tablet sumatriptan 50 mg tablet sumat riptan 50 mg tablet completed sumatriptan 50 MG Oral Tablet [facility] ([facility]) Azithromycin 250 MG Oral Tablet azithromycin 250 mg ta blet azithromycin 250 mg tablet completed azithromycin 25 0 MG Oral Tablet [facility] ([facility]) Azithromycin 250 MG Oral Tablet azithromycin 250 mg ta blet azithromycin 250 mg tablet completed azithromycin 25 0 MG Oral Tablet [facility] ([facility]) Azithromycin 250 MG Oral Tablet azithromycin 250 mg ta blet azithromycin 250 mg tablet [facility] MG Delayed Release Oral Ca psule omeprazole 40 mg capsule,delayed release TAKE ONE CAPSULE BY MOUTH EVERY MORNING omeprazole 40 mg capsule,delayed release TAKE ONE CAPSULE BY MOUTH EVERY MORNING completed omeprazole 40 MG Delayed Release Oral Capsule [facility] ([facility]) Metronidazole 500 MG Oral Tablet metronidazole 500 mg tablet metronidazole 500 mg tablet completed metronidazol e 500 MG Oral Tablet [facility] ([facility]) Azithromycin 250 MG Oral Tablet azithromycin 250 mg ta blet azithromycin 250 mg tablet completed azithromycin 25 0 MG Oral Tablet [facility] ([facility]) Azithromycin 250 MG Oral Tablet azithromycin 250 mg ta blet azithromycin 250 mg tablet completed azithromycin 25 0 MG Oral Tablet [facility] ([facility]) Sumatriptan 50 MG Oral Tablet sumatriptan 50 mg tablet sumat riptan 50 mg tablet completed sumatriptan 50 MG Oral Tablet [facility] ([facility]) topiramate 25 MG Oral Tablet topiramate 25 mg tablet topiramate 25 mg tablet completed topiramate 25 MG Oral Tablet [facility] ([facility]) topiramate 25 MG Oral Tablet topiramate 25 mg tablet topiramate 25 mg tablet completed topiramate 25 MG Oral Tablet [facility] ([facility]) Metronidazole 500 MG Oral Tablet metronidazole 500 mg tablet metronidazole 500 mg tablet completed metronidazol e 500 MG Oral Tablet [facility] ([facility]) topiramate 25 MG Oral Tablet topiramate 25 mg tablet topiramate 25 mg tablet completed topiramate 25 MG Oral Tablet [facility] ([facility]) topiramate 25 MG Oral Tablet topiramate 25 mg tablet topiramate 25 mg tablet completed topiramate 25 MG Oral Tablet [facility] ([facility]) Sumatriptan 50 MG Oral Tablet sumatriptan 50 mg tablet sumat riptan 50 mg tablet completed sumatriptan 50 MG Oral Tablet [facility] ([facility]) topiramate 25 MG Oral Tablet topiramate 25 mg tablet topiramate 25 mg tablet completed topiramate 25 MG Oral Tablet [facility] ([facility]) Azithromycin 250 MG Oral Tablet azithromycin 250 mg ta blet azithromycin 250 mg tablet completed azithromycin 25 0 MG Oral Tablet [facility] ([facility]) topiramate 25 MG Oral Tablet topiramate 25 mg tablet topiramate 25 mg tablet completed topiramate 25 MG Oral Tablet [facility] ([facility]) Sumatriptan 50 MG Oral Tablet sumatriptan 50 mg tablet sumat riptan 50 mg tablet completed sumatriptan 50 MG Oral Tablet [facility] ([facility]) Sumatriptan 50 MG Oral Tablet sumatriptan 50 mg tablet sumat riptan 50 mg tablet completed sumatriptan 50 MG Oral Tablet [facility] ([facility]) Azithromycin 250 MG Oral Tablet azithromycin 250 mg ta blet azithromycin 250 mg tablet completed azithromycin 25 0 MG Oral Tablet [facility] ([facility]) Sumatriptan 50 MG Oral Tablet sumatriptan 50 mg tablet sumat riptan 50 mg tablet completed sumatriptan 50 MG Oral Tablet [facility] ([facility]) Metronidazole 500 MG Oral Tablet metronidazole 500 mg tablet metronidazole 500 mg tablet completed metronidazol e 500 MG Oral Tablet [facility] ([facility]) Metronidazole 500 MG Oral Tablet metronidazole 500 mg tablet metronidazole 500 mg tablet completed metronidazol e 500 MG Oral Tablet [facility] ([facility]) Hydroxyzine Hydrochloride 50 MG Oral Tab let hydroxyzine HCl 50 mg tablet TAKE ONE TABLET BY MOUTH EVERY DAY 30 MINUTES BEFORE BED hydroxyzine HCl 50 mg tablet TAKE ONE TABLET BY MOUTH EVERY DAY 30 MINUTES BEFORE BED completed hydroxyzine hydrochloride 50 MG Oral Tab let [facility] ([facility]) Azithromycin 250 MG Oral Tablet azithromycin 250 mg ta blet azithromycin 250 mg tablet completed azithromycin 25 0 MG Oral Tablet [facility] ([facility]) Hydroxyzine Hydrochloride 50 MG Oral Tab let hydroxyzine HCl 50 mg tablet TAKE ONE TABLET BY MOUTH EVERY DAY 30 MINUTES BEFORE BED hydroxyzine HCl 50 mg tablet TAKE ONE TABLET BY MOUTH EVERY DAY 30 MINUTES BEFORE BED completed hydroxyzine hydrochloride 50 MG Oral Tab let [facility] ([facility]) Azithromycin 250 MG Oral Tablet azithromycin 250 mg ta blet azithromycin 250 mg tablet completed azithromycin 25 0 MG Oral Tablet [facility] ([facility]) Metronidazole 500 MG Oral Tablet metronidazole 500 mg tablet metronidazole 500 mg tablet completed metronidazol e 500 MG Oral Tablet [facility] ([facility]) topiramate 25 MG Oral Tablet topiramate 25 mg tablet topiramate 25 mg tablet completed topiramate 25 MG Oral Tablet [facility] ([facility]) Azithromycin 250 MG Oral Tablet azithromycin 250 mg ta blet azithromycin 250 mg tablet completed azithromycin 25 0 MG Oral Tablet [facility] ([facility]) topiramate 25 MG Oral Tablet topiramate 25 mg tablet topiramate 25 mg tablet completed topiramate 25 MG Oral Tablet [facility] ([facility]) Sumatriptan 50 MG Oral Tablet sumatriptan 50 mg tablet sumat riptan 50 mg tablet completed sumatriptan 50 MG Oral Tablet [facility] ([facility]) topiramate 25 MG Oral Tablet topiramate 25 mg tablet topiramate 25 mg tablet completed topiramate 25 MG Oral Tablet [facility] ([facility]) Azithromycin 250 MG Oral Tablet azithromycin 250 mg ta blet azithromycin 250 mg tablet completed azithromycin 25 0 MG Oral Tablet [facility] ([facility]) topiramate 25 MG Oral Tablet topiramate 25 mg tablet topiramate 25 mg tablet completed topiramate 25 MG Oral Tablet [facility] ([facility]) Metronidazole 500 MG Oral Tablet metronidazole 500 mg tablet metronidazole 500 mg tablet completed metronidazol e 500 MG Oral Tablet [facility] ([facility]) Metronidazole 500 MG Oral Tablet metronidazole 500 mg tablet metronidazole 500 mg tablet completed metronidazol e 500 MG Oral Tablet [facility] ([facility]) Sumatriptan 50 MG Oral Tablet sumatriptan 50 mg tablet sumat riptan 50 mg tablet completed sumatriptan 50 MG Oral Tablet [facility] ([facility]) Azithromycin 250 MG Oral Tablet azithromycin 250 mg ta blet azithromycin 250 mg tablet completed azithromycin 25 0 MG Oral Tablet [facility] ([facility]) topiramate 25 MG Oral Tablet topiramate 25 mg tablet topiramate 25 mg tablet completed topiramate 25 MG Oral Tablet [facility] ([facility]) Insurance Providers Payer name Policy type / Coverage type Policy ID Covered alliance party ID Covered alliance party's relationship to swift Policy Swift Plan Information [facility] [id number] SP [id number] Medicaid S [id number] S [id number] Managed Care - Community Plan [facility] P [id number] S [id number] Managed Care - [facility] Community Plan P [id number] S [id number] Medicaid S [id number] [facility] I [id number] Self [id number] [facility] I [id number] Self [id number] Managed Care - [facility] Community Plan P [id number] S [id number] [facility] 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 [id number] Self [id number] [facility] Plan [facility] P UNAVAILABLE S UNAVAILABLE SELF PAY ONLY UNAVAILABLE SP UNAV AILABLE [facility] [id number] SP [id number] MEDICAID [id number] SP [id number] [facility](MCAID) O [id number] S [id number] SELF PAY UNAVAILABLE SP UNAVAILA BLE [facility]CAID) P [id number] S [id number] [facility] Commercial [id number] Self [id number] [facility](MCAID) O [id number] S [id number] [facility] JONATHAN [id number] SP [id number] [facility] Commercial [id number] Self [id number] [facility] Commercial [id number] Self [id number] [facility] MCDO [id number] SP [id number] [facility] Commercial [id number] Self [id number] [facility] Commercial [id number] Self [id number] Managed Care - [facility] P [id number] S [id number] Problems, Conditions, and Diagnoses Code Display Name Description Problem Type Effective Dates Data Source(s) 08996443 Social phobia Social Phobia Problem 11/24/2020 12:00:00 AM EDT [place] ([facility]) [id number] Social phobia Social Phobia Problem 11/24/2020 12:00:00 AM EDT [place] ([facility]) [id number] Social phobia Social Phobia Problem 11/24/2020 12:00:00 AM EDT [place] ([facility]) [id number] Social phobia Social Phobia Problem 11/24/2020 12:00:00 AM EDT [facility]) [id number] Anxiety disorder Anxiety Disorder Problem 021 12:00:00 AM EDT - 11/24/2020 12:00:00 AM EDT [facility] ([facility]) [id number] Anxiety disorder Anxiety Disorder Problem 021 12:00:00 AM EDT - 11/24/2020 12:00:00 AM EDT [facility] ([facility]) [id number] Anxiety disorder Anxiety Disorder Problem 07/29/2020 12 :00:00 AM EDT [facility] ([facility]) [id number] Anxiety disorder Anxiety Disorder Problem 07/29/2020 12 :00:00 AM EDT [facility] ([facility]) [id number] Anxiety disorder Anxiety Disorder Problem 07/29/2020 12 :00:00 AM EDT [facility] ([facility]) [id number] Anxiety disorder Anxiety Disorder Problem 12:00:00 AM EDT - 11/24/2020 12:00:00 AM EDT [facility] ([facility]) [id number] Anxiety disorder Anxiety Disorder Problem 07/29/2020 12 :00:00 AM EDT [facility] ([facility]) [id number] Anxiety disorder Anxiety Disorder Problem 07/29/2020 12 :00:00 AM EDT [facility] ([facility]) [id number] Anxiety disorder Anxiety Disorder Problem 12:00:00 AM EDT - 11/24/2020 12:00:00 AM EDT [facility] ([facility]) [id number] Anxiety disorder Anxiety Disorder Problem 07/29/2020 12 :00:00 AM EDT [facility] ([facility]) [id number] Anxiety disorder Anxiety Disorder Problem 07/29/2020 12 :00:00 AM EDT [facility] ([facility]) [id number] Anxiety disorder Anxiety Disorder Problem 07/29/2020 12 :00:00 AM EDT [facility] ([facility]) [id number] Vomiting Vomiting Problem 02/21/2020 12:00:00 AM ES T [facility] ([facility]) [id number] Vomiting Vomiting Problem 02/21/2020 12:00:00 AM ES T [facility] ([facility]) [id number] Vomiting Vomiting Problem 02/21/2020 12:00:00 AM ES T [facility] ([facility]) [id number] Vomiting Vomiting Problem 02/21/2020 12:00:00 AM ES T [facility] ([facility]) [id number] Vomiting Vomiting Problem 02/21/2020 12:00:00 AM ES T [facility] ([facility]) [id number] Vomiting Vomiting Problem 02/21/2020 12:00:00 AM ES T [facility] ([facility]) [id number] Vomiting Vomiting Problem 02/21/2020 12:00:00 AM ES T [facility] ([facility]) [id number] Vomiting Vomiting Problem 02/21/2020 12:00:00 AM ES T [facility] ([facility]) [id number] Vomiting Vomiting Problem 02/21/2020 12:00:00 AM ES T [facility] ([facility]) [id number] Vomiting Vomiting Problem 02/21/2020 12:00:00 AM ES T [facility] ([facility]) [id number] Vomiting Vomiting Problem 02/21/2020 12:00:00 AM ES T [facility] ([facility]) [id number] Vomiting Vomiting Problem 02/21/2020 12:00:00 AM ES T [facility] ([facility]) [id number] Vomiting Vomiting Problem 02/21/2020 12:00:00 AM ES T [facility] ([facility]) [id number] Vomiting Vomiting Problem 02/21/2020 12:00:00 AM ES T [facility] ([facility]) [id number] Vomiting Vomiting Problem 02/21/2020 12:00:00 AM ES T [facility] ([facility]) [id number] Vomiting Vomiting Problem 02/21/2020 12:00:00 AM ES T [facility] ([facility]) [id number] Vomiting Vomiting Problem 02/21/2020 12:00:00 AM ES T [facility] ([facility]) [id number] Vomiting Vomiting Problem 02/21/2020 12:00:00 AM ES T [facility] ([facility]) [id number] Vomiting Vomiting Problem 02/21/2020 12:00:00 AM ES T [facility] ([facility]) [id number] Vomiting Vomiting Problem 02/21/2020 12:00:00 AM ES T [facility] ([facility]) [id number] Posttraumatic stress disorder Posttraumatic Stress Dis order Problem 12/21/2018 12:00:00 AM EDT - 02/27/2020 12:00:00 AM EST [facility] ([facility]) [id number] Posttraumatic stress disorder Posttraumatic Stress Dis order Problem 12/21/2018 12:00:00 AM EDT - 02/27/2020 12:00:00 AM EST [facility] ([facility]) [id number] Posttraumatic stress disorder Posttraumatic Stress Dis order Problem 12/21/2018 12:00:00 AM EDT - 02/27/2020 12:00:00 AM EST [facility] ([facility]) [id number] Posttraumatic stress disorder Posttraumatic Stress Dis order Problem 12/21/2018 12:00:00 AM EDT - 02/27/2020 12:00:00 AM EST [facility] ([facility]) [id number] Posttraumatic stress disorder Posttraumatic Stress Dis order Problem 12/21/2018 12:00:00 AM EDT - 02/27/2020 12:00:00 AM EST [facility] ([facility]) [id number] Posttraumatic stress disorder Posttraumatic Stress Dis order Problem 12/21/2018 12:00:00 AM EDT - 02/27/2020 12:00:00 AM EST [facility] ([facility]) [id number] Posttraumatic stress disorder Posttraumatic Stress Dis order Problem 12/21/2018 12:00:00 AM EDT - 02/27/2020 12:00:00 AM EST [facility] ([facility]) [id number] Posttraumatic stress disorder Posttraumatic Stress Dis order Problem 12/21/2018 12:00:00 AM EDT - 02/27/2020 12:00:00 AM EST [facility] ([facility]) [id number] Posttraumatic stress disorder Posttraumatic Stress Dis order Problem 12/21/2018 12:00:00 AM EDT - 02/27/2020 12:00:00 AM EST [facility] ([facility]) [id number] Posttraumatic stress disorder Posttraumatic Stress Dis order Problem 12/21/2018 12:00:00 AM EDT - 02/27/2020 12:00:00 AM EST [facility] ([facility]) [id number] Posttraumatic stress disorder Posttraumatic Stress Dis order Problem 12/21/2018 12:00:00 AM EDT - 02/27/2020 12:00:00 AM EST [facility] ([facility]) [id number] Posttraumatic stress disorder Posttraumatic Stress Dis order Problem 12/21/2018 12:00:00 AM EDT - 02/27/2020 12:00:00 AM EST [facility] ([facility]) [id number] Posttraumatic stress disorder Posttraumatic Stress Dis order Problem 12/21/2018 12:00:00 AM EDT - 02/27/2020 12:00:00 AM EST [facility] ([facility]) [id number] Posttraumatic stress disorder Posttraumatic Stress Dis order Problem 12/21/2018 12:00:00 AM EDT - 02/27/2020 12:00:00 AM EST [facility] ([facility]) [id number] Posttraumatic stress disorder Posttraumatic Stress Dis order Problem 12/21/2018 12:00:00 AM EDT - 02/27/2020 12:00:00 AM EST [facility] ([facility]) [id number] Posttraumatic stress disorder Posttraumatic Stress Dis order Problem 12/21/2018 12:00:00 AM EDT - 02/27/2020 12:00:00 AM EST [facility] ([facility]) [id number] Posttraumatic stress disorder Posttraumatic Stress Dis order Problem 12/21/2018 12:00:00 AM EDT - 02/27/2020 12:00:00 AM EST [facility] ([facility]) [id number] Posttraumatic stress disorder Posttraumatic Stress Dis order Problem 12/21/2018 12:00:00 AM EDT - 02/27/2020 12:00:00 AM EST [facility] ([facility]) [id number] Posttraumatic stress disorder Posttraumatic Stress Dis order Problem 12/21/2018 12:00:00 AM EDT - 02/27/2020 12:00:00 AM EST [facility] ([facility]) [id number] Posttraumatic stress disorder Posttraumatic Stress Dis order Problem 12/21/2018 12:00:00 AM EDT - 02/27/2020 12:00:00 AM EST [facility] ([facility]) [id number] SNOMED CT Concept SNOMED CT Concept Problem 09/25 12:00:00 AM EDT - 02/14/2020 12:00:00 AM EST [facility] ([facility]) [id number] SNOMED CT Concept SNOMED CT Concept Problem 09/25 12:00:00 AM EDT - 02/14/2020 12:00:00 AM EST [facility] ([facility]) [id number] SNOMED CT Concept SNOMED CT Concept Problem 09/25 12:00:00 AM EDT - 02/14/2020 12:00:00 AM EST [facility] ([facility]) [id number] SNOMED CT Concept SNOMED CT Concept Problem 09/25 12:00:00 AM EDT - 02/14/2020 12:00:00 AM EST [facility] ([facility]) [id number] SNOMED CT Concept SNOMED CT Concept Problem 09/25 12:00:00 AM EDT - 02/14/2020 12:00:00 AM EST [facility]ANDER ([facility]) [id number] SNOMED CT Concept SNOMED CT Concept Problem 09/25 12:00:00 AM EDT - 02/14/2020 12:00:00 AM EST [facility]AND[facility] ([facility]) [id number] SNOMED CT Concept SNOMED CT Concept Problem 09/25 12:00:00 AM EDT - 02/14/2020 12:00:00 AM EST [facility]AND[facility] ([facility]) [id number] SNOMED CT Concept SNOMED CT Concept Problem 09/25 12:00:00 AM EDT - 02/14/2020 12:00:00 AM EST [facility]ANDER ([facility]) [id number] SNOMED CT Concept SNOMED CT Concept Problem 09/25 12:00:00 AM EDT - 02/14/2020 12:00:00 AM EST [facility]ANDER ([facility]) [id number] SNOMED CT Concept SNOMED CT Concept Problem 09/25 12:00:00 AM EDT - 02/14/2020 12:00:00 AM EST [facility] ([facility]) [id number] SNOMED CT Concept SNOMED CT Concept Problem 09/25 12:00:00 AM EDT - 02/14/2020 12:00:00 AM EST [facility]ANDER ([facility]) [id number] SNOMED CT Concept SNOMED CT Concept Problem 09/25 12:00:00 AM EDT - 02/14/2020 12:00:00 AM EST [facility]AND[facility] ([facility]) [id number] SNOMED CT Concept SNOMED CT Concept Problem 09/25 12:00:00 AM EDT - 02/14/2020 12:00:00 AM EST [facility]AND[facility] ([facility]) [id number] SNOMED CT Concept SNOMED CT Concept Problem 09/25 12:00:00 AM EDT - 02/14/2020 12:00:00 AM EST [facility]AND[facility] ([facility]) [id number] SNOMED CT Concept SNOMED CT Concept Problem 09/25 12:00:00 AM EDT - 02/14/2020 12:00:00 AM EST [facility]AND[facility] ([facility]) [id number] SNOMED CT Concept SNOMED CT Concept Problem 09/25 12:00:00 AM EDT - 02/14/2020 12:00:00 AM EST [facility]AND[facility] ([facility]) [id number] SNOMED CT Concept SNOMED CT Concept Problem 09/25 12:00:00 AM EDT - 02/14/2020 12:00:00 AM EST [facility] ([facility]) [id number] SNOMED CT Concept SNOMED CT Concept Problem 09/25 12:00:00 AM EDT - 02/14/2020 12:00:00 AM EST [facility]AND[facility] ([facility]) [id number] SNOMED CT Concept SNOMED CT Concept Problem 09/25 12:00:00 AM EDT - 02/14/2020 12:00:00 AM EST [facility]AND[facility] ([facility]) [id number] SNOMED CT Concept SNOMED CT Concept Problem 09/25 12:00:00 AM EDT - 02/14/2020 12:00:00 AM EST [facility] ([facility]) [id number] SNOMED CT Concept SNOMED CT Concept Problem 09/25 12:00:00 AM EDT - 02/14/2020 12:00:00 AM EST [facility]AND[facility] ([facility]) [id number] Bipolar disorder Bipolar Disorder Problem 019 12:00:00 AM EST - 02/27/2020 12:00:00 AM EST [facility]AND[facility] ([facility]) [id number] Bipolar disorder Bipolar Disorder Problem 019 12:00:00 AM EST - 02/27/2020 12:00:00 AM EST [facility]AND[facility] ([facility]) [id number] Bipolar disorder Bipolar Disorder Problem 019 12:00:00 AM EST - 02/27/2020 12:00:00 AM EST [facility] ([facility]) [id number] Bipolar disorder Bipolar Disorder Problem 019 12:00:00 AM EST - 02/27/2020 12:00:00 AM EST [facility] ([facility]) [id number] Bipolar disorder Bipolar Disorder Problem 019 12:00:00 AM EST - 02/27/2020 12:00:00 AM EST [facility] ([facility]) [id number] Bipolar disorder Bipolar Disorder Problem 019 12:00:00 AM EST - 02/27/2020 12:00:00 AM EST [facility]AND[facility] ([facility]) [id number] Bipolar disorder Bipolar Disorder Problem 019 12:00:00 AM EST - 02/27/2020 12:00:00 AM EST [facility]AND[facility] ([facility]) [id number] Bipolar disorder Bipolar Disorder Problem 019 12:00:00 AM EST - 02/27/2020 12:00:00 AM EST [facility] ([facility]) [id number] Bipolar disorder Bipolar Disorder Problem 019 12:00:00 AM EST - 02/27/2020 12:00:00 AM EST [facility]AND[facility] ([facility]) [id number] Bipolar disorder Bipolar Disorder Problem 019 12:00:00 AM EST - 02/27/2020 12:00:00 AM EST [facility] ([facility]) [id number] Bipolar disorder Bipolar Disorder Problem 019 12:00:00 AM EST - 02/27/2020 12:00:00 AM EST [facility] ([facility]) [id number] Bipolar disorder Bipolar Disorder Problem 019 12:00:00 AM EST - 02/27/2020 12:00:00 AM EST [facility] ([facility]) [id number] Bipolar disorder Bipolar Disorder Problem 019 12:00:00 AM EST - 02/27/2020 12:00:00 AM EST [facility] ([facility]) [id number] Bipolar disorder Bipolar Disorder Problem 019 12:00:00 AM EST - 02/27/2020 12:00:00 AM EST [facility] ([facility]) [id number] Bipolar disorder Bipolar Disorder Problem 019 12:00:00 AM EST - 02/27/2020 12:00:00 AM EST [facility] ([facility]) [id number] Bipolar disorder Bipolar Disorder Problem 019 12:00:00 AM EST - 02/27/2020 12:00:00 AM EST [facility] ([facility]) [id number] Bipolar disorder Bipolar Disorder Problem 019 12:00:00 AM EST - 02/27/2020 12:00:00 AM EST [facility] ([facility]) [id number] Bipolar disorder Bipolar Disorder Problem 019 12:00:00 AM EST - 02/27/2020 12:00:00 AM EST [facility] ([facility]) [id number] Bipolar disorder Bipolar Disorder Problem 019 12:00:00 AM EST - 02/27/2020 12:00:00 AM EST [facility]AND[facility] ([facility]) [id number] Bipolar disorder Bipolar Disorder Problem 019 12:00:00 AM EST - 02/27/2020 12:00:00 AM EST SANDER ([facility]) Surgeries/Procedures Procedure Description Date Indications Data Source(s) XR, thoracic spine, 2 view 04/29/2020 12:00:00 AM EST SANDER ([facility]) Results ID Date Data Source [id number] 01/28/2021 12:00:00 AM EST [facility] Name Value Range Interpretation Code Description Data Christal rce(s) Supporting Document(s) SARS-COV 2 PCR (NASAL SWAB) NEGATIVE [place] [facility] This lab was ordered by [facility] and reported by [facility]. ID Date Data Source [id number] 01/28/2021 12:00:00 AM EST [facility] Name Value Range Interpretation Code Description Data Christal rce(s) Supporting Document(s) SARS-CoV-2 (COVID-19) RNA [Presence] in Respiratory specimen by ARLEN with probe detection Not detected [facility] This lab was ordered by [facility] and r eported by [facility]. ID Date Data Source [id number] 01/19/2021 12:00:00 AM EST [facility] Name Value Range Interpretation Code Description Data Christal rce(s) Supporting Document(s) [facility]2 [facility] by [facility] and reported by [facility]. ID Date Data Source [id number] 12/15/2020 08:30:00 AM EDT [facility] Name Value Range Interpretation Code Description Data Christal rce(s) Supporting Document(s) SARS-CoV-2 RNA Resp Ql ARLEN+probe NOT DETECTED [facility] This lab was ordered by JERALD harris and reported by JERALD Boss. ID Date Data Source [id number] 06/20/2020 08:56:00 AM EDT [facility]) Name Value Range Interpretation Code Description Data Christal rce(s) Supporting Document(s) Hemoglobin A1c/Hemoglobin.total in Blood 5.5 % Hemoglobin a1C [facility]) estimated average glucose 111 mg/dL 60-110 Above high norm al Estimated Average Glucose [facility]) ID Date Data Source [id number] 06/20/2020 08:56:00 AM EDT [facility]) Name Value Range Interpretation Code Description Data Christal rce(s) Supporting Document(s) thyroid stimulating hormone 2.220 uIU/mL 0.358-3.740 Thyroid Stimulating Hormone [facility]) ID Date Data Source [id number] 06/20/2020 08:56:00 AM EDT [facility]) Name Value Range Interpretation Code Description Data Christal rce(s) Supporting Document(s) iron (fe) 40 ug/dL 65-175 Below low normal Iron (Fe) [place] ( [facility]) percent saturation 14.9 % 19.7-50.0 Below low normal Percent Sat uration [facility]ANDER ([facility]) total iron binding capacity 269 ug/dL 250-450 Total Ir on Binding Capacity [facility]ANDER ([facility]) ID Date Data Source [id number] 06/20/2020 08:56:00 AM EDT [facility] ([facility]) Name Value Range Interpretation Code Description Data Christal rce(s) Supporting Document(s) triglycerides level 176 mg/dL <150 Above high normal Triglycer ides Level SANDER ([facility]) non-HDL-C 117 mg/dL Non-hdl-c [facility] ([facility]) cholesterol level 153 mg/dL <200 Cholesterol Level SANDER ([facility]) cholesterol risk ratio <5 Cholesterol R isk Ratio SANDER ([facility]) Cholesterol in LDL [Mass/volume] in Serum or Plasma 82 mg/dL <1 00 LDL Cholesterol [facility]ANDER ([facility]) HDL cholesterol 36 mg/dL >40 Below low normal HDL Cholestero l [facility]ANDER ([facility]) ID Date Data Source [id number] 06/20/2020 08:56:00 AM EDT [place] ([facility]) Name Value Range Interpretation Code Description Data Christal rce(s) Supporting Document(s) creatinine for GFR 0.92 mg/dL 0.70-1.30 Creatinine for GF R [facility]AND[facility] ([facility]) blood urea nitrogen 13 mg/dL 7-18 Blood Urea Nitro gen [facility]AND[facility] ([facility]) glucose, fasting 113 mg/dL 70-100 Above high normal Glucose, Fas ting [facility] ([facility]) chloride level 109 mEq/L 98-107 Above high normal Chloride Level SANDER ([facility]) potassium serum 4.0 mEq/L 3.5-5.1 Potassium Serum ATHE NA ([facility]) glomerular filtration rate > 60.0 >60 Glomerula r Filtration Rate SANDER ([facility]) sodium level 142 mEq/L 136-145 Sodium Level SANDER ([facility]) ALT/SGPT 43 U/L 12-78 ALT/SGPT [facility] ([facility]) carbon dioxide level 26 mEq/L 21-32 Carbon Dioxide Level SANDER ([facility]) anion gap 7 mEq/L 8-16 Below low normal Anion Gap [facility] ( [facility]) AST/SGOT 24 U/L 7-37 AST/SGOT [facility] ([facility]) calcium level 9.2 mg/dL 8.5-10.1 Calcium Level [facility]ANDER ( [facility]) albumin 4.0 gm/dL 3.2-5.2 Albumin [facility]AND[facility] ([facility]) bilirubin,total 0.2 mg/dL 0.2-1.0 Bilirubin,total ATHE ([facility]) total protein 7.6 gm/dL 6.4-8.2 Total Protein [facility]ANDER ( [facility]) alkaline phosphatase 85 U/L 45-117 Alkaline Phosph atase [facility]ANDER ([facility]) albumin/globulin ratio Albumin/globu dayanna Ratio SANDER ([facility]) ID Date Data Source [id number] 06/20/2020 08:56:00 AM EDT [facility]AND[facility] ([facility]) Name Value Range Interpretation Code Description Data Christal rce(s) Supporting Document(s) white blood count 6.9 10 4.0-10.0 White Blood Count [facility] ([facility]) hematocrit 47.0 % 42.0-52.0 Hematocrit [facility] ([facility]) red blood count 5.03 10 4.30-6.10 Red Blood Count AT[place] NA ([facility]) hemoglobin 14.1 g/dL 13.5-17.5 Hemoglobin [facility]ANDER ([facility]) mean corpuscular volume 93.4 fL 80.0-96.0 Mean Corpusc ular Volume [facility]ANDER ([facility]) mean corpuscular HGB conc 30.0 g/dL 32.0-36.5 Below low ning l Mean Corpuscular HGB Conc [facility]ANDER ([facility]) platelet count, automated 203 10 150-450 Platelet C ount, Automated [facility]AND[facility] ([facility]) mean corpuscular hemoglobin 28.0 pg 27.0-33.0 Mean Cor puscular Hemoglobin [facility] ([facility]) red cell distribution width 17.9 % 11.5-14.5 Above high no rmal Red Cell Distribution Width [facility]ANDER ([facility]) mono % 5.7 % 2.0-8.0 [place] % SANDER ([facility]) lymph % 34.2 % 24.0-44.0 Lymph % [facility] ([facility]) neutrophils % 52.3 % 36.0-66.0 Neutrophils % [place] ( [facility]) immature granulocyte % 1.8 % 0-3.0 Immature Gran ulocyte % [facility] ([facility]) baso % 1.0 % 0.0-1.0 Baso % [place] ([facility]) nucleated red blood cell % 0.0 % 0-0 Nucleated Red Blood Cell % [facility] ([facility]) eos % 5.0 % 0.0-3.0 Above high normal Eos % [facility] ([facility]) lymph # 2.3 10 1.5-5.0 Lymph # [facility] ([facility]) neutrophils # 3.6 10 1.5-8.5 Neutrophils # [facility] ( [facility]) mono # 0.4 10 0.0-0.8 [place] # SANDER ([facility]) eos # 0.3 10 0.0-0.5 Eos # [facility]AND[facility] ([facility]) baso # 0.1 10 0.0-0.2 Baso # [facility] ([facility]) ID Date Data Source [id number] 06/20/2020 08:56:00 AM EDT [place] ([facility]) Name Value Range Interpretation Code Description Data Christal rce(s) Supporting Document(s) Hemoglobin A1c/Hemoglobin.total in Blood 5.5 % Hemoglobin a1C [facility] ([facility]) estimated average glucose 111 mg/dL 60-110 Above high norm al Estimated Average Glucose [facility] ([facility]) ID Date Data Source [id number] 06/20/2020 08:56:00 AM EDT [facility] ([facility]) Name Value Range Interpretation Code Description Data Christal rce(s) Supporting Document(s) thyroid stimulating hormone 2.220 uIU/mL 0.358-3.740 Thyroid Stimulating Hormone [facility] ([facility]) ID Date Data Source [id number] 06/20/2020 08:56:00 AM EDT [facility] ([facility]) Name Value Range Interpretation Code Description Data Christal rce(s) Supporting Document(s) iron (fe) 40 ug/dL 65-175 Below low normal Iron (Fe) [place] ( [facility]) percent saturation 14.9 % 19.7-50.0 Below low normal Percent Sat uration [facility] ([facility]) total iron binding capacity 269 ug/dL 250-450 Total Ir on Binding Capacity [place] ([facility]) ID Date Data Source [id number] 06/20/2020 08[facility]56[facility] Range Interpretation Code Description Data Christal rce(s) Supporting Document(s) triglycerides level 176 mg/dL <150 Above high normal Triglycer ides Level [facility]ANDER ([facility]) cholesterol risk ratio <5 Cholesterol R isk Ratio [facility]ANDER ([facility]) HDL cholesterol 36 mg/dL >40 Below low normal HDL Cholestero l [facility] ([facility]) Cholesterol in LDL [Mass/volume] in Serum or Plasma 82 mg/dL <1 00 LDL Cholesterol [facility] ([facility]) cholesterol level 153 mg/dL <200 Cholesterol Level [facility] ([facility]) non-HDL-C 117 mg/dL Non-hdl-c [facility] ([facility]) ID Date Data Source [id number] 06/20/2020 08:56[facility]00 [facility] Name Value Range Interpretation Code Description Data Christal rce(s) Supporting Document(s) glucose, fasting 113 mg/dL 70-100 Above high normal Glucose, Fas ting [facility] ([facility]) creatinine for GFR 0.92 mg/dL 0.70-1.30 Creatinine for GF R [facility] ([facility]) glomerular filtration rate > 60.0 >60 Glomerula r Filtration Rate [facility] ([facility]) blood urea nitrogen 13 mg/dL 7-18 Blood Urea Nitro gen [facility] ([facility]) carbon dioxide level 26 mEq/L 21-32 Carbon Dioxide Level [facility] ([facility]) sodium level 142 mEq/L 136-145 Sodium Level [facility] (No [facility]) potassium serum 4.0 mEq/L 3.5-5.1 Potassium Serum [place] ([facility]) chloride level 109 mEq/L 98-107 Above high normal Chloride Level [place] ([facility]) anion gap 7 mEq/L 8-16 Below low normal Anion Gap [facility] ( [facility]) alkaline phosphatase 85 U/L 45-117 Alkaline Phosph atase [facility] ([facility]) AST/SGOT 24 U/L 7-37 AST/SGOT [facility] ([facility]) calcium level 9.2 mg/dL 8.5-10.1 Calcium Level [facility] ( [facility]) ALT/SGPT 43 U/L 12-78 ALT/SGPT [place] ([facility]) albumin/globulin ratio Albumin/globu dayanna Ratio SANDER ([facility]) bilirubin,total 0.2 mg/dL 0.2-1.0 Bilirubin,total [place] ([facility]) albumin 4.0 gm/dL 3.2-5.2 Albumin [facility] ([facility]) total protein 7.6 gm/dL 6.4-8.2 Total Protein [facility] ( [facility]) ID Date Data Source [id number] 06/20/2020 08:56:00 AM EDT [place] ([facility]) Name Value Range Interpretation Code Description Data Christal rce(s) Supporting Document(s) white blood count 6.9 10 4.0-10.0 White Blood Count [facility] ([facility]) red blood count 5.03 10 4.30-6.10 Red Blood Count ATHE NA ([facility]) hemoglobin 14.1 g/dL 13.5-17.5 Hemoglobin [facility] ([facility]) hematocrit 47.0 % 42.0-52.0 Hematocrit [facility] ([facility]) mean corpuscular volume 93.4 fL 80.0-96.0 Mean Corpusc ular Volume [facility] ([facility]) mean corpuscular hemoglobin 28.0 pg 27.0-33.0 Mean Cor puscular Hemoglobin [facility] ([facility]) mean corpuscular HGB conc 30.0 g/dL 32.0-36.5 Below low ning l Mean Corpuscular HGB Conc [facility] ([facility]) red cell distribution width 17.9 % 11.5-14.5 Above high no rmal Red Cell Distribution Width [facility] ([facility]) platelet count, automated 203 10 150-450 Platelet C ount, Automated [place] ([facility]) lymph % 34.2 % 24.0-44.0 Lymph % [facility] ([facility]) neutrophils % 52.3 % 36.0-66.0 Neutrophils % [place] ( [facility]) eos % 5.0 % 0.0-3.0 Above high normal Eos % [place] ([facility]) immature granulocyte % 1.8 % 0-3.0 Immature Gran ulocyte % [facility] ([facility]) mono % 5.7 % 2.0-8.0 [place] % [facility] ([facility]) baso % 1.0 % 0.0-1.0 Baso % [facility] ([facility]) neutrophils # 3.6 10 1.5-8.5 Neutrophils # [place] ( [facility]) lymph # 2.3 10 1.5-5.0 Lymph # [facility] ([facility]) nucleated red blood cell % 0.0 % 0-0 Nucleated Red Blood Cell % [facility] ([facility]) mono # 0.4 10 0.0-0.8 [place] # [facility] ([facility]) baso # 0.1 10 0.0-0.2 Baso # [facility] ([facility]) eos # 0.3 10 0.0-0.5 Eos # [facility] ([facility]) ID Date Data Source [id number] 06/20/2020 08:56:00 AM EDT [place] ([facility]) Name Value Range Interpretation Code Description Data Christal rce(s) Supporting Document(s) Hemoglobin A1c/Hemoglobin.total in Blood 5.5 % Hemoglobin a1C [place] ([facility]) estimated average glucose 111 mg/dL 60-110 Above high norm al Estimated Average Glucose [place] ([facility]) ID Date Data Source [id number] 06/20/2020 08:56:00 AM EDT [facility]) Name Value Range Interpretation Code Description Data Christal rce(s) Supporting Document(s) thyroid stimulating hormone 2.220 uIU/mL 0.358-3.740 Thyroid Stimulating Hormone [place] ([facility]) ID Date Data Source [id number] 06/20/2020 08:56:00 AM EDT [facility]) Name Value Range Interpretation Code Description Data Christal rce(s) Supporting Document(s) iron (fe) 40 ug/dL 65-175 Below low normal Iron (Fe) [place] ( [facility]) total iron binding capacity 269 ug/dL 250-450 Total Ir on Binding Capacity [place] ([facility]) percent saturation 14.9 % 19.7-50.0 Below low normal Percent Sat uration [place] ([facility]) ID Date Data Source [id number] 06/20/2020 08:56:00 AM EDT [facility]) Name Value Range Interpretation Code Description Data Christal rce(s) Supporting Document(s) HDL cholesterol 36 mg/dL >40 Below low normal HDL Cholestero l [place] ([facility]) cholesterol level 153 mg/dL <200 Cholesterol Level [place] ([facility]) Cholesterol in LDL [Mass/volume] in Serum or Plasma 82 mg/dL <1 00 LDL Cholesterol [facility] ([facility]) non-HDL-C 117 mg/dL Non-hdl-c [facility] ([facility]) triglycerides level 176 mg/dL <150 Above high normal Triglycer ides Level [place] ([facility]) cholesterol risk ratio <5 Cholesterol R isk Ratio [facility] ([facility]) ID Date Data Source [id number] 06/20/2020 08:56:00 AM EDT [place] ([facility]) Name Value Range Interpretation Code Description Data Christal rce(s) Supporting Document(s) glucose, fasting 113 mg/dL 70-100 Above high normal Glucose, Fas ting [place] ([facility]) blood urea nitrogen 13 mg/dL 7-18 Blood Urea Nitro gen [facility] ([facility]) creatinine for GFR 0.92 mg/dL 0.70-1.30 Creatinine for GF R [facility] ([facility]) sodium level 142 mEq/L 136-145 Sodium Level [facility] ([facility]) glomerular filtration rate > 60.0 >60 Glomerula r Filtration Rate [facility] ([facility]) potassium serum 4.0 mEq/L 3.5-5.1 Potassium Serum [place] ([facility]) anion gap 7 mEq/L 8-16 Below low normal Anion Gap [facility] ( [facility]) calcium level 9.2 mg/dL 8.5-10.1 Calcium Level [facility] ( [facility]) carbon dioxide level 26 mEq/L 21-32 Carbon Dioxide Level [facility] ([facility]) chloride level 109 mEq/L 98-107 Above high normal Chloride Level [facility] ([facility]) bilirubin,total 0.2 mg/dL 0.2-1.0 Bilirubin,total [place] ([facility]) AST/SGOT 24 U/L 7-37 AST/SGOT [facility] ([facility]) ALT/SGPT 43 U/L 12-78 ALT/SGPT [facility] ([facility]) alkaline phosphatase 85 U/L 45-117 Alkaline Phosph atase [facility] ([facility]) total protein 7.6 gm/dL 6.4-8.2 Total Protein [facility] ( [facility]) albumin 4.0 gm/dL 3.2-5.2 Albumin [facility] ([facility]) albumin/globulin ratio Albumin/globu dayanna Ratio [facility] ([facility]) ID Date Data Source [id number] 06/20/2020 08:56:00 AM EDT [place] ([facility]) Name Value Range Interpretation Code Description Data Christal rce(s) Supporting Document(s) white blood count 6.9 10 4.0-10.0 White Blood Count [facility] ([facility]) red blood count 5.03 10 4.30-6.10 Red Blood Count [place] ([facility]) hemoglobin 14.1 g/dL 13.5-17.5 Hemoglobin [facility] ([facility]) mean corpuscular hemoglobin 28.0 pg 27.0-33.0 Mean Cor puscular Hemoglobin [facility] ([facility]) mean corpuscular volume 93.4 fL 80.0-96.0 Mean Corpusc ular Volume [facility] ([facility]) hematocrit 47.0 % 42.0-52.0 Hematocrit [facility] ([facility]) red cell distribution width 17.9 % 11.5-14.5 Above high no rmal Red Cell Distribution Width [facility] ([facility]) mean corpuscular HGB conc 30.0 g/dL 32.0-36.5 Below low ning l Mean Corpuscular HGB Conc [facility] ([facility]) platelet count, automated 203 10 150-450 Platelet C ount, Automated [facility] ([facility]) mono % 5.7 % 2.0-8.0 [place] % [facility] ([facility]) eos % 5.0 % 0.0-3.0 Above high normal Eos % [facility] ([facility]) neutrophils % 52.3 % 36.0-66.0 Neutrophils % [facility] ( [facility]) lymph % 34.2 % 24.0-44.0 Lymph % [facility] ([facility]) nucleated red blood cell % 0.0 % 0-0 Nucleated Red Blood Cell % [facility] ([facility]) immature granulocyte % 1.8 % 0-3.0 Immature Gran ulocyte % [facility] ([facility]) baso % 1.0 % 0.0-1.0 Baso % [facility] ([facility]) lymph # 2.3 10 1.5-5.0 Lymph # [facility] ([facility]) neutrophils # 3.6 10 1.5-8.5 Neutrophils # [facility] ( [facility]) mono # 0.4 10 0.0-0.8 [place] # [facility] ([facility]) baso # 0.1 10 0.0-0.2 Baso # [facility] ([facility]) eos # 0.3 10 0.0-0.5 Eos # [facility] ([facility]) ID Date Data Source [id number] 06/20/2020 08:56:00 AM EDT [place] ([facility]) Name Value Range Interpretation Code Description Data Christal rce(s) Supporting Document(s) Hemoglobin A1c/Hemoglobin.total in Blood 5.5 % Hemoglobin a1C [place] ([facility]) estimated average glucose 111 mg/dL 60-110 Above high norm al Estimated Average Glucose [place] ([facility]) ID Date Data Source [id number] 06/20/2020 08:56:00 AM EDT [place] ([facility]) Name Value Range Interpretation Code Description Data Christal rce(s) Supporting Document(s) thyroid stimulating hormone 2.220 uIU/mL 0.358-3.740 Thyroid Stimulating Hormone [place] ([facility]) ID Date Data Source [id number] 06/20/2020 08:56:00 AM EDT [place] ([facility]) Name Value Range Interpretation Code Description Data Christal rce(s) Supporting Document(s) iron (fe) 40 ug/dL 65-175 Below low normal Iron (Fe) [facility] ( [facility]) percent saturation 14.9 % 19.7-50.0 Below low normal Percent Sat uration [facility] ([facility]) total iron binding capacity 269 ug/dL 250-450 Total Ir on Binding Capacity [facility] ([facility]) ID Date Data Source [id number] 06/20/2020 08:56:00 AM EDT [place] ([facility]) Name Value Range Interpretation Code Description Data Christal rce(s) Supporting Document(s) cholesterol level 153 mg/dL <200 Cholesterol Level [place] ([facility]) triglycerides level 176 mg/dL <150 Above high normal Triglycer ides Level [place] ([facility]) cholesterol risk ratio <5 Cholesterol R isk Ratio [place] ([facility]) Cholesterol in LDL [Mass/volume] in Serum or Plasma 82 mg/dL <1 00 LDL Cholesterol [place] ([facility]) non-HDL-C 117 mg/dL Non-hdl-c [facility] ([facility]) HDL cholesterol 36 mg/dL >40 Below low normal HDL Cholestero l [facility] ([facility]) ID Date Data Source [id number] 06/20/2020 08:56:00 AM EDT [place] ([facility]) Name Value Range Interpretation Code Description Data Christal rce(s) Supporting Document(s) creatinine for GFR 0.92 mg/dL 0.70-1.30 Creatinine for GF R [place] ([facility]) glomerular filtration rate > 60.0 >60 Glomerula r Filtration Rate [facility] ([facility]) blood urea nitrogen 13 mg/dL 7-18 Blood Urea Nitro gen [place] ([facility]) glucose, fasting 113 mg/dL 70-100 Above high normal Glucose, Fas ting [place] ([facility]) potassium serum 4.0 mEq/L 3.5-5.1 Potassium Serum [place] NA ([facility]) carbon dioxide level 26 mEq/L 21-32 Carbon Dioxide Level [facility] ([facility]) chloride level 109 mEq/L 98-107 Above high normal Chloride Level [facility] ([facility]) sodium level 142 mEq/L 136-145 Sodium Level [facility] ([facility]) calcium level 9.2 mg/dL 8.5-10.1 Calcium Level [place] ( [facility]) anion gap 7 mEq/L 8-16 Below low normal Anion Gap [place] ( [facility]) AST/SGOT 24 U/L 7-37 AST/SGOT [place] ([facility]) ALT/SGPT 43 U/L 12-78 ALT/SGPT [place] ([facility]) alkaline phosphatase 85 U/L 45-117 Alkaline Phosph atase [place] ([facility]) total protein 7.6 gm/dL 6.4-8.2 Total Protein [place] ( [facility]) bilirubin,total 0.2 mg/dL 0.2-1.0 Bilirubin,total [place]HE NA ([facility]) albumin 4.0 gm/dL 3.2-5.2 Albumin [place] ([facility]) albumin/globulin ratio Albumin/globu dayanna Ratio [facility] ([facility]) ID Date Data Source [id number] 06/20/2020 08:56:00 AM EDT [place] ([facility]) Name Value Range Interpretation Code Description Data Christal rce(s) Supporting Document(s) white blood count 6.9 10 4.0-10.0 White Blood Count [place] ([facility]) red blood count 5.03 10 4.30-6.10 Red Blood Count [place] NA ([facility]) hemoglobin 14.1 g/dL 13.5-17.5 Hemoglobin [place] ([facility]) mean corpuscular volume 93.4 fL 80.0-96.0 Mean Corpusc ular Volume [facility] ([facility]) hematocrit 47.0 % 42.0-52.0 Hematocrit [facility] ([facility]) mean corpuscular HGB conc 30.0 g/dL 32.0-36.5 Below low ning l Mean Corpuscular HGB Conc [facility] ([facility]) red cell distribution width 17.9 % 11.5-14.5 Above high no rmal Red Cell Distribution Width [facility] ([facility]) mean corpuscular hemoglobin 28.0 pg 27.0-33.0 Mean Cor puscular Hemoglobin [facility] ([facility]) platelet count, automated 203 10 150-450 Platelet C ount, Automated [place] ([facility]) neutrophils % 52.3 % 36.0-66.0 Neutrophils % [place] ( [facility]) lymph % 34.2 % 24.0-44.0 Lymph % [place] ([facility]) eos % 5.0 % 0.0-3.0 Above high normal Eos % [place] ([facility]) mono % 5.7 % 2.0-8.0 [place] % [place] ([facility]) immature granulocyte % 1.8 % 0-3.0 Immature Gran ulocyte % [place] ([facility]) baso % 1.0 % 0.0-1.0 Baso % [place] ([facility]) nucleated red blood cell % 0.0 % 0-0 Nucleated Red Blood Cell % [place] ([facility]) mono # 0.4 10 0.0-0.8 [place] # [place] ([facility]) neutrophils # 3.6 10 1.5-8.5 Neutrophils # [facility] ( [facility]) lymph # 2.3 10 1.5-5.0 Lymph # [facility] ([facility]) eos # 0.3 10 0.0-0.5 Eos # [facility] ([facility]) baso # 0.1 10 0.0-0.2 Baso # [facility] ([facility]) ID Date Data Source [id number] 06/20/2020 08:56:00 AM EDT [place] ([facility]) Name Value Range Interpretation Code Description Data Christal rce(s) Supporting Document(s) Hemoglobin A1c/Hemoglobin.total in Blood 5.5 % Hemoglobin a1C [place] ([facility]) estimated average glucose 111 mg/dL 60-110 Above high norm al Estimated Average Glucose [facility] ([facility]) ID Date Data Source [id number] 06/20/2020 08:56:00 AM EDT [place] ([facility]) Name Value Range Interpretation Code Description Data Christal rce(s) Supporting Document(s) thyroid stimulating hormone 2.220 uIU/mL 0.358-3.740 Thyroid Stimulating Hormone [place] ([facility]) ID Date Data Source [id number] 06/20/2020 08:56:00 AM EDT [place] ([facility]) Name Value Range Interpretation Code Description Data Christal rce(s) Supporting Document(s) total iron binding capacity 269 ug/dL 250-450 Total Ir on Binding Capacity [place] ([facility]) percent saturation 14.9 % 19.7-50.0 Below low normal Percent Sat uration [place] ([facility]) iron (fe) 40 ug/dL 65-175 Below low normal Iron (Fe) [place] ( [facility]) ID Date Data Source [id number] 06/20/2020 08:56:00 AM EDT [place] ([facility]) Name Value Range Interpretation Code Description Data Christal rce(s) Supporting Document(s) cholesterol level 153 mg/dL <200 Cholesterol Level [place] ([facility]) triglycerides level 176 mg/dL <150 Above high normal Triglycer ides Level [place] ([facility]) HDL cholesterol 36 mg/dL >40 Below low normal HDL Cholestero l [place] ([facility]) non-HDL-C 117 mg/dL Non-hdl-c [place] ([facility]) Cholesterol in LDL [Mass/volume] in Serum or Plasma 82 mg/dL <1 00 LDL Cholesterol [facility] ([facility]) cholesterol risk ratio <5 Cholesterol R isk Ratio [facility] ([facility]) ID Date Data Source [id number] 06/20/2020 08:56:00 AM EDT [place] ([facility]) Name Value Range Interpretation Code Description Data Christal rce(s) Supporting Document(s) glucose, fasting 113 mg/dL 70-100 Above high normal Glucose, Fas ting [place] ([facility]) creatinine for GFR 0.92 mg/dL 0.70-1.30 Creatinine for GF R [place] ([facility]) blood urea nitrogen 13 mg/dL 7-18 Blood Urea Nitro gen [facility] ([facility]) sodium level 142 mEq/L 136-145 Sodium Level [place] ([facility]) glomerular filtration rate > 60.0 >60 Glomerula r Filtration Rate [place] ([facility]) potassium serum 4.0 mEq/L 3.5-5.1 Potassium Serum [place] NA ([facility]) anion gap 7 mEq/L 8-16 Below low normal Anion Gap [place] ( [facility]) chloride level 109 mEq/L 98-107 Above high normal Chloride Level [facility] ([facility]) carbon dioxide level 26 mEq/L 21-32 Carbon Dioxide Level [place] ([facility]) calcium level 9.2 mg/dL 8.5-10.1 Calcium Level [place] ( [facility]) AST/SGOT 24 U/L 7-37 AST/SGOT [place] ([facility]) ALT/SGPT 43 U/L 12-78 ALT/SGPT [place] ([facility]) bilirubin,total 0.2 mg/dL 0.2-1.0 Bilirubin,total [place] NA ([facility]) alkaline phosphatase 85 U/L 45-117 Alkaline Phosph atase [place] ([facility]) albumin/globulin ratio Albumin/globu dayanna Ratio [place] ([facility]) total protein 7.6 gm/dL 6.4-8.2 Total Protein [place] ( [facility]) albumin 4.0 gm/dL 3.2-5.2 Albumin [place] ([facility]) ID Date Data Source [id number] 06/20/2020 08:56:00 AM EDT [place] ([facility]) Name Value Range Interpretation Code Description Data Christal rce(s) Supporting Document(s) white blood count 6.9 10 4.0-10.0 White Blood Count [place] ([facility]) hematocrit 47.0 % 42.0-52.0 Hematocrit [place] ([facility]) red blood count 5.03 10 4.30-6.10 Red Blood Count [place] NA ([facility]) hemoglobin 14.1 g/dL 13.5-17.5 Hemoglobin [place] ([facility]) mean corpuscular volume 93.4 fL 80.0-96.0 Mean Corpusc ular Volume [place] ([facility]) mean corpuscular HGB conc 30.0 g/dL 32.0-36.5 Below low ning l Mean Corpuscular HGB Conc [facility] ([facility]) mean corpuscular hemoglobin 28.0 pg 27.0-33.0 Mean Cor puscular Hemoglobin [place] ([facility]) platelet count, automated 203 10 150-450 Platelet C ount, Automated [place] ([facility]) red cell distribution width 17.9 % 11.5-14.5 Above high no rmal Red Cell Distribution Width [facility] ([facility]) mono % 5.7 % 2.0-8.0 [place] % [facility] ([facility]) neutrophils % 52.3 % 36.0-66.0 Neutrophils % [place] ( [facility]) lymph % 34.2 % 24.0-44.0 Lymph % [place] ([facility]) eos % 5.0 % 0.0-3.0 Above high normal Eos % [place] ([facility]) immature granulocyte % 1.8 % 0-3.0 Immature Gran ulocyte % [place] ([facility]) baso % 1.0 % 0.0-1.0 Baso % [place] ([facility]) lymph # 2.3 10 1.5-5.0 Lymph # [place] ([facility]) neutrophils # 3.6 10 1.5-8.5 Neutrophils # [place] ( [facility]) nucleated red blood cell % 0.0 % 0-0 Nucleated Red Blood Cell % [place] ([facility]) mono # 0.4 10 0.0-0.8 [place] # [facility] ([facility]) eos # 0.3 10 0.0-0.5 Eos # [place] ([facility]) baso # 0.1 10 0.0-0.2 Baso # [place] ([facility]) ID Date Data Source [id number] 06/20/2020 08:56:00 AM EDT [place] ([facility]) Name Value Range Interpretation Code Description Data Christal rce(s) Supporting Document(s) estimated average glucose 111 mg/dL 60-110 Above high norm al Estimated Average Glucose [place] ([facility]) Hemoglobin A1c/Hemoglobin.total in Blood 5.5 % Hemoglobin a1C [place] ([facility]) ID Date Data Source [id number] 06/20/2020 08:56:00 AM EDT [place] ([facility]) Name Value Range Interpretation Code Description Data Christal rce(s) Supporting Document(s) thyroid stimulating hormone 2.220 uIU/mL 0.358-3.740 Thyroid Stimulating Hormone [place] ([facility]) ID Date Data Source [id number] 06/20/2020 08:56:00 AM EDT [place] ([facility]) Name Value Range Interpretation Code Description Data Christal rce(s) Supporting Document(s) iron (fe) 40 ug/dL 65-175 Below low normal Iron (Fe) [place] ( [facility]) total iron binding capacity 269 ug/dL 250-450 Total Ir on Binding Capacity [place] ([facility]) percent saturation 14.9 % 19.7-50.0 Below low normal Percent Sat uration [place] ([facility]) ID Date Data Source [id number] 06/20/2020 08:56:00 AM EDT [place] ([facility]) Name Value Range Interpretation Code Description Data Christal rce(s) Supporting Document(s) triglycerides level 176 mg/dL <150 Above high normal Triglycer ides Level [place] ([facility]) cholesterol level 153 mg/dL <200 Cholesterol Level [place] ([facility]) HDL cholesterol 36 mg/dL >40 Below low normal HDL Cholestero l [place] ([facility]) cholesterol risk ratio <5 Cholesterol R isk Ratio [place] ([facility]) non-HDL-C 117 mg/dL Non-hdl-c [place] ([facility]) Cholesterol in LDL [Mass/volume] in Serum or Plasma 82 mg/dL <1 00 LDL Cholesterol [place] ([facility]) ID Date Data Source [id number] 06/20/2020 08:56:00 AM EDT [place] ([facility]) Name Value Range Interpretation Code Description Data Christal rce(s) Supporting Document(s) glucose, fasting 113 mg/dL 70-100 Above high normal Glucose, Fas ting [place] ([facility]) glomerular filtration rate > 60.0 >60 Glomerula r Filtration Rate [place] ([facility]) creatinine for GFR 0.92 mg/dL 0.70-1.30 Creatinine for GF R [place] ([facility]) blood urea nitrogen 13 mg/dL 7-18 Blood Urea Nitro gen [place] ([facility]) chloride level 109 mEq/L 98-107 Above high normal Chloride Level [facility] ([facility]) sodium level 142 mEq/L 136-145 Sodium Level [facility] ([facility]) potassium serum 4.0 mEq/L 3.5-5.1 Potassium Serum [place] NA ([facility]) carbon dioxide level 26 mEq/L 21-32 Carbon Dioxide Level [place] ([facility]) anion gap 7 mEq/L 8-16 Below low normal Anion Gap [place] ( [facility]) AST/SGOT 24 U/L 7-37 AST/SGOT [place] ([facility]) calcium level 9.2 mg/dL 8.5-10.1 Calcium Level [place] ( [facility]) ALT/SGPT 43 U/L 12-78 ALT/SGPT [place] ([facility]) albumin 4.0 gm/dL 3.2-5.2 Albumin [place] ([facility]) bilirubin,total 0.2 mg/dL 0.2-1.0 Bilirubin,total [place] NA ([facility]) total protein 7.6 gm/dL 6.4-8.2 Total Protein [place] ( [facility]) alkaline phosphatase 85 U/L 45-117 Alkaline Phosph atase [place] ([facility]) albumin/globulin ratio Albumin/globu dayanna Ratio [place] ([facility]) ID Date Data Source [id number] 06/20/2020 08:56:00 AM EDT [place] ([facility]) Name Value Range Interpretation Code Description Data Christal rce(s) Supporting Document(s) white blood count 6.9 10 4.0-10.0 White Blood Count [place] ([facility]) red blood count 5.03 10 4.30-6.10 Red Blood Count [place] ([facility]) hematocrit 47.0 % 42.0-52.0 Hematocrit [facility] ([facility]) hemoglobin 14.1 g/dL 13.5-17.5 Hemoglobin [place] ([facility]) mean corpuscular hemoglobin 28.0 pg 27.0-33.0 Mean Cor puscular Hemoglobin [facility] ([facility]) mean corpuscular volume 93.4 fL 80.0-96.0 Mean Corpusc ular Volume [facility] ([facility]) mean corpuscular HGB conc 30.0 g/dL 32.0-36.5 Below low ning l Mean Corpuscular HGB Conc [facility] ([facility]) red cell distribution width 17.9 % 11.5-14.5 Above high no rmal Red Cell Distribution Width [facility] ([facility]) platelet count, automated 203 10 150-450 Platelet C ount, Automated [place] ([facility]) neutrophils % 52.3 % 36.0-66.0 Neutrophils % [place] ( [facility]) lymph % 34.2 % 24.0-44.0 Lymph % [place] ([facility]) eos % 5.0 % 0.0-3.0 Above high normal Eos % [place] ([facility]) mono % 5.7 % 2.0-8.0 [place] % [facility] ([facility]) neutrophils # 3.6 10 1.5-8.5 Neutrophils # [place] ( [facility]) baso % 1.0 % 0.0-1.0 Baso % [place] ([facility]) immature granulocyte % 1.8 % 0-3.0 Immature Gran ulocyte % [place] ([facility]) nucleated red blood cell % 0.0 % 0-0 Nucleated Red Blood Cell % [place] ([facility]) lymph # 2.3 10 1.5-5.0 Lymph # [place] ([facility]) mono # 0.4 10 0.0-0.8 [place] # [facility] ([facility]) eos # 0.3 10 0.0-0.5 Eos # [place] ([facility]) baso # 0.1 10 0.0-0.2 Baso # [place] ([facility]) ID Date Data Source [id number] 06/20/2020 08:56:00 AM EDT [place] ([facility]) Name Value Range Interpretation Code Description Data Christal rce(s) Supporting Document(s) Hemoglobin A1c/Hemoglobin.total in Blood 5.5 % Hemoglobin a1C [place] ([facility]) estimated average glucose 111 mg/dL 60-110 Above high norm al Estimated Average Glucose [place] ([facility]) ID Date Data Source [id number] 06/20/2020 08:56:00 AM EDT [place] ([facility]) Name Value Range Interpretation Code Description Data Christal rce(s) Supporting Document(s) thyroid stimulating hormone 2.220 uIU/mL 0.358-3.740 Thyroid Stimulating Hormone [place] ([facility]) ID Date Data Source [id number] 06/20/2020 08:56:00 AM EDT [place] ([facility]) Name Value Range Interpretation Code Description Data Christal rce(s) Supporting Document(s) iron (fe) 40 ug/dL 65-175 Below low normal Iron (Fe) [place] ( [facility]) total iron binding capacity 269 ug/dL 250-450 Total Ir on Binding Capacity [place] ([facility]) percent saturation 14.9 % 19.7-50.0 Below low normal Percent Sat uration [place] ([facility]) ID Date Data Source [id number] 06/20/2020 08:56:00 AM EDT [place] ([facility]) Name Value Range Interpretation Code Description Data Christal rce(s) Supporting Document(s) triglycerides level 176 mg/dL <150 Above high normal Triglycer ides Level [place] ([facility]) cholesterol level 153 mg/dL <200 Cholesterol Level [place] ([facility]) HDL cholesterol 36 mg/dL >40 Below low normal HDL Cholestero l [place] ([facility]) Cholesterol in LDL [Mass/volume] in Serum or Plasma 82 mg/dL <1 00 LDL Cholesterol [place] ([facility]) non-HDL-C 117 mg/dL Non-hdl-c [place] ([facility]) cholesterol risk ratio <5 Cholesterol R isk Ratio [facility] ([facility]) ID Date Data Source [id number] 06/20/2020 08:56:00 AM EDT [facility]) Name Value Range Interpretation Code Description Data Christal rce(s) Supporting Document(s) blood urea nitrogen 13 mg/dL 7-18 Blood Urea Nitro gen [place] ([facility]) glucose, fasting 113 mg/dL 70-100 Above high normal Glucose, Fas ting [place] ([facility]) creatinine for GFR 0.92 mg/dL 0.70-1.30 Creatinine for GF R [place] ([facility]) glomerular filtration rate > 60.0 >60 Glomerula r Filtration Rate [place] ([facility]) potassium serum 4.0 mEq/L 3.5-5.1 Potassium Serum [place] ([facility]) chloride level 109 mEq/L 98-107 Above high normal Chloride Level [place] ([facility]) sodium level 142 mEq/L 136-145 Sodium Level [facility] ([facility]) calcium level 9.2 mg/dL 8.5-10.1 Calcium Level [place] ( [facility]) anion gap 7 mEq/L 8-16 Below low normal Anion Gap [place] ( [facility]) carbon dioxide level 26 mEq/L 21-32 Carbon Dioxide Level [place] ([facility]) ALT/SGPT 43 U/L 12-78 ALT/SGPT [place] ([facility]) alkaline phosphatase 85 U/L 45-117 Alkaline Phosph atase [place] ([facility]) AST/SGOT 24 U/L 7-37 AST/SGOT [place] ([facility]) bilirubin,total 0.2 mg/dL 0.2-1.0 Bilirubin,total [place] ([facility]) total protein 7.6 gm/dL 6.4-8.2 Total Protein [place] ( [facility]) albumin 4.0 gm/dL 3.2-5.2 Albumin [place] ([facility]) albumin/globulin ratio Albumin/globu dayanna Ratio [facility] ([facility]) ID Date Data Source [id number] 06/20/2020 08:56:00 AM EDT [place] ([facility]) Name Value Range Interpretation Code Description Data Christal rce(s) Supporting Document(s) white blood count 6.9 10 4.0-10.0 White Blood Count [place] ([facility]) red blood count 5.03 10 4.30-6.10 Red Blood Count [place] ([facility]) hemoglobin 14.1 g/dL 13.5-17.5 Hemoglobin [place] ([facility]) hematocrit 47.0 % 42.0-52.0 Hematocrit [place] ([facility]) mean corpuscular volume 93.4 fL 80.0-96.0 Mean Corpusc ular Volume [place] ([facility]) red cell distribution width 17.9 % 11.5-14.5 Above high no rmal Red Cell Distribution Width [place] ([facility]) mean corpuscular HGB conc 30.0 g/dL 32.0-36.5 Below low ning l Mean Corpuscular HGB Conc [facility] ([facility]) mean corpuscular hemoglobin 28.0 pg 27.0-33.0 Mean Cor puscular Hemoglobin [facility] ([facility]) platelet count, automated 203 10 150-450 Platelet C ount, Automated [place] ([facility]) neutrophils % 52.3 % 36.0-66.0 Neutrophils % [place] ( [facility]) mono % 5.7 % 2.0-8.0 [place] % [place] ([facility]) lymph % 34.2 % 24.0-44.0 Lymph % [place] ([facility]) baso % 1.0 % 0.0-1.0 Baso % [place] ([facility]) eos % 5.0 % 0.0-3.0 Above high normal Eos % [place] ([facility]) immature granulocyte % 1.8 % 0-3.0 Immature Gran ulocyte % [place] ([facility]) nucleated red blood cell % 0.0 % 0-0 Nucleated Red Blood Cell % [place] ([facility]) neutrophils # 3.6 10 1.5-8.5 Neutrophils # [place] ( [facility]) mono # 0.4 10 0.0-0.8 [place] # [facility] ([facility]) lymph # 2.3 10 1.5-5.0 Lymph # [place] ([facility]) eos # 0.3 10 0.0-0.5 Eos # [place] ([facility]) baso # 0.1 10 0.0-0.2 Baso # [facility] ([facility]) ID Date Data Source [id number] 06/20/2020 08:56:00 AM EDT [place] ([facility]) Name Value Range Interpretation Code Description Data Christal rce(s) Supporting Document(s) estimated average glucose 111 mg/dL 60-110 Above high norm al Estimated Average Glucose [place] ([facility]) Hemoglobin A1c/Hemoglobin.total in Blood 5.5 % Hemoglobin a1C [place] ([facility]) ID Date Data Source [id number] 06/20/2020 08:56:00 AM EDT [place] ([facility]) Name Value Range Interpretation Code Description Data Christal rce(s) Supporting Document(s) thyroid stimulating hormone 2.220 uIU/mL 0.358-3.740 Thyroid Stimulating Hormone [place] ([facility]) ID Date Data Source [id number] 06/20/2020 08:56:00 AM EDT [place] ([facility]) Name Value Range Interpretation Code Description Data Christal rce(s) Supporting Document(s) total iron binding capacity 269 ug/dL 250-450 Total Ir on Binding Capacity [place] ([facility]) iron (fe) 40 ug/dL 65-175 Below low normal Iron (Fe) [place] ( [facility]) percent saturation 14.9 % 19.7-50.0 Below low normal Percent Sat uration [place] ([facility]) ID Date Data Source [id number] 06/20/2020 08:56:00 AM EDT [place] ([facility]) Name Value Range Interpretation Code Description Data Christal rce(s) Supporting Document(s) cholesterol level 153 mg/dL <200 Cholesterol Level [place] ([facility]) triglycerides level 176 mg/dL <150 Above high normal Triglycer ides Level [place] ([facility]) non-HDL-C 117 mg/dL Non-hdl-c [facility] ([facility]) Cholesterol in LDL [Mass/volume] in Serum or Plasma 82 mg/dL <1 00 LDL Cholesterol [place] ([facility]) HDL cholesterol 36 mg/dL >40 Below low normal HDL Cholestero l [place] ([facility]) cholesterol risk ratio <5 Cholesterol R isk Ratio [facility] ([facility]) ID Date Data Source [id number] 06/20/2020 08:56:00 AM EDT [place] ([facility]) Name Value Range Interpretation Code Description Data Christal rce(s) Supporting Document(s) glucose, fasting 113 mg/dL 70-100 Above high normal Glucose, Fas ting [place] ([facility]) blood urea nitrogen 13 mg/dL 7-18 Blood Urea Nitro gen [place] ([facility]) creatinine for GFR 0.92 mg/dL 0.70-1.30 Creatinine for GF R [place] ([facility]) glomerular filtration rate > 60.0 >60 Glomerula r Filtration Rate [place] ([facility]) chloride level 109 mEq/L 98-107 Above high normal Chloride Level [facility] ([facility]) sodium level 142 mEq/L 136-145 Sodium Level [facility] ([facility]) potassium serum 4.0 mEq/L 3.5-5.1 Potassium Serum [place] ([facility]) carbon dioxide level 26 mEq/L 21-32 Carbon Dioxide Level [facility] ([facility]) anion gap 7 mEq/L 8-16 Below low normal Anion Gap [place] ( [facility]) AST/SGOT 24 U/L 7-37 AST/SGOT [place] ([facility]) calcium level 9.2 mg/dL 8.5-10.1 Calcium Level [place] ( [facility]) ALT/SGPT 43 U/L 12-78 ALT/SGPT [place] ([facility]) bilirubin,total 0.2 mg/dL 0.2-1.0 Bilirubin,total [place] ([facility]) alkaline phosphatase 85 U/L 45-117 Alkaline Phosph atase [place] ([facility]) total protein 7.6 gm/dL 6.4-8.2 Total Protein [place] ( [facility]) albumin 4.0 gm/dL 3.2-5.2 Albumin [place] ([facility]) albumin/globulin ratio Albumin/globu dayanna Ratio [facility] ([facility]) ID Date Data Source [id number] 06/20/2020 08:56:00 AM EDT [place] ([facility]) Name Value Range Interpretation Code Description Data Christal rce(s) Supporting Document(s) red blood count 5.03 10 4.30-6.10 Red Blood Count [place] NA ([facility]) white blood count 6.9 10 4.0-10.0 White Blood Count [place] ([facility]) hemoglobin 14.1 g/dL 13.5-17.5 Hemoglobin [place] ([facility]) hematocrit 47.0 % 42.0-52.0 Hematocrit [place] ([facility]) mean corpuscular volume 93.4 fL 80.0-96.0 Mean Corpusc ular Volume [place] ([facility]) mean corpuscular HGB conc 30.0 g/dL 32.0-36.5 Below low ning l Mean Corpuscular HGB Conc [facility] ([facility]) mean corpuscular hemoglobin 28.0 pg 27.0-33.0 Mean Cor puscular Hemoglobin [place] ([facility]) red cell distribution width 17.9 % 11.5-14.5 Above high no rmal Red Cell Distribution Width [place] ([facility]) platelet count, automated 203 10 150-450 Platelet C ount, Automated [place] ([facility]) neutrophils % 52.3 % 36.0-66.0 Neutrophils % [place] ( [facility]) lymph % 34.2 % 24.0-44.0 Lymph % [place] ([facility]) eos % 5.0 % 0.0-3.0 Above high normal Eos % [place] ([facility]) mono % 5.7 % 2.0-8.0 [place] % [facility] ([facility]) nucleated red blood cell % 0.0 % 0-0 Nucleated Red Blood Cell % [place] ([facility]) baso % 1.0 % 0.0-1.0 Baso % [place] ([facility]) immature granulocyte % 1.8 % 0-3.0 Immature Gran ulocyte % [place] ([facility]) lymph # 2.3 10 1.5-5.0 Lymph # [facility] ([facility]) mono # 0.4 10 0.0-0.8 [place] # [facility] ([facility]) neutrophils # 3.6 10 1.5-8.5 Neutrophils # [place] ( [facility]) baso # 0.1 10 0.0-0.2 Baso # [place] ([facility]) eos # 0.3 10 0.0-0.5 Eos # [place] ([facility]) ID Date Data Source [id number] 06/20/2020 08:56:00 AM EDT [place] ([facility]) Name Value Range Interpretation Code Description Data Christal rce(s) Supporting Document(s) Hemoglobin A1c/Hemoglobin.total in Blood 5.5 % Hemoglobin a1C [place] ([facility]) estimated average glucose 111 mg/dL 60-110 Above high norm al Estimated Average Glucose [place] ([facility]) ID Date Data Source [id number] 06/20/2020 08:56:00 AM EDT [facility]) Name Value Range Interpretation Code Description Data Christal rce(s) Supporting Document(s) thyroid stimulating hormone 2.220 uIU/mL 0.358-3.740 Thyroid Stimulating Hormone [place] ([facility]) ID Date Data Source [id number] 06/20/2020 08:56:00 AM EDT [facility]) Name Value Range Interpretation Code Description Data Christal rce(s) Supporting Document(s) percent saturation 14.9 % 19.7-50.0 Below low normal Percent Sat uration [place] ([facility]) iron (fe) 40 ug/dL 65-175 Below low normal Iron (Fe) [place] ( [facility]) total iron binding capacity 269 ug/dL 250-450 Total Ir on Binding Capacity [place] ([facility]) ID Date Data Source [id number] 06/20/2020 08:56:00 AM EDT [facility]) Name Value Range Interpretation Code Description Data Christal rce(s) Supporting Document(s) triglycerides level 176 mg/dL <150 Above high normal Triglycer ides Level [place] ([facility]) cholesterol level 153 mg/dL <200 Cholesterol Level [place] ([facility]) HDL cholesterol 36 mg/dL >40 Below low normal HDL Cholestero l [place] ([facility]) Cholesterol in LDL [Mass/volume] in Serum or Plasma 82 mg/dL <1 00 LDL Cholesterol [place] ([facility]) cholesterol risk ratio <5 Cholesterol R isk Ratio [place] ([facility]) non-HDL-C 117 mg/dL Non-hdl-c [place] ([facility]) ID Date Data Source [id number] 06/20/2020 08:56:00 AM EDT [place] ([facility]) Name Value Range Interpretation Code Description Data Christal rce(s) Supporting Document(s) glucose, fasting 113 mg/dL 70-100 Above high normal Glucose, Fas ting [place] ([facility]) creatinine for GFR 0.92 mg/dL 0.70-1.30 Creatinine for GF R [place] ([facility]) blood urea nitrogen 13 mg/dL 7-18 Blood Urea Nitro gen [place] ([facility]) glomerular filtration rate > 60.0 >60 Glomerula r Filtration Rate [place] ([facility]) potassium serum 4.0 mEq/L 3.5-5.1 Potassium Serum [place] NA ([facility]) sodium level 142 mEq/L 136-145 Sodium Level [place] (No [facility]) chloride level 109 mEq/L 98-107 Above high normal Chloride Level [place] ([facility]) anion gap 7 mEq/L 8-16 Below low normal Anion Gap [place] ( [facility]) carbon dioxide level 26 mEq/L 21-32 Carbon Dioxide Level [place] ([facility]) AST/SGOT 24 U/L 7-37 AST/SGOT [place] ([facility]) calcium level 9.2 mg/dL 8.5-10.1 Calcium Level [place] ( [facility]) ALT/SGPT 43 U/L 12-78 ALT/SGPT [place] ([facility]) alkaline phosphatase 85 U/L 45-117 Alkaline Phosph atase [place] ([facility]) bilirubin,total 0.2 mg/dL 0.2-1.0 Bilirubin,total [place] NA ([facility]) total protein 7.6 gm/dL 6.4-8.2 Total Protein [place] ( [facility]) albumin 4.0 gm/dL 3.2-5.2 Albumin [place] ([facility]) albumin/globulin ratio Albumin/globu dayanna Ratio [facility] ([facility]) ID Date Data Source [id number] 06/20/2020 08:56:00 AM EDT [place] ([facility]) Name Value Range Interpretation Code Description Data Christal rce(s) Supporting Document(s) red blood count 5.03 10 4.30-6.10 Red Blood Count [place] ([facility]) white blood count 6.9 10 4.0-10.0 White Blood Count [place] ([facility]) hematocrit 47.0 % 42.0-52.0 Hematocrit [place] ([facility]) hemoglobin 14.1 g/dL 13.5-17.5 Hemoglobin [place] ([facility]) mean corpuscular volume 93.4 fL 80.0-96.0 Mean Corpusc ular Volume [place] ([facility]) mean corpuscular hemoglobin 28.0 pg 27.0-33.0 Mean Cor puscular Hemoglobin [place] ([facility]) mean corpuscular HGB conc 30.0 g/dL 32.0-36.5 Below low ning l Mean Corpuscular HGB Conc [place] ([facility]) red cell distribution width 17.9 % 11.5-14.5 Above high no rmal Red Cell Distribution Width [place] ([facility]) platelet count, automated 203 10 150-450 Platelet C ount, Automated [place] ([facility]) neutrophils % 52.3 % 36.0-66.0 Neutrophils % [place] ( [facility]) mono % 5.7 % 2.0-8.0 [place] % [place] ([facility]) lymph % 34.2 % 24.0-44.0 Lymph % [place] ([facility]) immature granulocyte % 1.8 % 0-3.0 Immature Gran ulocyte % [place] ([facility]) baso % 1.0 % 0.0-1.0 Baso % [place] ([facility]) eos % 5.0 % 0.0-3.0 Above high normal Eos % [place] ([facility]) nucleated red blood cell % 0.0 % 0-0 Nucleated Red Blood Cell % [place] ([facility]) lymph # 2.3 10 1.5-5.0 Lymph # [place] ([facility]) neutrophils # 3.6 10 1.5-8.5 Neutrophils # [place] ( [facility]) mono # 0.4 10 0.0-0.8 [place] # [place] ([facility]) eos # 0.3 10 0.0-0.5 Eos # [place] ([facility]) baso # 0.1 10 0.0-0.2 Baso # [place] ([facility]) ID Date Data Source [id number] 06/20/2020 08:56:00 AM EDT [place] ([facility]) Name Value Range Interpretation Code Description Data Christal rce(s) Supporting Document(s) Hemoglobin A1c/Hemoglobin.total in Blood 5.5 % Hemoglobin a1C [place] ([facility]) estimated average glucose 111 mg/dL 60-110 Above high norm al Estimated Average Glucose [place] ([facility]) ID Date Data Source [id number] 06/20/2020 08:56:00 AM EDT [place] ([facility]) Name Value Range Interpretation Code Description Data Christal rce(s) Supporting Document(s) thyroid stimulating hormone 2.220 uIU/mL 0.358-3.740 Thyroid Stimulating Hormone [place] ([facility]) ID Date Data Source [id number] 06/20/2020 08:56:00 AM EDT [place] ([facility]) Name Value Range Interpretation Code Description Data Christal rce(s) Supporting Document(s) iron (fe) 40 ug/dL 65-175 Below low normal Iron (Fe) [place] ( [facility]) percent saturation 14.9 % 19.7-50.0 Below low normal Percent Sat uration [place] ([facility]) total iron binding capacity 269 ug/dL 250-450 Total Ir on Binding Capacity [place] ([facility]) ID Date Data Source [id number] 06/20/2020 08:56:00 AM EDT [place] ([facility]) Name Value Range Interpretation Code Description Data Christal rce(s) Supporting Document(s) cholesterol level 153 mg/dL <200 Cholesterol Level [place] ([facility]) triglycerides level 176 mg/dL <150 Above high normal Triglycer ides Level [place] ([facility]) HDL cholesterol 36 mg/dL >40 Below low normal HDL Cholestero l [place] ([facility]) cholesterol risk ratio <5 Cholesterol R isk Ratio [place] ([facility]) Cholesterol in LDL [Mass/volume] in Serum or Plasma 82 mg/dL <1 00 LDL Cholesterol [place] ([facility]) non-HDL-C 117 mg/dL Non-hdl-c [place] ([facility]) ID Date Data Source [id number] 06/20/2020 08:56:00 AM EDT [place] ([facility]) Name Value Range Interpretation Code Description Data Christal rce(s) Supporting Document(s) blood urea nitrogen 13 mg/dL 7-18 Blood Urea Nitro gen [place] ([facility]) glucose, fasting 113 mg/dL 70-100 Above high normal Glucose, Fas ting [place] ([facility]) creatinine for GFR 0.92 mg/dL 0.70-1.30 Creatinine for GF R [place] ([facility]) glomerular filtration rate > 60.0 >60 Glomerula r Filtration Rate [place] ([facility]) chloride level 109 mEq/L 98-107 Above high normal Chloride Level [place] ([facility]) potassium serum 4.0 mEq/L 3.5-5.1 Potassium Serum [place] NA ([facility]) sodium level 142 mEq/L 136-145 Sodium Level [place] (No [facility]) carbon dioxide level 26 mEq/L 21-32 Carbon Dioxide Level [place] ([facility]) calcium level 9.2 mg/dL 8.5-10.1 Calcium Level [place] ( [facility]) anion gap 7 mEq/L 8-16 Below low normal Anion Gap [place] ( [facility]) AST/SGOT 24 U/L 7-37 AST/SGOT [place] ([facility]) bilirubin,total 0.2 mg/dL 0.2-1.0 Bilirubin,total [place] ([facility]) alkaline phosphatase 85 U/L 45-117 Alkaline Phosph atase [place] ([facility]) ALT/SGPT 43 U/L 12-78 ALT/SGPT [place] ([facility]) total protein 7.6 gm/dL 6.4-8.2 Total Protein [place] ( [facility]) albumin/globulin ratio Albumin/globu [place] Ratio [place] ([facility]) albumin 4.0 gm/dL 3.2-5.2 Albumin [place] ([facility]) ID Date Data Source [id number] 06/20/2020 08:56:00 AM EDT [place] ([facility]) Name Value Range Interpretation Code Description Data Christal rce(s) Supporting Document(s) red blood count 5.03 10 4.30-6.10 Red Blood Count [place] ([facility]) hemoglobin 14.1 g/dL 13.5-17.5 Hemoglobin [place] ([facility]) white blood count 6.9 10 4.0-10.0 White Blood Count [place] ([facility]) mean corpuscular volume 93.4 fL 80.0-96.0 Mean Corpusc ular Volume [place] ([facility]) mean corpuscular hemoglobin 28.0 pg 27.0-33.0 Mean Cor puscular Hemoglobin [place] ([facility]) hematocrit 47.0 % 42.0-52.0 Hematocrit [place] ([facility]) red cell distribution width 17.9 % 11.5-14.5 Above high no rmal Red Cell Distribution Width [place] ([facility]) mean corpuscular HGB conc 30.0 g/dL 32.0-36.5 Below low ning l Mean Corpuscular HGB Conc [place] ([facility]) platelet count, automated 203 10 150-450 Platelet C ount, Automated [place] ([facility]) lymph % 34.2 % 24.0-44.0 Lymph % [place] ([facility]) neutrophils % 52.3 % 36.0-66.0 Neutrophils % [place] ( [facility]) eos % 5.0 % 0.0-3.0 Above high normal Eos % [place] ([facility]) mono % 5.7 % 2.0-8.0 [place] % [place] ([facility]) baso % 1.0 % 0.0-1.0 Baso % [place] ([facility]) nucleated red blood cell % 0.0 % 0-0 Nucleated Red Blood Cell % [place] ([facility]) immature granulocyte % 1.8 % 0-3.0 Immature Gran ulocyte % [place] ([facility]) mono # 0.4 10 0.0-0.8 [place] # [place] ([facility]) lymph # 2.3 10 1.5-5.0 Lymph # [place] ([facility]) neutrophils # 3.6 10 1.5-8.5 Neutrophils # [place] ( [facility]) eos # 0.3 10 0.0-0.5 Eos # [place] ([facility]) baso # 0.1 10 0.0-0.2 Baso # [place] ([facility]) ID Date Data Source [id number] 06/20/2020 08:56:00 AM EDT [place] ([facility]) Name Value Range Interpretation Code Description Data Christal rce(s) Supporting Document(s) Hemoglobin A1c/Hemoglobin.total in Blood 5.5 % Hemoglobin a1C [place] ([facility]) estimated average glucose 111 mg/dL 60-110 Above high norm al Estimated Average Glucose [facility]) ID Date Data Source [id number] 06/20/2020 08:56:00 AM EDT [place] ([facility]) Name Value Range Interpretation Code Description Data Christal rce(s) Supporting Document(s) thyroid stimulating hormone 2.220 uIU/mL 0.358-3.740 Thyroid Stimulating Hormone [place] ([facility]) ID Date Data Source [id number] 06/20/2020 08:56:00 AM EDT [facility]) Name Value Range Interpretation Code Description Data Christal rce(s) Supporting Document(s) iron (fe) 40 ug/dL 65-175 Below low normal Iron (Fe) [place] ( [facility]) total iron binding capacity 269 ug/dL 250-450 Total Ir on Binding Capacity [place] ([facility]) percent saturation 14.9 % 19.7-50.0 Below low normal Percent Sat uration [place] ([facility]) ID Date Data Source [id number] 06/20/2020 08:56:00 AM EDT [facility]) Name Value Range Interpretation Code Description Data Christal rce(s) Supporting Document(s) triglycerides level 176 mg/dL <150 Above high normal Triglycer ides Level [place] ([facility]) cholesterol level 153 mg/dL <200 Cholesterol Level [place] ([facility]) cholesterol risk ratio <5 Cholesterol R isk Ratio [place] ([facility]) non-HDL-C 117 mg/dL Non-hdl-c [place] ([facility]) HDL cholesterol 36 mg/dL >40 Below low normal HDL Cholestero l [facility] ([facility]) Cholesterol in LDL [Mass/volume] in Serum or Plasma 82 mg/dL <1 00 LDL Cholesterol [facility] ([facility]) ID Date Data Source [id number] 06/20/2020 08:56:00 AM EDT [place] ([facility]) Name Value Range Interpretation Code Description Data Christal rce(s) Supporting Document(s) glucose, fasting 113 mg/dL 70-100 Above high normal Glucose, Fas ting [place] ([facility]) blood urea nitrogen 13 mg/dL 7-18 Blood Urea Nitro gen [place] ([facility]) potassium serum 4.0 mEq/L 3.5-5.1 Potassium Serum ATHE NA ([facility]) sodium level 142 mEq/L 136-145 Sodium Level [facility] ([facility]) glomerular filtration rate > 60.0 >60 Glomerula r Filtration Rate [facility] ([facility]) creatinine for GFR 0.92 mg/dL 0.70-1.30 Creatinine for GF R [place] ([facility]) chloride level 109 mEq/L 98-107 Above high normal Chloride Level [facility] ([facility]) anion gap 7 mEq/L 8-16 Below low normal Anion Gap [place] ( [facility]) calcium level 9.2 mg/dL 8.5-10.1 Calcium Level [place] ( [facility]) carbon dioxide level 26 mEq/L 21-32 Carbon Dioxide Level [place] ([facility]) AST/SGOT 24 U/L 7-37 AST/SGOT [facility] ([facility]) bilirubin,total 0.2 mg/dL 0.2-1.0 Bilirubin,total ATHE NA ([facility]) ALT/SGPT 43 U/L 12-78 ALT/SGPT [place] ([facility]) alkaline phosphatase 85 U/L 45-117 Alkaline Phosph atase [facility] ([facility]) total protein 7.6 gm/dL 6.4-8.2 Total Protein [place] ( [facility]) albumin 4.0 gm/dL 3.2-5.2 Albumin [facility] ([facility]) albumin/globulin ratio Albumin/globu dayanna Ratio [facility] ([facility]) ID Date Data Source [id number] 06/20/2020 08:56:00 AM EDT [place] ([facility]) Name Value Range Interpretation Code Description Data Christal rce(s) Supporting Document(s) white blood count 6.9 10 4.0-10.0 White Blood Count [place] ([facility]) red blood count 5.03 10 4.30-6.10 Red Blood Count [place] ([facility]) mean corpuscular volume 93.4 fL 80.0-96.0 Mean Corpusc ular Volume [place] ([facility]) hemoglobin 14.1 g/dL 13.5-17.5 Hemoglobin [facility] ([facility]) hematocrit 47.0 % 42.0-52.0 Hematocrit [place] ([facility]) red cell distribution width 17.9 % 11.5-14.5 Above high no rmal Red Cell Distribution Width [facility] ([facility]) platelet count, automated 203 10 150-450 Platelet C ount, Automated [facility] ([facility]) mean corpuscular hemoglobin 28.0 pg 27.0-33.0 Mean Cor puscular Hemoglobin [facility] ([facility]) mean corpuscular HGB conc 30.0 g/dL 32.0-36.5 Below low ning l Mean Corpuscular HGB Conc [facility] ([facility]) neutrophils % 52.3 % 36.0-66.0 Neutrophils % [place] ( [facility]) lymph % 34.2 % 24.0-44.0 Lymph % [facility] ([facility]) mono % 5.7 % 2.0-8.0 [place] % [facility] ([facility]) nucleated red blood cell % 0.0 % 0-0 Nucleated Red Blood Cell % [facility] ([facility]) immature granulocyte % 1.8 % 0-3.0 Immature Gran ulocyte % [facility] ([facility]) eos % 5.0 % 0.0-3.0 Above high normal Eos % [facility] ([facility]) baso % 1.0 % 0.0-1.0 Baso % [facility] ([facility]) lymph # 2.3 10 1.5-5.0 Lymph # [facility] ([facility]) neutrophils # 3.6 10 1.5-8.5 Neutrophils # [facility] ( [facility]) baso # 0.1 10 0.0-0.2 Baso # [facility] ([facility]) eos # 0.3 10 0.0-0.5 Eos # [facility] ([facility]) mono # 0.4 10 0.0-0.8 [place] # [facility] ([facility]) ID Date Data Source [id number] 06/20/2020 08:56:00 AM EDT [place] ([facility]) Name Value Range Interpretation Code Description Data Christal rce(s) Supporting Document(s) estimated average glucose 111 mg/dL 60-110 Above high norm al Estimated Average Glucose [place] ([facility]) Hemoglobin A1c/Hemoglobin.total in Blood 5.5 % Hemoglobin a1C [place] ([facility]) ID Date Data Source [id number] 06/20/2020 08:56:00 AM EDT [place] ([facility]) Name Value Range Interpretation Code Description Data Christal rce(s) Supporting Document(s) thyroid stimulating hormone 2.220 uIU/mL 0.358-3.740 Thyroid Stimulating Hormone [place] ([facility]) ID Date Data Source [id number] 06/20/2020 08:56:00 AM EDT [place] ([facility]) Name Value Range Interpretation Code Description Data Christal rce(s) Supporting Document(s) iron (fe) 40 ug/dL 65-175 Below low normal Iron (Fe) [place] ( [facility]) total iron binding capacity 269 ug/dL 250-450 Total Ir on Binding Capacity [place] ([facility]) percent saturation 14.9 % 19.7-50.0 Below low normal Percent Sat uration [place] ([facility]) ID Date Data Source [id number] 06/20/2020 08:56:00 AM EDT [place] ([facility]) Name Value Range Interpretation Code Description Data Christal rce(s) Supporting Document(s) cholesterol level 153 mg/dL <200 Cholesterol Level [place] ([facility]) triglycerides level 176 mg/dL <150 Above high normal Triglycer ides Level [place] ([facility]) HDL cholesterol 36 mg/dL >40 Below low normal HDL Cholestero l [place] ([facility]) cholesterol risk ratio <5 Cholesterol R isk Ratio [facility] ([facility]) Cholesterol in LDL [Mass/volume] in Serum or Plasma 82 mg/dL <1 00 LDL Cholesterol [place] ([facility]) non-HDL-C 117 mg/dL Non-hdl-c [facility] ([facility]) ID Date Data Source [id number] 06/20/2020 08:56:00 AM EDT [place] ([facility]) Name Value Range Interpretation Code Description Data Christal rce(s) Supporting Document(s) glucose, fasting 113 mg/dL 70-100 Above high normal Glucose, Fas ting [place] ([facility]) blood urea nitrogen 13 mg/dL 7-18 Blood Urea Nitro gen [place] ([facility]) sodium level 142 mEq/L 136-145 Sodium Level [facility] (No [facility]) glomerular filtration rate > 60.0 >60 Glomerula r Filtration Rate [place] ([facility]) creatinine for GFR 0.92 mg/dL 0.70-1.30 Creatinine for GF R [place] ([facility]) potassium serum 4.0 mEq/L 3.5-5.1 Potassium Serum ATHE NA ([facility]) carbon dioxide level 26 mEq/L 21-32 Carbon Dioxide Level [place] ([facility]) anion gap 7 mEq/L 8-16 Below low normal Anion Gap [place] ( [facility]) chloride level 109 mEq/L 98-107 Above high normal Chloride Level [place] ([facility]) AST/SGOT 24 U/L 7-37 AST/SGOT [place] ([facility]) ALT/SGPT 43 U/L 12-78 ALT/SGPT [place] ([facility]) alkaline phosphatase 85 U/L 45-117 Alkaline Phosph atase [place] ([facility]) calcium level 9.2 mg/dL 8.5-10.1 Calcium Level [place] ( [facility]) albumin 4.0 gm/dL 3.2-5.2 Albumin [place] ([facility]) total protein 7.6 gm/dL 6.4-8.2 Total Protein [place] ( [facility]) bilirubin,total 0.2 mg/dL 0.2-1.0 Bilirubin,total ATHE NA ([facility]) albumin/globulin ratio Albumin/globu dayanna Ratio [place] ([facility]) ID Date Data Source [id number] 06/20/2020 08:56:00 AM EDT [place] ([facility]) Name Value Range Interpretation Code Description Data Christal rce(s) Supporting Document(s) white blood count 6.9 10 4.0-10.0 White Blood Count [place] ([facility]) red blood count 5.03 10 4.30-6.10 Red Blood Count [place] ([facility]) hematocrit 47.0 % 42.0-52.0 Hematocrit [place] ([facility]) hemoglobin 14.1 g/dL 13.5-17.5 Hemoglobin [place] ([facility]) mean corpuscular volume 93.4 fL 80.0-96.0 Mean Corpusc ular Volume [place] ([facility]) mean corpuscular hemoglobin 28.0 pg 27.0-33.0 Mean Cor puscular Hemoglobin [place] ([facility]) mean corpuscular HGB conc 30.0 g/dL 32.0-36.5 Below low ning l Mean Corpuscular HGB Conc [place] ([facility]) red cell distribution width 17.9 % 11.5-14.5 Above high no rmal Red Cell Distribution Width [place] ([facility]) lymph % 34.2 % 24.0-44.0 Lymph % [place] ([facility]) platelet count, automated 203 10 150-450 Platelet C ount, Automated [place] ([facility]) neutrophils % 52.3 % 36.0-66.0 Neutrophils % [place] ( [facility]) mono % 5.7 % 2.0-8.0 [place] % [place] ([facility]) immature granulocyte % 1.8 % 0-3.0 Immature Gran ulocyte % [place] ([facility]) baso % 1.0 % 0.0-1.0 Baso % [place] ([facility]) eos % 5.0 % 0.0-3.0 Above high normal Eos % [place] ([facility]) lymph # 2.3 10 1.5-5.0 Lymph # [place] ([facility]) nucleated red blood cell % 0.0 % 0-0 Nucleated Red Blood Cell % [place] ([facility]) neutrophils # 3.6 10 1.5-8.5 Neutrophils # [place] ( [facility]) mono # 0.4 10 0.0-0.8 [place] # [facility] ([facility]) baso # 0.1 10 0.0-0.2 Baso # [facility] ([facility]) eos # 0.3 10 0.0-0.5 Eos # [place] ([facility]) ID Date Data Source [id number] 06/20/2020 08:56:00 AM EDT [place] ([facility]) Name Value Range Interpretation Code Description Data Christal rce(s) Supporting Document(s) Hemoglobin A1c/Hemoglobin.total in Blood 5.5 % Hemoglobin a1C [place] ([facility]) estimated average glucose 111 mg/dL 60-110 Above high norm al Estimated Average Glucose [place] ([facility]) ID Date Data Source [id number] 06/20/2020 08:56:00 AM EDT [place] ([facility]) Name Value Range Interpretation Code Description Data Christal rce(s) Supporting Document(s) thyroid stimulating hormone 2.220 uIU/mL 0.358-3.740 Thyroid Stimulating Hormone [place] ([facility]) ID Date Data Source [id number] [facility]2020 [facility] Name Value Range Interpretation Code Description Data Christal rce(s) Supporting Document(s) iron (fe) 40 ug/dL 65-175 Below low normal Iron (Fe) [place] ( [facility]) percent saturation 14.9 % 19.7-50.0 Below low normal Percent Sat uration [place] ([facility]) total iron binding capacity 269 ug/dL 250-450 Total Ir on Binding Capacity [place] ([facility]) ID Date Data Source [id number] 06/20/2020 08:56:00 AM EDT [facility]) Name Value Range Interpretation Code Description Data Christal rce(s) Supporting Document(s) cholesterol level 153 mg/dL <200 Cholesterol Level [place] ([facility]) triglycerides level 176 mg/dL <150 Above high normal Triglycer ides Level [place] ([facility]) HDL cholesterol 36 mg/dL >40 Below low normal HDL Cholestero l [place] ([facility]) non-HDL-C 117 mg/dL Non-hdl-c [place] ([facility]) cholesterol risk ratio <5 Cholesterol R isk Ratio [place] ([facility]) Cholesterol in LDL [Mass/volume] in Serum or Plasma 82 mg/dL <1 00 LDL Cholesterol [place] ([facility]) ID Date Data Source [id number] 06/20/2020 08:56:00 AM EDT [place] ([facility]) Name Value Range Interpretation Code Description Data Christal rce(s) Supporting Document(s) glucose, fasting 113 mg/dL 70-100 Above high normal Glucose, Fas ting [place] ([facility]) glomerular filtration rate > 60.0 >60 Glomerula r Filtration Rate [place] ([facility]) creatinine for GFR 0.92 mg/dL 0.70-1.30 Creatinine for GF R [place] ([facility]) blood urea nitrogen 13 mg/dL 7-18 Blood Urea Nitro gen [place] ([facility]) potassium serum 4.0 mEq/L 3.5-5.1 Potassium Serum [place]HE NA ([facility]) sodium level 142 mEq/L 136-145 Sodium Level [facility] ([facility]) chloride level 109 mEq/L 98-107 Above high normal Chloride Level [place] ([facility]) calcium level 9.2 mg/dL 8.5-10.1 Calcium Level [place] ( [facility]) anion gap 7 mEq/L 8-16 Below low normal Anion Gap [place] ( [facility]) carbon dioxide level 26 mEq/L 21-32 Carbon Dioxide Level [place] ([facility]) AST/SGOT 24 U/L 7-37 AST/SGOT [place] ([facility]) alkaline phosphatase 85 U/L 45-117 Alkaline Phosph atase [place] ([facility]) ALT/SGPT 43 U/L 12-78 ALT/SGPT [place] ([facility]) bilirubin,total 0.2 mg/dL 0.2-1.0 Bilirubin,total AT[place] NA ([facility]) total protein 7.6 gm/dL 6.4-8.2 Total Protein [place] ( [facility]) albumin/globulin ratio Albumin/globu dayanna Ratio [place] ([facility]) albumin 4.0 gm/dL 3.2-5.2 Albumin [place] ([facility]) ID Date Data Source [id number] 06/20/2020 08:56:00 AM EDT [place] ([facility]) Name Value Range Interpretation Code Description Data Christal rce(s) Supporting Document(s) white blood count 6.9 10 4.0-10.0 White Blood Count [place] ([facility]) red blood count 5.03 10 4.30-6.10 Red Blood Count [place] NA ([facility]) hemoglobin 14.1 g/dL 13.5-17.5 Hemoglobin [place] ([facility]) hematocrit 47.0 % 42.0-52.0 Hematocrit [place] ([facility]) mean corpuscular volume 93.4 fL 80.0-96.0 Mean Corpusc ular Volume [place] ([facility]) mean corpuscular hemoglobin 28.0 pg 27.0-33.0 Mean Cor puscular Hemoglobin [place] ([facility]) red cell distribution width 17.9 % 11.5-14.5 Above high no rmal Red Cell Distribution Width [place] ([facility]) mean corpuscular HGB conc 30.0 g/dL 32.0-36.5 Below low ning l Mean Corpuscular HGB Conc [place] ([facility]) platelet count, automated 203 10 150-450 Platelet C ount, Automated [place] ([facility]) neutrophils % 52.3 % 36.0-66.0 Neutrophils % [place] ( [facility]) lymph % 34.2 % 24.0-44.0 Lymph % [place] ([facility]) mono % 5.7 % 2.0-8.0 [place] % [place] ([facility]) eos % 5.0 % 0.0-3.0 Above high normal Eos % [place] ([facility]) baso % 1.0 % 0.0-1.0 Baso % [place] ([facility]) immature granulocyte % 1.8 % 0-3.0 Immature Gran ulocyte % [place] ([facility]) neutrophils # 3.6 10 1.5-8.5 Neutrophils # [place] ( [facility]) lymph # 2.3 10 1.5-5.0 Lymph # [place] ([facility]) nucleated red blood cell % 0.0 % 0-0 Nucleated Red Blood Cell % [place] ([facility]) mono # 0.4 10 0.0-0.8 [place] # [place] ([facility]) baso # 0.1 10 0.0-0.2 Baso # [place] ([facility]) eos # 0.3 10 0.0-0.5 Eos # [place] ([facility]) Procedure Social History No Information Vital Signs ID Date Data Source UNK Name Value Range Interpretation Code Description Data Source(s) Diastolic blood pressure 83 mm[Hg] 83 mm[Hg] [place] ([facility]) Body height 72 [in_i] 72 [in_i] [place] ([facility]) Body mass index (BMI) [Ratio] 40.2 kg/m2 40.2 k g/m2 [place] ([facility]) Systolic blood pressure 125 mm[Hg] 125 mm[Hg] A [facility] ([facility]) Body weight 4740 [oz_av] 4740 [oz_av] [place] ([facility]) Diastolic blood pressure 83 mm[Hg] 83 mm[Hg] [place] ([facility]) Body height 72 [in_i] 72 [in_i] [place] ([facility]) Body mass index (BMI) [Ratio] 40.2 kg/m2 40.2 k g/m2 [place] ([facility]) Systolic blood pressure 125 mm[Hg] 125 mm[Hg] [facility] Body weight 4740 [oz_av] 4740 [oz_av] [place] ([facility]) Diastolic blood pressure 83 mm[Hg] 83 mm[Hg] [place] ([facility]) Body height 72 [in_i] 72 [in_i] [place] ([facility]) Body mass index (BMI) [Ratio] 40.2 kg/m2 40.2 k g/m2 [place] ([facility]) Systolic blood pressure 125 mm[Hg] 125 mm[Hg] [facility] Body weight 4740 [oz_av] 4740 [oz_av] [place] ([facility]) Systolic blood pressure 119 mm[Hg] 119 mm[Hg] M [place] ([facility], ) Diastolic blood pressure 70 mm[Hg] 70 mm[Hg] [facility] ([facility]) Body mass index (BMI) [Ratio] 40.7 kg/m2 40.7 k g/m2 [facility] ([facility]) [place] body weight 178 [lb_av] 178 [lb_av] [place] T ([facility]) Body height 72 [in_i] 72 [in_i] [facility] ([facility]) 6'0" Body weight 300.00 [lb_av] 300.00 [lb_av] [facility] Body weight 136.080 kg 136.080 kg [facility] ([facility]) Body surface area Derived from formula 2.53 m2 2.53 m2 [facility] ([facility]) Body height 72 [in_i] 72 [in_i] [place] ([facility]) Body height 72 [in_i] 72 [in_i] [place] ([facility]) Body height 72 [in_i] 72 [in_i] [place] ([facility]) Body height 72 [in_i] 72 [in_i] [place] ([facility]) Body height 72 [in_i] 72 [in_i] [place] ([facility]) Body height 72 [in_i] 72 [in_i] [place] ([facility]) Body height 72 [in_i] 72 [in_i] [place] ([facility]) Body height 72 [in_i] 72 [in_i] [place] ([facility]) Body height 72 [in_i] 72 [in_i] [place] ([facility]) Body height 72 [in_i] 72 [in_i] [place] ([facility]) Body height 72 [in_i] 72 [in_i] [place] ([facility]) Body height 72 [in_i] 72 [in_i] [place] ([facility]) Body height 72 [in_i] 72 [in_i] [place] ([facility]) Body height 72 [in_i] 72 [in_i] [place] ([facility]) Body height 72 [in_i] 72 [in_i] [place] ([facility]) Diastolic blood pressure 86 mm[Hg] 86 mm[Hg] [place] ([facility]) Body height 72 [in_i] 72 [in_i] [place] ([facility]) Body mass index (BMI) [Ratio] 41.4 kg/m2 41.4 k g/m2 [place] ([facility]) Systolic blood pressure 121 mm[Hg] 121 mm[Hg] A [facility] ([facility]) Body weight 4880 [oz_av] 4880 [oz_av] [place] ([facility]) Diastolic blood pressure 86 mm[Hg] 86 mm[Hg] [place] ([facility]) Body height 72 [in_i] 72 [in_i] [place] ([facility]) Body mass index (BMI) [Ratio] 41.4 kg/m2 41.4 k g/m2 [place] ([facility]) Systolic blood pressure 121 mm[Hg] 121 mm[Hg] [facility] Body weight 4880 [oz_av] 4880 [oz_av] [place] ([facility]) Diastolic blood pressure 86 mm[Hg] 86 mm[Hg] [place] ([facility]) Body height 72 [in_i] 72 [in_i] [place] ([facility]) Body mass index (BMI) [Ratio] 41.4 kg/m2 41.4 k g/m2 [place] ([facility]) Systolic blood pressure 121 mm[Hg] 121 mm[Hg] [facility] Body weight 4880 [oz_av] 4880 [oz_av] [place] ([facility]) Diastolic blood pressure 86 mm[Hg] 86 mm[Hg] [place] ([facility]) Body height 72 [in_i] 72 [in_i] [place] ([facility]) Body mass index (BMI) [Ratio] 41.4 kg/m2 41.4 k g/m2 [place] ([facility]) Systolic blood pressure 121 mm[Hg] 121 mm[Hg] A [place] ([facility]) Body weight 4880 [oz_av] 4880 [oz_av] [place] ([facility]) Diastolic blood pressure 86 mm[Hg] 86 mm[Hg] [place] ([facility]) Body height 72 [in_i] 72 [in_i] [place] ([facility]) Body mass index (BMI) [Ratio] 41.4 kg/m2 41.4 k g/m2 [place] ([facility]) Systolic blood pressure 121 mm[Hg] 121 mm[Hg] [facility] Body weight 4880 [oz_av] 4880 [oz_av] [place] ([facility]) Diastolic blood pressure 86 mm[Hg] 86 mm[Hg] [place] ([facility]) Body height 72 [in_i] 72 [in_i] [place] ([facility]) Body mass index (BMI) [Ratio] 41.4 kg/m2 41.4 k g/m2 [place] ([facility]) Systolic blood pressure 121 mm[Hg] 121 mm[Hg] A [place] ([facility]) Body weight 4880 [oz_av] 4880 [oz_av] [place] ([facility]) Diastolic blood pressure 86 mm[Hg] 86 mm[Hg] [place] ([facility]) Body height 72 [in_i] 72 [in_i] [place] ([facility]) Body mass index (BMI) [Ratio] 41.4 kg/m2 41.4 k g/m2 [place] ([facility]) Systolic blood pressure 121 mm[Hg] 121 mm[Hg] A [place] ([facility]) Body weight 4880 [oz_av] 4880 [oz_av] [place] ([facility]) Diastolic blood pressure 86 mm[Hg] 86 mm[Hg] [place] ([facility]) Body height 72 [in_i] 72 [in_i] [place] ([facility]) Body mass index (BMI) [Ratio] 41.4 kg/m2 41.4 k g/m2 [place] ([facility]) Systolic blood pressure 121 mm[Hg] 121 mm[Hg] A [place] ([facility]) Body weight 4880 [oz_av] 4880 [oz_av] [place] ([facility]) Diastolic blood pressure 86 mm[Hg] 86 mm[Hg] [place] ([facility]) Body height 72 [in_i] 72 [in_i] [place] ([facility]) Body mass index (BMI) [Ratio] 41.4 kg/m2 41.4 k g/m2 [place] ([facility]) Systolic blood pressure 121 mm[Hg] 121 mm[Hg] [facility] Body weight 4880 [oz_av] 4880 [oz_av] [place] ([facility]) Diastolic blood pressure 86 mm[Hg] 86 mm[Hg] [place] ([facility]) Body height 72 [in_i] 72 [in_i] [place] ([facility]) Body mass index (BMI) [Ratio] 41.4 kg/m2 41.4 k g/m2 [place] ([facility]) Systolic blood pressure 121 mm[Hg] 121 mm[Hg] A [place] ([facility]) Body weight 4880 [oz_av] 4880 [oz_av] [place] ([facility]) Diastolic blood pressure 86 mm[Hg] 86 mm[Hg] [place] ([facility]) Body height 72 [in_i] 72 [in_i] [place] ([facility]) Body mass index (BMI) [Ratio] 41.4 kg/m2 41.4 k g/m2 [place] ([facility]) Systolic blood pressure 121 mm[Hg] 121 mm[Hg] A THENA ([facility]) Body weight 4880 [oz_av] 4880 [oz_av] SANDER ([facility]) Diastolic blood pressure 86 mm[Hg] 86 mm[Hg] SANDER ([facility]) Body height 72 [in_i] 72 [in_i] SANDER ([facility]) Body mass index (BMI) [Ratio] 41.4 kg/m2 41.4 k g/m2 SANDER ([facility]) Systolic blood pressure 121 mm[Hg] 121 mm[Hg] A THENA ([facility]) Body weight 4880 [oz_av] 4880 [oz_av] SANDER ([facility]) Diastolic blood pressure 86 mm[Hg] 86 mm[Hg] SANDER ([facility]) Body height 72 [in_i] 72 [in_i] SANDER ([facility]) Body mass index (BMI) [Ratio] 41.4 kg/m2 41.4 k g/m2 SANDER ([facility]) Systolic blood pressure 121 mm[Hg] 121 mm[Hg] [facility] Body weight 4880 [oz_av] 4880 [oz_av] SANDER ([facility]) Diastolic blood pressure 86 mm[Hg] 86 mm[Hg] SANDER ([facility]) Body height 72 [in_i] 72 [in_i] SANDER ([facility]) Body mass index (BMI) [Ratio] 41.4 kg/m2 41.4 k g/m2 SANDER ([facility]) Systolic blood pressure 121 mm[Hg] 121 mm[Hg] A THENA ([facility]) Body weight 4880 [oz_av] 4880 [oz_av] SANDER ([facility]) Diastolic blood pressure 86 mm[Hg] 86 mm[Hg] SANDER ([facility]) Body height 72 [in_i] 72 [in_i] SANDER ([facility]) Body mass index (BMI) [Ratio] 41.4 kg/m2 41.4 k g/m2 SANDER ([facility]) Systolic blood pressure 121 mm[Hg] 121 mm[Hg] A THENA ([facility]) Body weight 4880 [oz_av] 4880 [oz_av] SANDER ([facility]) Diastolic blood pressure 86 mm[Hg] 86 mm[Hg] SANDER ([facility]) Body height 72 [in_i] 72 [in_i] SANDER ([facility]) Body mass index (BMI) [Ratio] 41.4 kg/m2 41.4 k g/m2 SANDER ([facility]) Systolic blood pressure 121 mm[Hg] 121 mm[Hg] A THENA ([facility]) Body weight 4880 [oz_av] 4880 [oz_av] SANDER ([facility]) Patient Treatment Plan of Care Planned Activity Planned Date Details Description Data Source (s) Sumatriptan 50 MG Oral Tablet 04/03/2019 12:00:00 AM [facility] Metronidazole 500 MG Oral Tablet SANDER ([facility]) Hydroxyzine Hydrochloride 50 MG Oral Tablet SANDER ([facility]) Azithromycin 250 MG Oral Tablet SANDER ([facility]) topiramate 25 MG Oral Tablet SANDER ([facility]) Sumatriptan 50 MG Oral Tablet [facility]ANDER ([facility]) Omeprazole 40 MG Delayed Release Oral Capsule SANDER ([facility]) Metronidazole 500 MG Oral Tablet SANDER ([facility]) Hydroxyzine Hydrochloride 50 MG Oral Tablet SANDER ([facility]) Azithromycin 250 MG Oral Tablet SANDER ([facility]) topiramate 25 MG Oral Tablet SANDER ([facility]) Sumatriptan 50 MG Oral Tablet SANDER ([facility]) Omeprazole 40 MG Delayed Release Oral Capsule SANDER ([facility]) Metronidazole 500 MG Oral Tablet SANDER ([facility]) Hydroxyzine Hydrochloride 50 MG Oral Tablet SANDER ([facility]) Azithromycin 250 MG Oral Tablet SANDER ([facility]) topiramate 25 MG Oral Tablet SANDER ([facility]) Sumatriptan 50 MG Oral Tablet SANDER ([facility]) Metronidazole 500 MG Oral Tablet SANDER ([facility]) Azithromycin 250 MG Oral Tablet [facility]ANDER ([facility]) topiramate 25 MG Oral Tablet [facility]ANDER ([facility]) Sumatriptan 50 MG Oral Tablet SANDER ([facility]) Metronidazole 500 MG Oral Tablet SANDER ([facility]) Azithromycin 250 MG Oral Tablet SANDER ([facility]) topiramate 25 MG Oral Tablet SANDER ([facility]) Sumatriptan 50 MG Oral Tablet SANDER ([facility]) Metronidazole 500 MG Oral Tablet SANDER ([facility]) Azithromycin 250 MG Oral Tablet SANDER ([facility]) topiramate 25 MG Oral Tablet SANDER ([facility]) Sumatriptan 50 MG Oral Tablet SANDER ([facility]) Metronidazole 500 MG Oral Tablet SANDER ([facility]) Azithromycin 250 MG Oral Tablet SANDER ([facility]) topiramate 25 MG Oral Tablet SANDER ([facility]) Sumatriptan 50 MG Oral Tablet SANDER ([facility]) Metronidazole 500 MG Oral Tablet SANDER ([facility]) Azithromycin 250 MG Oral Tablet SANDER ([facility]) topiramate 25 MG Oral Tablet SANDER ([facility]) Sumatriptan 50 MG Oral Tablet SANDER ([facility]) Metronidazole 500 MG Oral Tablet SANDER ([facility]) Azithromycin 250 MG Oral Tablet SANDER ([facility]) topiramate 25 MG Oral Tablet SANDER ([facility]) Sumatriptan 50 MG Oral Tablet SANDER ([facility]) Metronidazole 500 MG Oral Tablet SANDER ([facility]) Azithromycin 250 MG Oral Tablet SANDER ([facility]) topiramate 25 MG Oral Tablet SANDER ([facility]) Sumatriptan 50 MG Oral Tablet SANDER ([facility]) Metronidazole 500 MG Oral Tablet SANDER ([facility]) Azithromycin 250 MG Oral Tablet SANDER ([facility]) topiramate 25 MG Oral Tablet SANDER ([facility]) Sumatriptan 50 MG Oral Tablet SANDER ([facility]) Metronidazole 500 MG Oral Tablet SANDER ([facility]) Azithromycin 250 MG Oral Tablet SANDER ([facility]) topiramate 25 MG Oral Tablet SANDER ([facility]) Sumatriptan 50 MG Oral Tablet SANDER ([facility]) Metronidazole 500 MG Oral Tablet SANDER ([facility]) Azithromycin 250 MG Oral Tablet SANDER ([facility]) topiramate 25 MG Oral Tablet SANDER ([facility]) Sumatriptan 50 MG Oral Tablet SANDER ([facility]) Metronidazole 500 MG Oral Tablet SANDER ([facility]) Azithromycin 250 MG Oral Tablet SANDER ([facility]) topiramate 25 MG Oral Tablet SANDER ([facility]) Sumatriptan 50 MG Oral Tablet SANDER ([facility]) Metronidazole 500 MG Oral Tablet SANDER ([facility]) Azithromycin 250 MG Oral Tablet SANDER ([facility]) topiramate 25 MG Oral Tablet SANDER ([facility]) Sumatriptan 50 MG Oral Tablet SANDER ([facility]) Omeprazole 40 MG Delayed Release Oral Capsule SANDER ([facility]) topiramate 25 MG Oral Tablet SANDER ([facility]) Sumatriptan 50 MG Oral Tablet SANDER ([facility]) Metronidazole 500 MG Oral Tablet SANDER ([facility]) Azithromycin 250 MG Oral Tablet SANDER ([facility]) topiramate 25 MG Oral Tablet SANDER ([facility]) Sumatriptan 50 MG Oral Tablet SANDER ([facility]) Metronidazole 500 MG Oral Tablet SANDER ([facility]) Azithromycin 250 MG Oral Tablet SANDER ([facility]) topiramate 25 MG Oral Tablet SANDER ([facility]) Sumatriptan 50 MG Oral Tablet SANDER ([facility]) Metronidazole 500 MG Oral Tablet SANDER ([facility]) Azithromycin 250 MG Oral Tablet SANDER ([facility]) topiramate 25 MG Oral Tablet SANDER ([facility]) Sumatriptan 50 MG Oral Tablet SANDER ([facility]) Metronidazole 500 MG Oral Tablet SANDER ([facility]) Azithromycin 250 MG Oral Tablet SANDER ([facility]) topiramate 25 MG Oral Tablet SANDER ([facility]) Sumatriptan 50 MG Oral Tablet SANDER ([facility]) Metronidazole 500 MG Oral Tablet SANDER ([facility]) Azithromycin 250 MG Oral Tablet SANDER ([facility]) topiramate 25 MG Oral Tablet SANDER ([facility]) Sumatriptan 50 MG Oral Tablet SANDER ([facility]) Metronidazole 500 MG Oral Tablet SANDER ([facility]) Azithromycin 250 MG Oral Tablet SANDER ([facility])
[2021-02-09 14:23] LABS: ALT/SGPT 40 U/L (12-78); BILIRUBIN,DIRECT 0.1 MG/DL (0.0-0.2); BILIRUBIN,TOTAL 0.3 MG/DL (0.2-1.0); BLOOD UREA NITROGEN 8 MG/DL (7-18); CALCIUM LEVEL 9.2 MG/DL (8.5-10.1); CARBON DIOXIDE LEVEL 28 MEQ/L (21-32); CHLORIDE LEVEL 107 MEQ/L (98-107); CREATININE FOR GFR 1.04 MG/DL (0.70-1.30); FREE T4 0.93 NG/DL (0.76-1.46); GLOMERULAR FILTRATION RATE > 60.0 (>60); GLUCOSE, FASTING 97 MG/DL (70-100); LIPASE 311 U/L (73-393); POTASSIUM SERUM 4.2 MEQ/L (3.5-5.1); SODIUM LEVEL 140 MEQ/L (136-145); THYROID STIMULATING HORMONE 0.823 uIU/ML (0.358-3.740); TOTAL PROTEIN 7.6 GM/DL (6.4-8.2)
[2021-02-09 16:45] VITALS: BP 120/68
--- NOTE | 2021-02-11 10:13 | ECGEPIP ---
[facility] - ED Test Date: 2021-02-09 Pat Name: VIKA GIBSON Department: Room: - Gender: Male [employer]: LR : 1995 Requested By: LOLI Edmonds Order Number: [id number] Reading MD: Nato Adkins Measurements Intervals [place] Rate: 71 P: 33 NC: 168 QRS: -4 QRSD: 104 T: -24 QT: 406 QTc: 441 Interpretive Statements Normal sinus rhythm Nonspecific T wave abnormality Rate increased from tracing done 02-08-19 Electronically Signed on 02-11-2021 10:12:49 EST by Nato Adkins
--- NOTE | 2021-02-11 10:20 | ECGEPIP ---
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
== END 2021-02-09 17:10 | disposition home or self-care (01) ==
LOC: M ED 11:11
DX: R07.9 Chest pain, unspecified (principal); H53.8 Other visual disturbances; F41.9 Anxiety disorder, unspecified; F31.89 Other bipolar disorder; F17.200 Nicotine dependence, unspecified, uncomplicated

== ENCOUNTER → 2021-11-25 | Outpatient (REF) | payer OTHER ==
[~2021-11-25] MED LIST changes: +CETI-24; +DICY20TA20; +FLUTISP; +HYDR50TA70; +OMEP40CA5; +POLY510P14
[2021-11-25 17:35] LABS: RSV AMPLIFICATION NEGATIVE (NEGATIVE)
== END ==
LOC: M LAB REF 16:11
PROVIDERS: ATTEND Physician Assistant
DX: B34.9 Viral infection, unspecified (principal)

== ENCOUNTER 2024-01-31 07:00 | Emergency (ER) | payer MEDICAID, OTHER ==
[~2024-01-31] VITALS: Ht 182.9 cm; Wt 129.6 kg
[2024-01-31] MEDS: KETOROLAC 30 MG/ML 1ML VIAL IV ONE (08:31)
[2024-01-31 08:40] LABS: BASO # 0.1 10^3/uL (0.0-0.2); BASO % 0.9 % (0.0-1.0); EOS # 0.5 10^3/uL (0.0-0.5); EOS % 5.3 % (0.0-3.0); HEMATOCRIT 41.5 % (42.0-52.0); HEMOGLOBIN 13.4 g/dl (13.5-17.5); LYMPH # 2.2 10^3/uL (1.5-5.0); LYMPH % 23.3 % (24.0-44.0); MEAN CORPUSCULAR HEMOGLOBIN 28.8 pg (27.0-33.0); MEAN CORPUSCULAR HGB CONC 32.3 g/dl (32.0-36.5); MEAN CORPUSCULAR VOLUME 89.2 fl (80.0-96.0); MONO # 0.6 10^3/uL (0.0-0.8); MONO % 6.3 % (2.0-8.0); NEUTROPHILS # 5.9 10^3/uL (1.5-8.5); NEUTROPHILS % 63.5 % (36.0-66.0); PLATELET COUNT, AUTOMATED 178 10^3/uL (150-450); RED BLOOD COUNT 4.65 10^6/uL (4.30-6.10); WHITE BLOOD COUNT 9.2 10^3/uL (4.0-10.0)
[2024-01-31 09:10] LABS: ALBUMIN 3.8 G/DL (3.2-5.2); ALKALINE PHOSPHATASE 69 U/L (40-129); ALT/SGPT 27 U/L (7.0-40); AST/SGOT 18 U/L (<34); BILIRUBIN,TOTAL 0.4 MG/DL (0.3-1.2); BLOOD UREA NITROGEN 11 MG/DL (9-23); CALCIUM LEVEL 9.3 MG/DL (8.5-10.1); CARBON DIOXIDE LEVEL 28 MMOL/L (20-31); CHLORIDE LEVEL 109 MMOL/L (98-107); CREATININE FOR GFR 0.96 MG/DL (0.70-1.30); GLOMERULAR FILTRATION RATE > 60.0 (>60); GLUCOSE, FASTING 101 MG/DL (60-100); POTASSIUM SERUM 3.8 MMOL/L (3.5-5.1); SODIUM LEVEL 141 MMOL/L (136-145); TOTAL PROTEIN 7.2 G/DL (5.7-8.2)
[2024-01-31] MEDS ORDERED: ISOVUE-370 76% 100ML VIAL As Ordered ONE (09:37)
[2024-01-31] MEDS ORDERED: IBUP80TA PO (10:26)
[2024-01-31 10:35] VITALS: BP 125/78; TEMP 97.4; O2SAT 99
== END 2024-01-31 10:36 | disposition home or self-care (01) ==
LOC: M ED 07:00 → EDBD 07:00 → M ED 10:36
DX: M94.0 Chondrocostal junction syndrome [Tietze] (principal); K58.9 Irritable bowel syndrome, unspecified; R16.0 Hepatomegaly, not elsewhere classified; K76.0 Fatty (change of) liver, not elsewhere classified; Z88.8 Allergy status to other drugs, medicaments and biological substances
CPT/HCPCS: 36415; 71046; 71275; 74176; 74177; 80053; 81001; 85025; 96374; 99284; J1885; Q9967

== ENCOUNTER 2024-03-05 10:25 | Emergency (ER) | payer MEDICAID ==
[~2024-03-05] VITALS: Ht 182.9 cm; Wt 127.5 kg
[~2024-03-05 10:25] MED LIST changes: +IBUP80TA PO
[2024-03-05 12:00] LABS: KETONE, URINE AUTO RFX TRACE mg/dL (NEGATIVE); LEUKOCYTE ESTERASE UR AUTO RFX NEGATIVE (NEGATIVE)
[2024-03-05] MEDS: CYCLOBENZAPRINE 10MG TABLET PO ONE (12:44)
[2024-03-05] MEDS: ACETAMINOPHEN 500 MG TAB PO ONE (12:44)
[2024-03-05 12:48] LABS: HEPATITIS B SURFACE ANTIBODY NEGATIVE (POSITIVE); HEPATITIS B SURFACE ANTIGEN NEGATIVE (NEGATIVE); HEPATITIS C VIRUS ABY INDEX < 0.02 INDEX (<0.8); HIV 1&2 SCREEN NEGATIVE (NEGATIVE)
[2024-03-05 13:03] LABS: Trichomonas vaginalis (AMP) NOT DETECTED (NEGATIVE)
[2024-03-05 13:26] LABS: GC DNA AMPLIFICATION NEGATIVE (NEGATIVE)
[2024-03-05] MEDS ORDERED: LIDO5DIS41 TOP (13:43)
[2024-03-05] MEDS ORDERED: NAPR-837 PO (13:43)
[2024-03-05 13:55] VITALS: BP 155/88; TEMP 99; O2SAT 98
== END 2024-03-05 13:58 | disposition home or self-care (01) ==
LOC: M ED 10:25
DX: S49.91XA Unspecified injury of right shoulder and upper arm, initial encounter (principal); R19.09 Other intra-abdominal and pelvic swelling, mass and lump; W00.0XXA Fall on same level due to ice and snow, initial encounter; Y92.9 Unspecified place or not applicable; Y93.9 Activity, unspecified; Y99.9 Unspecified external cause status; I10 Essential (primary) hypertension; J45.909 Unspecified asthma, uncomplicated; R51.9 Headache, unspecified; F41.9 Anxiety disorder, unspecified; F17.200 Nicotine dependence, unspecified, uncomplicated; Z88.8 Allergy status to other drugs, medicaments and biological substances

== ENCOUNTER → 2024-03-12 | Outpatient (CLI) | payer MEDICAID ==
[~2024-03-12] MED LIST changes: +LIDO5DIS41 TOP; +NAPR-837 PO
[2024-03-12 14:28] LABS: HEMATOCRIT 43.2 % (42.0-52.0); HEMOGLOBIN 14.1 g/dl (13.5-17.5); MEAN CORPUSCULAR HEMOGLOBIN 29.3 pg (27.0-33.0); MEAN CORPUSCULAR HGB CONC 32.6 g/dl (32.0-36.5); MEAN CORPUSCULAR VOLUME 89.8 fl (80.0-96.0); PLATELET COUNT, AUTOMATED 190 10^3/uL (150-450); RED BLOOD COUNT 4.81 10^6/uL (4.30-6.10); WHITE BLOOD COUNT 11.4 10^3/uL (4.0-10.0)
[2024-03-12 14:55] LABS: ALBUMIN 4.2 G/DL (3.2-5.2); ALKALINE PHOSPHATASE 78 U/L (40-129); ALT/SGPT 36 U/L (7.0-40); AST/SGOT 30 U/L (<34); BILIRUBIN,TOTAL 0.5 MG/DL (0.3-1.2); BLOOD UREA NITROGEN 16 MG/DL (9-23); CALCIUM LEVEL 9.8 MG/DL (8.5-10.1); CARBON DIOXIDE LEVEL 29 MMOL/L (20-31); CHLORIDE LEVEL 104 MMOL/L (98-107); CHOLESTEROL LEVEL 121 MG/DL (<200); CHOLESTEROL RISK RATIO 3.59 (<5); CREATININE FOR GFR 0.89 MG/DL (0.70-1.30); GLOMERULAR FILTRATION RATE > 60.0 (>60); GLUCOSE, FASTING 92 MG/DL (60-100); HDL CHOLESTEROL 33.7 MG/DL (>40); LDL CHOLESTEROL 76.9 MG/DL (<100); NON-HDL-C 87.3 MG/DL; POTASSIUM SERUM 4.2 MMOL/L (3.5-5.1); SODIUM LEVEL 141 MMOL/L (136-145); TOTAL PROTEIN 7.7 G/DL (5.7-8.2); TRIGLYCERIDES LEVEL 52 MG/DL (<150)
[2024-03-12 15:10] LABS: HEMOGLOBIN A1c 5.3 % (4.0-6.0)
== END ==
LOC: M LAB 13:41
PROVIDERS: ATTEND Physician Assistant
DX: R73.01 Impaired fasting glucose (principal); E66.9 Obesity, unspecified; Z68.38 Body mass index [BMI] 38.0-38.9, adult; Z13.220 Encounter for screening for lipoid disorders

== ENCOUNTER → 2024-07-22 | Outpatient (REF) | payer OTHER ==
[~2024-07-22] MED LIST changes: +LIDO1ADH93 TOP; -LIDO5DIS41 TOP
== END ==
LOC: M LAB REF 17:08
PROVIDERS: ATTEND Physician Assistant
DX: B34.9 Viral infection, unspecified (principal)

== ENCOUNTER → 2024-10-03 | Outpatient (CLI) | payer OTHER | LOC: M RAD 17:09 | PROVIDERS: ATTEND Student in an Organized Health Care Education/Training Program | DX: M54.32 Sciatica, left side (principal); R20.2 Paresthesia of skin ==